=== PATIENT | female | born 1930 | race Caucasian/White ===

== ENCOUNTER 2016-08-19 12:03 | Emergency (ER) | payer OTHER, MEDICARE ==
[~2016-08-19] VITALS: Ht 175.3 cm; Wt 71.9 kg
[~2016-08-19 12:03] MED LIST: ACET-1256 PO; FERR325T74 PO; MULT-506 PO
[2016-08-19 12:09] VITALS: TEMP 36.8; Ht 175.3 cm; Wt 71.9 kg
[2016-08-19] MEDS ORDERED: SENN-61 PO (12:38)
[2016-08-19] MEDS ORDERED: SODIUM CHLORIDE 0.9% 500ML 500 ML IV STA (12:39)
[2016-08-19] MEDS ORDERED: VITA400C3 PO (12:41)
[2016-08-19 13:14] LABS: BASO % 0.3 %; BASO ABS # 0.02 K/uL (0-0.2); COMPLETE YES; EOS % 0.1 %; HEMATOCRIT 39.3 % (37-47); IG% 0.1 %; LYMPH % 13.8 %; LYMPH ABS # 0.94 K/uL (1.2-3.4); MEAN CELL VOLUME 86.9 fL (80-100); MEAN CORPUSCULAR HEMOGLOBIN 30.3 pg (25-34); MEAN CORPUSCULAR HGB CONC 34.9 g/dl (32-36); MONO % 5.9 %; NEUT % 79.8 %; PLATELET COUNT 216 K/uL (130-400); RED BLOOD COUNT 4.52 M/uL (4.2-5.4); WHITE BLOOD COUNT 6.83 K/uL (4.8-10.8)
[2016-08-19 13:30] LABS: ALT/SGPT 22 U/L (12-78); BLOOD UREA NITROGEN 9 mg/dl (7-18); BUN/CREATININE RATIO 14.7 (10-20); CALCIUM 9.5 mg/dl (8.5-10.1); CARBON DIOXIDE 27 mmol/L (21-32); CHLORIDE 98 mmol/L (98-107); CREATININE 0.62 mg/dl (0.60-1.20); GLUCOSE 109 mg/dl (70-99); MAGNESIUM 2.1 mg/dl (1.8-2.4); SODIUM 134 mmol/L (136-145)
[2016-08-19 13:38] LABS: MANUAL MICROSCOPIC REQUIRED? YES; URINE APPEARANCE SL CLOUDY (CLEAR); URINE BILIRUBIN NEG (NEG); URINE COLOR YELLOW; URINE NITRITE NEG (NEG); URINE PH 6.5 (4.5-7.5); URINE SPECIFIC GRAVITY <= 1.005 (1.000-1.030); UROBILINOGEN NEG (NEG)
[2016-08-19 13:44] LABS: REVIEW REQ? NO
[2016-08-19 13:46] LABS: ALB/GLOB RATIO 1.3 (0.9-2); ALKALINE PHOSPHATASE 56 U/L (45-117); AST/SGOT 17 U/L (15-37); THYROID STIMULATING HORMONE 0.954 uIu/ml (0.300-4.500)
[2016-08-19 14:19] LABS: URINE BACTERIA 4+ (NEG); URINE RBC 0-4 /hpf (0-4); URINE WBC >30 /hpf (0-5); ZZUR CULT IF INDIC CLEAN CATCH YES
[2016-08-19] MEDS ORDERED: CEFTRIAXONE SOD INJ 1 GM ADDVIAL IV STA (14:44)
[2016-08-19 15:03] VITALS: O2SAT 95
[2016-08-19] MEDS ORDERED: CEPH500C PO (15:03)
[2016-08-19 16:05] VITALS: BP 147/98; PULSE 76
--- NOTE | 2016-08-19 18:29 | EMERGENCY ROOM VISIT NOTE ---
History First contact with patient: 12:28 Chief Complaint: DIARRHEA Stated Complaint: DIARRHEA Nursing Triage Summary: pt reports having "incomplete stools" states I took senna about 1999 last night then drank several glasses of warm milk and then since waking his AM have had 5 loose stools , denie abdominal pain or NV History of Present Illness The patient is a 85 year old female who presents to the Emergency Room with complaints of 5 episodes of diarrhea this morning. The patient states that she has had some generalized weakness over the past few weeks. She felt like she was constipated last night and took senna around 8 PM. She went to bed, slept well, and woke up around 5 AM with her first bout of diarrhea. The patient does not have fever, chills, chest pain, shortness of breath, or abdominal pain. She states her urine has been concentrated, and she feels like she may be dehydrated. She has not been on antibiotics recently. No new medications. The patient lives at home with her . She rates her current discomfort a 0/10. The patient arrives via ambulance as she did not feel that she had enough strength to walk down the steps to get outside to her vehicle. Review of Systems More than 10 systems were reviewed and otherwise negative with the exception of history of present illness. Past Medical/Surgical History Medical Problems: (1) Benign hypertension (2) Carcinoma of colon (3) Chronic osteoarthritis (4) Colon cancer (5) Hyperlipidemia (6) lysis of adhesions (7) Partial colectomy Surgical Problems: (1) S/P hip replacement Family History Cancer Social History Smoking Status: Never Smoker Alcohol Use: none Drug Use: none Marital Status: Housing Status: lives with significant other Occupation Status: retired Current/Historical Medications Scheduled Cephalexin Monohydrate (Keflex), 500 MG PO TID Multivitamin (Multivitamin), 1 TAB PO DAILY Vitamin E (Vitamin E 400 Iu), 400 INTER.UNIT PO DAILY Scheduled PRN Acetaminophen (Tylenol), 500 TAB PO Q8 PRN for Pain or Fever Senna (Senokot), 2 TAB PO DAILY PRN for Constipation Allergies Coded Allergies: Sulfa Drugs (Verified Allergy, Mild, HIVES, 08/19/16) Aspirin (Verified Adverse Reaction, Mild, SICK TO STOMACH, 08/19/16) Physical Exam Vital Signs Date Time Temp Pulse Resp B/P Pulse Ox O2 Delivery O2 Flow Rate FiO2 08/19/16 16:05 76 147/98 08/19/16 15:03 66 18 170/77 95 08/19/16 13:17 61 18 163/75 93 Room Air 08/19/16 12:09 36.8 73 18 171/82 94 Room Air Physical Exam VITALS: Vitals are noted on the nurse's note and reviewed by myself. Vital signs stable. GENERAL: Well-developed, well-nourished, elderly white female who is resting comfortably in her ER bed. She is not toxic and is cooperative. HEAD: Normocephalic atraumatic. HEART: Regular rate and rhythm with 2/6 systolic murmur LUNGS: Clear to auscultation bilaterally without wheezes, rales or rhonchi. No retractions or accessory muscle use. ABDOMEN: Positive normal bowel sounds x 4. Soft, nontender, without masses or organomegaly. No guarding or rebound tenderness. MUSCULOSKELETAL: No muscle atrophy, erythema, or edema noted. Full range of motion without joint tenderness in all extremities. NEURO: Patient was alert and oriented to person place and time. CN II through XII grossly intact. Medical Decision & Procedures Laboratory Results 08/19/16 13:00 Red Blood Count 4.52, Mean Corpuscular Volume 86.9, Mean Corpuscular Hemoglobin 30.3, Mean Corpuscular Hemoglobin Concent 34.9, Mean Platelet Volume 10.0, Neutrophils (%) (Auto) 79.8, Lymphocytes (%) (Auto) 13.8, Monocytes (%) (Auto) 5.9, Eosinophils (%) (Auto) 0.1, Basophils (%) (Auto) 0.3, Neutrophils # (Auto) 5.45, Lymphocytes # (Auto) 0.94, Monocytes # (Auto) 0.40, Eosinophils # (Auto) 0.01, Basophils # (Auto) 0.02 08/19/16 13:00 Test 08/19/16 13:00 White Blood Count 6.83 K/uL (4.8-10.8) Red Blood Count 4.52 M/uL (4.2-5.4) Hemoglobin 13.7 g/dL (12.0-16.0) Hematocrit 39.3 % (37-47) Mean Corpuscular Volume 86.9 fL (80-100) Mean Corpuscular Hemoglobin 30.3 pg (25-34) Mean Corpuscular Hemoglobin Concent 34.9 g/dl (32-36) Platelet Count 216 K/uL (130-400) Mean Platelet Volume 10.0 fL (7.4-10.4) Neutrophils (%) (Auto) 79.8 % Lymphocytes (%) (Auto) 13.8 % Monocytes (%) (Auto) 5.9 % Eosinophils (%) (Auto) 0.1 % Basophils (%) (Auto) 0.3 % Neutrophils # (Auto) 5.45 K/uL (1.4-6.5) Lymphocytes # (Auto) 0.94 K/uL (1.2-3.4) Monocytes # (Auto) 0.40 K/uL (0.11-0.59) Eosinophils # (Auto) 0.01 K/uL (0-0.5) Basophils # (Auto) 0.02 K/uL (0-0.2) RDW Standard Deviation 43.7 fL (36.4-46.3) RDW Coefficient of Variation 13.7 % (11.5-14.5) Immature Granulocyte % (Auto) 0.1 % Immature Granulocyte # (Auto) 0.01 K/uL (0.00-0.02) Urine Color YELLOW Urine Appearance SL CLOUDY (CLEAR) Urine pH 6.5 (4.5-7.5) Urine Specific [place] <= 1.005 (1.000-1.030) Urine Protein NEG (NEG) Urine Glucose (UA) NEG (NEG) Urine Ketones TRACE (NEG) Urine Occult Blood TRACE (NEG) Urine Nitrite NEG (NEG) Urine Bilirubin NEG (NEG) Urine Urobilinogen NEG (NEG) Urine Leukocyte Esterase LARGE (NEG) Urine RBC 0-4 /hpf (0-4) Urine WBC >30 /hpf (0-5) Urine Epithelial Cells 5-10 /lpf (0-5) Urine Bacteria 4+ (NEG) Anion Gap 9.0 mmol/L (3-11) Est Creatinine Clear Calc Drug Dose 69.4 ml/min Estimated GFR () 95.3 Estimated GFR (Non- 82.2 BUN/Creatinine Ratio 14.7 (10-20) Calcium Level 9.5 mg/dl (8.5-10.1) Magnesium Level 2.1 mg/dl (1.8-2.4) Total Bilirubin 0.6 mg/dl (0.2-1) Aspartate Amino Transf (AST/SGOT) 17 U/L (15-37) Alanine Aminotransferase (ALT/SGPT) 22 U/L (12-78) Alkaline Phosphatase 56 U/L (45-117) Total Creatine Kinase 109 U/L (26-192) Creatine Kinase MB 3.3 ng/ml (0.5-3.6) Creatine Kinase MB Ratio 3.0 (0-3.0) Troponin I < 0.015 ng/ml (0-0.045) Total Protein 7.3 gm/dl (6.4-8.2) Albumin 4.1 gm/dl (3.4-5.0) Globulin 3.2 gm/dl (2.5-4.0) Albumin/Globulin Ratio 1.3 (0.9-2) Thyroid Stimulating Hormone (TSH) 0.954 uIu/ml (0.300-4.500) Medications Administered Medications (Trade) Dose Ordered Sig/Jennifer Route Start Time Stop Time Status Last Admin Dose Admin Sodium Chloride (Nss 500ml) 500 ml @ 500 mls/hr Q1H STAT IV 08/19/16 12:39 08/19/16 13:38 DC 08/19/16 12:39 500 MLS/HR Ceftriaxone Sodium (Rocephin Inj) 1 gm NOW STAT IV 08/19/16 14:44 08/19/16 14:45 DC 08/19/16 15:02 1 GM ECG Change: Normal sinus rhythm at 66 bpm with sinus arrhythmia Normal ECG When compared with ECG of 10-JUL-2015 08:33, Premature supraventricular complexes are no longer Present ED Course Physical exam and history were performed. Nursing notes and EMR were reviewed. Patient appears to have had multiple episodes of diarrhea after taking Senokot late last evening. She does not appear toxic on examination. She does describe some vague weakness over the past few weeks, and because of his IV access was established and labs were obtained. The patient was gently hydrated with normal saline. We attempted to collect a stool sample, but the patient was not able to provide one after several hours of emergency department care. The patient's blood work is as above and was reviewed. She does not have a significantly elevated white blood cell count, anemia, bandemia, or gross electrolyte imbalance. Her urine is highly suggestive of a UTI, and the patient was given 1 g IV Rocephin here as well as a prescription for Keflex for home use. Troponin 1 is negative. Her other labs are nondiagnostic. Overall the patient does appear stable for discharge home. Her diarrhea symptoms are almost assuredly from taking Senokot last evening. I discussed the case with my attending physician, Dr. Barrera, who also independently evaluated the patient. My concern is that the patient seems be having a slow and steady decline in her ability to perform her activities of daily living. She is generally healthy, and does continue to live at home independently with her . The patient has difficulty getting in and out of the house because the front entrance require her to ambulate up and down 12 stairs. In the warmer months the patient is able to exit out the back door of her home, which only requires her to go down a single stair. Her is able to pull the truck behind the house by driving through the grass, and she is essentially able to get directly into his vehicle. She is not able to do this in the winter with the snow. The patient may benefit from home health care, and possibly home physical therapy to help with some of her conditioning. She may also be a good candidate for office of aging support. The hope would be to have her remain as independent as possible, which again I feel is slowly becoming more challenging for her. I discussed this with the case management coordinator here in the ER, and we will try to get some of these services started from here. Please see the case management coordinator's note for specifics of their discussion.. The patient will need to follow with her PCP on Sunday or Sunday after the weekend, and we will help facilitate this as well. The patient was pleased with this plan and voiced understanding. She was invited back to the emergency department anytime with any new, worsening, or concerning symptoms. The chart was completed utilizing [employer] Speech Voice Recognition Software. Grammatical errors, random word insertions, pronoun errors, and incomplete sentences are an occasional consequence of this system due to software limitations, ambient noise, and hardware issues. Any formal questions or concerns about the content, text, or information contained within the body of this dictation should be directly addressed to the provider for clarification. . Medical Decision Differential diagnosis: Etiologies such as metabolic, infection, hypo/hyperglycemia, electrolyte abnormalities, cardiac sources, intracerebral event, toxicologic, neurologic, as well as others were entertained. Impression Primary Impression: Urinary tract infection Additional Impression: Diarrhea Departure Information Dispostion Home / Self-Care Condition GOOD Prescriptions Cephalexin Monohydrate (Keflex) 500 Mg Cap 500 MG PO TID for 7 Days, #21 CAP Prov: Srinivas Lantigua PA-C 08/19/16 Forms HOME CARE DOCUMENTATION FORM, IMPORTANT VISIT INFORMATION Patient Instructions My [facility] Additional Instructions You were seen and evaluated today on an emergency basis only. This is not a substitute for, or an effort to provide, complete comprehensive medical care. It is not possible to recognize and treat all injuries or illnesses in a single emergency department visit. For this reason it is recommended that you followup with your primary care physician this week for ongoing care and evaluation. Our skilled nursing case manager will try to help facilitate making this appointment for you. Cephalexin(Keflex) 500mg: Take one pill 3 times daily for 7 days for your urine infection. All antibiotics can cause diarrhea. If this occurs and you feel worse or it does not resolve in 1-2 days follow up with your doctor or return to the Emergency Department as this could be signs of serious underlying problems. Any medication can cause an allergic reaction, stop the pills immediately and return to the ER for rash, hives, breathing difficulties, or swelling. You are welcome to return to the emergency department anytime with new, worsening, or concerning symptoms. Problem Qualifiers
--- NOTE | 2016-08-21 11:51 | Pharmacy Progress Note ---
ED Pharmacist Culture FollowUp Date of Service: Aug 21, 2016. Patient was sent home with a prescription for Keflex 500mg PO TID x 7 days, which should cover the Klebsiella pneumoniae growing from the patient's urine culture.
[2016-11-29] MEDS ORDERED: SRQ25 PO (11:48)
[2016-11-29] MEDS ORDERED: LXP10 PO (11:48)
[2017-02-02] MEDS ORDERED: MGCUDL400 PO (10:49)
[2017-02-02] MEDS ORDERED: XNX25 PO (10:49)
[2017-02-02] MEDS ORDERED: EFFSR75 PO (10:49)
[2017-02-02] MEDS ORDERED: RMR15 PO (10:49)
[2017-02-02] MEDS ORDERED: CPR500 PO (10:49)
[2017-02-02] MEDS ORDERED: LSN25 PO (10:49)
[2017-02-02] MEDS ORDERED: Boost PO (10:49)
== END 2016-08-19 16:39 | disposition home or self-care (01) ==
LOC: EDBD 12:03 → C.EDC 12:04
DX: N39.0 Urinary tract infection, site not specified (principal); R19.7 Diarrhea, unspecified; I10 Essential (primary) hypertension; E78.5 Hyperlipidemia, unspecified; Z85.038 Personal history of other malignant neoplasm of large intestine

== ENCOUNTER 2016-10-21 09:09 | Emergency (ER) | payer OTHER, MEDICARE ==
[~2016-10-21 09:09] MED LIST changes: -FERR325T74 PO; +SENN-61 PO; +VITA400C3 PO
[2016-10-21 09:14] VITALS: TEMP 36.7; Ht 175.3 cm
[2016-10-21] MEDS ORDERED: MBC75 PO (09:39)
--- NOTE | 2016-10-21 09:43 | EMERGENCY ROOM VISIT NOTE ---
ED Visit Note First contact with patient: 09:19 Patient was seen by our PA/STAGE BUILDER. I was involved in the patient's care and did evaluate the patient myself. I was involved in the care throughout the ER stay. The patient has laryngitis. She has done well in the past on low dose steroids. She is not toxic or febrile. She is being discharged home.
[2016-10-21] MEDS ORDERED: PRED20TA2 PO (10:00)
[2016-10-21 10:21] VITALS: BP 172/99; PULSE 78; O2SAT 95
--- NOTE | 2016-11-02 09:26 | EMERGENCY ROOM VISIT NOTE ---
History First contact with patient: 09:19 Chief Complaint: THROAT PAIN/INJURY Stated Complaint: HEAD/THROAT COLD History of Present Illness The patient is a 85 year old white female who presents to the Emergency Room with complaints of throat discomfort since . She denies any fevers, chills, or sweats. She has been mildly dizzy. She feels somewhat congested. She notes clear rhinorrhea and some postnasal drip. She feels as though her voice is getting somewhat hoarse. She has had this in the past. Redness on his work well for her in the past. She has not contacted her PCP yet. She denies any nausea, vomiting, diarrhea, or abdominal pain. No cough. No shortness of breath. No other treatment. Review of Systems REVIEW OF SYSTEM: HEENT: No visual problems, hearing loss, or tinnitus. There is no difficulty swallowing and no oral lesions are present. PULMONARY: No cough, shortness of breath, sputum production or hemoptysis. CARDIOVASCULAR: No chest pain, palpitations, shortness of breath or peripheral edema. GASTROINTESTINAL: No diarrhea, constipation, nausea, vomiting, or abdominal pain. GENITOURINARY: No dysuria, frequency, urgency or nocturia. NEUROLOGIC: No weakness, muscle tenderness, epilepsy or history of neurological problems. MUSCULOSKELETAL: No history of joint tenderness/swelling. Positive history of arthritis and arthralgias. SKIN: No rashes or lesions. PSYCHIATRIC: No history of depression or mental illness. ENDOCRINE: No history of diabetes, thyroid disorders, or abnormal hair growth. Past Medical/Surgical History Medical Problems: (1) Benign hypertension (2) Carcinoma of colon (3) Chronic osteoarthritis (4) Colon cancer (5) Hyperlipidemia (6) lysis of adhesions (7) Partial colectomy Surgical Problems: (1) S/P hip replacement Family History Cancer Social History Smoking Status: Never Smoker Smokeless Tobacco Use: No Alcohol Use: none Drug Use: none Marital Status: Housing Status: lives with significant other Occupation Status: retired Current/Historical Medications Scheduled Azithromycin (Zithromax Z-Malcom), 1 PKT PO UD Meloxicam (Meloxicam), 1 TAB PO DAILY Prednisone (Prednisone Tab), 20 MG PO DAILY Allergies Coded Allergies: Sulfa Drugs (Verified Allergy, Mild, HIVES, 10/29/16) Aspirin (Verified Adverse Reaction, Mild, SICK TO STOMACH, 10/29/16) Physical Exam Vital Signs Date Time Temp Pulse Resp B/P (MAP) Pulse Ox O2 Delivery O2 Flow Rate FiO2 10/21/16 10:21 78 20 172/99 95 10/21/16 09:14 36.7 77 20 134/80 97 Room Air Pain Rating (0-10): 0 Physical Exam Gen.: Frail, elderly white female, in no acute distress. Sitting on a bed. Alert and oriented. Skin:Warm and dry with fair turgor. No rashes or lesions. No ecchymosis or erythema. The patient is not diaphoretic. No abrasions. HEENT: Normocephalic atraumatic. Eyes PERRLA, EOMI. No conjunctiva or scleral injection. Ears TMs intact bilaterally with good light reflexes. No erythema or bulging. No hemotympanum. Canals are patent. Nares patent bilaterally without turbinate enlargement. Clear nasal drainage. No epistaxis. Oropharynx without erythema or exudate. Uvula midline, oral mucosa moist. No lesions present. Postnasal drip is noted. Lymphatics are palpated without anterior or posterior chain enlargement or tenderness. Heart: Heart RRR. No MGR. Peripheral pulses are 2+. Lungs: Lungs are clear to auscultation. No crackles rhonchi or wheezing. Good air movement. The patient is able to take a deep breath. Musculoskeletal: Gross motor function of the upper and lower extremities is intact and unremarkable. Medical Decision & Procedures ED Course Patient and her were educated regarding today's findings. Conservative care measures were discussed. She is unable to take traditional mucolytic's due to hypertension. I will start her on some prednisone for the next few days. Maintain hydration. Tylenol every 6 hours as needed for discomfort. We will avoid Motrin due to her age. I do not think lab work is necessary at this point. Symptoms are mild. She has no respiratory symptoms and does not require imaging. If symptoms become worse, follow-up with the ED or follow up with her PCP, Dr. Rogers, this week. Patient was seen in conjunction with Dr. Atkinson, who also evaluated the patient and concurred with today's diagnosis and treatment plan. Medical Decision Possibility of viral upper respiratory infection, bacterial upper respiratory infection, strep throat, otitis media, bronchitis, pneumonia, and laryngitis were considered among others. Impression Primary Impression: Laryngitis Departure Information Dispostion Home / Self-Care Condition GOOD Forms WORK / SCHOOL INSTRUCTIONS, HOME CARE DOCUMENTATION FORM, TYLENOL USE, IMPORTANT VISIT INFORMATION Patient Instructions My Receptor Additional Instructions Tylenol every 6 hours as needed for discomfort Prednisone once daily for 5 days Follow-up with Dr. Rogers this week for reexamination Return to the ED for any other concerns Maintain hydration
[2016-11-29] MEDS ORDERED: LXP10 PO (11:48)
[2016-11-29] MEDS ORDERED: SRQ25 PO (11:48)
[2017-02-02] MEDS ORDERED: EFFSR75 PO (10:49)
[2017-02-02] MEDS ORDERED: MGCUDL400 PO (10:49)
[2017-02-02] MEDS ORDERED: Boost PO (10:49)
[2017-02-02] MEDS ORDERED: LSN25 PO (10:49)
[2017-02-02] MEDS ORDERED: XNX25 PO (10:49)
[2017-02-02] MEDS ORDERED: RMR15 PO (10:49)
[2017-02-02] MEDS ORDERED: CPR500 PO (10:49)
== END 2016-10-21 10:22 | disposition home or self-care (01) ==
LOC: C.EDB 09:10 → C.EDA 10:22
DX: J04.0 Acute laryngitis (principal); I10 Essential (primary) hypertension; Z85.038 Personal history of other malignant neoplasm of large intestine; M19.90 Unspecified osteoarthritis, unspecified site; E78.5 Hyperlipidemia, unspecified; Z90.49 Acquired absence of other specified parts of digestive tract; Z96.649 Presence of unspecified artificial hip joint; Z80.9 Family history of malignant neoplasm, unspecified; Z79.899 Other long term (current) drug therapy

== ENCOUNTER 2016-10-29 08:31 | Emergency (ER) | payer OTHER, MEDICARE ==
[~2016-10-29] VITALS: Ht 172.7 cm; Wt 73.6 kg
[~2016-10-29 08:31] MED LIST changes: -ACET-1256 PO; +MBC75 PO; -MULT-506 PO; -SENN-61 PO; -VITA400C3 PO
[2016-10-29 08:32] VITALS: TEMP 36.8; Ht 172.7 cm; Wt 73.6 kg
[2016-10-29] MEDS ORDERED: HYDROCODONE/HOMATROPINE SYRUP 5MG/1.5MG 5ML UDP PO STA (09:18)
[2016-10-29] MEDS ORDERED: ALBUT/IPRATROP 3MG/0.5MG NEB 3 ML VIAL INH STA (09:18)
--- NOTE | 2016-10-29 09:20 | EMERGENCY ROOM VISIT NOTE ---
History Report prepared by Torrie: Adonis Milton Under the Supervision of: Dr. Charli Smith M.D. First contact with patient: 09:13 Chief Complaint: COUGH Stated Complaint: CONSTANT COUGHING PROBLEM Nursing Triage Summary: pt reports cough 2 weeks tx here and given a steroid while here cont with cough states I couldnt sleep last night History of Present Illness The patient is an 85 year old female who presents to the Emergency Room with complaints of persistent coughing for the past two weeks. She was seen here last week and treated with steroids but not antibiotics. The patient's cough has persisted. She could not sleep last night secondary to cough. The patient denies fevers, syncope, leg pain or swelling. She notes that "she feels pressure on her insides" when she coughs, as she points to her chest and abdomen. She is feeling somewhat dizzy. The patient is not a smoker and there are no smokers in her household. Source of History: patient Onset: two weeks ago Position: other (respiratory) Quality: other (cough) Timing: other (persistent) Associated Symptoms: + abdominal pain (with cough), + chest pain (with cough ), No fevers Note: + Dizziness. Review of Systems See HPI for pertinent positives & negatives. A total of 10 systems reviewed and were otherwise negative. Past Medical & Surgical Medical Problems: (1) Benign hypertension (2) Carcinoma of colon (3) Chronic osteoarthritis (4) Colon cancer (5) Hyperlipidemia (6) lysis of adhesions (7) Partial colectomy Surgical Problems: (1) S/P hip replacement Family History Cancer Social History Smoking Status: Never Smoker Alcohol Use: none Drug Use: none Marital Status: Housing Status: lives with significant other Occupation Status: retired Current/Historical Medications Scheduled Azithromycin (Zithromax Z-Malcom), 1 PKT PO UD Meloxicam (Meloxicam), 1 TAB PO DAILY Prednisone (Prednisone Tab), 20 MG PO DAILY Allergies Coded Allergies: Sulfa Drugs (Verified Allergy, Mild, HIVES, 10/29/16) Aspirin (Verified Adverse Reaction, Mild, SICK TO STOMACH, 10/29/16) Physical Exam Vital Signs Date Time Temp Pulse Resp B/P Pulse Ox O2 Delivery O2 Flow Rate FiO2 10/29/16 11:43 88 20 162/86 95 10/29/16 10:33 63 20 143/88 99 10/29/16 08:54 61 16 147/75 98 Room Air 10/29/16 08:32 36.8 77 18 137/76 97 Room Air Physical Exam GENERAL: Patient is anxious appearing and in mild distress. HEENT: No acute trauma, normocephalic atraumatic, mucous membranes moist, no nasal congestion, no scleral icterus. NECK: No stridor, no adenopathy, no meningismus, trachea is midline. LUNGS: No dyspnea. Clear to auscultation and equal bilaterally. No wheeze, no rhonchi. HEART: Regular rate and rhythm. No murmurs, rubs, gallops appreciated. ABDOMEN: Soft, nontender, bowel sounds positive, no masses appreciated, no peritonitis. BACK: No midline tenderness, no CVA tenderness EXTREMITIES: Normal motion all extremities, no cyanosis, no edema. NEUROLOGIC: Alert and oriented, no acute motor or sensory deficits, no focal weakness, cranial nerves grossly intact. SKIN: No rash, no jaundice, no diaphoresis. Medical Decision & Procedures ER Provider Diagnostic Interpretation: X ray results are stated below per my interpretation and the radiologist's interpretation. CHEST ONE VIEW PORTABLE CLINICAL HISTORY: Chest pain. Cough. COMPARISON STUDY: Chest radiograph July 10, 2015. FINDINGS: Lung volumes are normal. There is no pneumothorax or pleural effusion. Cardiac size is normal. Mediastinal contours are normal. There is no evidence of pulmonary edema. IMPRESSION: No acute cardiopulmonary findings. Electronically signed by: Tomas Bond M.D. 10/29/2016 9:34 AM Dictated Date/Time: 10/29/2016 9:33 AM Laboratory Results 10/29/16 09:50 Red Blood Count 4.52, Mean Corpuscular Volume 87.4, Mean Corpuscular Hemoglobin 29.9, Mean Corpuscular Hemoglobin Concent 34.2, Mean Platelet Volume 9.4, Neutrophils (%) (Auto) 57.9, Lymphocytes (%) (Auto) 31.3, Monocytes (%) (Auto) 9.4, Eosinophils (%) (Auto) 0.7, Basophils (%) (Auto) 0.5, Neutrophils # (Auto) 2.54, Lymphocytes # (Auto) 1.37, Monocytes # (Auto) 0.41, Eosinophils # (Auto) 0.03, Basophils # (Auto) 0.02 10/29/16 09:50 Test 10/29/16 09:50 White Blood Count 4.38 K/uL (4.8-10.8) Red Blood Count 4.52 M/uL (4.2-5.4) Hemoglobin 13.5 g/dL (12.0-16.0) Hematocrit 39.5 % (37-47) Mean Corpuscular Volume 87.4 fL (80-100) Mean Corpuscular Hemoglobin 29.9 pg (25-34) Mean Corpuscular Hemoglobin Concent 34.2 g/dl (32-36) Platelet Count 250 K/uL (130-400) Mean Platelet Volume 9.4 fL (7.4-10.4) Neutrophils (%) (Auto) 57.9 % Lymphocytes (%) (Auto) 31.3 % Monocytes (%) (Auto) 9.4 % Eosinophils (%) (Auto) 0.7 % Basophils (%) (Auto) 0.5 % Neutrophils # (Auto) 2.54 K/uL (1.4-6.5) Lymphocytes # (Auto) 1.37 K/uL (1.2-3.4) Monocytes # (Auto) 0.41 K/uL (0.11-0.59) Eosinophils # (Auto) 0.03 K/uL (0-0.5) Basophils # (Auto) 0.02 K/uL (0-0.2) RDW Standard Deviation 45.1 fL (36.4-46.3) RDW Coefficient of Variation 14.1 % (11.5-14.5) Immature Granulocyte % (Auto) 0.2 % Immature Granulocyte # (Auto) 0.01 K/uL (0.00-0.02) Anion Gap 4.0 mmol/L (3-11) Est Creatinine Clear Calc Drug Dose 61.0 ml/min Estimated GFR () 92.4 Estimated GFR (Non- 79.8 BUN/Creatinine Ratio 11.1 (10-20) Calcium Level 8.9 mg/dl (8.5-10.1) Troponin I < 0.015 ng/ml (0-0.045) Laboratory results as reviewed by me. Medications Administered Medications (Trade) Dose Ordered Sig/Jennifer Route Start Time Stop Time Status Last Admin Dose Admin Hydrocodone Bit/ Homatropine Methylb (Hycodan Syrup) 5 ml NOW STAT PO 10/29/16 09:18 10/29/16 09:19 DC 10/29/16 09:37 5 ML Albuterol/ Ipratropium (Duoneb) 3 ml NOW STAT INH 10/29/16 09:18 10/29/16 09:19 DC 10/29/16 09:37 3 ML Hydrocodone Bit/ Homatropine Methylb (Hycodan Elix Homepack 5/1.5MG/ 5ML) 1 homepack UD STAT PO 10/29/16 11:10 10/29/16 11:11 DC 10/29/16 11:24 1 HOMEPACK Azithromycin (Zithromax Tab) 500 mg NOW STAT PO 10/29/16 11:10 10/29/16 11:11 DC 10/29/16 11:25 500 MG Prednisone (PredniSONE TAB) 40 mg NOW STAT PO 10/29/16 11:10 10/29/16 11:11 DC 10/29/16 11:24 40 MG ECG Indication: chest pain (with cough) Rate (beats per minute): 64 Rhythm: normal sinus Findings: no acute ischemic change, no ectopy ED Course 0915: The patient was evaluated in room C9. A complete history and physical exam was performed. 0918: DuoNeb 3 ml INH, Hycodan Syrup 5 ml PO. 1108: Reassessed the patient. Discussed the findings with her. She verbalized understanding. The patient is ready for discharge. 1110: Prednisone 40 mg PO, Zithromax 500 mg PO, Hycodan 5/1.5 mg PO homepack. Medical Decision Differential: Infectious, Reactive Airway Disease, Pneumonia, Pneumothorax, COPD , CHF, ACS, Pulmonary Embolism, MSK, GI, Dissection, amongst other etiologies entertained. Medication Reconciliation: I attest that I have personally reviewed the patient 's current medication list. 85 yr old female arrives with complaint of persistent cough worsening over last day to point where she can not sleep. Lungs clear but requesting neb treatment which seems reasonable to see if that helps with cough. Given Hycodan as well which helped significantly. Stable with normal imaging, normal labs. No evidence of ACS. Vitals normal. Discussed CT PE study though with no further symptoms and normal vitals family feels comfortable with avoiding imaging given risks, especially given with similar symptoms just last week. No PE risk factors either. Will treat with zpack and repeat steroids and home hycodan. Discussed risks of hycodan. Without wheezing I do not feel that neb or alb at home is required. Aware if worsening or other concerns, RTED for further evaluation. Have requested patient follow up with PCP later this week. Family comfortable with this. Impression Primary Impression: Bronchitis Additional Impression: Persistent cough Scribe Attestation The scribe's documentation has been prepared under my direction and personally reviewed by me in its entirety. I confirm that the note above accurately reflects all work, treatment, procedures, and medical decision making performed by me. Departure Information Dispostion Home / Self-Care Prescriptions Azithromycin (ZITHROMAX Z-MALCOM) 250 Mg Tab 1 PKT PO UD, #1 PKT Prov: Charli Smith M.D. 10/29/16 Prednisone (Prednisone Tab) 20 Mg Tab 20 MG PO DAILY for 5 Days, #5 TAB Prov: Charli Smith M.D. 10/29/16 Referrals No Doctor, Assigned (PCP) Forms HOME CARE DOCUMENTATION FORM, IMPORTANT VISIT INFORMATION Patient Instructions Bronchitis Acute, My [facility] Additional Instructions You have received a narcotic cough medication prescription. These medications may cause drowsiness and should not be used with other sedative medications. Do not drive, drink alcohol, perform dangerous activities, nor make important decisions after taking these medications. longterm use or inappropriate use may lead to addiction. Problem Qualifiers
--- NOTE | 2016-10-29 09:35 | DIAGNOSTIC IMAGING REPORT ---
CHEST ONE VIEW PORTABLE CLINICAL HISTORY: Chest pain. Cough. COMPARISON STUDY: Chest radiograph July 10, 2015. FINDINGS: Lung volumes are normal. There is no pneumothorax or pleural effusion. Cardiac size is normal. Mediastinal contours are normal. There is no evidence of pulmonary edema. IMPRESSION: No acute cardiopulmonary findings. Electronically signed by: Tomas Bond M.D. 10/29/2016 9:34 AM Dictated Date/Time: 10/29/2016 9:33 AM
[2016-10-29 10:12] LABS: BASO % 0.5 %; BASO ABS # 0.02 K/uL (0-0.2); COMPLETE YES; EOS % 0.7 %; HEMATOCRIT 39.5 % (37-47); IG% 0.2 %; LYMPH % 31.3 %; LYMPH ABS # 1.37 K/uL (1.2-3.4); MEAN CELL VOLUME 87.4 fL (80-100); MEAN CORPUSCULAR HEMOGLOBIN 29.9 pg (25-34); MEAN CORPUSCULAR HGB CONC 34.2 g/dl (32-36); MEAN PLATELET VOLUME 9.4 fL (7.4-10.4); MONO % 9.4 %; NEUT % 57.9 %; PLATELET COUNT 250 K/uL (130-400); RED BLOOD COUNT 4.52 M/uL (4.2-5.4); WHITE BLOOD COUNT 4.38 K/uL (4.8-10.8)
[2016-10-29 10:40] LABS: BLOOD UREA NITROGEN 8 mg/dl (7-18); BUN/CREATININE RATIO 11.1 (10-20); CALCIUM 8.9 mg/dl (8.5-10.1); CARBON DIOXIDE 30 mmol/L (21-32); CHLORIDE 99 mmol/L (98-107); CREATININE 0.68 mg/dl (0.60-1.20); GLUCOSE 92 mg/dl (70-99)
[2016-10-29 10:45] LABS: POTASSIUM 4.2 mmol/L (3.5-5.1); SODIUM 133 mmol/L (136-145)
[2016-10-29] MEDS ORDERED: AZITTAB PO (11:09)
[2016-10-29] MEDS ORDERED: PRED20TA2 PO (11:09)
[2016-10-29] MEDS ORDERED: HYCODAN 60ML BOTTLE HOMEPACK PO STA (11:10)
[2016-10-29] MEDS ORDERED: AZITHROMYCIN 250 MG TAB PO STA (11:10)
[2016-10-29 11:43] VITALS: BP 162/86; PULSE 88; O2SAT 95
[2016-11-29] MEDS ORDERED: SRQ25 PO (11:48)
[2016-11-29] MEDS ORDERED: LXP10 PO (11:48)
[2017-02-02] MEDS ORDERED: RMR15 PO (10:49)
[2017-02-02] MEDS ORDERED: MGCUDL400 PO (10:49)
[2017-02-02] MEDS ORDERED: EFFSR75 PO (10:49)
[2017-02-02] MEDS ORDERED: XNX25 PO (10:49)
[2017-02-02] MEDS ORDERED: LSN25 PO (10:49)
[2017-02-02] MEDS ORDERED: CPR500 PO (10:49)
[2017-02-02] MEDS ORDERED: Boost PO (10:49)
== END 2016-10-29 11:47 | disposition home or self-care (01) ==
LOC: C.EDB 08:32 → C.EDC 11:47
DX: J40 Bronchitis, not specified as acute or chronic (principal); I10 Essential (primary) hypertension; Z85.038 Personal history of other malignant neoplasm of large intestine; E78.5 Hyperlipidemia, unspecified; Z90.49 Acquired absence of other specified parts of digestive tract; Z96.649 Presence of unspecified artificial hip joint; M19.90 Unspecified osteoarthritis, unspecified site; Z80.9 Family history of malignant neoplasm, unspecified; Z79.899 Other long term (current) drug therapy

== ENCOUNTER → 2016-11-20 | Outpatient (CLI) | payer OTHER, MEDICARE ==
[~2016-11-20] MED LIST changes: +ACET-1256 PO; +Boost PO; +CPR500 PO; +EFFSR75 PO; +ESCI1TAB6 PO; +LSN25 PO; +LXP10 PO; +MELA1TAB5 PO; +MGCUDL400 PO; +MULT-845 PO; +PARO10TA PO; +PRED20TA2 PO; +RMR15 PO; +SRQ25 PO; +XNX25 PO
[2016-11-20 17:35] LABS: BASO % 0.5 %; BASO ABS # 0.02 K/uL (0-0.2); COMPLETE YES; EOS % 1.3 %; HEMATOCRIT 39.9 % (37-47); LYMPH ABS # 1.36 K/uL (1.2-3.4); MEAN CELL VOLUME 88.3 fL (80-100); MEAN CORPUSCULAR HEMOGLOBIN 29.4 pg (25-34); MEAN CORPUSCULAR HGB CONC 33.3 g/dl (32-36); MEAN PLATELET VOLUME 10.2 fL (7.4-10.4); NEUT % 54.2 %; PLATELET COUNT 244 K/uL (130-400); RED BLOOD COUNT 4.52 M/uL (4.2-5.4); WHITE BLOOD COUNT 3.89 K/uL (4.8-10.8)
[2016-11-20 17:44] LABS: ALT/SGPT 23 U/L (12-78); AST/SGOT 15 U/L (15-37); BLOOD UREA NITROGEN 8 mg/dl (7-18); BUN/CREATININE RATIO 13.8 (10-20); CALCIUM 8.6 mg/dl (8.5-10.1); CARBON DIOXIDE 26 mmol/L (21-32); CHLORIDE 97 mmol/L (98-107); GLUCOSE 103 mg/dl (70-99); POTASSIUM 3.8 mmol/L (3.5-5.1); SODIUM 130 mmol/L (136-145)
[2016-11-20 17:55] LABS: ALB/GLOB RATIO 1.2 (0.9-2); ALKALINE PHOSPHATASE 54 U/L (45-117); THYROID STIMULATING HORMONE 0.981 uIu/ml (0.300-4.500)
== END | disposition home or self-care (01) ==
LOC: C.LABBFT 13:59
PROVIDERS: ATTEND Internal Medicine
DX: E55.9 Vitamin D deficiency, unspecified (principal); C18.9 Malignant neoplasm of colon, unspecified; F41.9 Anxiety disorder, unspecified

== ENCOUNTER 2016-11-26 10:36 | Inpatient (IN) | payer OTHER, MEDICARE ==
[2016-11-26] VITALS (7 sets, daily range): BP systolic 139–173; BP diastolic 65–76; PULSE 56–65; TEMP 36.2–36.9; O2SAT 92–100; Ht 175.3 cm; Wt 61.7 kg
[~2016-11-26] VITALS: Ht 175.3 cm; Wt 61.7 kg
[~2016-11-26 10:36] MED LIST changes: -ACET-1256 PO; -Boost PO; -CPR500 PO; -EFFSR75 PO; -ESCI1TAB6 PO; -LSN25 PO; -LXP10 PO; -MELA1TAB5 PO; -MGCUDL400 PO; -MULT-845 PO; -PARO10TA PO; -RMR15 PO; -SRQ25 PO; -XNX25 PO
[2016-11-26] MEDS ORDERED: SODIUM CHLORIDE 0.9% 500ML 500 ML IV STA (10:58)
[2016-11-26 11:13] LABS: BASO % 0.2 %; BASO ABS # 0.01 K/uL (0-0.2); COMPLETE YES; EOS % 0.2 %; HEMATOCRIT 39.2 % (37-47); IG% 0.2 %; LYMPH % 11.9 %; LYMPH ABS # 0.72 K/uL (1.2-3.4); MEAN CELL VOLUME 87.3 fL (80-100); MEAN CORPUSCULAR HEMOGLOBIN 30.1 pg (25-34); MEAN CORPUSCULAR HGB CONC 34.4 g/dl (32-36); MEAN PLATELET VOLUME 9.9 fL (7.4-10.4); MONO % 6.1 %; NEUT % 81.4 %; PLATELET COUNT 219 K/uL (130-400); RED BLOOD COUNT 4.49 M/uL (4.2-5.4); WHITE BLOOD COUNT 6.07 K/uL (4.8-10.8)
--- NOTE | 2016-11-26 11:13 | DIAGNOSTIC IMAGING REPORT ---
CHEST ONE VIEW PORTABLE CLINICAL HISTORY: EVALUATE WEAKNESS mental status change COMPARISON STUDY: 10/29/2016 FINDINGS: The bones soft tissues and hemidiaphragms are normal. The cardiomediastinal silhouette is normal. The lungs are clear. The pulmonary vasculature is normal. IMPRESSION: Negative chest. Electronically signed by: Brenden Patel M.D. 11/26/2016 11:12 AM Dictated Date/Time: 11/26/2016 11:11 AM
[2016-11-26 11:26] LABS: PROTHROMBIN TIME (PATIENT) 11.2 SECONDS (9.0-12.0)
[2016-11-26 11:37] LABS: ALKALINE PHOSPHATASE 52 U/L (45-117); ALT/SGPT 25 U/L (12-78); AST/SGOT 19 U/L (15-37); BLOOD UREA NITROGEN 7 mg/dl (7-18); CALCIUM 9.2 mg/dl (8.5-10.1); CARBON DIOXIDE 25 mmol/L (21-32); CHLORIDE 92 mmol/L (98-107); CREATININE 0.83 mg/dl (0.60-1.20); GLUCOSE 141 mg/dl (70-99); MAGNESIUM 2.1 mg/dl (1.8-2.4); POTASSIUM 3.5 mmol/L (3.5-5.1); SODIUM 129 mmol/L (136-145)
--- NOTE | 2016-11-26 11:53 | DIAGNOSTIC IMAGING REPORT ---
HEAD CT NONCONTRAST CT DOSE: HISTORY: Mental status change EVALUATE WEAKNESS TECHNIQUE: Multiaxial CT images of the head were performed without the use of intravenous contrast. Comparison: None. Findings: The paranasal sinuses and mastoid air cells are clear. The calvarium and skull base are intact. The ventricles and sulci are within normal limits. There is no mass, hematoma, midline shift, or acute infarct. Chronic small vessel change. Impression: No acute intracranial abnormality. Chronic and age-related change. Electronically signed by: Brenden Patel M.D. 11/26/2016 11:52 AM Dictated Date/Time: 11/26/2016 11:51 AM
--- NOTE | 2016-11-26 11:55 | DIAGNOSTIC IMAGING REPORT ---
CERVICAL SPINE CT CT DOSE: 966.74 mGy.cm HISTORY: Trauma. Pain. fall neck pain TECHNIQUE: Multiaxial CT images of the cervical spine were performed and reformatted in the sagittal and coronal plane without the use of contrast. COMPARISON: None. FINDINGS: No fractures. No subluxation. Prevertebral soft tissues and the C1-C2 interval are intact. No pneumothorax. Moderate degenerative change. Straightening of normal cervical curvature. IMPRESSION: No fractures within the cervical spine. Moderate degenerative change. Muscle spasm. Electronically signed by: Brenden Patel M.D. 11/26/2016 11:54 AM Dictated Date/Time: 11/26/2016 11:52 AM
[2016-11-26] MEDS ORDERED: PARO10TA PO (12:04)
[2016-11-26] MEDS ORDERED: ACET-1256 PO (12:05)
[2016-11-26] MEDS ORDERED: MULT-845 PO (12:05)
[2016-11-26 12:21] LABS: URINE APPEARANCE CLEAR (CLEAR); URINE BILIRUBIN NEG (NEG); URINE COLOR YELLOW; URINE EPITHELIAL CELL AUTO >30 /lpf (0-5); URINE NITRITE NEG (NEG); URINE PH 7.5 (4.5-7.5); URINE SPECIFIC GRAVITY 1.012 (1.000-1.030); UROBILINOGEN NEG (NEG); ZZURINE CULT IF INDIC CATH NO
[2016-11-26 12:27] LABS: MANUAL MICROSCOPIC REQUIRED? NO; REVIEW REQ? YES
[2016-11-26 12:36] LABS: SULFASALICYLIC ACID NEG (NEG)
--- NOTE | 2016-11-26 12:41 | EMERGENCY ROOM VISIT NOTE ---
History Report prepared by Torrie: Pascale Aaron Under the Supervision of: Dr. Fermin Barrera D.O. First contact with patient: 10:41 Chief Complaint: WEAKNESS Stated Complaint: NAUSEA, SHAKES History of Present Illness The patient is a 85 year old female who presents to the Emergency Room with complaints of an episode of a fall beginning just [employer]. The patient states that she woke up this morning and did not eat breakfast. She reports that she got dressed and was standing in front of a chair when she felt weak and dizzy and loss consciousness. She notes that she fell to the floor onto her left side and hit her head. The patient complains of weakness, shakiness, head pain, neck pain , chest soreness that began after she fell, left hip pain, and congestion. She denies any shortness of breath, nausea, vomiting, cough, abdominal pain, urinary symptoms, and swelling in the legs. She states that she was on her floor for a few minutes and was able to pull herself up into the chair after she fell and her chest became sore as she pulled herself up. She notes that she knew where she was when she woke up and is not sure if she has ever fallen before. The patient's states that the patient has been weak lately and has not been eating regularly. Per review of her records, the patient was seen here in October for bronchitis. She notes that she is not on any blood thinners. Source of History: patient Onset: just [employer] Position: other (global) Quality: other (fall) Timing: other (episode) Associated Symptoms: + LOC, + headache, + neck pain, + chest pain, No cough , No SOB, No nausea, No vomiting, No abdominal pain, No urinary symptoms Note: The patient complains of dizziness, shakiness, left hip pain, and congestion. She denies any swelling in the legs. Review of Systems See HPI for pertinent positives & negatives. A total of 10 systems reviewed and were otherwise negative. Past Medical & Surgical Medical Problems: (1) Benign hypertension (2) Carcinoma of colon (3) Chronic osteoarthritis (4) Colon cancer (5) Hyperlipidemia (6) lysis of adhesions (7) Partial colectomy Surgical Problems: (1) S/P hip replacement Family History Cancer Social History Smoking Status: Never Smoker Alcohol Use: none Drug Use: none Marital Status: Housing Status: lives with significant other Occupation Status: retired Current/Historical Medications Scheduled Acetaminophen (Tylenol), 500 MG PO HS Multiple Vitamins W/ Minerals (Centrum Silver Adult 50+), 1 TAB PO DAILY Paroxetine Hcl (Paxil), 10 MG PO DAILY Allergies Coded Allergies: Sulfa Drugs (Verified Allergy, Mild, HIVES, 11/26/16) Aspirin (Verified Adverse Reaction, Mild, SICK TO STOMACH, 11/26/16) Physical Exam Vital Signs Date Time Temp Pulse Resp B/P (MAP) Pulse Ox O2 Delivery O2 Flow Rate FiO2 11/26/16 13:41 67 97 11/26/16 13:31 159/71 11/26/16 13:11 64 15 99 11/26/16 13:01 153/88 11/26/16 13:00 100 Room Air 11/26/16 12:41 61 17 100 11/26/16 12:31 169/96 11/26/16 12:11 57 100 11/26/16 12:06 56 22 100 11/26/16 12:02 160/100 11/26/16 11:31 146/81 11/26/16 11:28 145/75 11/26/16 11:26 144/73 11/26/16 11:25 56 20 144/73 100 Room Air 59 145/75 73 146/81 11/26/16 11:23 96 Room Air 11/26/16 11:06 55 16 100 11/26/16 11:01 158/75 11/26/16 10:50 85 Room Air 11/26/16 10:45 55 11/26/16 10:44 142/74 11/26/16 10:39 36.5 55 16 142/74 Physical Exam GENERAL: sitting up in bed, disheveled, anxious, alert, well appearing, well nourished, no distress, non-toxic HEAD: normal cephalic, atraumatic EYE EXAM: normal conjunctiva, PERRL and EOM's grossly intact OROPHARYNX: no exudate, no erythema, lips, buccal mucosa, and tongue normal and mucous membranes are moist. Small bruise on left lower lip EARS: TMs clear b/l NECK: supple, no nuchal rigidity, no adenopathy, non-tender CHEST: stable to compression anteriorly and posteriorly. Tenderness over left chest wall on palpation. LUNGS: clear to auscultation. Normal chest wall mechanics HEART: no murmurs, S1 normal and S2 normal ABDOMEN: abdomen soft, non-tender, normo-active bowel sounds, no masses, no rebound or guarding. PELVIS: stable to compression anteriorly and posteriorly BACK: Back is symmetrical on inspection and there is no deformity, no midline tenderness, no CVA tenderness. UPPER EXTREMITIES: full active and passive range of motion of all joints without tenderness to palpation LOWER EXTREMITIES: full active and passive range of motion of all joints without tenderness to palpation. Calves are equal bilaterally NEURO EXAM: Normal sensorium, cranial nerves II-XII intact, normal speech, no weakness of arms, no weakness of legs. GCS: 15. Finger to nose intact. Medical Decision & Procedures ER Provider Diagnostic Interpretation: Radiology results as stated below per my review and the radiologist's interpretation: HEAD CT NONCONTRAST Findings: The paranasal sinuses and mastoid air cells are clear. The calvarium and skull base are intact. The ventricles and sulci are within normal limits. There is no mass, hematoma, midline shift, or acute infarct. Chronic small vessel change. Impression: No acute intracranial abnormality. Chronic and age-related change. Electronically signed by: Brenden Patel M.D. 11/26/2016 11:52 AM Dictated Date/Time: 11/26/2016 11:51 AM CHEST ONE VIEW PORTABLE FINDINGS: The bones soft tissues and hemidiaphragms are normal. The cardiomediastinal silhouette is normal. The lungs are clear. The pulmonary vasculature is normal. IMPRESSION: Negative chest. Electronically signed by: Brenden Patel M.D. 11/26/2016 11:12 AM Dictated Date/Time: 11/26/2016 11:[address] FINDINGS: No fractures. No subluxation. Prevertebral soft tissues and the C1-C2 interval are intact. No pneumothorax. Moderate degenerative change. Straightening of normal cervical curvature. IMPRESSION: No fractures within the cervical spine. Moderate degenerative change. Muscle spasm. Electronically signed by: Brenden Patel M.D. 11/26/2016 11:54 AM Dictated Date/Time: 11/26/2016 11:52 AM Laboratory Results 11/26/16 10:53 Red Blood Count 4.49, Mean Corpuscular Volume 87.3, Mean Corpuscular Hemoglobin 30.1, Mean Corpuscular Hemoglobin Concent 34.4, Mean Platelet Volume 9.9, Neutrophils (%) (Auto) 81.4, Lymphocytes (%) (Auto) 11.9, Monocytes (%) (Auto) 6.1, Eosinophils (%) (Auto) 0.2, Basophils (%) (Auto) 0.2, Neutrophils # (Auto) 4.95, Lymphocytes # (Auto) 0.72, Monocytes # (Auto) 0.37, Eosinophils # (Auto) 0.01, Basophils # (Auto) 0.01 11/26/16 10:53 Test 11/26/16 10:49 11/26/16 10:53 11/26/16 12:02 Bedside Glucose 125 mg/dl (70-90) White Blood Count 6.07 K/uL (4.8-10.8) Red Blood Count 4.49 M/uL (4.2-5.4) Hemoglobin 13.5 g/dL (12.0-16.0) Hematocrit 39.2 % (37-47) Mean Corpuscular Volume 87.3 fL (80-100) Mean Corpuscular Hemoglobin 30.1 pg (25-34) Mean Corpuscular Hemoglobin Concent 34.4 g/dl (32-36) Platelet Count 219 K/uL (130-400) Mean Platelet Volume 9.9 fL (7.4-10.4) Neutrophils (%) (Auto) 81.4 % Lymphocytes (%) (Auto) 11.9 % Monocytes (%) (Auto) 6.1 % Eosinophils (%) (Auto) 0.2 % Basophils (%) (Auto) 0.2 % Neutrophils # (Auto) 4.95 K/uL (1.4-6.5) Lymphocytes # (Auto) 0.72 K/uL (1.2-3.4) Monocytes # (Auto) 0.37 K/uL (0.11-0.59) Eosinophils # (Auto) 0.01 K/uL (0-0.5) Basophils # (Auto) 0.01 K/uL (0-0.2) RDW Standard Deviation 45.2 fL (36.4-46.3) RDW Coefficient of Variation 14.1 % (11.5-14.5) Immature Granulocyte % (Auto) 0.2 % Immature Granulocyte # (Auto) 0.01 K/uL (0.00-0.02) Prothrombin Time 11.2 SECONDS (9.0-12.0) Prothromb Time International Ratio 1.0 (0.9-1.1) Activated Partial Thromboplast Time 25.8 SECONDS (21.0-31.0) Partial Thromboplastin Ratio 1.0 Anion Gap 12.0 mmol/L (3-11) Est Creatinine Clear Calc Drug Dose 51.8 ml/min Estimated GFR () 74.5 Estimated GFR (Non- 64.3 BUN/Creatinine Ratio 8.0 (10-20) Calcium Level 9.2 mg/dl (8.5-10.1) Magnesium Level 2.1 mg/dl (1.8-2.4) Total Bilirubin 0.8 mg/dl (0.2-1) Direct Bilirubin mg/dl (0-0.2) Aspartate Amino Transf (AST/SGOT) 19 U/L (15-37) Alanine Aminotransferase (ALT/SGPT) 25 U/L (12-78) Alkaline Phosphatase 52 U/L (45-117) Troponin I < 0.015 ng/ml (0-0.045) Total Protein 7.1 gm/dl (6.4-8.2) Albumin 3.9 gm/dl (3.4-5.0) Lipase 166 U/L (73-393) Thyroid Stimulating Hormone (TSH) 1.760 uIu/ml (0.300-4.500) Chemistry Specimen Hemolysis Urine Color YELLOW Urine Appearance CLEAR (CLEAR) Urine pH 7.5 (4.5-7.5) Urine Specific [place] 1.012 (1.000-1.030) Urine Protein NEG (NEG) Urine Glucose (UA) NEG (NEG) Urine Ketones TRACE (NEG) Urine Occult Blood NEG (NEG) Urine Nitrite NEG (NEG) Urine Bilirubin NEG (NEG) Urine Urobilinogen NEG (NEG) Urine Leukocyte Esterase NEG (NEG) Urine WBC (Auto) 1-5 /hpf (0-5) Urine RBC (Auto) 0-4 /hpf (0-4) Urine Hyaline Casts (Auto) 1-5 /lpf (0-5) Urine Epithelial Cells (Auto) >30 /lpf (0-5) Urine Bacteria (Auto) NEG (NEG) Urine Renal Epithelial Cells /lpf (0-5) Laboratory results per my review. Medications Administered Medications (Trade) Dose Ordered Sig/Jennifer Route Start Time Stop Time Status Last Admin Dose Admin Sodium Chloride 500 ml @ 999 mls/hr Q31M STAT IV 11/26/16 10:58 11/26/16 11:28 DC 11/26/16 12:05 999 MLS/HR ECG Indication: chest pain Rate (beats per minute): 55 Rhythm: sinus bradycardia Findings: other (normal axis, normal intervals) ED Course ED COURSE: Vital signs were reviewed and showed hypertension and bradycardia The patients medical record was reviewed The above diagnostic studies were performed and reviewed. ED treatments and interventions as stated above. 1041: The patient was evaluated in room B3. A complete history and physical examination was performed. 1058: Sodium Chloride 500 ml @ 999 mls/hr IV. 1228: I reviewed the patient's case with Dr. Medina of [facility]. She will evaluate the patient for further management. 1237: Upon reevaluation, the patient is doing well.I discussed my findings with the patient and she understands and agrees with the treatment plan. Based on the patients age, coexisting illnesses, exam and lab findings the decision to treat as an inpatient was made. The patient remained stable while under my care. The patient will be evaluated for further management. Medical Decision Differential diagnosis includes etiologies such as vasovagal event, infection, hypoglycemia, electrolyte abnormalities, cardiac sources, intracerebral event, toxicologic, neurologic, as well as others were entertained. Blood pressure screening: Patient was found to have an elevated blood pressure. Medication Reconciliation: I attest that I have personally reviewed the patient' s current medication list. Patient is an 85-year-old female who presents the ER for syncope along with diffuse weakness and she is not been eating and drinking. She does admit that she is fairly anxious about multiple things. CT head and cervical spine were negative. Chest x-ray was unremarkable. EKG was unremarkable. Troponin was negative. Labs show a mild hyponatremia at 129. Troponin was negative. UA was negative. EKG was nondiagnostic. Patient was given a bolus normal saline. With her weakness and syncope I discussed case with internal medicine for further workup as an inpatient. Consults Time Called: [id number] Consulting Physician: Dr. Medina - [facility] [place] Returned Call: [phone] I reviewed the patient's case with Dr. Medina of [facility] [place]. She will evaluate the patient for further management. Impression Primary Impression: Syncope Additional Impression: Hyponatremia Scribe Attestation The scribe's documentation has been prepared under my direction and personally reviewed by me in its entirety. I confirm that the note above accurately reflects all work, treatment, procedures, and medical decision making performed by me. Departure Information Dispostion Being Evaluated By Hospitalist Referrals Angelito Rogers M.D. (PCP) Patient Instructions My [facility] Problem Qualifiers Primary Impression: Syncope Syncope type: unspecified Qualified Codes: R55 - Syncope and collapse
[2016-11-26] MEDS ORDERED: OPTIRAY 320 IV PRN (13:45)
[2016-11-26] MEDS ORDERED: ACETAMINOPHEN 325 MG TAB PO PRN (13:45)
[2016-11-26] MEDS ORDERED: MAGNESIUM HYDROXIDE SUSP 30 ML UDC PO PRN (13:45)
[2016-11-26] MEDS ORDERED: ONDANSETRON INJ 2 MG/ML 2 ML VIAL IV PRN (13:45)
[2016-11-26] MEDS ORDERED: SODIUM CHLORIDE 0.9% 1000ML 1,000 ML IV SCH (13:45)
--- NOTE | 2016-11-26 14:01 | History and Physical ---
History & Physical Date & Time of Service: Nov 26, 2016 at 13:43 Chief Complaint: Nausea, Shakes Primary Care Physician: Angelito Rogers M.D. History of Present Illness Source: patient, family, spouse 85 y/o F who was brought to the ED s/p syncope with collapse earlier today. Pt has no prior hx of this. She fell onto her L side and hit her head while her was out of the home. She was able to pull herself up with great effort. Currently, she feels anxious and "like my head is all mixed up". Family states that pt has been having a lot of anxiety and shakiness over the last few months. She was seen by her PCP and started on paroxitine on 11/20, but states that it has not helped her yet. She does not feel worse on this, but thought that it would work right away. states that in the mornings , pt is "fussy and like she don't know what to do with herself". She has periods of confusion. She has stopped cooking because she is worried that "I can't do it right". She does not take a bath or shower now because she is afraid of falling and having another hip fracture. Her daughter has offered to come help her with this, but she declines. She states she is always nervous that she will spill something or do something wrong. is concerned for possible Alzheimer's as she is frequently forgetful. She has had gradually declining PO intake. She does take food but "not enough" . She states she feels hungry, but that she does not eat much due to "my bowels aren't right". She has not had a bowel movement since Sunday and she states that this happens frequently. She takes Metamucil daily. Pt has hx of colon ca about 4 years ago. She has not had any f/u c-scopes or other testing. She followed with Dr. Golden prior to his custodial. No tomer abd pain, but "it doesn't feel right". Pt notes she has had urinary incontinence recently. No dysuria or blood noted. Does urinate frequently. Pt has chest pain at present, but this was not present prior to her fall and was noted after she pulled herself off of the floor. No SOB, but states it has "felt tight" since she finished recent tx for bronchitis. She only had 5 days of prednisone and completed this around 11/06. Pt denies fever, n/v, LE pain or swelling. Past Medical/Surgical History OA Anxiety Colon ca Family History Family history was reviewed; no changes noted. Social History Smoking Status: Former Smoker Alcohol Use: none Drug Use: none Marital Status: Housing status: lives with family Occupational Status: retired Immunizations History of Influenza Vaccine: No Influenza Vaccine Date: Mar 04, 2011 History of Tetanus Vaccine?: UNK History of Pneumococcal: Yes Pneumococcal Date: Jul 29, 2011 History of Hepatitis B Vaccine: No Multi-Drug Resistant Organisms History of MDRO: No Allergies Coded Allergies: Sulfa Drugs (Verified Allergy, Mild, HIVES, 11/26/16) Aspirin (Verified Adverse Reaction, Mild, SICK TO STOMACH, 11/26/16) Home Medications Scheduled Acetaminophen (Tylenol), 500 MG PO HS Multiple Vitamins W/ Minerals (Centrum Silver Adult 50+), 1 TAB PO DAILY Paroxetine Hcl (Paxil), 10 MG PO DAILY Review of Systems Reviewed and negative Physical Exam Vital Signs Date Time Temp Pulse Resp B/P (MAP) Pulse Ox O2 Delivery O2 Flow Rate FiO2 11/26/16 13:00 100 Room Air 11/26/16 12:06 56 22 100 11/26/16 12:02 160/100 11/26/16 11:31 146/81 11/26/16 11:28 145/75 11/26/16 11:26 144/73 11/26/16 11:25 56 20 144/73 100 Room Air 59 145/75 73 146/81 11/26/16 11:23 96 Room Air 11/26/16 11:06 55 16 100 11/26/16 11:01 158/75 11/26/16 10:50 85 Room Air 11/26/16 10:45 55 11/26/16 10:44 142/74 11/26/16 10:39 36.5 55 16 142/74 General Appearance: + mild distress (nervious and shaking), + thin Head: normocephalic, atraumatic Eyes: normal inspection, sclerae normal Respiratory/Chest: normal breath sounds, no respiratory distress, + pertinent finding (chest pain reproducible with palpation) Cardiovascular: no edema, + bradycardia Abdomen/GI: soft, + tenderness (diffuse) Extremities/Musculoskelatal: no calf tenderness, no pedal edema Neurologic/Psych: alert, oriented x 3, + pertinent finding (very anxious, answers most questions but defers to family frequently, moving all extremities) Skin: normal color, warm/dry Diagnostics Laboratory Results Results Past 24 Hours Test 11/26/16 10:49 11/26/16 10:53 11/26/16 12:02 Range/Units Bedside Glucose 125 70-90 mg/dl White Blood Count 6.07 4.8-10.8 K/uL Red Blood Count 4.49 4.2-5.4 M/uL Hemoglobin 13.5 12.0-16.0 g/dL Hematocrit 39.2 37-47 % Mean Corpuscular Volume 87.3 80-100 fL Mean Corpuscular Hemoglobin 30.1 25-34 pg Mean Corpuscular Hemoglobin Concent 34.4 32-36 g/dl Platelet Count 219 130-400 K/uL Mean Platelet Volume 9.9 7.4-10.4 fL Neutrophils (%) (Auto) 81.4 % Lymphocytes (%) (Auto) 11.9 % Monocytes (%) (Auto) 6.1 % Eosinophils (%) (Auto) 0.2 % Basophils (%) (Auto) 0.2 % Neutrophils # (Auto) 4.95 1.4-6.5 K/uL Lymphocytes # (Auto) 0.72 1.2-3.4 K/uL Monocytes # (Auto) 0.37 0.11-0.59 K/uL Eosinophils # (Auto) 0.01 0-0.5 K/uL Basophils # (Auto) 0.01 0-0.2 K/uL RDW Standard Deviation 45.2 36.4-46.3 fL RDW Coefficient of Variation 14.1 11.5-14.5 % Immature Granulocyte % (Auto) 0.2 % Immature Granulocyte # (Auto) 0.01 0.00-0.02 K/uL Prothrombin Time 11.2 9.0-12.0 SECONDS Prothromb Time International Ratio 1.0 0.9-1.1 Activated Partial Thromboplast Time 25.8 21.0-31.0 SECONDS Partial Thromboplastin Ratio 1.0 Sodium Level 129 136-145 mmol/L Potassium Level 3.5 3.5-5.1 mmol/L Chloride Level 92 98-107 mmol/L Carbon Dioxide Level 25 21-32 mmol/L Anion Gap 12.0 3-11 mmol/L Blood Urea Nitrogen 7 7-18 mg/dl Creatinine 0.83 0.60-1.20 mg/dl Est Creatinine Clear Calc Drug Dose 51.8 ml/min Estimated GFR () 74.5 Estimated GFR (Non- 64.3 BUN/Creatinine Ratio 8.0 10-20 Random Glucose 141 70-99 mg/dl Calcium Level 9.2 8.5-10.1 mg/dl Magnesium Level 2.1 1.8-2.4 mg/dl Total Bilirubin 0.8 0.2-1 mg/dl Direct Bilirubin 0-0.2 mg/dl Aspartate Amino Transf (AST/SGOT) 19 15-37 U/L Alanine Aminotransferase (ALT/SGPT) 25 12-78 U/L Alkaline Phosphatase 52 45-117 U/L Troponin I < 0.015 0-0.045 ng/ml Total Protein 7.1 6.4-8.2 gm/dl Albumin 3.9 3.4-5.0 gm/dl Lipase 166 73-393 U/L Thyroid Stimulating Hormone (TSH) 1.760 0.300-4.500 uIu/ml Chemistry Specimen Hemolysis Urine Color YELLOW Urine Appearance CLEAR CLEAR Urine pH 7.5 4.5-7.5 Urine Specific [place] 1.012 1.000-1.030 Urine Protein NEG NEG Urine Glucose (UA) NEG NEG Urine Ketones TRACE NEG Urine Occult Blood NEG NEG Urine Nitrite NEG NEG Urine Bilirubin NEG NEG Urine Urobilinogen NEG NEG Urine Leukocyte Esterase NEG NEG Urine WBC (Auto) 1-5 0-5 /hpf Urine RBC (Auto) 0-4 0-4 /hpf Urine Hyaline Casts (Auto) 1-5 0-5 /lpf Urine Epithelial Cells (Auto) >30 0-5 /lpf Urine Bacteria (Auto) NEG NEG Urine Renal Epithelial Cells 0-5 /lpf Diagnostic Radiology CT head and c-spine neg for acute CXR normal Impression Assessment and Plan 85 y/o F who was admitted on 11/26 for syncope with collapse Syncope: Possibly related to bradycardia Monitor on tele ECHO, carotid US ECHO 2013 with EF 60-65% and no major structural issues Mild hypoNa TSH WNL Trop neg CT head neg UA neg EKG is sinus henrietta Trop neg x1 Orthostatic BP neg Constipation: concerning in the setting of prior colon ca CT AP pending If no bowel movement s/p contrast for CT, would give MOMlainey Anxiety/confusion: continue paroxitine, I did explain to pt and family that this medication takes 2-4 weeks to take effect Advised against ativan, xanax, etc given age May consider trial of seroquel in place of paroxitine B12, folate pending Possible Alzheimer's, will need to monitor for sundowning episodes May be related to constipation Chest pain: likely muscle strain related to extreme effort required to get up off of the floor Reproducible with palpation Monitor HypoNa: appears to have been borderline over the last year Monitor on very gentle IVF Colon ca: may need t/c c-scope if CT AP is neg given above issues Other: Full code Reg diet SCDs for DVT proph Level of Care Telemetry Advanced Directives Existing Living Will: Yes Existing Power of Chief Engineer'S Helper: Yes Resuscitation Status FULL RESUSCITATION VTE Prophylaxis VTE Risk Assessment Done? Y/N: Yes Risk Level: Low
--- NOTE | 2016-11-26 17:20 | DIAGNOSTIC IMAGING REPORT ---
BILATERAL CAROTID DOPPLER STUDY HISTORY: Mental status change syncope COMPARISON: None. TECHNIQUE: Real-time, grayscale, and color Doppler sonography of the carotid arteries was performed. Imaging reviewed in the transverse and longitudinal planes. All measurements were calculated based on NASCET criteria. FINDINGS: Antegrade flow is seen in the bilateral vertebral arteries. The brachial pressures are hemodynamically similar. Minimal plaque formation bilaterally The peak systolic velocity within the right ICA is 82. The right systolic ratio is 1.3. The peak systolic velocity within the left ICA is 62. The left systolic ratio is 0.6. IMPRESSION: No hemodynamically significant stenosis seen within the carotid arteries. Electronically signed by: Brenden Patel M.D. 11/26/2016 5:18 PM Dictated Date/Time: 11/26/2016 5:18 PM
--- NOTE | 2016-11-26 17:31 | DIAGNOSTIC IMAGING REPORT ---
ABDOMEN AND PELVIS CT WITH IV AND ORAL CONTRAST CT DOSE: 390.40 mGy.cm HISTORY: Pain abd pain, no bowel movement for several days, hx colon ca TECHNIQUE: Multiaxial CT images of the abdomen and pelvis were performed following the use of intravenous and oral contrast. COMPARISON STUDY: 01/13/2014 FINDINGS: Lung bases are clear. Liver enhances uniformly. Gallbladder is negative for distention right kidneys enhance uniformly as does the spleen. Nonobstructive bowel pattern. Unchanging postoperative changes consistent with a partial colectomy and partial small bowel resection procedure. Interval development of fecal impaction. Bladder is midline. Patient status post right hip nailing procedure. IMPRESSION: 1. Fecal impaction. 2. Stable postoperative changes consistent with a prior hemicolectomy and partial small bowel resection. 3. No additional acute abnormality of the abdomen or pelvis Electronically signed by: Brenden Patel M.D. 11/26/2016 5:29 PM Dictated Date/Time: 11/26/2016 5:27 PM
[2016-11-26] MEDS ORDERED: SOD PHOSPHATE/SOD BIPHOSPHATE ENEMA 132 ML BTL PR PRN (18:15)
[2016-11-26] MEDS ORDERED: SOD PHOSPHATE/SOD BIPHOSPHATE ENEMA 132 ML BTL ONE (18:20)
[2016-11-26] MEDS: ACETAMINOPHEN 500 MG TAB PO SCH (19:31)
[2016-11-26] MEDS ORDERED: QUETIAPINE FUMARATE 25 MG TAB PO ONE (20:15)
[2016-11-27 04:00] VITALS: O2SAT 100
[2016-11-27 04:33] VITALS: BP 149/77; PULSE 62; TEMP 36.8; O2SAT 98
[2016-11-27 06:42] LABS: BUN/CREATININE RATIO 12.5 (10-20); CALCIUM 8.6 mg/dl (8.5-10.1); CREATININE 0.51 mg/dl (0.60-1.20); POTASSIUM 3.5 mmol/L (3.5-5.1)
[2016-11-27 08:13] VITALS: BP 151/84; PULSE 65; TEMP 37; O2SAT 96
[2016-11-27] MEDS: CEROVITE ADV FORMULA TAB PO SCH (08:42)
[2016-11-27] MEDS: PAROXETINE 20 MG TAB PO SCH ×2 (08:42→12:57)
[2016-11-27 12:00] VITALS: BP 110/68; PULSE 56; TEMP 36.9; O2SAT 92
--- NOTE | 2016-11-27 13:51 | ECHOCARDIOGRAM REPORT ---
*NOTICE TO RECEIVING [employer]Y This information is strictly Confidential and protected under [place] law. [place] law prohibits you from making any further disclosure of this information unless further disclosure is expressly permitted by the written consent of the person to whom it pertains or is authorized by law. A general authorization for the release of medical or other information is not sufficient for this purpose. Hospital accepts no responsibility if the information is made available to any other person, INCLUDING THE PATIENT. Interpretation Summary * Name: LG PRESSLEY Study Date: 11/26/2016 02:39 PM BP: 153/69 mmHg * Patient Location: C.2T\S\S231\S\1 HR: 61 * : 1930 (M/d/yyyy) Gender: Female Height: 69 in * Age: 85 yrs Ethnicity: CA Weight: 147 lb * Ordering Physician: Fide Medina * Referring Physician: Self, Referred * Performed By: Parul Mock RCS * * Reason For Study: SYNCOPE * BSA: 1.8 m2 * -- Conclusions -- * Left ventricular systolic function is normal. * No regional wall motion abnormalities noted. * Ejection Fraction = 55-60%. * There is mild mitral regurgitation. Procedure Details * A complete two-dimensional transthoracic echocardiogram was performed (2D, M-mode, Doppler and color flow Doppler). Left Ventricle * The left ventricle is normal in size. * There is normal left ventricular wall thickness. * Ejection Fraction = 55-60%. * Left ventricular systolic function is normal. * No regional wall motion abnormalities noted. Right Ventricle * The right ventricle is normal size. * The right ventricular systolic function is normal as assessed by tricuspid annular plane systolic excursion (TAPSE) (normal >1.5 cm). Atria * The left atrial size is normal. * Right atrial size is normal. * No ASD detected; PFO is not assessed. Mitral Valve * The mitral valve is normal in structure and function. * There is no mitral valve stenosis. * There is mild mitral regurgitation. Tricuspid Valve * The tricuspid valve anatomy is normal. * There is no tricuspid stenosis. * Significant tricuspid regurgitation is absent. Aortic Valve * The aortic valve is tricuspid. The leaflet thickness if normal. There is no aortic stenosis, and no significant insufficiency. * The aortic valve opens well. * No hemodynamically significant valvular aortic stenosis. * There is no significant aortic regurgitation. Pulmonic Valve * The pulmonary valve is not well seen, but the Doppler examination is normal without significant regurgitation or stenosis. Great Vessels * The aortic root is normal size. * The pulmonary is not well visualized. Pericardium/Pleural * There is no pericardial effusion. Great Vessels * Dilated inferior vena cava with reduced collapsability with sniff indicates an elevated right atrial pressure of 15 mmHg Left Ventricular Diastolic Function * Grade I diastolic dysfunction, (abnormal relaxation pattern). MMode 2D Measurements and Calculations IVSd 1.1 cm IVSs 1.2 cm LVIDd 3.4 cm LVIDs 2.5 cm LVPWd 1.2 cm LVPWs 1.3 cm IVS/LVPW 0.95 FS 27.2 % EDV(Teich) 48.8 ml ESV(Teich) 22.4 ml EF(Teich) 54.1 % EDV(cubed) 40.7 ml ESV(cubed) 15.7 ml EF(cubed) 61.4 % % IVS thick 6.7 % % LVPW thick 14.0 % LV mass(C)d 122.6 grams LV mass(C)dI 67.7 grams/m\S\2 LV mass(C)s 93.0 grams LV mass(C)sI 51.3 grams/m\S\2 SV(Teich) 26.4 ml SI(Teich) 14.6 ml/m\S\2 SV(cubed) 25.0 ml SI(cubed) 13.8 ml/m\S\2 Ao root diam 2.1 cm Ao root area 3.6 cm\S\2 ACS 1.3 cm LA dimension 2.5 cm LA/Ao 1.1 LVOT diam 1.8 cm LVOT area 2.4 cm\S\2 LVAd ap4 22.4 cm\S\2 LVLd ap4 6.3 cm EDV(MOD-sp4) 65.1 ml EDV(sp4-el) 67.8 ml LVAs ap4 14.7 cm\S\2 LVLs ap4 5.7 cm ESV(MOD-sp4) 31.1 ml ESV(sp4-el) 32.5 ml EF(MOD-sp4) 52.2 % EF(sp4-el) 52.1 % LVAd ap2 29.1 cm\S\2 LVLd ap2 7.0 cm EDV(MOD-sp2) 98.9 ml EDV(sp2-el) 102.8 ml LVAs ap2 19.8 cm\S\2 LVLs ap2 6.4 cm ESV(MOD-sp2) 49.1 ml ESV(sp2-el) 52.0 ml EF(MOD-sp2) 50.3 % EF(sp2-el) 49.5 % LVLd %diff 10.1 % EDV(MOD-bp) 81.0 ml LVLs %diff 11.4 % ESV(MOD-bp) 40.6 ml EF(MOD-bp) 49.9 % SV(MOD-sp4) 34.0 ml SI(MOD-sp4) 18.7 ml/m\S\2 SV(MOD-sp2) 49.8 ml SI(MOD-sp2) 27.5 ml/m\S\2 SV(MOD-bp) 40.4 ml SI(MOD-bp) 22.3 ml/m\S\2 SV(sp4-el) 35.4 ml SI(sp4-el) 19.5 ml/m\S\2 SV(sp2-el) 50.8 ml SI(sp2-el) 28.1 ml/m\S\2 Doppler Measurements and Calculations MV E max avis 88.4 cm/sec MV A max avis 110.0 cm/sec MV E/A 0.80 MV P1/2t max avis 103.6 cm/sec MV P1/2t 80.9 msec MVA(P1/2t) 2.7 cm\S\2 MV dec slope 374.9 cm/sec\S\2 MV dec time 0.34 sec Ao V2 max 169.5 cm/sec Ao max PG 11.5 mmHg Ao max PG (full) 6.9 mmHg PATRICIA(V,A) 1.5 cm\S\2 PATRICIA(V,D) 1.5 cm\S\2 LV V1 max PG 4.6 mmHg LV V1 max 106.8 cm/sec MR max avis 559.8 cm/sec MR max PG 125.4 mmHg PA V2 max 121.2 cm/sec PA max PG 5.9 mmHg TR max avis 255.1 cm/sec
--- NOTE | 2016-11-27 15:09 | Progress Note ---
Subjective Date of Service: Nov 27, 2016. Subjective Pt evaluation today including: conversation w/ patient, conversation w/ family ( at the bedside), physical exam, lab review, review of studies, review of inpatient medication list Pain: denies pain PO Intake: poor appetite Voiding: incontinence patient without complaints today long discussion with her and her she is oriented x 3, knows current events, knows why she is here she admits to being anxious she admits to having some issues with memory such as cooking poor appetite no pain currently reviewed results of imaging as well as lab work, only abnormality was fecal impaction on CT scan and mild hyponatremia reviewed tele, no events normal echo results no clear cause of syncope Problem List Medical Problems: (1) Acute bronchitis Status: Acute (2) Hyponatremia Status: Acute (3) Laryngitis Status: Acute (4) Persistent cough Status: Acute (5) Syncope Status: Acute (6) Systolic congestive heart failure Status: Acute (7) Urinary tract infection Status: Acute Review of Systems Constitutional: + weakness, + fatigue Female : + incontinence Psychiatric: + anxiety All Other Systems: Reviewed and Negative Medications Current Inpatient Medications Medications (Trade) Dose Ordered Sig/Jennifer Route Start Time Stop Time Status Last Admin Dose Admin Acetaminophen (Tylenol Tab) 650 mg Q4H PRN PO 11/26/16 13:45 12/26/16 13:44 Magnesium Hydroxide (Milk Of Magnesia Susp) 30 ml Q12H PRN PO 11/26/16 13:45 12/26/16 13:44 Ondansetron HCl (Zofran Inj) 4 mg Q6H PRN IV 11/26/16 13:45 12/26/16 13:44 Sodium Chloride 1,000 ml @ 15 mls/hr Q24H IV 11/26/16 13:45 12/26/16 13:44 11/27/16 02:08 15 MLS/HR Acetaminophen (Tylenol Tab) 500 mg HS PO 11/26/16 21:00 12/26/16 20:59 11/26/16 19:31 500 MG Multivitamins/ Minerals (Multivitamin W/ Minerals Tab) 1 tab DAILY PO 11/27/16 09:00 12/27/16 08:59 11/27/16 08:42 1 TAB Paroxetine HCl (pAXil TAB) 10 mg DAILY PO 11/27/16 09:00 12/27/16 08:59 11/27/16 12:57 10 MG Ioversol (Optiray 320) 125 ml UD PRN IV 11/26/16 13:45 11/30/16 13:44 Sodium Biphosphate/ Sodium Phosphate (Fleet Enema) 132 ml DAILY PRN ME 11/26/16 18:15 12/26/16 18:14 Objective Vital Signs Date Time Temp Pulse Resp B/P (MAP) Pulse Ox O2 Delivery O2 Flow Rate FiO2 11/27/16 12:00 Room Air 11/27/16 12:00 36.9 56 18 110/68 (82) 92 Nasal Cannula 2.0 11/27/16 08:13 37.0 65 18 151/84 (106) 96 11/27/16 08:00 Room Air 11/27/16 04:33 36.8 62 18 149/77 (101) 98 Room Air 11/27/16 04:00 100 Room Air 11/26/16 23:59 100 Room Air 11/26/16 23:43 36.9 56 16 139/69 (92) 95 Room Air 11/26/16 20:00 100 Room Air 11/26/16 19:52 36.2 58 18 161/76 (104) 92 Room Air 11/26/16 15:33 36.6 61 20 152/69 (96) 97 Room Air 11/26/16 15:00 36.5 65 18 173/65 (101) 100 Room Air 11/26/16 15:00 100 Room Air 11/26/16 15:00 100 Room Air 11/26/16 15:00 36.5 65 18 173/65 (101) 100 Room Air Physical Exam General Appearance: WD/WN, no apparent distress Eyes: normal inspection, EOMI, sclerae normal ENT: normal ENT inspection, hearing grossly normal, pharynx normal Neck: supple, no adenopathy, no JVD, trachea midline Respiratory/Chest: chest non-tender, lungs clear, normal breath sounds, no respiratory distress, no accessory muscle use Cardiovascular: regular rate, rhythm, no edema, no gallop, no JVD, no murmur Abdomen: normal bowel sounds, non tender, soft, no organomegaly Extremities: normal range of motion, non-tender, normal inspection, no pedal edema, no calf tenderness Neurologic/Psychiatric: process project engineer II-XII nml as tested, alert, normal mood/affect, oriented x 3, + motor weakness (more pronounced weakness in legs, could not sit up or transfer independently, poor initial balance) Skin: normal color, warm/dry, no rash Laboratory Results Last 24 Hours Test 11/27/16 05:24 11/27/16 06:47 11/27/16 11:48 Sodium Level 132 mmol/L Potassium Level 3.5 mmol/L Chloride Level 96 mmol/L Carbon Dioxide Level 27 mmol/L Anion Gap 9.0 mmol/L Blood Urea Nitrogen 6 mg/dl Creatinine 0.51 mg/dl Est Creatinine Clear Calc Drug Dose 80.2 ml/min Estimated GFR () 101.6 Estimated GFR (Non- 87.7 BUN/Creatinine Ratio 12.5 Random Glucose 91 mg/dl Calcium Level 8.6 mg/dl Vitamin B12 Level 491 pg/mL Folate > 24.00 ng/mL Bedside Glucose 94 mg/dl 60 mg/dl Assessment and Plan 85 y/o F who was admitted on 11/26 for syncope with collapse. Occurred at home, unwitnessed. Initial work up without obvious cause. Syncope: unclear etiology bradycardic but no documented pauses or AV block echo - normal CT head negative, no signs of cardiac ischemia, no infection TSH normal keep on tele tonight PT/OT evaluations, likely transfer to medical tomorrow or consider discharge if it can be done safely Constipation: CT abdomen/pelvis with fecal retention large BM this AM, feels like she completely emptied her bowels should follow with GI if this continues to be a problem Anxiety/confusion: continue paroxitine, encouraged patient to continue this for a few weeks Advised against ativan, xanax, etc given age oriented x 3, knows why she is here, knows current events may be more anxiety with some mild memory issues consider psychiatry consult Chest pain: likely muscle strain related to extreme effort required to get up off of the floor Reproducible with palpation Monitor, no signs of cardiac ischemia HypoNa: appears to have been borderline over the last year likely due to poor solute intake Na 132 today Colon ca: should follow up with GI if constipation continues to be an issue Other: Full code Reg diet SCDs for DVT proph PT/OT ordered, likely too weak to return home based on initial assessments
[2016-11-27 16:00] VITALS: BP 150/66; PULSE 61; TEMP 36.7; O2SAT 96
[2016-11-27 19:16] VITALS: BP 145/78; PULSE 56; TEMP 36.8; O2SAT 96
[2016-11-27] MEDS: ACETAMINOPHEN 500 MG TAB PO SCH (21:03)
[2016-11-27] MEDS: QUETIAPINE FUMARATE 25 MG TAB PO SCH (21:04)
[2016-11-28] VITALS (11 sets, daily range): BP systolic 114–152; BP diastolic 63–76; PULSE 53–83; TEMP 36.3–36.6; O2SAT 94–99
[2016-11-28] MEDS: PAROXETINE 20 MG TAB PO SCH (07:25)
[2016-11-28] MEDS: CEROVITE ADV FORMULA TAB PO SCH (07:25)
--- NOTE | 2016-11-28 13:42 | Psychiatric Consultation ---
Consultation Date of Consultation Nov 28, 2016. Identifying Data Luz Vaca is a 85-year-old female who currently lives in [place] with her . She is admitted to the medical floor with a syncopal episode. We are consulted to evaluate anxiety. Information is gathered from the patient and the EHR, and considered to be reliable. Chief Complaint "I have a nervous condition.". History of Present Illness This is an 85-year-old woman who is in relatively good health, who presented to the emergency room after a syncopal episode and fall the day of admission. She has no history of this. She does admit that she has a long history of anxiety and admits that she had a "nervous breakdown" in 1956 after the of her son. She was in [facility] for several weeks and she believes that she may have seen a psychiatrist at some point as an outpatient but has no current services. She indicates that she fractured her hip 3 years ago, spent some time in [facility] and since then feels like she is more nervous than she ever guillaume. She experiences tremulousness of her hands and even her tongue and mouth as we speak. She is been having increasing worries at home that she' s not able to take care of herself or her . The notes indicate that she has stopped cooking he cut she's worried she can't do it right and in the 3 years since her fractured hip, is not bathing or showering due to fears that she will fall. She is washing herself at the sink. She admits that she is a chronically worried person, but denies any panic attacks. She does not see herself as depressed and describes her mood as "all right". Her sleep is disturbed but she relates this to needing to urinate as frequently as every 2 hours during the night. She is able to fall back to sleep. She indicates that she has a good appetite however does not always eat regularly or appropriately and says that she has been losing weight for the last 3 months. She denies having any suicidal thinking. Today she is fully oriented. Although sometimes slow to remember, she is accurate in all of her historical information. She indicates that her PCP, Dr. Rogers, recently started her on Paxil but does not believe that it is yet helped but has only been on it for several days. Past Psychiatric History Current OP Treatment: no current treatment Prior OP Treatment: psychiatrist (possibly saw a psychiatrist outpatient many years ago) Prior Psych Hospitalizations: none ([facility] and 1956) Access to a Gun: No Suicide Attempts: No Past Medical/Surgical History History of Concussion/Seizure: No (1) Hyponatremia (2) Carcinoma of colon Allergies Allergies: Coded Allergies: Sulfa Antibiotics (Verified Allergy, Intermediate, HIVES, 11/26/16) Aspirin (Verified Adverse Reaction, Mild, SICK TO STOMACH, 11/26/16) Home Medications Scheduled Acetaminophen (Tylenol), 500 MG PO HS Multiple Vitamins W/ Minerals (Centrum Silver Adult 50+), 1 TAB PO DAILY Paroxetine Hcl (Paxil), 10 MG PO DAILY Family History Cancer History of Suicide: No History of Substance Abuse: No Psychiatric History: No Alcohol Use Alcohol Use In Past 12 Months: No Smoking Use Smoking Status: Former Smoker Substance History None Personal History Education: started high school (dropped out after ninth grade) 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 Relationship History: (465 years to her ) Children: 2 daughters and 1 son Legal History: none Psychological Trauma History: Other (none) Review of Systems Constitutional: other (anxious) Eyes: denies: no symptoms, as stated in HPI, eye pain, tearing, itching, redness, discharge, double vision, visual changes, blurred vision, photophobia, other ENT: reports: other (tremors of her lips) Cardiovascular: reports: other (dizziness) Respiratory: denies: no symptoms reported, see HPI, cough, orthopnea, short of breath, stridor, wheezing, sputum production, cyanosis, ORTEGA, PND, other Gastrointestinal: constipation (with fecal impaction on CT) Genitourinary - Female: reports: other Musculoskeletal: joint swelling (hip) Integumentary: denies no symptoms reported, denies see HPI, denies change in color, denies change in hair/nails, denies dryness, denies lesions, denies lumps , denies rash, denies other Neurologic: denies: no symptoms, see HPI, headache, numbness, paresthesias, pre -existing deficit, seizure, tingling, tremors, general weakness, tics, focal weakness, vertigo, lethargy, memory loss, dizziness, other Endocrine: denies: no symptoms, as stated in HPI, cold intolerance, heat intolerance, hair changes, goiter, polydipsia, polyuria, skin changes, other Hematologic / Lymphatic: denies: no symptoms, as stated in HPI, abnormal clotting, adenopathy, anemia, easy bleeding, easy bruising, gums bleeding, petechiae, other Examination Physical Examination As per Dr. Cuevas Vital Signs Vital Signs Past 12 Hours Date Time Temp Pulse Resp B/P (MAP) Pulse Ox O2 Delivery O2 Flow Rate FiO2 11/28/16 12:17 36.6 72 18 122/76 (91) 97 Room Air 11/28/16 11:32 36.4 76 18 96 11/28/16 11:23 Room Air 11/28/16 08:00 Room Air 11/28/16 07:59 76 120/76 (91) 11/28/16 07:58 55 152/70 (97) 11/28/16 07:56 36.4 54 20 145/67 (93) 96 Room Air 11/28/16 04:00 Room Air 11/28/16 03:03 36.5 53 18 151/72 (98) 97 Room Air Laboratory Results 11/26/16 10:53 Red Blood Count 4.49, Mean Corpuscular Volume 87.3, Mean Corpuscular Hemoglobin 30.1, Mean Corpuscular Hemoglobin Concent 34.4, Mean Platelet Volume 9.9, Neutrophils (%) (Auto) 81.4, Lymphocytes (%) (Auto) 11.9, Monocytes (%) (Auto) 6.1, Eosinophils (%) (Auto) 0.2, Basophils (%) (Auto) 0.2, Neutrophils # (Auto) 4.95, Lymphocytes # (Auto) 0.72, Monocytes # (Auto) 0.37, Eosinophils # (Auto) 0.01, Basophils # (Auto) 0.01 11/27/16 05:24 Test 11/26/16 10:53 11/26/16 12:02 11/27/16 05:24 11/27/16 06:47 White Blood Count 6.07 K/uL (4.8-10.8) Red Blood Count 4.49 M/uL (4.2-5.4) Hemoglobin 13.5 g/dL (12.0-16.0) Hematocrit 39.2 % (37-47) Mean Corpuscular Volume 87.3 fL (80-100) Mean Corpuscular Hemoglobin 30.1 pg (25-34) Mean Corpuscular Hemoglobin Concent 34.4 g/dl (32-36) Platelet Count 219 K/uL (130-400) Mean Platelet Volume 9.9 fL (7.4-10.4) Neutrophils (%) (Auto) 81.4 % Lymphocytes (%) (Auto) 11.9 % Monocytes (%) (Auto) 6.1 % Eosinophils (%) (Auto) 0.2 % Basophils (%) (Auto) 0.2 % Neutrophils # (Auto) 4.95 K/uL (1.4-6.5) Lymphocytes # (Auto) 0.72 K/uL (1.2-3.4) Monocytes # (Auto) 0.37 K/uL (0.11-0.59) Eosinophils # (Auto) 0.01 K/uL (0-0.5) Basophils # (Auto) 0.01 K/uL (0-0.2) RDW Standard Deviation 45.2 fL (36.4-46.3) RDW Coefficient of Variation 14.1 % (11.5-14.5) Immature Granulocyte % (Auto) 0.2 % Immature Granulocyte # (Auto) 0.01 K/uL (0.00-0.02) Prothrombin Time 11.2 SECONDS (9.0-12.0) Prothromb Time International Ratio 1.0 (0.9-1.1) Activated Partial Thromboplast Time 25.8 SECONDS (21.0-31.0) Partial Thromboplastin Ratio 1.0 Magnesium Level 2.1 mg/dl (1.8-2.4) Total Bilirubin 0.8 mg/dl (0.2-1) Direct Bilirubin mg/dl (0-0.2) Aspartate Amino Transf (AST/SGOT) 19 U/L (15-37) Alanine Aminotransferase (ALT/SGPT) 25 U/L (12-78) Alkaline Phosphatase 52 U/L (45-117) Troponin I < 0.015 ng/ml (0-0.045) Total Protein 7.1 gm/dl (6.4-8.2) Albumin 3.9 gm/dl (3.4-5.0) Lipase 166 U/L (73-393) Thyroid Stimulating Hormone (TSH) 1.760 uIu/ml (0.300-4.500) Chemistry Specimen Hemolysis Urine Color YELLOW Urine Appearance CLEAR (CLEAR) Urine pH 7.5 (4.5-7.5) Urine Specific Polaris 1.012 (1.000-1.030) Urine Protein NEG (NEG) Urine Glucose (UA) NEG (NEG) Urine Ketones TRACE (NEG) Urine Occult Blood NEG (NEG) Urine Nitrite NEG (NEG) Urine Bilirubin NEG (NEG) Urine Urobilinogen NEG (NEG) Urine Leukocyte Esterase NEG (NEG) Urine WBC (Auto) 1-5 /hpf (0-5) Urine RBC (Auto) 0-4 /hpf (0-4) Urine Hyaline Casts (Auto) 1-5 /lpf (0-5) Urine Epithelial Cells (Auto) >30 /lpf (0-5) Urine Bacteria (Auto) NEG (NEG) Urine Renal Epithelial Cells /lpf (0-5) Anion Gap 9.0 mmol/L (3-11) Est Creatinine Clear Calc Drug Dose 80.2 ml/min Estimated GFR () 101.6 Estimated GFR (Non- 87.7 BUN/Creatinine Ratio 12.5 (10-20) Calcium Level 8.6 mg/dl (8.5-10.1) Vitamin B12 Level 491 pg/mL (211-911) Folate > 24.00 ng/mL (>5.38) Bedside Glucose 94 mg/dl (70-90) Mental Examination During interview pt is: alert and oriented, cooperative Appearance: appropriately groomed Eye contact is: poor Motor behavior is: tremor Speech: other (quiet but of normal rate) Affect: blunted, anxious Mood is: anxious Thought process: goal directed Thought content: reality based without delusions Suicidal thought are: denied Homicidal thoughts are: denied Hallucinations: denies auditory, denies visual Cognition: memory grossly intact, attention grossly intact, language grossly intact Intelligence estimated to be: average Insight: fair Judgement: fair Impression / Recommendations Impression 85-year-old woman admitted to the hospital with syncopal episode. We are consulted to evaluate anxiety. She readily admits that she is an anxious person having gotten worse 3 years ago after she fell. It is affecting her ability to care for herself as she now refuses to get into a bathtub or shower and is now questioning her own abilities at home to do simple things like cooking. Dr. Rogers rightfully started her on an SSRI, Paxil, although my personal experience is that there are more side effects to Paxil especially in the elderly and would suggest we switch this to Lexapro 5 mg daily. She was admitted with some mild hyponatremia and so this should be followed as an outpatient in view of the fact SSRIs can to hyponatremia. She said shows no overt cognitive impairment at this time and reports by in the are some confusion at home could have been affected by her sodium level and her anxiety. She should have some follow-up over time to evaluate her cognitive performance. Low dose Seroquel was added here in the hospital for sleep and I think this is a good choice in view of her chronic anxiety. Her EKG reveals sinus bradycardia with QTC within normal limits. The dosage of Seroquel were going to be used long-term or escalated, she should be re-consented to the risks of sudden when used in the elderly with possible underlying dementia. It seems clear that she could benefit from in-home services to assist with ADLs, cleaning and even to bathe or shower if she were accepting of this. She meets no criteria for inpatient mental health treatment. Although ideally I would like to have her see a geropsychiatry's, I suspect that she will be more comfortable returning to her PCP Dr. Rogers who can certainly titrate the dose of Lexapro as needed. Inventory Assets Strengths: Love of her family, has always cared for her own home Risk Factors Assessment : Yes /single/: No Higher / Fall in social status: No Access to guns: No Health problems: Yes Mental Health Diagnoses: Yes Previous attempt: No Family history of suicide: No Previous psychiatric stay: Yes Smoker: No Protective Factors Assessment : Yes Responsible for young children: No Employed: No Stable relationships: Yes Supportive family: Yes Recommendations (1) SANTHOSH (generalized anxiety disorder) 11/28 -DC Paxil in favor of Lexapro 5 mg daily -The patient will need to have her sodium followed serially as an outpatient in view of her hyponatremia on admission -In deference to her age, would avoid any deliria genic medicines such as opiates, benzodiazepines or and equal medications -Dr. Rogers can continue to titrate her Lexapro dosage -She meets no criteria for inpatient mental health treatment Has been reviewed with Dr. Naomi Fowler
--- NOTE | 2016-11-28 14:00 | Progress Note ---
Subjective Date of Service: Nov 28, 2016. Subjective Pt evaluation today including: conversation w/ patient, conversation w/ family (), physical exam, lab review, conversation w/ consultant dietitian, review of inpatient medication list Pain: no pain PO Intake: adequate Voiding: no voiding problems patient slept well last night with Seroquel still with weakness, poor balance discussed plan for rehab, agrees it would be good, patient resistant to the idea will transfer to medical d/w CM about referrals for rehab Problem List Medical Problems: (1) Acute bronchitis Status: Acute (2) Hyponatremia Status: Acute (3) Laryngitis Status: Acute (4) Persistent cough Status: Acute (5) Syncope Status: Acute (6) Systolic congestive heart failure Status: Acute (7) Urinary tract infection Status: Acute Review of Systems Constitutional: + weakness, + fatigue Psychiatric: + anxiety All Other Systems: Reviewed and Negative Medications Current Inpatient Medications Medications (Trade) Dose Ordered Sig/Jennifer Route Start Time Stop Time Status Last Admin Dose Admin Acetaminophen (Tylenol Tab) 650 mg Q4H PRN PO 11/26/16 13:45 12/26/16 13:44 Magnesium Hydroxide (Milk Of Magnesia Susp) 30 ml Q12H PRN PO 11/26/16 13:45 12/26/16 13:44 Ondansetron HCl (Zofran Inj) 4 mg Q6H PRN IV 11/26/16 13:45 12/26/16 13:44 Acetaminophen (Tylenol Tab) 500 mg HS PO 11/26/16 21:00 12/26/16 20:59 11/27/16 21:03 500 MG Multivitamins/ Minerals (Multivitamin W/ Minerals Tab) 1 tab DAILY PO 11/27/16 09:00 12/27/16 08:59 11/28/16 07:25 1 TAB Ioversol (Optiray 320) 125 ml UD PRN IV 11/26/16 13:45 11/30/16 13:44 Sodium Biphosphate/ Sodium Phosphate (Fleet Enema) 132 ml DAILY PRN NC 11/26/16 18:15 12/26/16 18:14 Quetiapine Fumarate (seroQUEL TAB) 12.5 mg HS PO 11/27/16 21:00 12/27/16 20:59 11/27/16 21:04 12.5 MG Escitalopram Oxalate (Lexapro Tab) 5 mg QAM PO 11/29/16 09:00 12/29/16 08:59 Objective Vital Signs Date Time Temp Pulse Resp B/P (MAP) Pulse Ox O2 Delivery O2 Flow Rate FiO2 11/28/16 12:17 36.6 72 18 122/76 (91) 97 Room Air 11/28/16 11:32 36.4 76 18 96 11/28/16 11:23 Room Air 11/28/16 08:00 Room Air 11/28/16 07:59 76 120/76 (91) 11/28/16 07:58 55 152/70 (97) 11/28/16 07:56 36.4 54 20 145/67 (93) 96 Room Air 11/28/16 04:00 Room Air 11/28/16 03:03 36.5 53 18 151/72 (98) 97 Room Air 11/28/16 00:30 Room Air 11/28/16 00:28 83 114/74 (87) 11/28/16 00:24 82 135/63 (87) 11/28/16 00:21 36.4 54 16 138/67 (90) 94 Room Air 11/27/16 20:00 Room Air 11/27/16 19:16 36.8 56 16 145/78 (100) 96 Room Air 11/27/16 16:00 36.7 61 20 150/66 (94) 96 Room Air 11/27/16 16:00 Room Air Physical Exam General Appearance: WD/WN, no apparent distress Neck: supple, no adenopathy, no JVD, trachea midline Respiratory/Chest: chest non-tender, lungs clear, normal breath sounds, no respiratory distress, no accessory muscle use Cardiovascular: regular rate, rhythm, no edema, no gallop, no JVD, no murmur Abdomen: normal bowel sounds, non tender, soft, no organomegaly Extremities: normal range of motion, non-tender, normal inspection, no pedal edema, no calf tenderness Neurologic/Psychiatric: 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 Occurred at home, unwitnessed. Initial work up without obvious cause. Syncope: unclear etiology bradycardic but no documented pauses or AV block echo - normal CT head negative, no signs of cardiac ischemia, no infection TSH normal transfer to medical today PT/OT evaluations, needs 24 hour care, family interested in rehab first Constipation: CT abdomen/pelvis with fecal retention large BM yesterday AM, feels like she completely emptied her bowels should follow with GI if this continues to be a problem Anxiety/confusion: appreciate psych consult, change Paxil to Lexapro 5mg daily can titrate Lexapro as outpatient Advised against ativan, xanax, etc given age oriented x 3, knows why she is here, knows current events may be more anxiety with some mild memory issues Chest pain: likely muscle strain related to extreme effort required to get up off of the floor Reproducible with palpation Monitor, no signs of cardiac ischemia HypoNa: appears to have been borderline over the last year likely due to poor solute intake Na 132 yesterday will monitor while on SSRI Colon ca: should follow up with GI if constipation continues to be an issue Other: Full code Reg diet SCDs for DVT proph PT/OT rehab once accepted
[2016-11-28] MEDS: QUETIAPINE FUMARATE 25 MG TAB PO SCH (21:04)
[2016-11-28] MEDS: ACETAMINOPHEN 500 MG TAB PO SCH (21:05)
[2016-11-29 05:12] VITALS: BP 168/83; PULSE 57; TEMP 36.4; O2SAT 97
[2016-11-29 05:14] VITALS: BP 154/78; PULSE 64; TEMP 36.4; O2SAT 97
[2016-11-29 05:17] VITALS: BP 133/77; PULSE 79; TEMP 36.5; O2SAT 93
[2016-11-29] MEDS: CEROVITE ADV FORMULA TAB PO SCH (08:13)
[2016-11-29] MEDS ORDERED: ESCITALOPRAM OXALATE 10 MG TAB PO SCH (09:00)
[2016-11-29] MEDS ORDERED: LXP10 PO (11:48)
[2016-11-29] MEDS ORDERED: SRQ25 PO (11:48)
--- NOTE | 2016-11-29 11:52 | Discharge Instructions ---
Discharge Instructions Date of Service Nov 29, 2016. Admission Reason for Admission: Syncope Discharge Discharge Diagnosis / Problem: Syncope, anxiety, mild cognitivie impairment Discharge Goals Goal(s): Improve function, Increase independence Activity Recommendations Activity Level: Assistance Required Therapies: Physical Therapy, Occupational Therapy Lifting Limitations: none Exercise/Sports Limitations: none Shower/Bathe: no limitations . Additional Information Patient informed of condition: Yes Advance Directives: Yes DNR: No Level of Care: Acute Rehab Communicable Disease: No Prognosis: Stable Oxygen at (LPM): none Banuelos Catheter: No Instructions / Follow-Up Instructions / Follow-Up Medications: - LEXAPRO: started at 5mg daily, can titrate upward as tolerated in the next 1- 2 weeks, defer to PCP, Paxil was stopped per psychiatry - SEROQUEL: worked well while inpatient for insomnia, can use as needed after discharge In summary, patient presented with unwitnessed fall at home, no injuries. Per patient she thinks she lost consciousness. Full work up including telemetry, CT head, carotid dopplers, echocardiogram and orthostatic monitoring failed to reveal a cause. Profound weakness with therapy, fall could have been mechanical in nature. Recommend rehab. Hyponatremia, mild, likely due to SSRI, monitor as outpatient FOLLOW UP - physician at [facility] this week - Dr. Rogers in one week after d/c from [facility] Current Hospital Diet Patient's current hospital diet: Regular Diet Discharge Diet Recommended Diet: Regular Diet Pending Studies Studies pending at discharge: no Physician Orders On Transfer POLST Discussion: Not Applicable Medical Emergencies . Who to Call and When: Medical Emergencies: If at any time you feel your situation is an emergency, please call 911 immediately. . Non-Emergent Contact Non-Emergency issues call your: Primary Care Provider Call Non-Emergent contact if: you have any medication questions . . "Provider Documentation" section prepared by Chong Cuevas. . Core Measure Problem Core Measures: None [place] Drug Monitoring Program Search Results: no issues identified
[2016-11-29 12:55] VITALS: BP 133/77; PULSE 79; TEMP 36.5; O2SAT 93
--- NOTE | 2016-11-29 14:53 | Discharge Summary ---
Discharge Summary Date of Service Nov 29, 2016. Discharge Summary Admission Date: Nov 26, 2016 at 13:42 Discharge Date: Nov 29, 2016 Discharge Disposition: Rehab Principal Diagnosis: Possible syncope, fall at home Problems/Secondary Diagnoses: Anxiety Mild hyponatremia, likely due to SSRI mild cognitive impairment Immunizations: Have You Had Influenza Vaccine: No Influenza Vaccine Date: Mar 04, 2011 History of Tetanus Vaccine?: UNK History of Pneumococcal: Yes Pneumococcal Date: Jul 29, 2011 History of Hepatitis B Vaccine: No Procedures: Echocardiogram - normal Consultations: Psychiatry Medication Reconciliation New Medications: Escitalopram Oxalate (Escitalopram Oxalate) 10 Mg Tab 5 MG PO QAM, #30 TAB 3 Refills Quetiapine Fumarate (Quetiapine Fumarate) 25 Mg Tab 12.5 MG PO HS PRN for Insomnia MDD 12.5, #30 TAB 2 Refills Continued Medications: Acetaminophen (Tylenol) 500 Mg Tab 500 MG PO HS, TAB Multiple Vitamins W/ Minerals (Centrum Silver Adult 50+) 1 Tab Tab 1 TAB PO DAILY Discontinued Medications: Paroxetine Hcl (Paxil) 10 Mg Tab 10 MG PO DAILY, TAB Discharge Exam Patient rested well last night, felt weak again when standing, discussed rehab and she is agreeable. Approved to go today. Review of Systems: Constitutional: + weakness, + fatigue, No fever, No chills, No sweats, No weight loss, No problem reported Eyes: No worsening of vision, No eye pain, No redness, No discharge, No diplopia, No problem reported ENT: No hearing loss, No unusual epistaxis, No nasal symptoms, No sore throat, No tinnitus, No dental problems, No trouble swallowing, No problem reported Respiratory: No cough, No sputum, No wheezing, No shortness of breath, No dyspnea on exertion, No dyspnea at rest, No hemoptysis, No problem reported Cardiovascular: No chest pain, No orthopnea, No PND, No edema, No claudication, No palpitations, No problem reported Abdomen: No pain, No nausea, No vomiting, No diarrhea, No constipation, No GI bleeding, No problem reported Musculoskeletal: No joint pain, No muscle pain, No swelling, No calf pain, No problem reported Genitourinary - Female: No dysuria, No urinary frequency, No urinary urgency , No urinary incontinence, No urinary retention, No hematuria Neurologic: + memory loss (mild), + weakness, + balance problems, No paralysis, No numbness/tingling, No vertigo Psychiatric: + anxiety, + insomnia, No depression symptoms, No anhedonism, No substance abuse Endocrine: No fatigue, No excessive thirst, No excessive urination, No problem reported Hematologic / Lymphatic: No abnormal bleeding/bruising, No clotting problems , No swollen lymph nodes, No night sweats, No problem reported Integumentary: No rash, No itch, No new/changing skin lesions, No color change, No bleeding, No problem reported Physical Exam: General Appearance: WD/WN, no apparent distress Eyes: normal inspection, EOMI, sclerae normal ENT: normal ENT inspection, hearing grossly normal, pharynx normal Neck: supple, no adenopathy, no JVD, trachea midline Respiratory/Chest: chest non-tender, lungs clear, normal breath sounds, no respiratory distress, no accessory muscle use Cardiovascular: regular rate, rhythm, no edema, no gallop, no JVD, no murmur , normal peripheral pulses Abdomen / GI: normal bowel sounds, non tender, soft, no organomegaly Extremities: normal inspection, no calf tenderness, normal capillary refill , no pedal edema, normal range of motion, pelvis stable Neurologic/Psychiatric: creative designer II-XII nml as tested, no motor/sensory deficits , alert, normal reflexes, oriented x 3, + pertinent finding (anxious) Skin: normal color, warm/dry, no rash Hospital Course 85 y/o F who was admitted on 11/26 for syncope with collapse. Occurred at home, unwitnessed. Initial work up without obvious cause. Syncope: unclear etiology bradycardic but no documented pauses or AV block echo - normal CT head negative, no signs of cardiac ischemia, no infection TSH normal PT/OT evaluations, needs 24 hour care, family interested in rehab first to go to [facility] today Constipation: CT abdomen/pelvis with fecal retention large BM 11/27 AM, feels like she completely emptied her bowels should follow with GI if this continues to be a problem Anxiety/confusion: appreciate psych consult, change Paxil to Lexapro 5mg daily can titrate Lexapro as outpatient Advised against ativan, xanax, etc given age oriented x 3, knows why she is here, knows current events may be more anxiety with some mild memory issues insomnia component, Seroquel 12.5mg HS has helped here in the hospital Chest pain: likely muscle strain related to extreme effort required to get up off of the floor Reproducible with palpation Monitor, no signs of cardiac ischemia HypoNa: appears to have been borderline over the last year likely due to poor solute intake Na 132 yesterday will monitor while on SSRI, check BMP in two weeks h/o Colon ca: should follow up with GI if constipation continues to be an issue Other: d/c to rehab today Total Time Spent: Greater than 30 minutes This includes examination of the patient, discharge planning, medication reconciliation, and communication with other providers. Discharge Instructions Please refer to the electronic Patient Visit Report (Discharge Instructions) for additional information. Follow-Up physician at [facility] Dr. Rogers in two weeks Additional Copies To [facility]; Angelito Rogers M.D.
[2017-02-02] MEDS ORDERED: CPR500 PO (10:49)
[2017-02-02] MEDS ORDERED: XNX25 PO (10:49)
[2017-02-02] MEDS ORDERED: LSN25 PO (10:49)
[2017-02-02] MEDS ORDERED: EFFSR75 PO (10:49)
[2017-02-02] MEDS ORDERED: Boost PO (10:49)
[2017-02-02] MEDS ORDERED: MGCUDL400 PO (10:49)
[2017-02-02] MEDS ORDERED: RMR15 PO (10:49)
== END 2016-11-29 16:10 | DRG 312 ==
LOC: EDBD 10:36 → C.EDB 10:37 → C.2T 13:42 → ENRESERV 14:00 → C.MS2W 11-28 12:32
PROVIDERS: ADMIT Family Medicine; ATTEND Internal Medicine
DX: R55 Syncope and collapse (principal); E87.1 Hypo-osmolality and hyponatremia; R00.1 Bradycardia, unspecified; I10 Essential (primary) hypertension; F41.1 Generalized anxiety disorder; Z85.038 Personal history of other malignant neoplasm of large intestine; E78.5 Hyperlipidemia, unspecified; Z96.649 Presence of unspecified artificial hip joint; Z88.2 Allergy status to sulfonamides; Z87.891 Personal history of nicotine dependence; K59.00 Constipation, unspecified; G31.84 Mild cognitive impairment of uncertain or unknown etiology; R07.89 Other chest pain

== ENCOUNTER → 2016-12-04 | Outpatient (CLI) | payer OTHER, MEDICARE ==
[~2016-12-04] MED LIST changes: +ACET-1256 PO; +Boost PO; +CPR500 PO; +EFFSR75 PO; +ESCI1TAB6 PO; +GADAVIST IV PRN; +LSN25 PO; +LXP10 PO; -MBC75 PO; +MELA1TAB5 PO; +MGCUDL400 PO; +MULT-845 PO; -PRED20TA2 PO; +RMR15 PO; +SRQ25 PO; +XNX25 PO
--- NOTE | 2016-12-04 11:02 | DIAGNOSTIC IMAGING REPORT ---
MRI OF THE BRAIN COMBO CLINICAL HISTORY: 85-year-old female with history of colorectal carcinoma status post right hemicolectomy, now with memory loss. COMPARISON STUDY: Correlation made to CT from 11/26/2016. TECHNIQUE: MRI of the brain was performed utilizing various T1 and T2-weighted sequences in the axial, sagittal, and coronal planes. Contrast-enhanced sequences were acquired following the administration of 6 cc of Gadavist. FINDINGS: Brain parenchyma: Age-related volume loss. Periventricular and subcortical white matter FLAIR hyperintensity, nonspecific but likely indicative of small vessel disease. No hemorrhage or mass effect. No restricted diffusion to suggest acute ischemia. No extra-axial fluid collection. No enhancing mass lesion. Ventricles, sulci, and cisterns: Normal in configuration. Pituitary and sella: Unremarkable. Intracranial vasculature: Normal flow voids are maintained at the skull base. Orbits: Normal. Sinuses and mastoids: Grossly clear. Calvarium: Unremarkable. Cervical cord: Partially visualized cervical spinal cord is normal in morphology and signal intensity. IMPRESSION: No acute intracranial pathology. No evidence of metastatic disease. Electronically signed by: Mann Cisneros 12/04/2016 8:36 AM Dictated Date/Time: 12/04/2016 8:09 AM
== END | disposition home or self-care (01) ==
LOC: C.MRI 06:48
PROVIDERS: ATTEND Physical Medicine & Rehabilitation
DX: R41.3 Other amnesia (principal); Z85.038 Personal history of other malignant neoplasm of large intestine

== ENCOUNTER → 2016-12-26 | Outpatient (CLI) | payer OTHER, MEDICARE ==
[~2016-12-26] MED LIST changes: -GADAVIST IV PRN
[2016-12-26 18:03] LABS: BLOOD UREA NITROGEN 10 mg/dl (7-18); BUN/CREATININE RATIO 17.4 (10-20); CARBON DIOXIDE 29 mmol/L (21-32); CHLORIDE 97 mmol/L (98-107); CREATININE 0.55 mg/dl (0.60-1.20); GLUCOSE 92 mg/dl (70-99); SODIUM 131 mmol/L (136-145)
[2016-12-27 08:20] LABS: ESTIMATED AVERAGE GLUCOSE 105 mg/dl; HA1C FLAG Normal (Normal)
--- NOTE | 2017-01-03 07:03 | CODING QUERY MEDICAL NECESSITY ---
SUPPORTING DIAGNOSIS NEEDED Dr. Rogers, A supporting diagnosis is required for the test/procedure performed on this patient in order for us to be reimbursed by the patient's insurance. Please provide a supporting diagnosis for the following test/procedure listed below next to the test name along with your signature. *If there is no additional diagnosis for this patient that would support the following test/procedure please document that below next to the test/procedure. Test(s)/Procedure(s) that require a supporting diagnosis: * [id number] GLYCATED HEMOGLOBIN DIAGNOSIS: DATE OF SERVICE: 12/26/16 Provider Signature: Date: Thank you Franki Weldon [facility] Information Management Once completed, please kindly fax back to [phone] For questions please call [phone]
== END ==
LOC: C.LABBFT 09:28
PROVIDERS: ATTEND Internal Medicine
DX: E87.1 Hypo-osmolality and hyponatremia (principal); R73.09 Other abnormal glucose

== ENCOUNTER 2017-01-26 13:14 | Inpatient (IN) | payer OTHER, MEDICARE ==
[~2017-01-26] VITALS: Ht 175.3 cm; Wt 61.7 kg
[~2017-01-26 13:14] MED LIST changes: -Boost PO; -CPR500 PO; -EFFSR75 PO; -ESCI1TAB6 PO; -LSN25 PO; -MELA1TAB5 PO; -MGCUDL400 PO; -RMR15 PO; -XNX25 PO
[2017-01-26 15:50] LABS: BASO % 0.5 %; BASO ABS # 0.02 K/uL (0-0.2); COMPLETE YES; EOS % 0.5 %; HEMATOCRIT 38.1 % (37-47); IG% 0.2 %; LYMPH % 27.9 %; MEAN CELL VOLUME 86.6 fL (80-100); MEAN CORPUSCULAR HEMOGLOBIN 30.9 pg (25-34); MEAN CORPUSCULAR HGB CONC 35.7 g/dl (32-36); MEAN PLATELET VOLUME 9.9 fL (7.4-10.4); MONO % 7.7 %; NEUT % 63.2 %; PLATELET COUNT 193 K/uL (130-400)
[2017-01-26 16:00] LABS: URINE APPEARANCE CLEAR (CLEAR); URINE BILIRUBIN NEG (NEG); URINE COLOR YELLOW; URINE NITRITE POS (NEG); URINE PH 5.5 (4.5-7.5); URINE SPECIFIC GRAVITY 1.019 (1.000-1.030); UROBILINOGEN NEG (NEG); ZZUR CULT IF INDIC CLEAN CATCH YES
[2017-01-26 16:03] LABS: MANUAL MICROSCOPIC REQUIRED? NO; REVIEW REQ? NO
[2017-01-26 16:07] LABS: ALT/SGPT 21 U/L (12-78); AST/SGOT 14 U/L (15-37); BLOOD UREA NITROGEN 10 mg/dl (7-18); BUN/CREATININE RATIO 22.7 (10-20); CALCIUM 8.7 mg/dl (8.5-10.1); CARBON DIOXIDE 24 mmol/L (21-32); CHLORIDE 100 mmol/L (98-107); CREATININE 0.46 mg/dl (0.60-1.20); GLUCOSE 91 mg/dl (70-99); SODIUM 132 mmol/L (136-145)
--- NOTE | 2017-01-26 16:07 | DIAGNOSTIC IMAGING REPORT ---
CT OF THE HEAD WITHOUT CONTRAST CLINICAL HISTORY: Difficulty walking. Decreased appetite. Tremors. COMPARISON STUDY: Head CT November 26, 2016 and MRI of the brain December 04, 2016. CT DOSE: 999.03 mGycm TECHNIQUE: Helical axial images of the head were obtained without IV contrast. Automated exposure control was utilized for the study. A dose lowering technique was utilized adhering to the principles of ALARA. FINDINGS: No acute intracranial hemorrhage, midline shift or mass effect is present. Ventricular system is normal. Basilar cisterns are patent. There are no extra-axial collections. White matter hypodensities are unchanged and suggest small vessel disease. There are no findings to suggest acute dural sinus thrombosis or acute territorial infarct. There are no significant calvarial abnormalities. Visualized portions of the sinuses and mastoid air cells are clear. IMPRESSION: No acute intracranial findings. Electronically signed by: Tomas Bond M.D. 01/26/2017 4:05 PM Dictated Date/Time: 01/26/2017 4:02 PM
[2017-01-26] MEDS ORDERED: SODIUM CHLORIDE 0.9% 1000ML 1,000 ML IV STA (16:12)
[2017-01-26] MEDS ORDERED: CEFTRIAXONE SOD INJ 1 GM ADDVIAL IV STA (16:12)
[2017-01-26 16:18] LABS: ALB/GLOB RATIO 1.1 (0.9-2); ALKALINE PHOSPHATASE 56 U/L (45-117)
[2017-01-26] MEDS ORDERED: ESCI1TAB6 PO (16:21)
[2017-01-26] MEDS ORDERED: MELA1TAB5 PO (16:27)
--- NOTE | 2017-01-26 16:46 | DIAGNOSTIC IMAGING REPORT ---
ABDOMEN 2VIEW W/PA CHEST RTN HISTORY: 86 years-old Female acute abdominal pain COMPARISON: Portable chest radiograph 11/26/2016 TECHNIQUE: AP view of the chest with left lateral decubitus and supine views of the abdomen FINDINGS: Cardiomediastinal and hilar silhouettes are within normal limits. There is atherosclerosis of the aorta. There is mild biapical pleural parenchymal scarring without pneumothorax, pleural effusion, focal airspace consolidation or overt pulmonary edema. The bones of the chest appear grossly intact. No pneumoperitoneum on the left decubitus film. The bowel gas pattern is nonobstructive. Vascular calcifications and surgical clips are seen within the left abdomen. No urolithiasis identified. There is convex right curvature of the spine. Severe degenerative changes are present on the right hip with partially imaged cannulated screws of the right femoral neck. Moderate degenerative changes involve the left hip. IMPRESSION: 1. Nonobstructive bowel gas pattern without pneumoperitoneum. 2. No acute cardiopulmonary process. The above report was generated using voice recognition software. It may contain grammatical, syntax or spelling errors. Electronically signed by: Niko Lynn M.D. 01/26/2017 4:44 PM Dictated Date/Time: 01/26/2017 4:41 PM
--- NOTE | 2017-01-26 18:33 | EMERGENCY ROOM VISIT NOTE ---
History Report prepared by Torrie: Erasto Barry Under the Supervision of: Dr. Radha Burrows D.O. First contact with patient: 14:47 Chief Complaint: OTHER COMPLAINT Stated Complaint: VERY BAD NERVES - MACKENZIE MOVEMENT History of Present Illness The patient is a 86 year old female who presents to the Emergency Room with complaints of intermittent generalized shaking beginning a week ago. She also complains of back pain, posterior headache and neck pain. She has a history of anxiety and has been on medication for about a month. The patient states that she only recently began feeling anxious and shaking. She has no family history of similar symptoms. Per family, the patient has not been eating much lately. He notes that the patient tends to have problems with hyponatremia. The patient states that she has been hydrating fine. She denies any fevers or chills. She states that her symptoms have been making it difficult to walk, and notes that she used a walker at home. denies any trauma. Only medication changes were made at the last hospitalization. He states she has been taking them as prescribed. Source of History: patient, family Onset: A week ago Position: other (generalized) Quality: other (shaking) Timing: intermittent Associated Symptoms: + headache (posterior), + neck pain, + back pain, No fevers, No chills Review of Systems See HPI for pertinent positives & negatives. A total of 10 systems reviewed and were otherwise negative. Past Medical & Surgical Medical Problems: (1) Benign hypertension (2) Carcinoma of colon (3) Chronic osteoarthritis (4) Colon cancer (5) SANTHOSH (generalized anxiety disorder) (6) Hyperlipidemia (7) lysis of adhesions (8) Partial colectomy Surgical Problems: (1) S/P hip replacement Family History Cancer Social History Smoking Status: Former Smoker Alcohol Use: none Drug Use: none Marital Status: Housing Status: lives with significant other Occupation Status: retired Current/Historical Medications Scheduled Acetaminophen (Tylenol), 500 MG PO HS Escitalopram Oxalate (Lexapro), 5 MG PO DAILY Melatonin ( Melatonin), Unknown Dose PO HS Multiple Vitamins W/ Minerals (Centrum Silver Adult 50+), 1 TAB PO DAILY Allergies Coded Allergies: Sulfa Antibiotics (Verified Allergy, Intermediate, HIVES, 01/26/17) Aspirin (Verified Adverse Reaction, Mild, SICK TO STOMACH, 11/26/16) Physical Exam Vital Signs Date Time Temp Pulse Resp B/P (MAP) Pulse Ox O2 Delivery O2 Flow Rate FiO2 01/26/17 18:11 66 22 146/88 95 Room Air 01/26/17 17:42 66 26 136/92 96 Room Air 63 151/65 87 146/88 01/26/17 16:41 66 18 154/78 96 Room Air 01/26/17 15:33 66 01/26/17 15:30 65 22 145/77 99 Room Air 01/26/17 13:28 36.5 59 20 152/76 97 Room Air Physical Exam GENERAL: alert, anxious appearing, well nourished, no distress, non-toxic EYE EXAM: normal conjunctiva, PERRL and EOM's grossly intact OROPHARYNX: no exudate, no erythema, lips, buccal mucosa, and tongue normal and mucous membranes are moist NECK: supple, no nuchal rigidity, no adenopathy, non-tender LUNGS: Clear to auscultation. Normal chest wall mechanics HEART: no murmurs, S1 normal and S2 normal ABDOMEN: abdomen soft, generalized discomfort to palpation, normo-active bowel sounds, no masses, no rebound or guarding. BACK: Back is symmetrical on inspection and there is no deformity, no midline tenderness, no CVA tenderness. SKIN: no rashes and no bruising UPPER EXTREMITIES: upper extremities are grossly normal. LOWER EXTREMITIES: No pitting edema. NEURO EXAM: Normal sensorium, cranial nerves II-XII grossly intact, normal speech, no gross weakness of arms, no gross weakness of legs. No clonus. Normal reflexes. Intermittent resting and intention tremors. Medical Decision & Procedures ER Provider Diagnostic Interpretation: Radiology results have been interpreted by the radiologist and reviewed by me. CT OF THE HEAD WITHOUT CONTRAST FINDINGS: No acute intracranial hemorrhage, midline shift or mass effect is present. Ventricular system is normal. Basilar cisterns are patent. There are no extra-axial collections. White matter hypodensities are unchanged and suggest small vessel disease. There are no findings to suggest acute dural sinus thrombosis or acute territorial infarct. There are no significant calvarial abnormalities. Visualized portions of the sinuses and mastoid air cells are clear. IMPRESSION: No acute intracranial findings. Electronically signed by: Tomas Bond M.D. 01/26/2017 4:05 PM ABDOMEN 2VIEW W/PA CHEST RTN FINDINGS: Cardiomediastinal and hilar silhouettes are within normal limits. There is atherosclerosis of the aorta. There is mild biapical pleural parenchymal scarring without pneumothorax, pleural effusion, focal airspace consolidation or overt pulmonary edema. The bones of the chest appear grossly intact. No pneumoperitoneum on the left decubitus film. The bowel gas pattern is nonobstructive. Vascular calcifications and surgical clips are seen within the left abdomen. No urolithiasis identified. There is convex right curvature of the spine. Severe degenerative changes are present on the right hip with partially imaged cannulated screws of the right femoral neck. Moderate degenerative changes involve the left hip. IMPRESSION: 1. Nonobstructive bowel gas pattern without pneumoperitoneum. 2. No acute cardiopulmonary process. The above report was generated using voice recognition software. It may contain grammatical, syntax or spelling errors. Electronically signed by: Niko Lynn M.D. Laboratory Results Test 01/26/17 15:25 01/26/17 15:40 Urine Color YELLOW Urine Appearance CLEAR (CLEAR) Urine pH 5.5 (4.5-7.5) Urine Specific [place] 1.019 (1.000-1.030) Urine Protein NEG (NEG) Urine Glucose (UA) NEG (NEG) Urine Ketones 2+ (NEG) Urine Occult Blood 1+ (NEG) Urine Nitrite POS (NEG) Urine Bilirubin NEG (NEG) Urine Urobilinogen NEG (NEG) Urine Leukocyte Esterase MODERATE (NEG) Urine WBC (Auto) >30 /hpf (0-5) Urine RBC (Auto) 0-4 /hpf (0-4) Urine Hyaline Casts (Auto) 5-10 /lpf (0-5) Urine Epithelial Cells (Auto) 10-20 /lpf (0-5) Urine Bacteria (Auto) 1+ (NEG) Immature Granulocyte % (Auto) 0.2 % White Blood Count 4.30 K/uL (4.8-10.8) Red Blood Count 4.40 M/uL (4.2-5.4) Hemoglobin 13.6 g/dL (12.0-16.0) Hematocrit 38.1 % (37-47) Mean Corpuscular Volume 86.6 fL (80-100) Mean Corpuscular Hemoglobin 30.9 pg (25-34) Mean Corpuscular Hemoglobin Concent 35.7 g/dl (32-36) Platelet Count 193 K/uL (130-400) Mean Platelet Volume 9.9 fL (7.4-10.4) Neutrophils (%) (Auto) 63.2 % Lymphocytes (%) (Auto) 27.9 % Monocytes (%) (Auto) 7.7 % Eosinophils (%) (Auto) 0.5 % Basophils (%) (Auto) 0.5 % Neutrophils # (Auto) 2.72 K/uL (1.4-6.5) Lymphocytes # (Auto) 1.20 K/uL (1.2-3.4) Monocytes # (Auto) 0.33 K/uL (0.11-0.59) Eosinophils # (Auto) 0.02 K/uL (0-0.5) Basophils # (Auto) 0.02 K/uL (0-0.2) Immature Granulocyte # (Auto) 0.01 K/uL (0.00-0.02) Magnesium Level 2.0 mg/dl (1.8-2.4) Total Bilirubin 0.7 mg/dl (0.2-1) Aspartate Amino Transf (AST/SGOT) 14 U/L (15-37) Alanine Aminotransferase (ALT/SGPT) 21 U/L (12-78) Alkaline Phosphatase 56 U/L (45-117) Troponin I < 0.015 ng/ml (0-0.045) Total Protein 6.8 gm/dl (6.4-8.2) Albumin 3.5 gm/dl (3.4-5.0) Globulin 3.3 gm/dl (2.5-4.0) Albumin/Globulin Ratio 1.1 (0.9-2) Thyroid Stimulating Hormone (TSH) 1.150 uIu/ml (0.300-4.500) Date/Time Source Procedure Growth Status 01/26/17 15:25 Urine , Clean Catch Urine Culture - Final Pseudomonas Aeruginosa Complete Laboratory results per my review. Medications Administered Medications (Trade) Dose Ordered Sig/Jennifer Route Start Time Stop Time Status Last Admin Dose Admin Ceftriaxone Sodium (Rocephin Inj) 1 gm NOW STAT IV 01/26/17 16:12 01/26/17 16:13 DC 01/26/17 17:32 1 GM Sodium Chloride 1,000 ml @ 999 mls/hr Q1H1M STAT IV 01/26/17 16:12 01/26/17 17:12 DC 01/26/17 17:32 999 MLS/HR ECG Indication: other (shakiness) Rate (beats per minute): 62 Rhythm: normal sinus Findings: PAC (frequent), no acute ischemic change, other (Normal axis. Normal intervals. Erratic baseline. ) ED Course 1449: The patient was evaluated in room C6. A complete history and physical exam was performed. 1611: Ordered Sodium Chloride 1000 ml @ 999 mls/hr IV, Rocephin Inj 1 gm IV. 161: I updated the patient on her test results. 1824: Upon reevaluation, the patient is resting comfortably. Her daughter has arrived. Pt was unable to stand at bedside steadily, couldn't ambulate which she typically does. I discussed the findings and the treatment plan with the patient and her daughter. They express agreement and understanding. I spoke with Dr. Roy of the [facility] Hospitalist Service. The patient will be evaluated for further management. Medical Decision Differential Diagnosis includes but is not limited to dehydration, stroke, anemia, hypoglycemia, hyponatremia, hypernatremia, urinary tract infection, pneumonia, bronchitis, sepsis, gastroenteritis, additional abdominal pathology, metabolic abnormalities and infections. Patient very anxious appearing here, labs otherwise reassuring found have urinary tract infection. Patient initially verbalized wanting to go home, patient unable to stand up bedside and unable to ambulate which is her typical baseline. Both and daughter agreeable with plan for admission for treatment of UTI continued monitoring, and reevaluation for possible placement to rehabilitation. No evidence of bacteremia/sepsis, no evidence of renal dysfunction, the symptoms to suggest concurrent obstructing stone. Culture pending and patient given one dose of Rocephin IV. Medication Reconcilliation Current Medication List: was personally reviewed by me Blood Pressure Screening Patient's blood pressure: Elevated blood pressure Blood pressure disposition: Elevated BP felt to be situational Consults Time Called: 1819 Consulting Physician: Dr. Roy -[facility] Returned Call: [phone] I reviewed the patient's case with Dr. Roy. [facility] will evaluate the patient for further management. Impression Primary Impression: Generalized weakness Additional Impressions: UTI (urinary tract infection) Ambulatory dysfunction Anxiety Scribe Attestation The scribe's documentation has been prepared under my direction and personally reviewed by me in its entirety. I confirm that the note above accurately reflects all work, treatment, procedures, and medical decision making performed by me. Departure Information Dispostion Being Evaluated By Hospitalist Referrals Angelito Rogers M.D. (PCP) Patient Instructions My [facility] Problem Qualifiers Additional Impressions: UTI (urinary tract infection) Urinary tract infection type: acute cystitis Hematuria presence: with hematuria Qualified Codes: N30.01 - Acute cystitis with hematuria
[2017-01-26] MEDS ORDERED: ONDANSETRON INJ 2 MG/ML 2 ML VIAL IV PRN (19:15)
[2017-01-26] MEDS ORDERED: POLYETHYLENE (MIRALAX) 17 GM PACK PO PRN (19:15)
[2017-01-26] MEDS ORDERED: MAGNESIUM HYDROXIDE SUSP 30 ML UDC PO PRN (19:15)
[2017-01-26] MEDS ORDERED: ALUMINUM/MAGNESIUM/SIMETH (MAALOX MAX) 30 ML UDC PO PRN (19:15)
[2017-01-26] MEDS ORDERED: QUETIAPINE FUMARATE 25 MG TAB PO PRN (19:30)
--- NOTE | 2017-01-26 19:31 | History and Physical ---
History & Physical Date & Time of Service: Jan 26, 2017 at 19:08 Chief Complaint: Very Bad Nerves - Cole Movement Primary Care Physician: Angelito Rogers M.D. History of Present Illness Source: patient, family (, daughter, son-in-law at bedside ), clinic records, hospital records Patient is a pleasant 86 y/o female, with PMHx of HTN, anxiety, mild cognitive impairment, and h/o colon ca, who presented to the ED because of generalized tremors and fatigue/weakness x1 week. Patient was most recently admitted to [facility] 11/26-11/29 due to a syncopal event. Workup was unremarkable: ECHO, head CT , TSH, b12/folate. She was seen by psychiatry and diagnosed with generalized anxiety disorder- Paxil switched to Lexapro and Seroquel 12.5 mg HS PRN sleep. She was discharged to [facility] x2 weeks. Per , she seems to get these tremors when she is under a lot of stress. Patient admits that she is overly worried about her health lately. Per daughter, she does not believe the source of her tremors is due to anxiety because she has never had a h/o anxiety until last admission (although on Paxil prior to admission); she believes there is something else going on. Since her last admission, she never fully recovered. She would clean the house and do dishes with no difficulty. Now, patient is weak and unable to do much. She also notes her mother has lost a lot of weight over the last 1-2 months. Per patient, she is not eating because she is afraid she will not make it to the restroom in time. Patient has a h/o of colon ca, but refuses follow-up colonoscopy because she does not want to go through the prep and not make it to the bathroom. Patient denies any fever, chills, sweats, lightheadedness, dizziness, vision changes, CP, palpitations, edema, SOB, wheezing, cough, abdominal pain, nausea, vomiting, diarrhea, urinary symptoms, melena, numbness/tingling, weakness, muscle/joint pain, anxiety/depression, active bleeding, or new skin discoloration/changes. Past Medical/Surgical History Medical Problems: Generalized anxiety HTN Mild cognitive impairment h/o colon ca Surgical Problems: s/p R hip replacement Family History Cancer Social History Smoking Status: Former Smoker Drug Use: none Marital Status: Housing status: lives with family Occupational Status: retired Immunizations History of Influenza Vaccine: No Influenza Vaccine Date: Mar 04, 2011 History of Tetanus Vaccine?: UNK History of Pneumococcal: Yes Pneumococcal Date: Jul 29, 2011 History of Hepatitis B Vaccine: No Multi-Drug Resistant Organisms History of MDRO: No Allergies Coded Allergies: Sulfa Antibiotics (Verified Allergy, Intermediate, HIVES, 01/26/17) Aspirin (Verified Adverse Reaction, Mild, SICK TO STOMACH, 11/26/16) Home Medications Scheduled Acetaminophen (Tylenol), 500 MG PO HS Escitalopram Oxalate (Lexapro), 5 MG PO DAILY Melatonin ( Melatonin), Unknown Dose PO HS Multiple Vitamins W/ Minerals (Centrum Silver Adult 50+), 1 TAB PO DAILY Physical Exam Vital Signs Date Time Temp Pulse Resp B/P (MAP) Pulse Ox O2 Delivery O2 Flow Rate FiO2 01/26/17 18:11 66 22 146/88 95 Room Air 01/26/17 17:42 66 26 136/92 96 Room Air 63 151/65 87 146/88 01/26/17 16:41 66 18 154/78 96 Room Air 01/26/17 15:33 66 01/26/17 15:30 65 22 145/77 99 Room Air 01/26/17 13:28 36.5 59 20 152/76 97 Room Air General Appearance: no apparent distress Head: normocephalic, atraumatic Eyes: normal inspection, PERRL ENT: hearing grossly normal Neck: supple Respiratory/Chest: lungs clear, no respiratory distress, no accessory muscle use Cardiovascular: regular rate, rhythm Abdomen/GI: normal bowel sounds, non tender, soft Back: normal inspection Extremities/Musculoskelatal: no calf tenderness, no pedal edema Neurologic/Psych: alert, oriented x 3, + pertinent finding (appears anxious; resting tremor ) Diagnostics Laboratory Results Results Past 24 Hours Test 01/26/17 15:25 01/26/17 15:40 Range/Units Urine Color YELLOW Urine Appearance CLEAR CLEAR Urine pH 5.5 4.5-7.5 Urine Specific [place] 1.019 1.000-1.030 Urine Protein NEG NEG Urine Glucose (UA) NEG NEG Urine Ketones 2+ NEG Urine Occult Blood 1+ NEG Urine Nitrite POS NEG Urine Bilirubin NEG NEG Urine Urobilinogen NEG NEG Urine Leukocyte Esterase MODERATE NEG Urine WBC (Auto) >30 0-5 /hpf Urine RBC (Auto) 0-4 0-4 /hpf Urine Hyaline Casts (Auto) 5-10 0-5 /lpf Urine Epithelial Cells (Auto) 10-20 0-5 /lpf Urine Bacteria (Auto) 1+ NEG White Blood Count 4.30 4.8-10.8 K/uL Red Blood Count 4.40 4.2-5.4 M/uL Hemoglobin 13.6 12.0-16.0 g/dL Hematocrit 38.1 37-47 % Mean Corpuscular Volume 86.6 80-100 fL Mean Corpuscular Hemoglobin 30.9 25-34 pg Mean Corpuscular Hemoglobin Concent 35.7 32-36 g/dl Platelet Count 193 130-400 K/uL Mean Platelet Volume 9.9 7.4-10.4 fL Neutrophils (%) (Auto) 63.2 % Lymphocytes (%) (Auto) 27.9 % Monocytes (%) (Auto) 7.7 % Eosinophils (%) (Auto) 0.5 % Basophils (%) (Auto) 0.5 % Neutrophils # (Auto) 2.72 1.4-6.5 K/uL Lymphocytes # (Auto) 1.20 1.2-3.4 K/uL Monocytes # (Auto) 0.33 0.11-0.59 K/uL Eosinophils # (Auto) 0.02 0-0.5 K/uL Basophils # (Auto) 0.02 0-0.2 K/uL RDW Standard Deviation 44.0 36.4-46.3 fL RDW Coefficient of Variation 13.9 11.5-14.5 % Immature Granulocyte % (Auto) 0.2 % Immature Granulocyte # (Auto) 0.01 0.00-0.02 K/uL Sodium Level 132 136-145 mmol/L Potassium Level 4.0 3.5-5.1 mmol/L Chloride Level 100 98-107 mmol/L Carbon Dioxide Level 24 21-32 mmol/L Anion Gap 8.0 3-11 mmol/L Blood Urea Nitrogen 10 7-18 mg/dl Creatinine 0.46 0.60-1.20 mg/dl Estimated GFR () 104.4 Estimated GFR (Non- 90.1 BUN/Creatinine Ratio 22.7 10-20 Random Glucose 91 70-99 mg/dl Calcium Level 8.7 8.5-10.1 mg/dl Magnesium Level 2.0 1.8-2.4 mg/dl Total Bilirubin 0.7 0.2-1 mg/dl Aspartate Amino Transf (AST/SGOT) 14 15-37 U/L Alanine Aminotransferase (ALT/SGPT) 21 12-78 U/L Alkaline Phosphatase 56 45-117 U/L Troponin I < 0.015 0-0.045 ng/ml Total Protein 6.8 6.4-8.2 gm/dl Albumin 3.5 3.4-5.0 gm/dl Globulin 3.3 2.5-4.0 gm/dl Albumin/Globulin Ratio 1.1 0.9-2 Thyroid Stimulating Hormone (TSH) 1.150 0.300-4.500 uIu/ml Microbiology Results 01/26/17 Urine Culture, Received Pending Diagnostic Radiology CT OF THE HEAD WITHOUT CONTRAST CLINICAL HISTORY: Difficulty walking. Decreased appetite. Tremors. COMPARISON STUDY: Head CT November 26, 2016 and MRI of the brain December 04, 2016. CT DOSE: 999.03 mGycm TECHNIQUE: Helical axial images of the head were obtained without IV contrast. Automated exposure control was utilized for the study. A dose lowering technique was utilized adhering to the principles of ALARA. FINDINGS: No acute intracranial hemorrhage, midline shift or mass effect is present. Ventricular system is normal. Basilar cisterns are patent. There are no extra-axial collections. White matter hypodensities are unchanged and suggest small vessel disease. There are no findings to suggest acute dural sinus thrombosis or acute territorial infarct. There are no significant calvarial abnormalities. Visualized portions of the sinuses and mastoid air cells are clear. IMPRESSION: No acute intracranial findings. Electronically signed by: Tomas Bond M.D. 01/26/2017 4:05 PM Dictated Date/Time: 01/26/2017 4:02 PM The status of this report is Signed. Draft = Not yet reviewed or approved by Radiologist. Signed = Reviewed and approved by Radiologist. ABDOMEN 2VIEW W/PA CHEST RTN HISTORY: 86 years-old Female acute abdominal pain COMPARISON: Portable chest radiograph 11/26/2016 TECHNIQUE: AP view of the chest with left lateral decubitus and supine views of the abdomen FINDINGS: Cardiomediastinal and hilar silhouettes are within normal limits. There is atherosclerosis of the aorta. There is mild biapical pleural parenchymal scarring without pneumothorax, pleural effusion, focal airspace consolidation or overt pulmonary edema. The bones of the chest appear grossly intact. No pneumoperitoneum on the left decubitus film. The bowel gas pattern is nonobstructive. Vascular calcifications and surgical clips are seen within the left abdomen. No urolithiasis identified. There is convex right curvature of the spine. Severe degenerative changes are present on the right hip with partially imaged cannulated screws of the right femoral neck. Moderate degenerative changes involve the left hip. IMPRESSION: 1. Nonobstructive bowel gas pattern without pneumoperitoneum. 2. No acute cardiopulmonary process. The above report was generated using voice recognition software. It may contain grammatical, syntax or spelling errors. Electronically signed by: Niko Lynn M.D. 01/26/2017 4:44 PM Dictated Date/Time: 01/26/2017 4:41 PM The status of this report is Signed. Draft = Not yet reviewed or approved by Radiologist. Signed = Reviewed and approved by Radiologist. EKG LG PRESSLEY ID:[id number] 26-JAN-2017 16:55:00 [facility] Sinus bradycardia with Premature atrial complexes Otherwise normal ECG When compared with ECG of 26-JAN-2017 15:17, No significant change was found Confirmed by TYLER VANCE ([id number]) on 01/26/2017 4:56:36 PM 25mm/s 10mm/mV 150Hz 8.0 SP2 12SL 241 SHILA: 10 Referred by: Referred Self Confirmed By: TYLER Brownlee. rate 58 BPM NH interval 160 ms QRS duration 88 ms QT/QTc 420/412 ms P-R-T axes 73 9 60 1930 (86 yr) Female 75in 152lb Room: Loc:15 Pbx Operator:BETSY Bruno ind: Impression Assessment and Plan Patient is a pleasant 86 y/o female, with PMHx of HTN, anxiety, mild cognitive impairment, and h/o colon ca, who presented to the ED because of generalized tremors and fatigue/weakness x1 week. UTI POA: - IV Rocephin pending UCx - IV NSS @ 100 ml/hr Worsening tremor x1 week, ?related to UTI vs anxiety vs other etiology: - Continue Lexapro 5 mg daily - Consider psychiatry consultation- family/patient decline at this time Weight loss, ?secondary to psychiatric issue vs underlying pathology, h/o colon ca: - Recommend continued outpatient f/u - Encourage good oral intake Chronic hyponatremia, thought to be secondary to SSRI: Follow PRP DVT prophylaxis: Heparin SQ BID Code Status: LEVEL I, FULL Dispo: From home, lives w/ - PT/OT and social sciences research scientist consulted i personally examined pt and verified all de la cruz points w T Deyanira PAC as above, weight loss, poor PO intake, "she just sits in her chair" notes a lot of worry a lot of anxiety, not eating as much because worried about how hard it is to have a BM, straining for BM hurts hip. easily overwhelmed. ros otherwise negative except for as above vitals noted, thin, tremor waxes and wanes mostly in hands R > L no masked face. does have quiet voice but very quick to respond. perseverates some on things that are making her anxious but with this she shows pretty good recent and remote recall. -UTI - seems to be minor part of the picture. abx, supportive care, follow up culture -constipation - likely relates to diet changes. tried to discuss how cutting back PO intake won't fix constipation, and in fact may make overall bowel situation worse --> miralax to affect bowel movements (17g tonight, then 34g scheduled tomorrow, then at least 17g scheduled thereafter daily w additional 17g (or more) prn to affect BMs. -hip pain - groin pain worse w palp and internal rotation - c/w joint pain. voltaren gel. emphasize getting more movement (PT/OT here, encouraged more activity at home), transition anxiety meds to meds that can have more pain modulating effect (see below). possibly ortho consult or outpatient eval to consider joint injection but would avoid invasive /painful treatments at this time since anxiety would likely worsen and that appears to be the biggest factor in her morbidity -weight loss - most likely due to poor PO intake driven by anxiety/ constipation. has refused/declined f/u for colon cancer for quite a while per dr rogers's notes. at this point seems most prudent to follow/encourage PO intake, then if/when she's willing, colon cancer f/u for completeness -anxiety/depression - appearing to be the central problem of her current status. SIGECAPS screen shows positives easily for sleep, interest, energy, concentration, appetite/eating. was on paxil --> hyponatremia. changed to lexapro - low dose but does not appear to be helping. rather than increasing dose, will transition to meds that may have overlap with her other cormorbidities --> remeron instead of seroquel HS due to possible appetite stimulant effect from remeron. venlafaxine ER instead of lexapro for hopeful pain modulating effect. will start venlafaxine @ 37.5mg, would titrate slowly due to age but still titrate to effect. discussed concerns on anxiety/ depression w her in that most of "good' management involves getting her involved /active again which are not things that a medical regimen can achieve without her working towards goals as well. daughter expressed sincere appreciation of this approach otherwise as above Level of Care Med/Surg Resuscitation Status FULL RESUSCITATION VTE Prophylaxis VTE Risk Assessment Done? Y/N: Yes Risk Level: Moderate Given or contraindicated: Unfractionated heparin SQ, T.E.D. Stockings, SCD's
--- NOTE | 2017-01-26 20:59 | DIAGNOSTIC IMAGING REPORT ---
RIGHT HIP UNILATERAL 2 VIEWS HISTORY: 86 years-old Female acute right hip pain with history of remote fall. COMPARISON: CT abdomen and pelvis 11/26/2016 TECHNIQUE: 2 views of the right hip FINDINGS: 3 cannulated screws are present within the right femoral neck. 2 of the more cephalad screws are in close proximity to the articular surface of the femoral head with adjacent subcortical cystic changes, unchanged findings from comparison CT. Subcortical cystic changes also seen within the right acetabulum with moderate to severe degenerative changes. Background osteopenia is noted. There is no acute fracture or dislocation identified. IMPRESSION: 1. No acute fracture or dislocation. 2. 3 cannulated screws are present within the right femoral neck with the 2 more cephalad screws in close proximity to the articular surface of the femoral head. Adjacent subcortical cystic changes are seen within this region, unchanged from comparison CT which may reflect underlying hardware migration. 3. Moderate to severe right hip degenerative changes. The above report was generated using voice recognition software. It may contain grammatical, syntax or spelling errors. Electronically signed by: Niko Lynn M.D. 01/26/2017 8:58 PM Dictated Date/Time: 01/26/2017 8:55 PM
[2017-01-26] MEDS ORDERED: POLYETHYLENE (MIRALAX) 17 GM PACK PO ONE (21:00)
[2017-01-26] MEDS: SODIUM CHLORIDE 0.9% 1000ML 1,000 ML IV SCH (21:19)
[2017-01-26] MEDS: MIRTAZAPINE TAB 15 MG TAB PO SCH (21:26)
[2017-01-26] MEDS: DICLOFENAC SOD 1% GEL 100 GM TUBE EXT SCH (21:26)
[2017-01-26] MEDS: HEPARIN SOD 5000 UNIT/0.5 ML CARP SQ SCH (21:27)
[2017-01-26] MEDS: ACETAMINOPHEN 325 MG TAB PO PRN (21:32)
[2017-01-26 21:52] VITALS: BP 151/83; PULSE 56; TEMP 36.4; O2SAT 97; Ht 175.3 cm; Wt 61.7 kg
[2017-01-27 00:05] VITALS: O2SAT 97
[2017-01-27 00:15] VITALS: BP_SYST 127; BP_SYST 146; BP_SYST 161; BP_DIAS 70; BP_DIAS 76; BP_DIAS 78; PULSE 88; TEMP 36.4; O2SAT 97
[2017-01-27 08:00] LABS: BUN/CREATININE RATIO 13.5 (10-20); CALCIUM 8.5 mg/dl (8.5-10.1); CREATININE 0.51 mg/dl (0.60-1.20); POTASSIUM 3.6 mmol/L (3.5-5.1)
[2017-01-27 08:15] VITALS: BP_SYST 150; BP_SYST 157; BP_DIAS 77; BP_DIAS 90; BP_DIAS 99; PULSE 58; TEMP 36.5; O2SAT 96
[2017-01-27 08:36] LABS: HEMATOCRIT 40.4 % (37-47); MEAN CORPUSCULAR HEMOGLOBIN 29.6 pg (25-34); PLATELET COUNT 174 K/uL (130-400); RED BLOOD COUNT 4.59 M/uL (4.2-5.4); WHITE BLOOD COUNT 3.35 K/uL (4.8-10.8)
[2017-01-27 08:38] LABS: MEAN CORPUSCULAR HGB CONC 33.7 g/dl (32-36)
[2017-01-27] MEDS: VENLAFAXINE HCL XR 37.5 MG CAPXR PO SCH (08:40)
[2017-01-27] MEDS: DICLOFENAC SOD 1% GEL 100 GM TUBE EXT SCH ×4 (08:40→21:03)
[2017-01-27] MEDS: CEROVITE ADV FORMULA TAB PO SCH (08:41)
[2017-01-27] MEDS: HEPARIN SOD 5000 UNIT/0.5 ML CARP SQ SCH ×2 (08:46→21:04)
[2017-01-27] MEDS: SODIUM CHLORIDE 0.9% 1000ML 1,000 ML IV SCH ×2 (08:48→21:12)
[2017-01-27] MEDS: BOOST VANILLA PO SCH ×6 (08:48→20:00)
[2017-01-27] MEDS ORDERED: ESCITALOPRAM OXALATE 10 MG TAB PO SCH (09:00)
[2017-01-27] MEDS ORDERED: POLYETHYLENE (MIRALAX) 17 GM PACK PO ONE (09:00)
--- NOTE | 2017-01-27 12:42 | Progress Note ---
Subjective Date of Service: Jan 27, 2017. Subjective Pt evaluation today including: conversation w/ patient, physical exam, chart review, lab review, review of studies, review of inpatient medication list Resting comfortably in bed No concerns or acute events overnight Problem List Medical Problems: (1) Acute bronchitis Status: Acute (2) Ambulatory dysfunction Status: Acute (3) Anxiety Status: Acute (4) Generalized weakness Status: Acute (5) Hyponatremia Status: Acute (6) Laryngitis Status: Acute (7) Persistent cough Status: Acute (8) Syncope Status: Acute (9) Systolic congestive heart failure Status: Acute (10) Urinary tract infection Status: Acute (11) UTI (urinary tract infection) Status: Acute Review of Systems Constitutional: No fever, No chills, No sweats, No weight loss Eyes: No worsening of vision, No eye pain, No redness, No discharge Respiratory: No cough, No sputum, No wheezing, No shortness of breath, No dyspnea on exertion Cardiac: No chest pain, No orthopnea, No PND, No edema Abdomen: No pain, No nausea, No vomiting, No diarrhea, No constipation Musculoskeletal: No joint pain, No muscle pain, No swelling, No calf pain Female : No dysuria, No urinary frequency, No hematuria, No incontinence Neurologic: No memory loss, No paralysis, No weakness, No numbness/tingling Psychiatric: No depression symptoms, No anhedonism, No anxiety, No insomnia Endo: No fatigue, No excessive thirst Skin: No rash, No itch Objective Vital Signs Date Time Temp Pulse Resp B/P (MAP) Pulse Ox O2 Delivery O2 Flow Rate FiO2 01/27/17 08:30 Room Air 01/27/17 08:15 36.5 58 16 157/77 (103) 96 Room Air 157/90 (112) 150/99 (116) 01/27/17 00:15 36.4 88 18 146/76 (99) 97 Room Air 161/70 (100) 127/78 (94) 01/27/17 00:05 97 Room Air 01/26/17 21:52 36.4 56 18 151/83 97 Room Air 01/26/17 20:04 60 22 164/85 98 Room Air 01/26/17 19:13 84 22 156/76 95 Room Air 01/26/17 18:11 66 22 146/88 95 Room Air 01/26/17 17:42 66 26 136/92 96 Room Air 63 151/65 87 146/88 01/26/17 16:41 66 18 154/78 96 Room Air 01/26/17 15:33 66 01/26/17 15:30 65 22 145/77 99 Room Air 01/26/17 13:28 36.5 59 20 152/76 97 Room Air Physical Exam General Appearance: WD/WN, no apparent distress Eyes: normal inspection, PERRL, EOMI, sclerae normal Neck: supple, no adenopathy, thyroid normal, no JVD, no carotid bruits Respiratory/Chest: chest non-tender, lungs clear, normal breath sounds, no respiratory distress Cardiovascular: regular rate, rhythm, no edema, no gallop, no JVD Abdomen: normal bowel sounds, non tender, soft, no organomegaly Extremities: normal range of motion, non-tender, normal inspection, no pedal edema Neurologic/Psychiatric: no motor/sensory deficits, alert, normal mood/affect Laboratory Results Last 24 Hours Test 01/26/17 15:25 01/26/17 15:40 01/27/17 06:45 01/27/17 08:19 Urine Color YELLOW Urine Appearance CLEAR Urine pH 5.5 Urine Specific [place] 1.019 Urine Protein NEG Urine Glucose (UA) NEG Urine Ketones 2+ Urine Occult Blood 1+ Urine Nitrite POS Urine Bilirubin NEG Urine Urobilinogen NEG Urine Leukocyte Esterase MODERATE Urine WBC (Auto) >30 /hpf Urine RBC (Auto) 0-4 /hpf Urine Hyaline Casts (Auto) 5-10 /lpf Urine Epithelial Cells (Auto) 10-20 /lpf Urine Bacteria (Auto) 1+ White Blood Count 4.30 K/uL 3.35 K/uL Red Blood Count 4.40 M/uL 4.59 M/uL Hemoglobin 13.6 g/dL 13.6 g/dL Hematocrit 38.1 % 40.4 % Mean Corpuscular Volume 86.6 fL 88.0 fL Mean Corpuscular Hemoglobin 30.9 pg 29.6 pg Mean Corpuscular Hemoglobin Concent 35.7 g/dl 33.7 g/dl Platelet Count 193 K/uL 174 K/uL Mean Platelet Volume 9.9 fL 10.0 fL Neutrophils (%) (Auto) 63.2 % Lymphocytes (%) (Auto) 27.9 % Monocytes (%) (Auto) 7.7 % Eosinophils (%) (Auto) 0.5 % Basophils (%) (Auto) 0.5 % Neutrophils # (Auto) 2.72 K/uL Lymphocytes # (Auto) 1.20 K/uL Monocytes # (Auto) 0.33 K/uL Eosinophils # (Auto) 0.02 K/uL Basophils # (Auto) 0.02 K/uL RDW Standard Deviation 44.0 fL 44.6 fL RDW Coefficient of Variation 13.9 % 13.8 % Immature Granulocyte % (Auto) 0.2 % Immature Granulocyte # (Auto) 0.01 K/uL Sodium Level 132 mmol/L 135 mmol/L Potassium Level 4.0 mmol/L 3.6 mmol/L Chloride Level 100 mmol/L 103 mmol/L Carbon Dioxide Level 24 mmol/L 27 mmol/L Anion Gap 8.0 mmol/L 5.0 mmol/L Blood Urea Nitrogen 10 mg/dl 7 mg/dl Creatinine 0.46 mg/dl 0.51 mg/dl Estimated GFR () 104.4 100.9 Estimated GFR (Non- 90.1 87.1 BUN/Creatinine Ratio 22.7 13.5 Random Glucose 91 mg/dl 69 mg/dl Calcium Level 8.7 mg/dl 8.5 mg/dl Magnesium Level 2.0 mg/dl Total Bilirubin 0.7 mg/dl Aspartate Amino Transf (AST/SGOT) 14 U/L Alanine Aminotransferase (ALT/SGPT) 21 U/L Alkaline Phosphatase 56 U/L Troponin I < 0.015 ng/ml Total Protein 6.8 gm/dl Albumin 3.5 gm/dl Globulin 3.3 gm/dl Albumin/Globulin Ratio 1.1 Thyroid Stimulating Hormone (TSH) 1.150 uIu/ml Est Creatinine Clear Calc Drug Dose 77.1 ml/min Assessment and Plan Patient is a pleasant 86 y/o female, with PMHx of HTN, anxiety, mild cognitive impairment, and h/o colon ca, who presented to the ED because of generalized tremors and fatigue/weakness x1 week. UTI POA: - IV Rocephin pending UCx - IV NSS @ 100 ml/hr Worsening tremor x1 week, ?related to UTI vs anxiety vs other etiology: - Continue Lexapro 5 mg daily - Consider psychiatry consultation- family/patient decline at this time Weight loss, ?secondary to psychiatric issue vs underlying pathology, h/o colon ca: - Recommend continued outpatient f/u - Encourage good oral intake Chronic hyponatremia, thought to be secondary to SSRI: Follow PRP DVT prophylaxis: Heparin SQ BID Code Status: LEVEL I, FULL
[2017-01-27 15:50] VITALS: BP 155/71; PULSE 52; TEMP 36.7; O2SAT 98
[2017-01-27] MEDS: CEFTRIAXONE SOD INJ 1 GM in DEXTROSE 5% ADD-VANTAGE 50ML 50 ML IV SCH (17:40)
[2017-01-27 20:05] VITALS: O2SAT 97
[2017-01-27] MEDS: MIRTAZAPINE TAB 15 MG TAB PO SCH (21:08)
[2017-01-27] MEDS: ACETAMINOPHEN 325 MG TAB PO PRN (21:12)
[2017-01-27 23:55] VITALS: BP_SYST 129; BP_SYST 147; BP_DIAS 69; BP_DIAS 80; BP_DIAS 84; PULSE 58; TEMP 36.3; O2SAT 100
[2017-01-28 06:18] LABS: MEAN CELL VOLUME 88.6 fL (80-100); MEAN CORPUSCULAR HEMOGLOBIN 29.6 pg (25-34); MEAN CORPUSCULAR HGB CONC 33.4 g/dl (32-36); PLATELET COUNT 175 K/uL (130-400); RED BLOOD COUNT 4.29 M/uL (4.2-5.4); WHITE BLOOD COUNT 2.86 K/uL (4.8-10.8)
[2017-01-28 06:48] LABS: BUN/CREATININE RATIO 16.4 (10-20); CALCIUM 8.5 mg/dl (8.5-10.1); CREATININE 0.44 mg/dl (0.60-1.20); POTASSIUM 3.6 mmol/L (3.5-5.1)
[2017-01-28 07:55] VITALS: BP 166/92; PULSE 81; TEMP 36.5; O2SAT 96
[2017-01-28] MEDS: POLYETHYLENE (MIRALAX) 17 GM PACK PO SCH (08:52)
[2017-01-28] MEDS: CEROVITE ADV FORMULA TAB PO SCH (08:57)
[2017-01-28] MEDS: VENLAFAXINE HCL XR 37.5 MG CAPXR PO SCH (08:57)
[2017-01-28] MEDS: DICLOFENAC SOD 1% GEL 100 GM TUBE EXT SCH ×4 (08:57→19:59)
[2017-01-28] MEDS: BOOST VANILLA PO SCH ×6 (09:02→20:03)
[2017-01-28] MEDS: SODIUM CHLORIDE 0.9% 1000ML 1,000 ML IV SCH ×2 (09:02→22:45)
[2017-01-28] MEDS: HEPARIN SOD 5000 UNIT/0.5 ML CARP SQ SCH ×2 (09:02→20:08)
--- NOTE | 2017-01-28 15:43 | Progress Note ---
Subjective Date of Service: Jan 28, 2017. Subjective Pt evaluation today including: conversation w/ patient, conversation w/ family , physical exam, chart review, lab review, review of studies, review of inpatient medication list Pt soft spoken Reports tremors in hands and feet, but has been going on for weeks No pain or distress noted Problem List Medical Problems: (1) Acute bronchitis Status: Acute (2) Ambulatory dysfunction Status: Acute (3) Anxiety Status: Acute (4) Generalized weakness Status: Acute (5) Hyponatremia Status: Acute (6) Laryngitis Status: Acute (7) Persistent cough Status: Acute (8) Syncope Status: Acute (9) Systolic congestive heart failure Status: Acute (10) Urinary tract infection Status: Acute (11) UTI (urinary tract infection) Status: Acute Review of Systems Constitutional: + weakness, No fever, No chills, No sweats Eyes: No worsening of vision, No eye pain, No redness, No discharge Respiratory: No cough, No sputum, No wheezing, No shortness of breath, No dyspnea on exertion Cardiac: No chest pain, No orthopnea, No PND, No edema Abdomen: No pain, No nausea, No vomiting, No diarrhea Musculoskeletal: No joint pain, No muscle pain, No swelling, No calf pain Female : No dysuria, No urinary frequency, No hematuria, No incontinence Neurologic: No memory loss, No paralysis, No weakness, No numbness/tingling Psychiatric: No depression symptoms, No anhedonism, No anxiety, No insomnia Endo: No fatigue, No excessive thirst Skin: No rash, No itch Objective Vital Signs Date Time Temp Pulse Resp B/P (MAP) Pulse Ox O2 Delivery O2 Flow Rate FiO2 01/28/17 08:30 Room Air 01/28/17 07:55 36.5 81 18 166/92 (116) 96 Room Air 01/28/17 00:05 Room Air 01/27/17 23:55 36.3 58 16 147/80 (102) 100 Room Air 147/69 (95) 129/84 (99) 01/27/17 20:05 97 Room Air 01/27/17 16:00 Room Air 01/27/17 15:50 36.7 52 18 155/71 (99) 98 Room Air Physical Exam General Appearance: WD/WN, no apparent distress Neck: supple, no adenopathy, thyroid normal Respiratory/Chest: chest non-tender, lungs clear, normal breath sounds, no respiratory distress Cardiovascular: no edema, no gallop, no JVD, no murmur Abdomen: normal bowel sounds, non tender, soft, no organomegaly Neurologic/Psychiatric: no motor/sensory deficits, alert, normal mood/affect, oriented x 3 Laboratory Results Last 24 Hours Test 01/28/17 05:56 White Blood Count 2.86 K/uL Red Blood Count 4.29 M/uL Hemoglobin 12.7 g/dL Hematocrit 38.0 % Mean Corpuscular Volume 88.6 fL Mean Corpuscular Hemoglobin 29.6 pg Mean Corpuscular Hemoglobin Concent 33.4 g/dl RDW Standard Deviation 44.8 fL RDW Coefficient of Variation 13.9 % Platelet Count 175 K/uL Mean Platelet Volume 10.0 fL Sodium Level 136 mmol/L Potassium Level 3.6 mmol/L Chloride Level 102 mmol/L Carbon Dioxide Level 26 mmol/L Anion Gap 8.0 mmol/L Blood Urea Nitrogen 7 mg/dl Creatinine 0.44 mg/dl Est Creatinine Clear Calc Drug Dose 89.4 ml/min Estimated GFR () 105.9 Estimated GFR (Non- 91.4 BUN/Creatinine Ratio 16.4 Random Glucose 80 mg/dl Calcium Level 8.5 mg/dl Assessment and Plan Patient is a pleasant 86 y/o female, with PMHx of HTN, anxiety, mild cognitive impairment, and h/o colon ca, who presented to the ED because of generalized tremors and fatigue/weakness x1 week. UTI POA: - IV Rocephin pending UCx currently growing out pseudomonas, no leukocytosis or fevers - IV NSS @ 100 ml/hr Worsening tremor x1 week, ?related to UTI, likely related to ?parkinsons - Continue Lexapro 5 mg daily - Consider psychiatry consultation- family/patient decline at this time - ?if tremors dont improve, may benefit from neurology consultation -PT/OT pending Weight loss, ?secondary to psychiatric issue vs underlying pathology, h/o colon ca: - Recommend continued outpatient f/u - Encourage good oral intake Chronic hyponatremia, thought to be secondary to SSRI: Follow PRP DVT prophylaxis: Heparin SQ BID Code Status: LEVEL I, FULL
[2017-01-28 16:15] VITALS: BP 152/74; PULSE 54; TEMP 36.2; O2SAT 98
[2017-01-28] MEDS: CEFTRIAXONE SOD INJ 1 GM in DEXTROSE 5% ADD-VANTAGE 50ML 50 ML IV SCH (17:14)
[2017-01-28] MEDS: MIRTAZAPINE TAB 15 MG TAB PO SCH (19:59)
[2017-01-28] MEDS: ACETAMINOPHEN 325 MG TAB PO PRN (20:04)
[2017-01-29 00:09] VITALS: BP 170/79; PULSE 54; TEMP 36.3; O2SAT 97
[2017-01-29 06:29] LABS: HEMATOCRIT 38.4 % (37-47); MEAN CELL VOLUME 86.7 fL (80-100); MEAN CORPUSCULAR HGB CONC 34.6 g/dl (32-36); MEAN PLATELET VOLUME 9.5 fL (7.4-10.4); PLATELET COUNT 164 K/uL (130-400); RED BLOOD COUNT 4.43 M/uL (4.2-5.4); WHITE BLOOD COUNT 2.89 K/uL (4.8-10.8)
[2017-01-29 07:04] LABS: CREATININE 0.41 mg/dl (0.60-1.20)
[2017-01-29 07:05] LABS: BUN/CREATININE RATIO 14.9 (10-20); CALCIUM 8.6 mg/dl (8.5-10.1); POTASSIUM 3.6 mmol/L (3.5-5.1)
[2017-01-29] MEDS: DICLOFENAC SOD 1% GEL 100 GM TUBE EXT SCH ×4 (07:56→19:32)
[2017-01-29] MEDS: HEPARIN SOD 5000 UNIT/0.5 ML CARP SQ SCH ×2 (07:59→19:39)
[2017-01-29 08:03] VITALS: BP 168/78; PULSE 57; TEMP 36.3; O2SAT 98
[2017-01-29] MEDS ORDERED: CIPROFLOXACIN 500 MG TAB PO STA (08:16)
[2017-01-29] MEDS ORDERED: LISINOPRIL 2.5 MG TAB PO ONE (08:30)
--- NOTE | 2017-01-29 09:25 | Progress Note ---
Subjective Date of Service: Jan 29, 2017. Subjective Pt evaluation today including: conversation w/ patient, physical exam, chart review, lab review, review of studies, conversation w/ coding consultant, review of inpatient medication list Patient seems generalized weak, conversational, but a weak voice, not eating drinking well, has been on IV fluid since admission, when palpation lower abdomen, possible has mild pain, no obvious tremor when showing evan hands Problem List Medical Problems: (1) Acute bronchitis Status: Acute (2) Ambulatory dysfunction Status: Acute (3) Anxiety Status: Acute (4) Generalized weakness Status: Acute (5) Hyponatremia Status: Acute (6) Laryngitis Status: Acute (7) Persistent cough Status: Acute (8) Syncope Status: Acute (9) Systolic congestive heart failure Status: Acute (10) Urinary tract infection Status: Acute (11) UTI (urinary tract infection) Status: Acute Review of Systems Constitutional: + weakness, + fatigue, No fever, No chills, No sweats, No weight loss, No problem reported Eyes: No worsening of vision, No eye pain, No redness, No discharge, No diplopia ENT: No hearing loss, No unusual epistaxis, No nasal symptoms, No sore throat, No tinnitus, No dental problems, No trouble swallowing Respiratory: No cough, No sputum, No wheezing, No shortness of breath, No dyspnea on exertion, No dyspnea at rest, No hemoptysis Cardiac: No chest pain, No orthopnea, No PND, No edema, No claudication, No palpitations Abdomen: + constipation, No pain, No nausea, No vomiting, No diarrhea Musculoskeletal: No joint pain, No muscle pain, No swelling, No calf pain Female : No dysuria, No urinary frequency, No hematuria, No incontinence, No abnormal vaginal bleeding, No vaginal discharge Neurologic: + problem reported (mild tremor), No memory loss, No paralysis, No weakness, No numbness/tingling, No vertigo, No balance problems Psychiatric: No depression symptoms, No anhedonism, No anxiety, No insomnia, No substance abuse Heme: No abnormal bleeding/bruising, No clotting problems, No swollen lymph nodes, No night sweats Endo: + fatigue, No excessive thirst, No excessive urination Skin: No rash, No itch, No new/changing skin lesions, No color change, No bleeding Objective Vital Signs Date Time Temp Pulse Resp B/P (MAP) Pulse Ox O2 Delivery O2 Flow Rate FiO2 01/29/17 08:03 36.3 57 18 168/78 (108) 98 Room Air 01/29/17 03:47 Room Air 01/29/17 00:09 36.3 54 18 170/79 (109) 97 Room Air 01/28/17 22:10 Room Air 01/28/17 16:15 36.2 54 16 152/74 (100) 98 Room Air 01/28/17 16:00 Room Air Physical Exam General Appearance: WD/WN, no apparent distress, + thin, + pertinent finding ( frail) Eyes: normal inspection, PERRL, EOMI, sclerae normal ENT: normal ENT inspection, hearing grossly normal, pharynx normal Neck: supple, no adenopathy, thyroid normal, no JVD, no carotid bruits, trachea midline Respiratory/Chest: chest non-tender, normal breath sounds, no respiratory distress, no accessory muscle use, + decreased breath sounds Cardiovascular: regular rate, rhythm, no edema, no gallop, no JVD, no murmur Abdomen: normal bowel sounds, non tender, soft, no organomegaly, no pulsatile mass Extremities: normal range of motion, non-tender, normal inspection, no pedal edema, no calf tenderness, normal capillary refill, pelvis stable 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, no motor/sensory deficits, alert, normal mood/affect, oriented x 3 Skin: normal color, warm/dry, no rash Lymphatic: no adenopathy Laboratory Results Last 24 Hours Test 01/29/17 06:21 White Blood Count 2.89 K/uL Red Blood Count 4.43 M/uL Hemoglobin 13.3 g/dL Hematocrit 38.4 % Mean Corpuscular Volume 86.7 fL Mean Corpuscular Hemoglobin 30.0 pg Mean Corpuscular Hemoglobin Concent 34.6 g/dl RDW Standard Deviation 44.2 fL RDW Coefficient of Variation 13.8 % Platelet Count 164 K/uL Mean Platelet Volume 9.5 fL Sodium Level 135 mmol/L Potassium Level 3.6 mmol/L Chloride Level 101 mmol/L Carbon Dioxide Level 27 mmol/L Anion Gap 7.0 mmol/L Blood Urea Nitrogen 6 mg/dl Creatinine 0.41 mg/dl Est Creatinine Clear Calc Drug Dose 95.9 ml/min Estimated GFR () 108.4 Estimated GFR (Non- 93.5 BUN/Creatinine Ratio 14.9 Random Glucose 88 mg/dl Calcium Level 8.6 mg/dl Assessment and Plan 86 y/o female, with PMHx of HTN, anxiety, mild cognitive impairment, and h/o colon ca admitted on 01/27/2017 because of generalized tremors and fatigue/ weakness x1 week. Pseudomonas UTI POA: Has been on Rocephin culture is sensitive, switched to oral Cipro today, will be totally 10 days, today is 3 out of 10 Has been on IV NSS @ 100 ml/hr , will discontinue Worsening tremor x1 week, ?related to UTI, likely related to ?parkinsons - Continue Lexapro 5 mg daily - Consider psychiatry consultation- family/patient decline at this time - Possible tremors dont improve, associated with possible swallowing dysfunction , which may be related to Parkinson disease, has requested brain FL was comparable and neurology consultation -PT/OT pending Weight loss, ?secondary to psychiatric issue vs underlying pathology, h/o colon ca: - Recommend continued outpatient f/u - Encourage good oral intake - Has requested dietitian consult, add Colace, and Megace Chronic hyponatremia, thought to be secondary to SSRI: Resolved Today's better DVT prophylaxis: Heparin SQ BID Code Status: LEVEL I, FULL PT OT, will talk to the family for the goal of care plan Continued [facility] stay due to: home environment unsafe for pt Discharge planning: uncertain
[2017-01-29] MEDS ORDERED: DOCUSATE SODIUM 100 MG CAP PO ONE (09:30)
--- NOTE | 2017-01-29 10:34 | DIAGNOSTIC IMAGING REPORT ---
(BARIUM SWALLOW) ESOPHAGUS CLINICAL HISTORY: 86 years-old Female presenting with globus sensation and weight loss; NPO after midnight. TECHNIQUE: A standard air contrast barium esophagram is performed. Multiple spot images of the esophagus are acquired both upright and prone. COMPARISON: None. FINDINGS: The patient was able to ingest barium and the barium pill without difficulty. However, deep penetration to the level of the vocal folds was observed intermittently towards the conclusion of the exam. Normal mucosal pattern. No evidence of intrinsic or extrinsic mass lesion. No aspiration observed. Tertiary contractions, evidence of dysmotility. The gastroesophageal junction distended normally. No gastroesophageal reflux could be elicited despite provocative maneuvers. Fluoroscopy dosage (mGy): Not available. Fluoroscopy time: 1.4 minutes. Number of fluoroscopic spot images: 23. IMPRESSION: Tertiary contractions, evidence of dysmotility. This likely indicates presbyesophagus. No reflux or hiatal hernia. Intermittent deep penetration. Further evaluation with dedicated barium swallow examination suggested. Electronically signed by: Mann Cisneros M.D. 01/29/2017 10:32 AM Dictated Date/Time: 01/29/2017 10:31 AM
[2017-01-29] MEDS: POLYETHYLENE (MIRALAX) 17 GM PACK PO SCH (11:41)
[2017-01-29] MEDS: BOOST VANILLA PO SCH ×6 (11:44→19:33)
[2017-01-29] MEDS: CEROVITE ADV FORMULA TAB PO SCH (11:45)
[2017-01-29] MEDS: VENLAFAXINE HCL XR 37.5 MG CAPXR PO SCH (11:45)
[2017-01-29] MEDS ORDERED: NURSING VERBAL MED ORDER ONE (11:45)
--- NOTE | 2017-01-29 11:48 | Neurology Consultation ---
Neurology Consultation Date of Consultation: Jan 29, 2017. Attending Physician: Charli Wilson MD, PhD Primary Care Physician: Angelito Rogers M.D. Reason for Consultation: Consultation for tremor and question about Parkinson's History of Present Illness Source: patient, hospital records This is 86-year-old female who presented due to generalized weakness and tremors for about 1 week. It did have a UTI and is on day 3 of antibiotics. Patient was recently hospitalized in November with a workup that included an echocardiogram CT of the head, TSH, B12 level. Of that time she was started on Paxil for diagnosis of generalized anxiety. Due to hypernatremia she was changed to Lexapro and then most recently changed to Effexor. Patient has also been having issues with generalized weight loss for the last 1-2 months. She has a significant history of colon cancer status post colectomy. She has not been getting follow-up and has refused a colonoscopy in the past. Physical therapy and occupational therapy is pending. Nursing reports that while she is slow to get up she seems to do fairly well. Patient notes tremors in the last week. She denies any additional nausea or stomach medication being used in addition to her prescription medications. She reports tremors tend to be worse when she sits up or stands up. Sometimes will have it in her head or chin/lip. Denies any significant tremors in her hands. Cannot really say whether the tremors are at rest or with action. Does complain of significant right hip pain that seems to be limiting her mobility. There is reports that she has been doing a lot of sitting and sedentary lifestyle lately that may contribute to generalized weakness. Patient does complain of trouble swallowing and feeling like things are getting stuck. She has a swallow evaluation pending. Also complains of difficult/ painful bowel movements. Reports that her right lower extremity intermittently gets numb depending on positions. She feels limited in her mobility due to her right hip pain. Recent labs include a TSH which was unremarkable, and sodium of 132-135 CT of the head is unremarkable Past Medical/Surgical History Medical Problems: (1) Acute bronchitis Status: Acute (2) Ambulatory dysfunction Status: Acute (3) Anxiety Status: Acute (4) Generalized weakness Status: Acute (5) Hyponatremia Status: Acute (6) Laryngitis Status: Acute (7) Persistent cough Status: Acute (8) Syncope Status: Acute (9) Systolic congestive heart failure Status: Acute (10) Urinary tract infection Status: Acute (11) UTI (urinary tract infection) Status: Acute Past medical history is negative for hypertension, anxiety, mild cognitive impairment, history of colon cancer status post partial colectomy. Family History Denies any family history of tremors Social History Normally independent in her activities of daily living Smoking Status: Never smoker Drug Use: none Marital Status: Housing Status: lives with significant other Occupation Status: retired Allergies Coded Allergies: Sulfa Antibiotics (Verified Allergy, Intermediate, HIVES, 01/26/17) Aspirin (Verified Adverse Reaction, Mild, SICK TO STOMACH, 11/26/16) Current Inpatient Medications Current Inpatient Medications Medications (Trade) Dose Ordered Sig/Jennifer Route Start Time Stop Time Status Last Admin Dose Admin Acetaminophen (Tylenol Tab) 650 mg Q4H PRN PO 01/26/17 19:15 02/25/17 19:14 01/28/17 20:04 650 MG Al Hydrox/Mg Hydrox/Simethicone (Maalox Max Susp) 15 ml Q4H PRN PO 01/26/17 19:15 02/25/17 19:14 Magnesium Hydroxide (Milk Of Magnesia Susp) 30 ml Q6H PRN PO 01/26/17 19:15 02/25/17 19:14 Polyethylene (Miralax Powder Packet) 17 gm DAILY PRN PO 01/26/17 19:15 02/25/17 19:14 Ondansetron HCl (Zofran Inj) 4 mg Q6H PRN IV 01/26/17 19:15 02/25/17 19:14 Heparin Sodium (Porcine) (Heparin Sq 5000 Unit/0.5ml) 5,000 unit Q12H SQ 01/26/17 20:00 02/25/17 19:59 01/29/17 07:59 5,000 UNIT Sodium Chloride 1,000 ml @ 80 mls/hr [id number] IV 01/26/17 20:45 02/25/17 20:44 01/28/17 22:45 80 MLS/HR Multivitamins/ Minerals (Multivitamin W/ Minerals Tab) 1 tab DAILY PO 01/27/17 08:00 02/26/17 08:59 01/28/17 08:57 1 TAB Mirtazapine (Remeron Tab) 15 mg HS PO 01/26/17 21:00 02/25/17 20:59 01/28/17 19:59 15 MG Venlafaxine HCl (effeXOR EXTENDED REL CAP) 37.5 mg QAM PO 01/27/17 08:00 02/26/17 08:59 01/28/17 08:57 37.5 MG Diclofenac Sodium (Voltaren 1% Top Gel) 1 appln QID EXT 01/26/17 20:35 02/25/17 20:59 01/29/17 07:56 1 APPLN Polyethylene (Miralax Powder Packet) 17 gm DAILY PO 01/28/17 08:00 02/27/17 08:59 01/28/17 08:52 17 GM Enteral Nutritional Formula (Boost) 1 can TID PO 01/27/17 08:00 02/26/17 07:59 01/28/17 20:03 1 CAN Ciprofloxacin (Cipro Tab) 500 mg DAILY PO 01/30/17 08:00 02/09/17 07:59 Lisinopril (Zestril Tab) 2.5 mg QAM PO 01/30/17 08:00 03/01/17 07:59 Docusate Sodium (coLACE CAP) 100 mg BID PO 01/29/17 20:00 02/28/17 19:59 Megestrol Acetate (Megace Susp) 400 mg BID PO 01/29/17 20:00 02/28/17 19:59 Review of Systems Complete review of systems otherwise unremarkable except for the above noted in history of present illness Physical Exam Vital Signs (Past 24 Hrs): Date Time Temp Pulse Resp B/P (MAP) Pulse Ox O2 Delivery O2 Flow Rate FiO2 01/29/17 08:03 36.3 57 18 168/78 (108) 98 Room Air 01/29/17 03:47 Room Air 01/29/17 00:09 36.3 54 18 170/79 (109) 97 Room Air 01/28/17 22:10 Room Air 01/28/17 16:15 36.2 54 16 152/74 (100) 98 Room Air 01/28/17 16:00 Room Air Gen.: Patient is alert and lying in bed, in no acute distress. HEENT: Normocephalic /atraumatic, no scleral icterus Heart: Regular rate and rhythm Extremities: No gross deformities or rashes noted Neurological examination: Mental status: Patient is alert and oriented x3. Attention and concentration normal for the situation. Good fund of knowledge. Able to give her own history. Speech is fluent without any dysarthria or aphasia noted. Noted hypophonia Cranial nerve: Funduscopic examination was limited but unremarkable. No papilledema. Pupils equally round and reactive to light. Extraocular muscles intact without nystagmus. No facial asymmetry noted. Facial sensation intact. Tongue is midline. Good palatal elevation. Good shoulder shrug bilaterally. Hearing grossly intact to voice. Strength: 4+/5 both proximal and distally in all extremities at times with give way weakness. There is no arm drift. Tone is normal. No rigidity Patient had physiological tremor of the head when she would try to lift it off the bed. Intermittent lower lip tremor noted. No significant resting tremors. No pill rolling tremors. Rarely would see a minimal action/physiological tremor in hands with movement. rapid hand movements. Sensation: Grossly intact to light touch in all extremities. Deep tendon reflexes: +1 in bilateral biceps, brachioradialis and patellar. Coordination: Patient had good finger to nose without dysmetria. Limited heel-to -mishra due to hip pain. Station within the bed was normal Laboratory Results Past 24 Hours: 01/29/17 06:21 01/29/17 06:21 Test 01/29/17 06:21 Red Blood Count 4.43 M/uL (4.2-5.4) Mean Corpuscular Volume 86.7 fL (80-100) Mean Corpuscular Hemoglobin 30.0 pg (25-34) Mean Corpuscular Hemoglobin Concent 34.6 g/dl (32-36) RDW Standard Deviation 44.2 fL (36.4-46.3) RDW Coefficient of Variation 13.8 % (11.5-14.5) Mean Platelet Volume 9.5 fL (7.4-10.4) Anion Gap 7.0 mmol/L (3-11) Est Creatinine Clear Calc Drug Dose 95.9 ml/min Estimated GFR () 108.4 Estimated GFR (Non- 93.5 BUN/Creatinine Ratio 14.9 (10-20) Calcium Level 8.6 mg/dl (8.5-10.1) Imaging As noted above in history of present illness Impression This is 86-year-old female with what seems like likely physiological tremors. Could be secondary to recent antidepressive medication changes. No signs or symptoms consistent with Parkinson's. Hypophonia is nonspecific. Patient's description of tremors getting worse when she is tries to sit or stand fanlike the could be consistent with either tremulous from weakness or possible orthostatic tremors. Patient denies any presyncopal symptoms. 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 Generalized weakness is likely due to deconditioning. Dysphasia symptoms are in the process of being evaluated (but also nonspecific). Plan Agree with PT/OT evaluation and treatment The patient reports that she doesn't want to get MRI of the brain. At this time , I do not feel strongly about getting MRI of the brain from a neurological standpoint. Encourage the patient to follow-up with GI regarding bowel symptoms and history of colon cancer. No additional neurological recommendations at this time. If there is any questions or concerns, feel free to call/page me.
[2017-01-29 15:42] VITALS: BP 155/82; PULSE 54; TEMP 36.5; O2SAT 99
[2017-01-29] MEDS: MIRTAZAPINE TAB 15 MG TAB PO SCH (19:33)
[2017-01-29] MEDS: DOCUSATE SODIUM 100 MG CAP PO SCH (19:33)
[2017-01-29] MEDS: MEGESTROL ACETATE 400 MG/10 ML UDP PO SCH (19:33)
[2017-01-29] MEDS: ACETAMINOPHEN 325 MG TAB PO PRN (19:40)
[2017-01-29 23:43] VITALS: BP 142/71; PULSE 63; TEMP 36.5; O2SAT 96
[2017-01-30 07:46] VITALS: BP 161/68; PULSE 63; TEMP 36.8; O2SAT 96
[2017-01-30] MEDS: VENLAFAXINE HCL XR 37.5 MG CAPXR PO SCH (08:35)
[2017-01-30] MEDS: DICLOFENAC SOD 1% GEL 100 GM TUBE EXT SCH ×4 (08:35→19:49)
[2017-01-30] MEDS: BOOST VANILLA PO SCH ×6 (08:35→19:50)
[2017-01-30] MEDS: CIPROFLOXACIN 500 MG TAB PO SCH (08:36)
[2017-01-30] MEDS: CEROVITE ADV FORMULA TAB PO SCH (08:36)
[2017-01-30] MEDS: DOCUSATE SODIUM 100 MG CAP PO SCH ×2 (08:36→19:50)
[2017-01-30] MEDS: MEGESTROL ACETATE 400 MG/10 ML UDP PO SCH ×2 (08:36→19:50)
[2017-01-30] MEDS: POLYETHYLENE (MIRALAX) 17 GM PACK PO SCH (08:37)
[2017-01-30] MEDS: LISINOPRIL 2.5 MG TAB PO SCH (08:37)
[2017-01-30] MEDS: HEPARIN SOD 5000 UNIT/0.5 ML CARP SQ SCH ×2 (08:44→19:53)
--- NOTE | 2017-01-30 10:12 | Gastrointestinal Consultation ---
Gastrointestinal Consultation Date of Consultation: Jan 30, 2017 Attending Physician: Dr. Wilson Consulting Physician: Dr. Sharma/LAURA Gross Reason for Consultation: Dysphagia and abnormal barium swallow History of Present Illness Patient is a 86 year old female with a history of colon cancer diagnosed in 2010 status post resection admitted to the hospital with fatigue and tremor beginning 1 week prior to arrival. She has been seen by neurology in this regard. GI has been consulted in regard to the patient's reports of dysphagia which from review of records has been chronic in nature. She did undergo an upper endoscopy in March of [address] Weinstein which demonstrated "anterior cervical spurs" without evidence of stricture, web, erosion or tumor. Dr. Weinstein had felt her symptoms at that time were most likely related to motility disorder. She did undergo a barium swallow study yesterday which demonstrated tertiary contractions, evidence of dysmotility and presbyesophagus with intermittent deep penetrations. There was no aspiration identified and mucosal pattern was normal. I did have difficulty obtaining a good history from the patient but she states she tolerated her breakfast this morning. Laboratory testing reviewed and she is not anemic. No reports of any gastrointestinal bleeding. Past Medical/Surgical History Medical Problems: (1) Acute bronchitis Status: Acute (2) Ambulatory dysfunction Status: Acute (3) Anxiety Status: Acute (4) Generalized weakness Status: Acute (5) Hyponatremia Status: Acute (6) Laryngitis Status: Acute (7) Persistent cough Status: Acute (8) Syncope Status: Acute (9) Systolic congestive heart failure Status: Acute (10) Urinary tract infection Status: Acute (11) UTI (urinary tract infection) Status: Acute Past Medical History: 1. Anxiety 2. Hypertension 3. Colon cancer 4. Mild cognitive impairment Past Surgical History: 1. Right hip repair 2. EGD 3. Complete colonoscopy 4. Right colon resection Family History Cancer Negative for GI malignancy and IBD Social History Smoking Status: Former Smoker Alcohol Use: none Drug Use: none Marital Status: Housing Status: lives with significant other Occupation Status: retired Allergies Coded Allergies: Sulfa Antibiotics (Verified Allergy, Intermediate, HIVES, 01/26/17) Aspirin (Verified Adverse Reaction, Mild, SICK TO STOMACH, 11/26/16) Current Medications Home Meds and Scripts Medications Dose Route/Sig Max Daily Dose Days Date Category Kp Melatonin (Melatonin) Unknown Strength Tab Unknown Dose PO HS 30 01/26/17 Reported Lexapro (Escitalopram Oxalate) 5 Mg Tab 5 Mg PO DAILY 01/26/17 Reported Centrum Silver Adult 50+ (Multiple Vitamins W/ Minerals) 1 Tab Tab 1 Tab PO DAILY 11/26/16 Reported Tylenol (Acetaminophen) 500 Mg Tab 500 Mg PO HS 11/26/16 Reported Review of Systems Constitutional: No fever, No chills Eyes: No problem reported ENT: + see HPI Respiratory: No problem reported Cardiac: No problem reported Abdomen: + see HPI Musculoskeletal: No problem reported Female : No problem reported Neuro: + see HPI Psych: No problem reported Physical Exam Date Time Temp Pulse Resp B/P (MAP) Pulse Ox O2 Delivery O2 Flow Rate FiO2 01/30/17 08:00 Room Air 01/30/17 07:46 36.8 63 16 161/68 (99) 96 Room Air 01/30/17 00:01 Room Air 01/29/17 23:43 36.5 63 18 142/71 (94) 96 Room Air 01/29/17 20:00 Room Air 01/29/17 16:00 Room Air 01/29/17 15:42 36.5 54 18 155/82 (106) 99 Room Air General Appearance: no apparent distress Eyes: EOMI ENT: hearing grossly normal Neck: supple Respiratory/Chest: lungs clear, normal breath sounds, no respiratory distress Cardiovascular: regular rate, rhythm, no gallop, no murmur Abdomen: normal bowel sounds, non tender, soft Extremities: no pedal edema Neurologic/Psych: alert, normal mood/affect, oriented x 3 Skin: warm/dry Impression Patient is a 86 year old female with a history of chronic dysphagia admitted with fatigue and tremor status post abnormal barium swallow study. Plan 1. Patient was not amenable to video swallow study with FINISH CLEANER evaluation stating "I already had one yesterday. That should be enough". 2. No findings on barium swallow study to warrant an urgent endoscopy as she is demonstrating evidence of oropharyngeal dysphagia with esophageal dysmotility. Further she refuses invasive GI work up. 3. Continue mechanical soft diet. 4. Safe swallow strategies including chin-tuck method for medications. 5. Supportive measure per primary team. Thank you for allowing us to participate in the care of this patient. If you have any questions or concerns, please do not hesitate to contact us. Agree with LAURA Gross as above Abd: Soft, NT, ND, +BS Nursing reports patient is doing well with PO intake No need for invasive testing Continue supportive care
--- NOTE | 2017-01-30 11:17 | Progress Note ---
Subjective Date of Service: Jan 30, 2017. Subjective Pt evaluation today including: conversation w/ patient, physical exam, chart review, lab review, review of studies, conversation w/ program consultant, review of inpatient medication list Report significant anxious and never has, and not sleep well last night She is sitting up in a chair, eating breakfast first, seems swallowing well, No other complaints Problem List Medical Problems: (1) Acute bronchitis Status: Acute (2) Ambulatory dysfunction Status: Acute (3) Anxiety Status: Acute (4) Generalized weakness Status: Acute (5) Hyponatremia Status: Acute (6) Laryngitis Status: Acute (7) Persistent cough Status: Acute (8) Syncope Status: Acute (9) Systolic congestive heart failure Status: Acute (10) Urinary tract infection Status: Acute (11) UTI (urinary tract infection) Status: Acute Review of Systems Constitutional: + fatigue, No fever, No chills, No sweats, No weight loss, No weakness, No problem reported Eyes: No worsening of vision, No eye pain, No redness, No discharge, No diplopia ENT: No hearing loss, No unusual epistaxis, No nasal symptoms, No sore throat, No tinnitus, No dental problems, No trouble swallowing Respiratory: No cough, No sputum, No wheezing, No shortness of breath, No dyspnea on exertion, No dyspnea at rest, No hemoptysis Cardiac: No chest pain, No orthopnea, No PND, No edema, No claudication, No palpitations Abdomen: No pain, No nausea, No vomiting, No diarrhea, No constipation Musculoskeletal: No joint pain, No muscle pain, No swelling, No calf pain Female : No dysuria, No urinary frequency, No hematuria, No incontinence, No abnormal vaginal bleeding, No vaginal discharge Neurologic: No memory loss, No paralysis, No weakness, No numbness/tingling, No vertigo, No balance problems Psychiatric: + anxiety, No depression symptoms, No anhedonism, No insomnia, No substance abuse Heme: No abnormal bleeding/bruising, No clotting problems, No swollen lymph nodes, No night sweats Endo: No fatigue, No excessive thirst, No excessive urination Skin: No rash, No itch, No new/changing skin lesions, No color change, No bleeding Objective Vital Signs Date Time Temp Pulse Resp B/P (MAP) Pulse Ox O2 Delivery O2 Flow Rate FiO2 01/30/17 08:00 Room Air 01/30/17 07:46 36.8 63 16 161/68 (99) 96 Room Air 01/30/17 00:01 Room Air 01/29/17 23:43 36.5 63 18 142/71 (94) 96 Room Air 01/29/17 20:00 Room Air 01/29/17 16:00 Room Air 01/29/17 15:42 36.5 54 18 155/82 (106) 99 Room Air Physical Exam General Appearance: WD/WN, no apparent distress, + thin, + pertinent finding ( frail) Eyes: normal inspection, PERRL, EOMI, sclerae normal ENT: normal ENT inspection, hearing grossly normal, pharynx normal Neck: supple, no adenopathy, thyroid normal, no JVD, no carotid bruits, trachea midline Respiratory/Chest: chest non-tender, normal breath sounds, no respiratory distress, no accessory muscle use, + decreased breath sounds Cardiovascular: regular rate, rhythm, no edema, no gallop, no JVD, no murmur Abdomen: normal bowel sounds, non tender, soft, no organomegaly, no pulsatile mass Extremities: normal range of motion, non-tender, normal inspection, no pedal edema, no calf tenderness, normal capillary refill, pelvis stable Neurologic/Psychiatric: cut plug packer II-XII nml as tested, no motor/sensory deficits, alert, normal mood/affect, oriented x 3, + pertinent finding (anxious, no obvious tremor) Skin: normal color, warm/dry, no rash Lymphatic: no adenopathy Assessment and Plan 86 y/o female, with PMHx of HTN, anxiety, mild cognitive impairment, and h/o colon ca admitted on 01/27/2017 because of generalized tremors and fatigue/ weakness x1 week. Pseudomonas UTI POA: Has been on Rocephin culture is sensitive, switched to oral Cipro yesterday, will be totally 10 days, today is 4 out of 10 Worsening tremor x1 week, ?related to UTI, likely related to ?parkinsons - Continue Lexapro 5 mg daily - Consider psychiatry consultation- family/patient decline at this time - Possible tremors dont improve, associated with possible swallowing dysfunction , which may be related to Parkinson disease, has requested brain NC but pt and fam declined, neuro saw pt, feel not likely PD -cont PT/OT Weight loss, ?secondary to psychiatric issue vs underlying pathology, h/o colon ca: - Recommend continued outpatient f/u - Encourage good oral intake - Has requested dietitian consult, add Colace, and Megace Chronic hyponatremia, thought to be secondary to SSRI: Resolved anxiety, , added Xanax, and continue Effexor daily DVT prophylaxis: Heparin SQ BID Code Status: LEVEL I, FULL OT feel okay to call home , PT report skilled PT , called to Wendy update her all conditions , and care plan , she wanted MRI done Continued [facility] stay due to: home environment unsafe for pt Discharge planning: uncertain
[2017-01-30] MEDS: ALPRAZOLAM 0.25 MG TAB PO PRN (11:26)
--- NOTE | 2017-01-30 13:13 | Clinical Documentation Query ---
CLINICAL DOCUMENTATION QUERY Dr. WAHL, In your clinical opinion is this patient being managed for: (x ) Severe protein-calorie malnutrition ( ) Not Agree ( ) Other explanation of clinical findings (Please Explain) ( ) Unable to determine (Please Define) ( ) Need to Discuss The medical record reflects the following clinical findings, treatment, and risk factors. Clinical Indicators: 86 yo female presenting with UTI, weakness. Per dietary consult, pt has 10.2 kg (14%) wt loss over the past 5 months. Pt is described as thin/frail. Family reported pt has lost "a lot of weight" over the past 1-2 months. Treatment: dietary consult, boost tid, add megace Risk Factors:hx colon cancer, anxiety, self limited oral intake due to concerns re: elimination urgency Chronic Severe Malnutrition Criteria: (2 criteria needed) Energy intake: <75% of estimated energy requirement for > 1 month Wt loss: >5% in 1 month, > 7.5% in 3 months, >10% in 6 months, >20% in 1 year Body fat: severe loss of SQ fat from the orbits, triceps or fat overlying the ribs Muscle mass: severe muscle wasting at the temples, clavicles, shoulders, interosseous spaces, scapula, thigh, calf Fluid accumulation: severe localized or generalized edema of the extremities, vulva, scrotum-wt loss may be masked by edema Please clarify and document your clinical opinion in the progress notes and discharge summary. Terms such as "probable", "suspected", "likely", "questionable", "possible", or "still to be ruled out" are acceptable. IF IN AGREEMENT, YOU MUST DOCUMENT ABOVE DIAGNOSTIC STATEMENT IN DAILY PROGRESS NOTES AND DISCHARGE SUMMARY. This document is not part of the patient's record. Thank You, Germaine Renner, RN [phone]
--- NOTE | 2017-01-30 14:27 | DIAGNOSTIC IMAGING REPORT ---
BRAIN COMBO CLINICAL HISTORY: 86 years-old Female presenting with anxiety, confusion, tremor . TECHNIQUE: Multisequence, multiplanar MR imaging of the brain was performed before and after the administration of intravenous contrast. IV contrast: 6 mL of Gadavist. COMPARISON: 12/04/2016. FINDINGS: Proportional ventricular and sulcal prominence, likely age-related volume loss. Periventricular and subcortical white matter T2/FLAIR hyperintensity, nonspecific but likely chronic small vessel ischemic change. No mass effect or midline shift. No hemorrhage or acute territorial infarct. No extra-axial fluid collection. T2 skull base flow voids preserved. No abnormal parenchymal enhancement. Bone marrow signal intensity within the calvarium within normal limits. 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 IMPRESSION: No acute intracranial abnormality. No abnormal enhancement. Electronically signed by: Mann Cisneros M.D. 01/30/2017 2:26 PM Dictated Date/Time: 01/30/2017 2:21 PM
[2017-01-30 15:16] VITALS: BP 97/58; PULSE 65; TEMP 36.6; O2SAT 97
[2017-01-30] MEDS: MIRTAZAPINE TAB 15 MG TAB PO SCH (19:49)
[2017-01-30] MEDS: ACETAMINOPHEN 325 MG TAB PO PRN (19:54)
[2017-01-31 00:27] VITALS: BP 132/80; PULSE 62; TEMP 36.3; O2SAT 98
[2017-01-31] MEDS: DOCUSATE SODIUM 100 MG CAP PO SCH ×2 (07:52→20:00)
[2017-01-31] MEDS: LISINOPRIL 2.5 MG TAB PO SCH (07:52)
[2017-01-31] MEDS: CEROVITE ADV FORMULA TAB PO SCH (07:52)
[2017-01-31] MEDS: CIPROFLOXACIN 500 MG TAB PO SCH (07:54)
[2017-01-31] MEDS: VENLAFAXINE HCL XR 37.5 MG CAPXR PO SCH (07:54)
[2017-01-31] MEDS: MEGESTROL ACETATE 400 MG/10 ML UDP PO SCH ×2 (07:55→20:00)
[2017-01-31] MEDS: POLYETHYLENE (MIRALAX) 17 GM PACK PO SCH (07:55)
[2017-01-31] MEDS: BOOST VANILLA PO SCH ×4 (07:55→20:00)
[2017-01-31] MEDS: DICLOFENAC SOD 1% GEL 100 GM TUBE EXT SCH ×4 (07:55→20:02)
[2017-01-31] MEDS: ALPRAZOLAM 0.25 MG TAB PO PRN ×2 (07:59→15:38)
[2017-01-31] MEDS: HEPARIN SOD 5000 UNIT/0.5 ML CARP SQ SCH ×2 (07:59→20:05)
[2017-01-31 08:23] VITALS: BP 159/79; PULSE 68; TEMP 36.7; O2SAT 97
--- NOTE | 2017-01-31 09:50 | Gastroenterology Progress Note ---
Progress Note Date of Service: Jan 31, 2017 Subjective Pt evaluation today including: conversation w/ patient, physical exam, chart review Patient and nursing staff report no swallowing issues at this time. Patient denies any odynophagia, abdominal pain or other GI complaints. Review of Systems Constitutional: + fatigue Abdomen: + see HPI Neuro: + problem reported (tremor) Medications Current Inpatient Medications Medications (Trade) Dose Ordered Sig/Jennifer Route Start Time Stop Time Status Last Admin Dose Admin Acetaminophen (Tylenol Tab) 650 mg Q4H PRN PO 01/26/17 19:15 02/25/17 19:14 01/30/17 19:54 650 MG Al Hydrox/Mg Hydrox/Simethicone (Maalox Max Susp) 15 ml Q4H PRN PO 01/26/17 19:15 02/25/17 19:14 Magnesium Hydroxide (Milk Of Magnesia Susp) 30 ml Q6H PRN PO 01/26/17 19:15 02/25/17 19:14 Polyethylene (Miralax Powder Packet) 17 gm DAILY PRN PO 01/26/17 19:15 02/25/17 19:14 Ondansetron HCl (Zofran Inj) 4 mg Q6H PRN IV 01/26/17 19:15 02/25/17 19:14 Heparin Sodium (Porcine) (Heparin Sq 5000 Unit/0.5ml) 5,000 unit Q12H SQ 01/26/17 20:00 02/25/17 19:59 01/31/17 07:59 5,000 UNIT Multivitamins/ Minerals (Multivitamin W/ Minerals Tab) 1 tab DAILY PO 01/27/17 08:00 02/26/17 08:59 01/31/17 07:52 1 TAB Mirtazapine (Remeron Tab) 15 mg HS PO 01/26/17 21:00 02/25/17 20:59 01/30/17 19:49 15 MG Venlafaxine HCl (effeXOR EXTENDED REL CAP) 37.5 mg QAM PO 01/27/17 08:00 02/26/17 08:59 01/31/17 07:54 37.5 MG Diclofenac Sodium (Voltaren 1% Top Gel) 1 appln QID EXT 01/26/17 20:35 02/25/17 20:59 01/31/17 07:55 1 APPLN Polyethylene (Miralax Powder Packet) 17 gm DAILY PO 01/28/17 08:00 02/27/17 08:59 01/31/17 07:55 17 GM Enteral Nutritional Formula (Boost) 1 can TID PO 01/27/17 08:00 02/26/17 07:59 01/29/17 11:44 1 CAN Ciprofloxacin (Cipro Tab) 500 mg DAILY PO 01/30/17 08:00 02/09/17 07:59 01/31/17 07:54 500 MG Lisinopril (Zestril Tab) 2.5 mg QAM PO 01/30/17 08:00 03/01/17 07:59 01/31/17 07:52 2.5 MG Docusate Sodium (coLACE CAP) 100 mg BID PO 01/29/17 20:00 02/28/17 19:59 01/31/17 07:52 100 MG Megestrol Acetate (Megace Susp) 400 mg BID PO 01/29/17 20:00 02/28/17 19:59 Alprazolam (Xanax Tab) 0.25 mg Q8H PRN PO 01/30/17 11:15 03/01/17 11:14 01/31/17 07:59 0.25 MG Objective Vital Signs Date Time Temp Pulse Resp B/P (MAP) Pulse Ox O2 Delivery O2 Flow Rate FiO2 01/31/17 08:23 36.7 68 17 159/79 (105) 97 Room Air 01/31/17 00:27 36.3 62 18 132/80 (97) 98 Room Air 01/31/17 00:12 Room Air 01/30/17 16:00 Room Air 01/30/17 15:16 36.6 65 18 97/58 (71) 97 Room Air Physical Exam General Appearance: no apparent distress Respiratory/Chest: lungs clear, normal breath sounds, no respiratory distress Cardiovascular: regular rate, rhythm Abdomen: normal bowel sounds, non tender, soft Neurologic/Psych: alert, normal mood/affect, oriented x 3 Assessment and Plan Patient is a 86 year old female with a history of chronic dysphagia admitted with fatigue and tremor status post abnormal barium swallow study. 1. Swallowing ability has improved. 2. Continue care per primary team. 3. Will sign off at this time. Agree with LAURA Gross as above Abd: Soft, NT, ND, +BS Continue supportive care
[2017-01-31 15:00] VITALS: BP 121/74; PULSE 62; TEMP 36.6; O2SAT 97
--- NOTE | 2017-01-31 18:08 | Palliative Care Consultation ---
Consultation Date of Consultation: Jan 31, 2017. Requesting Physician: Dr. Wilson Attending Physician: Dr. Wilson Reason for Consultation: Goals of care, code status History of Present Illness This 86 year old female patient presented to the hospital four days ago with c/ o worsening tremors, fatigue, and weakness. History obtained from record and from daughter, Wendy, as patient would not speak to me. Wendy states that patient has been acting differently lately- seems very overwhelmed, is not doing her normal household activities like cleaning/doing dishes, and now has these worsening tremors. Patient's apparently has been having a difficult time dealing with patient's behaviors and was concerned, so he brought her to hospital. In the past, patient was on Lexapro and Seroquel but daughter states it didn't seem to help. She does have pseudomonas UTI- on abx. MRI brain negative for CVA or anything acute. Patient would not speak to me, ROS and physical exam not completed. Past Medical/Surgical History Medical History: Generalized anxiety HTN Mild cognitive impairment Colon ca Surgical Problems: S/p R hip replacement Social History Smoking Status: Former Smoker History of Alcohol Use: No Drug Use: none Marital Status: Housing Status: lives with family Occupation Status: retired Allergies Coded Allergies: Sulfa Antibiotics (Verified Allergy, Intermediate, HIVES, 01/26/17) Aspirin (Verified Adverse Reaction, Mild, SICK TO STOMACH, 11/26/16) Medications Current Inpatient Medications Medications (Trade) Dose Ordered Sig/Jennifer Route Start Time Stop Time Status Last Admin Dose Admin Acetaminophen (Tylenol Tab) 650 mg Q4H PRN PO 01/26/17 19:15 02/25/17 19:14 01/30/17 19:54 650 MG Al Hydrox/Mg Hydrox/Simethicone (Maalox Max Susp) 15 ml Q4H PRN PO 01/26/17 19:15 02/25/17 19:14 Magnesium Hydroxide (Milk Of Magnesia Susp) 30 ml Q6H PRN PO 01/26/17 19:15 02/25/17 19:14 Polyethylene (Miralax Powder Packet) 17 gm DAILY PRN PO 01/26/17 19:15 02/25/17 19:14 Ondansetron HCl (Zofran Inj) 4 mg Q6H PRN IV 01/26/17 19:15 02/25/17 19:14 Heparin Sodium (Porcine) (Heparin Sq 5000 Unit/0.5ml) 5,000 unit Q12H SQ 01/26/17 20:00 02/25/17 19:59 01/31/17 07:59 5,000 UNIT Multivitamins/ Minerals (Multivitamin W/ Minerals Tab) 1 tab DAILY PO 01/27/17 08:00 02/26/17 08:59 01/31/17 07:52 1 TAB Mirtazapine (Remeron Tab) 15 mg HS PO 01/26/17 21:00 02/25/17 20:59 01/30/17 19:49 15 MG Venlafaxine HCl (effeXOR EXTENDED REL CAP) 37.5 mg QAM PO 01/27/17 08:00 02/26/17 08:59 01/31/17 07:54 37.5 MG Diclofenac Sodium (Voltaren 1% Top Gel) 1 appln QID EXT 01/26/17 20:35 02/25/17 20:59 01/31/17 17:46 1 APPLN Polyethylene (Miralax Powder Packet) 17 gm DAILY PO 01/28/17 08:00 02/27/17 08:59 01/31/17 07:55 17 GM Ciprofloxacin (Cipro Tab) 500 mg DAILY PO 01/30/17 08:00 02/09/17 07:59 01/31/17 07:54 500 MG Lisinopril (Zestril Tab) 2.5 mg QAM PO 01/30/17 08:00 03/01/17 07:59 01/31/17 07:52 2.5 MG Docusate Sodium (coLACE CAP) 100 mg BID PO 01/29/17 20:00 02/28/17 19:59 01/31/17 07:52 100 MG Megestrol Acetate (Megace Susp) 400 mg BID PO 01/29/17 20:00 02/28/17 19:59 Alprazolam (Xanax Tab) 0.25 mg Q8H PRN PO 01/30/17 11:15 03/01/17 11:14 01/31/17 15:38 0.25 MG Enteral Nutritional Formula (Boost) 1 can BID PO 01/31/17 20:00 03/02/17 19:59 Physical Exam Date Time Temp Pulse Resp B/P (MAP) Pulse Ox O2 Delivery O2 Flow Rate FiO2 01/31/17 16:00 Room Air 01/31/17 15:00 36.6 62 20 121/74 (90) 97 Room Air 01/31/17 08:23 36.7 68 17 159/79 (105) 97 Room Air 01/31/17 08:00 Room Air 01/31/17 00:27 36.3 62 18 132/80 (97) 98 Room Air 01/31/17 00:12 Room Air Assessment & Plan Problem list: Tremors UTI Weight loss Depression/anxiety Goals of care (Z51.5) Palliative care plan: I attempted to meet with patient but she closed her eyes and shook head "no." She did not speak to me or answer questions. Daughter, Wendy, asked if we could step out of room to talk. Wendy is concerned about her mother's behaviors lately - not wanting to do anything around the home, worsening tremors, seeming very overwhelmed all the time. Patient has never been diagnosed with dementia, but daughter wonders if she has it. Luz has no major medical problems at this time. Apparently does have some occasional back/hip pain but she would not speak to me so I don't know if she's currently having pain. Wendy is not comfortable making any decisions as far as code status, and really didn't understand why a POLST form needs to be done. She deferred any and all decision making to her father/patient's Mann, who Wendy says will not be coming in the rest of the day. As of now, the plan is to get the patient home, although there are some concerns of whether or not the can "handle her." This patient needs psychiatric evaluation, but has refused. I really have nothing to add from a palliative care standpoint. If there are true safety concerns in the home and the is uncomfortable with taking her home, perhaps the office of aging should be involved. I cannot make any assumptions on whether or not patient can make decisions as I was not able to assess her.
--- NOTE | 2017-01-31 18:16 | Progress Note ---
Subjective Date of Service: Jan 31, 2017. Subjective Pt evaluation today including: conversation w/ patient, conversation w/ family , physical exam, chart review, lab review, review of studies, review of inpatient medication list Doing much better in anxiety, which is help from XAnax Eating 100% plaque first and 50% lung, Mild tremor when anxious Generalized weakness, no other complaint Problem List Medical Problems: (1) Acute bronchitis Status: Acute (2) Ambulatory dysfunction Status: Acute (3) Anxiety Status: Acute (4) Generalized weakness Status: Acute (5) Hyponatremia Status: Acute (6) Laryngitis Status: Acute (7) Persistent cough Status: Acute (8) Syncope Status: Acute (9) Systolic congestive heart failure Status: Acute (10) Urinary tract infection Status: Acute (11) UTI (urinary tract infection) Status: Acute Review of Systems Constitutional: + weakness, + fatigue, No fever, No chills, No sweats, No weight loss, No problem reported Eyes: No worsening of vision, No eye pain, No redness, No discharge, No diplopia ENT: No hearing loss, No unusual epistaxis, No nasal symptoms, No sore throat, No tinnitus, No dental problems, No trouble swallowing Respiratory: No cough, No sputum, No wheezing, No shortness of breath, No dyspnea on exertion, No dyspnea at rest, No hemoptysis Cardiac: No chest pain, No orthopnea, No PND, No edema, No claudication, No palpitations Abdomen: No pain, No nausea, No vomiting, No diarrhea, No constipation Musculoskeletal: No joint pain, No muscle pain, No swelling, No calf pain Female : No dysuria, No urinary frequency, No hematuria, No incontinence, No abnormal vaginal bleeding, No vaginal discharge Neurologic: + problem reported (anxiety is better), No memory loss, No paralysis, No weakness, No numbness/tingling, No vertigo, No balance problems Psychiatric: No depression symptoms, No anhedonism, No anxiety, No insomnia, No substance abuse Heme: No abnormal bleeding/bruising, No clotting problems, No swollen lymph nodes, No night sweats Endo: No fatigue, No excessive thirst, No excessive urination Skin: No rash, No itch, No new/changing skin lesions, No color change, No bleeding Objective Vital Signs Date Time Temp Pulse Resp B/P (MAP) Pulse Ox O2 Delivery O2 Flow Rate FiO2 8/30/17 16:00 Room Air 01/31/17 15:00 36.6 62 20 121/74 (90) 97 Room Air 01/31/17 08:23 36.7 68 17 159/79 (105) 97 Room Air 01/31/17 08:00 Room Air 01/31/17 00:27 36.3 62 18 132/80 (97) 98 Room Air 01/31/17 00:12 Room Air Physical Exam General Appearance: WD/WN, no apparent distress, + thin, + pertinent finding ( frail) Eyes: normal inspection, PERRL, EOMI, sclerae normal ENT: normal ENT inspection, hearing grossly normal, pharynx normal Neck: supple, no adenopathy, thyroid normal, no JVD, no carotid bruits, trachea midline Respiratory/Chest: chest non-tender, lungs clear, normal breath sounds, no respiratory distress, no accessory muscle use Cardiovascular: regular rate, rhythm, no edema, no gallop, no JVD, no murmur Abdomen: normal bowel sounds, non tender, soft, no organomegaly, no pulsatile mass Extremities: normal range of motion, non-tender, normal inspection, no pedal edema, no calf tenderness, normal capillary refill, pelvis stable Neurologic/Psychiatric: director learning services II-XII nml as tested, no motor/sensory deficits, alert, normal mood/affect, oriented x 3, + pertinent finding (no obvious tremor) Skin: normal color, warm/dry, no rash Lymphatic: no adenopathy Assessment and Plan 86 y/o female, with PMHx of HTN, anxiety, mild cognitive impairment, and h/o colon ca admitted on 01/27/2017 because of generalized tremors and fatigue/ weakness x1 week. Pseudomonas UTI POA: Stable Has been on Rocephin culture is sensitive, switched to oral Cipro yesterday, will be totally 10 days, today is 5 out of 10 Continue Worsening tremor x1 week, likely from anxiety - Continue Lexapro 5 mg daily - brain [place] was done was not remarkable, neuro saw pt, feel not likely PD Weight loss, ?secondary to psychiatric issue vs underlying pathology, h/o colon ca: - Recommend continued outpatient f/u - Encourage good oral intake - Has requested dietitian consult, add Colace, and Megace, however patient refused Megace - Today eating fair Chronic hyponatremia, thought to be secondary to SSRI: Resolved anxiety, , added Xanax, and continue Effexor daily , hopefully infection will be functional so DVT prophylaxis: Heparin SQ BID Code Status: LEVEL I, FULL OT feel okay to call home , initially PT report skilled PT , , PT OT reevaluated clear patient to go home Talked to daughter Wendy, updated her patient's conditions, and care plan, discuss about CODE STATUS, Wendy agreed to have palliative care to talk about CODE STATUS, goal of care, POL Wendy Preferred me to talk to patient's about the conditions and discharge plan, we'll do that tomorrow in bedside Continued [facility] stay due to: home environment unsafe for pt Discharge planning: home
[2017-01-31] MEDS: ACETAMINOPHEN 325 MG TAB PO PRN (20:04)
[2017-01-31] MEDS: MIRTAZAPINE TAB 15 MG TAB PO SCH (20:06)
[2017-02-01] MEDS: ALPRAZOLAM 0.25 MG TAB PO PRN ×2 (07:55→16:41)
[2017-02-01] MEDS: LISINOPRIL 2.5 MG TAB PO SCH (07:56)
[2017-02-01] MEDS: CEROVITE ADV FORMULA TAB PO SCH (07:56)
[2017-02-01] MEDS: DOCUSATE SODIUM 100 MG CAP PO SCH ×2 (07:56→20:00)
[2017-02-01] MEDS: POLYETHYLENE (MIRALAX) 17 GM PACK PO SCH (07:57)
[2017-02-01] MEDS: VENLAFAXINE HCL XR 37.5 MG CAPXR PO SCH (07:57)
[2017-02-01] MEDS: CIPROFLOXACIN 500 MG TAB PO SCH (07:57)
[2017-02-01] MEDS: BOOST VANILLA PO SCH ×4 (07:58→20:00)
[2017-02-01] MEDS: DICLOFENAC SOD 1% GEL 100 GM TUBE EXT SCH ×4 (07:58→20:41)
[2017-02-01] MEDS: MEGESTROL ACETATE 400 MG/10 ML UDP PO SCH ×2 (07:58→20:00)
[2017-02-01] MEDS: HEPARIN SOD 5000 UNIT/0.5 ML CARP SQ SCH ×2 (08:00→20:43)
[2017-02-01 08:06] VITALS: BP 150/75; PULSE 74; TEMP 36.7; O2SAT 98
[2017-02-01] MEDS ORDERED: VENLAFAXINE HCL XR 37.5 MG CAPXR PO STA (11:23)
--- NOTE | 2017-02-01 11:26 | Progress Note ---
Subjective Date of Service: Feb 01, 2017. Subjective Pt evaluation today including: conversation w/ patient, physical exam, chart review, lab review, review of studies, conversation w/ device sales consultant, review of inpatient medication list feeling generalized week, not eating well, reported anxious Problem List Medical Problems: (1) Acute bronchitis Status: Acute (2) Ambulatory dysfunction Status: Acute (3) Anxiety Status: Acute (4) Generalized weakness Status: Acute (5) Hyponatremia Status: Acute (6) Laryngitis Status: Acute (7) Persistent cough Status: Acute (8) Syncope Status: Acute (9) Systolic congestive heart failure Status: Acute (10) Urinary tract infection Status: Acute (11) UTI (urinary tract infection) Status: Acute Review of Systems Constitutional: + weakness, + fatigue, No fever, No chills, No sweats, No weight loss, No problem reported Eyes: No worsening of vision, No eye pain, No redness, No discharge, No diplopia ENT: No hearing loss, No unusual epistaxis, No nasal symptoms, No sore throat, No tinnitus, No dental problems, No trouble swallowing Respiratory: No cough, No sputum, No wheezing, No shortness of breath, No dyspnea on exertion, No dyspnea at rest, No hemoptysis Cardiac: No chest pain, No orthopnea, No PND, No edema, No claudication, No palpitations Abdomen: + diarrhea (not today, was have 1-2 times yesterday), No pain, No nausea, No vomiting, No constipation Musculoskeletal: No joint pain, No muscle pain, No swelling, No calf pain Female : No dysuria, No urinary frequency, No hematuria, No incontinence, No abnormal vaginal bleeding, No vaginal discharge Neurologic: No memory loss, No paralysis, No weakness, No numbness/tingling, No vertigo, No balance problems Psychiatric: No depression symptoms, No anhedonism, No anxiety, No insomnia, No substance abuse Heme: No abnormal bleeding/bruising, No clotting problems, No swollen lymph nodes, No night sweats Endo: No fatigue, No excessive thirst, No excessive urination Skin: No rash, No itch, No new/changing skin lesions, No color change, No bleeding Objective Vital Signs Date Time Temp Pulse Resp B/P (MAP) Pulse Ox O2 Delivery O2 Flow Rate FiO2 02/01/17 08:06 36.7 74 16 150/75 (100) 98 Room Air 8/31/17 00:00 Room Air 01/31/17 16:00 Room Air 01/31/17 15:00 36.6 62 20 121/74 (90) 97 Room Air Physical Exam General Appearance: WD/WN, no apparent distress, + cachetic, + thin, + pertinent finding (frail) Eyes: normal inspection, PERRL, EOMI, sclerae normal ENT: normal ENT inspection, hearing grossly normal, pharynx normal Neck: supple, no adenopathy, thyroid normal, no JVD, no carotid bruits, trachea midline Respiratory/Chest: chest non-tender, normal breath sounds, no respiratory distress, no accessory muscle use, + decreased breath sounds Cardiovascular: regular rate, rhythm, no edema, no gallop, no JVD, no murmur Abdomen: normal bowel sounds, non tender, soft, no organomegaly, no pulsatile mass Extremities: normal range of motion, non-tender, normal inspection, no pedal edema, no calf tenderness, pelvis stable Neurologic/Psychiatric: night coordinator II-XII nml as tested, no motor/sensory deficits, alert, normal mood/affect, oriented x 3 Skin: normal color, warm/dry, no rash Lymphatic: no adenopathy Laboratory Results Last 24 Hours Test 02/01/17 10:47 Assessment and Plan 86 y/o female, with PMHx of HTN, anxiety, mild cognitive impairment, and h/o colon ca admitted on 01/27/2017 because of generalized tremors and fatigue/ weakness x1 week. generalized weakness, poor oral intake, multipel c/o, possible deconditioning, Pseudomonas UTI POA: Stable Has been on Rocephin culture is sensitive, switched to oral Cipro yesterday, will be totally 10 days, today is 6 out of 10 Continue tremor x1 week prior to admission, likely from anxiety, comes and goes - on [id number], started when was admitted for 6 days, will increase to 75 mg po - use Xanax as needed - brain MS was done was not remarkable, neuro saw pt, feel not likely PD Weight loss, ?secondary to psychiatric issue vs underlying pathology, h/o colon ca: - Recommend continued outpatient f/u - Encourage good oral intake - Has requested dietitian consult, add Colace, and Megace, however patient refused Megace - Today eating fair Chronic hyponatremia, thought to be secondary to SSRI: Resolved anxiety, , added Xanax, and continue Effexor daily , hopefully infection will be functional so DVT prophylaxis: Heparin SQ BID Code Status: LEVEL I, FULL OT feel okay to call home , initially PT report skilled PT , PT OT reevaluated clear patient to go home Talked to daughter Wendy, updated her patient's conditions, and care plan, discuss about CODE STATUS, On 01/31/2017 I talked to daughter , Wendy agreed to have palliative care to talk about CODE STATUS, goal of care, POL Wendy Preferred me to talk to patient's about the conditions and discharge plan, talked to the patient's Mann with present of RN, Mann reported to me patient has been feeling generalized weakness, not eating well, anxiety, has been 1-2 months, Mann feel has difficult to handle and taking care of her at home, discussed with patient's living will and CODE STATUS with patient first, she is oaax3, mild anxious, when asked about code status, she feel don't know what to say, but clearly woudl like to have her to make decision for her. Discussed with Mann, with present of nurse , Mann requested " do not resuscitation do not intubation", and keep her no pain and comfortable, Mann is happy to talk to palliative care service. research and evaluation manager continue for the care plan Continued [facility] stay due to: home environment unsafe for pt Discharge planning: home
[2017-02-01 11:43] LABS: BASO % 0.7 %; BASO ABS # 0.02 K/uL (0-0.2); COMPLETE YES; HEMATOCRIT 42.4 % (37-47); IG% 0.3 %; LYMPH % 41.2 %; LYMPH ABS # 1.26 K/uL (1.2-3.4); MEAN CELL VOLUME 89.1 fL (80-100); MEAN CORPUSCULAR HEMOGLOBIN 30.3 pg (25-34); MEAN PLATELET VOLUME 9.8 fL (7.4-10.4); MONO % 9.8 %; PLATELET COUNT 184 K/uL (130-400); RED BLOOD COUNT 4.76 M/uL (4.2-5.4); WHITE BLOOD COUNT 3.06 K/uL (4.8-10.8)
[2017-02-01 14:27] VITALS: BP 127/74; PULSE 54; TEMP 36.7; O2SAT 96
[2017-02-01] MEDS: MIRTAZAPINE TAB 15 MG TAB PO SCH (20:45)
[2017-02-01] MEDS: ACETAMINOPHEN 325 MG TAB PO PRN (20:48)
[2017-02-01 23:21] VITALS: BP 113/67; PULSE 60; TEMP 36.9; O2SAT 95
[2017-02-02 07:09] LABS: HEMATOCRIT 39.6 % (37-47); MEAN CELL VOLUME 88.2 fL (80-100); MEAN CORPUSCULAR HEMOGLOBIN 29.6 pg (25-34); MEAN CORPUSCULAR HGB CONC 33.6 g/dl (32-36); PLATELET COUNT 176 K/uL (130-400); RED BLOOD COUNT 4.49 M/uL (4.2-5.4)
[2017-02-02 07:23] LABS: BUN/CREATININE RATIO 22.4 (10-20); CALCIUM 8.9 mg/dl (8.5-10.1); CREATININE 0.45 mg/dl (0.60-1.20); POTASSIUM 4.1 mmol/L (3.5-5.1)
[2017-02-02 07:25] VITALS: BP 158/77; PULSE 76; TEMP 36.5; O2SAT 96
[2017-02-02] MEDS: BOOST VANILLA PO SCH ×2 (07:38)
[2017-02-02] MEDS: MEGESTROL ACETATE 400 MG/10 ML UDP PO SCH (07:38)
[2017-02-02] MEDS: CIPROFLOXACIN 500 MG TAB PO SCH (07:41)
[2017-02-02] MEDS: ALPRAZOLAM 0.25 MG TAB PO PRN (07:42)
[2017-02-02] MEDS: LISINOPRIL 2.5 MG TAB PO SCH (07:42)
[2017-02-02] MEDS: DICLOFENAC SOD 1% GEL 100 GM TUBE EXT SCH ×2 (07:47→12:00)
[2017-02-02] MEDS: POLYETHYLENE (MIRALAX) 17 GM PACK PO SCH (07:47)
[2017-02-02] MEDS: DOCUSATE SODIUM 100 MG CAP PO SCH (07:47)
[2017-02-02] MEDS: CEROVITE ADV FORMULA TAB PO SCH (07:47)
[2017-02-02] MEDS: HEPARIN SOD 5000 UNIT/0.5 ML CARP SQ SCH (07:49)
[2017-02-02] MEDS ORDERED: VENLAFAXINE HCL XR 75 MG CAPXR PO SCH (08:00)
[2017-02-02 08:28] LABS: ACANTHOCYTES 1+; BASO ABS # 0.08 K/uL (0-0.2); BASOPHIL % 2.6 %; COMPLETE YES; EOSINOPHIL % 1.8 %; LARGE GRANULAR LYMPH ABSOLUTE 1.08 K/uL; LYMPH ABS # 0.42 K/uL (1.2-3.4); NEUTROPHILS % 37.7 %
[2017-02-02] MEDS ORDERED: Boost PO (10:49)
[2017-02-02] MEDS ORDERED: MGCUDL400 PO (10:49)
[2017-02-02] MEDS ORDERED: EFFSR75 PO (10:49)
[2017-02-02] MEDS ORDERED: LSN25 PO (10:49)
[2017-02-02] MEDS ORDERED: RMR15 PO (10:49)
[2017-02-02] MEDS ORDERED: CPR500 PO (10:49)
[2017-02-02] MEDS ORDERED: XNX25 PO (10:49)
--- NOTE | 2017-02-02 10:55 | Discharge Instructions ---
Discharge Instructions Date of Service Feb 02, 2017. Admission Reason for Admission: Generalized Weakness, Uti Discharge Discharge Diagnosis / Problem: Pseudomonas UTI POA: Discharge Goals Goal(s): Decrease discomfort, Improve function, Increase independence, Improve disease control, Improve nutritional status, Learn about illness, Diagnostic testing, Therapeutic intervention, Prevent Disease Progression, Specific goals Activity Recommendations Activity Level: OOB In Chair (as tolerated) Therapies: Physical Therapy, Occupational Therapy . Additional Information Patient informed of condition: Yes Advance Directives: Yes DNR: Yes Level of Care: Skilled Communicable Disease: No Prognosis: Deteriorating (possible ) Instructions / Follow-Up Instructions / Follow-Up you have Pseudomonas UTI continue Cipro, will be totally 10 days, today is 7 out of 10 Continue you have tremor, recommend psychiatry evaluation in 1-2 weeks - Encourage good oral intake - need to catch chance to discuss and sign POLST form - you need to follow up with your primary care physician in 1 week, - take medication as instructed, never overdose or any misuse, or take with alcohol, because misuse of medicine may cause organ damage or , call your primary care physician if have questions of medicaitons. - call your primary care physician OR go to local emergency room if has any fever/chill, chest pain, shortness of breathing, nausea/vomiting/abdominal pain , facial droop/slurry speech/local weakness, or if has any questions. - fall precaution - diet as instructed - you should understand that it is important to follow up the above instruction , and "not following the above instruction" may cause delayed or missed care of your medical conditions which may cause permanent organ damage and even . Current Hospital Diet Patient's current hospital diet: Regular Diet Discharge Diet Recommended Diet: Regular Diet Procedures Procedures Performed: no Pending Studies Studies pending at discharge: no Physician Orders On Transfer POLST Discussion: without POLST completion Laboratory Results Hemoglobin A1c Test 12/26/16 15:27 Range/Units Estimated Average Glucose 105 mg/dl Hemoglobin A1c 5.3 4.5-5.6 % Medical Emergencies . Who to Call and When: Medical Emergencies: If at any time you feel your situation is an emergency, please call 911 immediately. . Non-Emergent Contact Non-Emergency issues call your: Primary Care Provider . . "Provider Documentation" section prepared by Charli Wilson. . Core Measure Problem Core Measures: None
--- NOTE | 2017-02-02 11:02 | Discharge Summary ---
Discharge Summary Date of Service Feb 02, 2017. Discharge Summary Admission Date: Jan 26, 2017 at 19:08 Discharge Date: Feb 02, 2017 Principal Diagnosis: Pseudomonas UTI Problems/Secondary Diagnoses: Possible deconditioning, anxiety Immunizations: Have You Had Influenza Vaccine: No Influenza Vaccine Date: Mar 04, 2011 History of Tetanus Vaccine?: UNK History of Pneumococcal: Yes Pneumococcal Date: Jul 29, 2011 History of Hepatitis B Vaccine: No Procedures: No Consultations: Neurologist Medication Reconciliation New Medications: Alprazolam (Alprazolam) 0.25 Mg Tab 0.25 MG PO Q8H PRN for anxiety for 3 Days, #9 TAB Ciprofloxacin (Ciprofloxacin HCl) 500 Mg Tab 500 MG PO DAILY for 3 Days, TAB Lisinopril (Lisinopril) 2.5 Mg Tab 2.5 MG PO QAM for 30 Days, TAB Megestrol Acetate (Megestrol Acetate) 400 Mg/10 Ml Susp 400 MG PO BID for 30 Days Mirtazapine (Mirtazapine) 15 Mg Tab 15 MG PO HS for 15 Days, TAB Venlafaxine Hcl (Effexor Extended Rel) 75 Mg Capcr 75 MG PO QAM for 15 Days [Boost] () 1 CAN LIQD 1 CAN PO BID for 30 Days Continued Medications: Acetaminophen (Tylenol) 500 Mg Tab 500 MG PO HS, TAB Melatonin (Kp Melatonin) Unknown Strength Tab Unknown Dose PO HS for 30 Days, #30 TAB Multiple Vitamins W/ Minerals (Centrum Silver Adult 50+) 1 Tab Tab 1 TAB PO DAILY Discontinued Medications: Escitalopram Oxalate (Lexapro) 5 Mg Tab 5 MG PO DAILY, TAB Discharge Exam Doing okay, report is anxious, has bowel movement yesterday, no bowel movement today, had some breakfast this morning, no other complaint Review of Systems: Constitutional: + weakness, + fatigue, No fever, No chills, No sweats, No weight loss, No problem reported Eyes: No worsening of vision, No eye pain, No redness, No discharge, No diplopia, No problem reported ENT: No hearing loss, No unusual epistaxis, No nasal symptoms, No sore throat, No tinnitus, No dental problems, No trouble swallowing, No problem reported Respiratory: No cough, No sputum, No wheezing, No shortness of breath, No dyspnea on exertion, No dyspnea at rest, No hemoptysis, No problem reported Abdomen: No pain, No nausea, No vomiting, No diarrhea, No constipation, No GI bleeding, No problem reported Genitourinary - Female: No dysuria, No urinary frequency, No urinary urgency , No urinary incontinence, No urinary retention, No hematuria, No dysmenorrhea, No menorrhagia, No metrorrhagia, No rash, No vaginal bleeding, No vaginal discharge, No vaginal itching, No vulvodynia, No , No problem reported Neurologic: No memory loss, No paralysis, No weakness, No numbness/tingling , No vertigo, No balance problems, No problem reported Psychiatric: + anxiety, No depression symptoms, No anhedonism, No insomnia, No substance abuse, No problem reported Endocrine: + fatigue, No excessive thirst, No excessive urination, No problem reported Hematologic / Lymphatic: No abnormal bleeding/bruising, No clotting problems , No swollen lymph nodes, No night sweats, No problem reported Integumentary: No rash, No itch, No new/changing skin lesions, No color change, No bleeding, No problem reported Physical Exam: General Appearance: WD/WN, + thin, + pertinent finding (frail) Eyes: normal inspection, PERRL ENT: normal ENT inspection, hearing grossly normal, TMs normal Neck: supple, no adenopathy Respiratory/Chest: chest non-tender, + decreased breath sounds Cardiovascular: regular rate, rhythm, no edema, no gallop, no JVD, no murmur , normal peripheral pulses Abdomen / GI: normal bowel sounds, non tender, soft, no organomegaly, no pulsatile mass Extremities: normal inspection, no calf tenderness, normal capillary refill , no pedal edema, normal range of motion Neurologic/Psychiatric: manager r d II-XII nml as tested, no motor/sensory deficits , alert, normal mood/affect, normal reflexes Skin: normal color, warm/dry Hospital Course 86 y/o female, with PMHx of HTN, anxiety, mild cognitive impairment, and h/o colon ca admitted on 01/27/2017 because of generalized tremors and fatigue/ weakness x1 week. generalized weakness, poor oral intake, multipel c/o, possible deconditioning, Pseudomonas UTI POA: Stable Has been on Rocephin culture is sensitive, switched to oral Cipro yesterday, will be totally 10 days, today is 7 out of 10 Continue tremor x1 week prior to admission, likely from anxiety, comes and goes , for more than 1-2 months per - on [id number], started when was admitted for 6 days, was increase to 75 mg po on 02/01/2017 - use Xanax as needed, we'll continue - brain DE was done was not remarkable, neuro saw pt, feel not likely PD Weight loss, ?secondary to psychiatric issue vs underlying pathology, h/o colon ca: - Recommend continued outpatient f/u - Encourage good oral intake - Has requested dietitian consult, add Colace, and Megace, sometimes patient refused Megace - Has been eating fair Chronic hyponatremia, thought to be secondary to SSRI: Resolved DVT prophylaxis: Heparin SQ BID Code Status: LEVEL I, FULL OT feel okay to call home , initially PT report skilled PT , however patient is obvious possible deconditioning Talked to daughter Wendy, updated her patient's conditions, and care plan, discuss about CODE STATUS, On 01/31/2017 I talked to daughter , Wendy agreed to have palliative care to talk about CODE STATUS, goal of care, POLST Wendy Preferred me to talk to patient's about the conditions and discharge plan, On 02/01/2017 i talked to the patient's Mann with present of RN, Mann reported to me patient has been feeling generalized weakness, not eating well, anxiety, has been 1-2 months, Mann feel has difficult to handle and taking care of her at home, discussed with patient's living will and CODE STATUS with patient first, she is oaax3, mild anxious, when asked about code status, she feel don't know what to say, but clearly would like to have her to make decision for her. Discussed with Mann, with present of nurse , Mann requested " do not resuscitation do not intubation", and keep her no pain and comfortable, Mann is happy to talk to palliative care service. This can continue discussion in correction, POLST need to be discussed and signed district loss prevention manager continue for the care plan Instructions / Follow-Up you have Pseudomonas UTI continue Cipro, will be totally 10 days, today is 7 out of 10 Continue you have tremor, recommend psychiatry evaluation in 1-2 weeks - Encourage good oral intake - need to catch chance to discuss and sign POLST form - you need to follow up with your primary care physician in 1 week, - take medication as instructed, never overdose or any misuse, or take with alcohol, because misuse of medicine may cause organ damage or , call your primary care physician if have questions of medicaitons. - call your primary care physician OR go to local emergency room if has any fever/chill, chest pain, shortness of breathing, nausea/vomiting/abdominal pain , facial droop/slurry speech/local weakness, or if has any questions. - fall precaution - diet as instructed - you should understand that it is important to follow up the above instruction , and "not following the above instruction" may cause delayed or missed care of your medical conditions which may cause permanent organ damage and even . Total Time Spent: Greater than 30 minutes This includes examination of the patient, discharge planning, medication reconciliation, and communication with other providers. Discharge Instructions Please refer to the electronic Patient Visit Report (Discharge Instructions) for additional information. Additional Copies To Angelito Rogers M.D.
[2017-02-02 12:44] VITALS: BP 158/77; PULSE 76; TEMP 36.5; O2SAT 96
== END 2017-02-02 15:00 | DRG 689 ==
LOC: C.EDB 13:15 → C.4E 19:08 → ENRESERV 19:19
PROVIDERS: ADMIT Family Medicine; ATTEND Hospitalist
DX: N39.0 Urinary tract infection, site not specified (principal); E43 Unspecified severe protein-calorie malnutrition; E87.1 Hypo-osmolality and hyponatremia; F41.1 Generalized anxiety disorder; I10 Essential (primary) hypertension; E78.5 Hyperlipidemia, unspecified; R25.1 Tremor, unspecified; K59.00 Constipation, unspecified; F32.9 Major depressive disorder, single episode, unspecified; B96.5 Pseudomonas (aeruginosa) (mallei) (pseudomallei) as the cause of diseases classified elsewhere; R13.12 Dysphagia, oropharyngeal phase; K22.4 Dyskinesia of esophagus; Z68.20 Body mass index [BMI] 20.0-20.9, adult; Z51.5 Encounter for palliative care; Z79.899 Other long term (current) drug therapy; Z87.891 Personal history of nicotine dependence; Z85.038 Personal history of other malignant neoplasm of large intestine

== ENCOUNTER 2017-06-23 10:05 | Emergency (ER) | payer OTHER, MEDICARE ==
[~2017-06-23] VITALS: Ht 175.3 cm; Wt 62.5 kg
[~2017-06-23 10:05] MED LIST changes: +Boost PO; +CPR500 PO; +EFFSR75 PO; +LSN25 PO; -LXP10 PO; +MELA1TAB5 PO; +MGCUDL400 PO; +RMR15 PO; -SRQ25 PO; +XNX25 PO
[2017-06-23 10:14] VITALS: TEMP 36.8; Ht 175.3 cm; Wt 62.5 kg
[2017-06-23] MEDS ORDERED: SOAP SUDS ENEMA PR STA (10:15)
--- NOTE | 2017-06-23 10:21 | EMERGENCY ROOM VISIT NOTE ---
History Report prepared by Torrie: Neftali Strickland Under the Supervision of: Dr. Charli Smith M.D. First contact with patient: 10:07 Chief Complaint: CONSTIPATION Stated Complaint: ABDOMINAL PAIN History of Present Illness The patient is a 86 year old female who presents to the Emergency Room with complaints of abdominal pain that started 3 days ago. She states she has been constipated and unable to have a bowel movement. She denies any falls, fevers, vomiting, chest pain, SOB, dysuria, and diarrhea. Per her , her dietary intake has been limited. The patient denies recent travel and tobacco use. She has a surgical history significant for hip surgery. No medications taken for constipation other than her daily Senna S. Source of History: patient, spouse/significant other Onset: 3 days ago Position: abdomen Timing: constant Associated Symptoms: + abdominal pain, No fevers, No chest pain, No SOB, No vomiting, No diarrhea, No urinary symptoms Note: Pt denies falls. Review of Systems See HPI for pertinent positives & negatives. A total of 10 systems reviewed and were otherwise negative. Past Medical & Surgical Medical Problems: (1) Benign hypertension (2) Carcinoma of colon (3) Chronic osteoarthritis (4) Colon cancer (5) SANTHOSH (generalized anxiety disorder) (6) Hyperlipidemia (7) lysis of adhesions (8) Partial colectomy Surgical Problems: (1) S/P hip replacement Family History Cancer Social History Smoking Status: Former Smoker Alcohol Use: none Drug Use: none Marital Status: Housing Status: lives with significant other Occupation Status: retired Current/Historical Medications Scheduled Acetaminophen (Tylenol), 500 MG PO HS Alprazolam (Alprazolam), 0.25 MG PO DIRECTED Cholecalciferol (Vitamin D3), 2,000 INTER.UNIT PO DAILY Escitalopram (Lexapro), 5 MG PO DAILY Ferrous Gluconate (Ferrous Gluconate), 324 MG PO DAILY Lisinopril (Zestril), 10 MG PO DAILY Megestrol Acetate (Megestrol Acetate), 10 ML PO BID Melatonin (Kp Melatonin), 3 MG PO HS Mirtazapine (Mirtazapine), 15 MG PO HS Multiple Vitamin (Multivitamin), 1 TAB PO DAILY Quetiapine Fumarate (Seroquel), 12.5 MG PO HS Sennosides-Docusate Sodium (Senna S), 1 TAB PO DAILY Venlafaxine Hcl (Venlafaxine Extended Rel), 75 MG PO DAILY Scheduled PRN Acetaminophen (Tylenol), 650 MG PO Q6H PRN for Pain Allergies Coded Allergies: Sulfa Antibiotics (Verified Allergy, Intermediate, HIVES, 01/26/17) Aspirin (Verified Adverse Reaction, Mild, SICK TO STOMACH, 11/26/16) Physical Exam Vital Signs Date Time Temp Pulse Resp B/P (MAP) Pulse Ox O2 Delivery O2 Flow Rate FiO2 06/23/17 14:54 59 18 158/94 97 06/23/17 13:17 64 18 139/73 95 06/23/17 11:33 73 18 139/75 98 Room Air 06/23/17 10:31 78 18 141/65 97 Room Air 06/23/17 10:14 36.8 77 18 159/67 97 Room Air 06/23/17 10:13 78 Physical Exam GENERAL: Patient is mildly anxious appearing and in minimal distress. HEENT: No acute trauma, normocephalic atraumatic, mucous membranes moist, no nasal congestion, no scleral icterus. NECK: No stridor, no adenopathy, no meningismus, trachea is midline. LUNGS: No dyspnea. Clear to auscultation and equal bilaterally. No wheeze, no rhonchi. HEART: Regular rate and rhythm. No murmurs, rubs, gallops appreciated. ABDOMEN: Soft, nontender, bowel sounds positive, no masses appreciated, no peritonitis. RECTAL: very large firm stool ball within rectal vault, brown, no blood. BACK: No midline tenderness, no CVA tenderness EXTREMITIES: Normal motion all extremities, no cyanosis, no edema. NEUROLOGIC: Alert and oriented, no acute motor or sensory deficits, no focal weakness, cranial nerves grossly intact. SKIN: No rash, no jaundice, no diaphoresis. Medical Decision & Procedures ER Provider Diagnostic Interpretation: Radiology results and stated below per my review and radiologist interpretation: KUB CLINICAL HISTORY: Constipation. FINDINGS: An AP supine abdominal radiograph is compared to study dated 01/26/2017 and correlated with abdominal CT dated 11/26/2016. There is a nonobstructed abdominal bowel gas pattern. Mild colonic fecal retention is observed. Hyperdense foci in the pelvis likely represent retained enteric contrast within colonic diverticula. No evidence of intraperitoneal free air is seen on this supine examination. Atherosclerotic calcification is noted in the splenic artery. There is no radiographic evidence of nephrolithiasis. The skeletal structures are osteopenic. Chronic posttraumatic deformity and postoperative change is seen in the right femur. 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 Advanced lumbosacral spondylosis is observed. IMPRESSION: Nonobstructed abdominal bowel gas pattern. There is mild colonic fecal retention. Electronically signed by: Sai Nieto M.D. 06/23/2017 11:17 AM Dictated Date/Time: 06/23/2017 11:15 AM Laboratory Results Test 06/23/17 10:25 Urine Color DK YELLOW Urine Appearance CLEAR (CLEAR) Urine pH 6.5 (4.5-7.5) Urine Specific [place] 1.014 (1.000-1.030) Urine Protein TRACE (NEG) Urine Glucose (UA) NEG (NEG) Urine Ketones 1+ (NEG) Urine Occult Blood NEG (NEG) Urine Nitrite NEG (NEG) Urine Bilirubin NEG (NEG) Urine Urobilinogen NEG (NEG) Urine Leukocyte Esterase NEG (NEG) Urine WBC (Auto) 1-5 /hpf (0-5) Urine RBC (Auto) 0-4 /hpf (0-4) Urine Hyaline Casts (Auto) >30 /lpf (0-5) Urine Epithelial Cells (Auto) >30 /lpf (0-5) Urine Bacteria (Auto) NEG (NEG) Urine Renal Epithelial Cells 5-10 /lpf (0-5) Laboratory results as reviewed by me. Medications Administered Medications (Trade) Dose Ordered Sig/Jennifer Route Start Time Stop Time Status Last Admin Dose Admin Miscellaneous (Soap Suds Enema) 1 ea NOW STAT TN 06/23/17 10:15 06/23/17 10:17 DC 06/23/17 10:15 1 EA Lactulose (Chronulac Syrup) 30 gm NOW STAT PO 06/23/17 11:21 06/23/17 11:22 DC 06/23/17 11:31 30 GM ED Course 1000: The patient was evaluated in room B2. A complete history and physical exam was performed. 1046: I disimpacted the patient again. Multiple grapefruit sized firm stool balls were removed in pieces until patient was able to push soft stool out without a problem. She denies abdominal pain. 1127: I checked on the patient and they feel much better to go home. 1140: Reevaluated the patient. Discussed results and discharge instructions: She verbalized understanding and agreement. The patient is ready for discharge. Medical Decision Differential: Functional, Impaction, Obstruction, Volvulus, Ischemic Bowel, Infectious, Neurologic, Metabolic, amongst other pathologies entertained. 86 yr old female arrives for constipation and inability to move bowels last few days. Massive amount of stool within rectal fault which was manually disimpacted by me and patient feeling much improved. KUB reveals some stool throughout colon thus given Lactulose to further clean out as well as will increase home senna s to BID for now. UA clear She has no other acute complaints but notes chronic leg pain, anxiety, and shakiness. notes all of these are chronic. She has soft abdomen and was in department for several hours post discharge awaiting ride home without issue. Medication Reconcilliation Current Medication List: was personally reviewed by me Blood Pressure Screening Patient's blood pressure: Elevated blood pressure Blood pressure disposition: Elevated BP felt to be situational Impression Primary Impression: Constipation Scribe Attestation The scribe's documentation has been prepared under my direction and personally reviewed by me in its entirety. I confirm that the note above accurately reflects all work, treatment, procedures, and medical decision making performed by me. Departure Information Dispostion Home / Self-Care Referrals Angelito Rogers M.D. (PCP) Patient Instructions ED Constipation, My [facility] Additional Instructions Increase your Senna S twice daily. Return if severe abdominal pain, vomiting, fevers or other concerns. Keep well hydrated. Follow up with your primary provider in 2 days for recheck.
[2017-06-23] MEDS ORDERED: MULTTAB58 PO (11:07)
[2017-06-23] MEDS ORDERED: SENN-91 PO (11:07)
[2017-06-23] MEDS ORDERED: XNX25 PO (11:07)
[2017-06-23] MEDS ORDERED: ACET-1311 PO (11:07)
[2017-06-23] MEDS ORDERED: CHOL2000 PO (11:07)
[2017-06-23] MEDS ORDERED: VENL75CA73 PO (11:07)
[2017-06-23] MEDS ORDERED: MELA1TAB5 PO (11:07)
[2017-06-23] MEDS ORDERED: QUET1TAB30 PO (11:07)
[2017-06-23] MEDS ORDERED: RMR15 PO (11:07)
[2017-06-23] MEDS ORDERED: LISI-461 PO (11:07)
[2017-06-23] MEDS ORDERED: ESCI10TA17 PO (11:07)
[2017-06-23] MEDS ORDERED: MGCL40 PO (11:07)
[2017-06-23] MEDS ORDERED: FERR325T18 PO (11:07)
--- NOTE | 2017-06-23 11:18 | DIAGNOSTIC IMAGING REPORT ---
KUB CLINICAL HISTORY: Constipation. FINDINGS: An AP supine abdominal radiograph is compared to study dated 01/26/2017 and correlated with abdominal CT dated 11/26/2016. There is a nonobstructed abdominal bowel gas pattern. Mild colonic fecal retention is observed. Hyperdense foci in the pelvis likely represent retained enteric contrast within colonic diverticula. No evidence of intraperitoneal free air is seen on this supine examination. Atherosclerotic calcification is noted in the splenic artery. There is no radiographic evidence of nephrolithiasis. The skeletal structures are osteopenic. Chronic posttraumatic deformity and postoperative change is seen in the right femur. 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 Advanced lumbosacral spondylosis is observed. IMPRESSION: Nonobstructed abdominal bowel gas pattern. There is mild colonic fecal retention. Electronically signed by: Sai Nieto M.D. 06/23/2017 11:17 AM Dictated Date/Time: 06/23/2017 11:15 AM
[2017-06-23] MEDS ORDERED: LACTULOSE SYRUP 20 GM/30 ML UDC PO STA (11:21)
[2017-06-23 14:54] VITALS: BP 158/94; PULSE 59; O2SAT 97
== END 2017-06-23 14:55 | disposition home or self-care (01) ==
LOC: EDBD 10:05 → C.EDB 10:07
DX: K59.00 Constipation, unspecified (principal); I10 Essential (primary) hypertension; M19.90 Unspecified osteoarthritis, unspecified site; F41.1 Generalized anxiety disorder; E78.5 Hyperlipidemia, unspecified; Z85.038 Personal history of other malignant neoplasm of large intestine; Z87.891 Personal history of nicotine dependence; Z80.9 Family history of malignant neoplasm, unspecified

== ENCOUNTER 2017-07-09 10:53 | Emergency (ER) | payer OTHER, MEDICARE ==
[~2017-07-09] VITALS: Ht 172.7 cm; Wt 62.0 kg
[~2017-07-09 10:53] MED LIST changes: +ACET-1311 PO; -Boost PO; +CHOL2000 PO; -CPR500 PO; -EFFSR75 PO; +ESCI10TA17 PO; +FERR325T18 PO; +LISI-461 PO; -LSN25 PO; +MGCL40 PO; -MGCUDL400 PO; -MULT-845 PO; +MULTTAB58 PO; +QUET1TAB30 PO; +SENN-91 PO; +VENL75CA73 PO
[2017-07-09 11:03] VITALS: TEMP 36.4; Ht 172.7 cm; Wt 62.0 kg
[2017-07-09] MEDS ORDERED: LISI-729 PO (12:28)
--- NOTE | 2017-07-09 13:11 | DIAGNOSTIC IMAGING REPORT ---
KUB CLINICAL HISTORY: 86 years-old Female presenting with abd pain/constipation. TECHNIQUE: Single supine view of the abdomen was obtained. COMPARISON: 06/23/[address] from 11/26/2016. FINDINGS: Mild gaseous distention of small and large bowel. Anastomotic suture lines noted in the left mid abdomen as well as the right lower quadrant. Mild stool burden in the sigmoid colon and rectum. Hyperdense material also projects over the superior pelvis. No evidence of bowel obstruction. Limited evaluation of the renal shadows for calculi given the presence of extensive bowel gas. Dextroscoliotic curvature of the lumbar spine with extensive multilevel degenerative changes. Osteopenia suspected. 3 lag screw fixation through the right femoral neck with posttraumatic deformity of the right femoral neck. Lung bases clear. IMPRESSION: 1. No evidence of bowel obstruction. Mild stool burden in the sigmoid colon and rectum. Postsurgical changes of the bowel. Electronically signed by: Mann Cisneros M.D. 07/09/2017 1:10 PM Dictated Date/Time: 07/09/2017 1:08 PM
--- NOTE | 2017-07-09 13:19 | EMERGENCY ROOM VISIT NOTE ---
History Report prepared by Torrie: Brendon Jeter Under the Supervision of: Dr. Erin Metcalf D.O. First contact with patient: 11:59 Chief Complaint: CONSTIPATION Stated Complaint: CONSTIPATION Nursing Triage Summary: Pt states that she hasn't had a BM since last Sunday (07/02). Pt also having right hip pain. Denies any recent injury/fall. Pt has history of left hip surgery. History of Present Illness The patient is an 86 year old female who presents to the Emergency Room with complaints of constipation that began last week. The patient's last bowel movement was July 02 and has been unable to move them since. She has been feeling generally weak recently and notes that she has not been eating and drinking normally. She is having some generalized abdominal discomfort but denies any other abnormal symptom. She also describes feeling anxious. Source of History: patient Onset: 1 week ago Position: other (GI) Symptom Intensity: moderate Quality: other (Constipation) Timing: constant Associated Symptoms: + abdominal pain (generalized discomfort), + weakness Note: She denies any other abnormal symptom. Review of Systems See HPI for pertinent positives & negatives. A total of 10 systems reviewed and were otherwise negative. Past Medical & Surgical Medical Problems: (1) Benign hypertension (2) Carcinoma of colon (3) Chronic osteoarthritis (4) Colon cancer (5) SANTHOSH (generalized anxiety disorder) (6) Hyperlipidemia (7) lysis of adhesions (8) Partial colectomy Surgical Problems: (1) S/P hip replacement Family History Cancer Social History Smoking Status: Never Smoker Alcohol Use: none Drug Use: none Marital Status: Housing Status: lives with significant other Occupation Status: retired Current/Historical Medications Scheduled Acetaminophen (Tylenol), 500 MG PO HS Alprazolam (Alprazolam), 0.25 MG PO DIRECTED Cholecalciferol (Vitamin D3), 2,000 INTER.UNIT PO DAILY Escitalopram (Lexapro), 5 MG PO DAILY Ferrous Gluconate (Ferrous Gluconate), 324 MG PO DAILY Lisinopril (Zestril), 5 MG PO DAILY Melatonin (Kp Melatonin), 3 MG PO HS Mirtazapine (Mirtazapine), 15 MG PO HS Multiple Vitamin (Multivitamin), 1 TAB PO DAILY Quetiapine Fumarate (Seroquel), 12.5 MG PO HS Sennosides-Docusate Sodium (Senna S), 1 TAB PO DAILY Venlafaxine Hcl (Venlafaxine Extended Rel), 75 MG PO DAILY Scheduled PRN Acetaminophen (Tylenol), 650 MG PO Q6H PRN for Pain Allergies Coded Allergies: Sulfa Antibiotics (Verified Allergy, Intermediate, HIVES, 07/09/17) Aspirin (Verified Adverse Reaction, Mild, SICK TO STOMACH, 07/09/17) Physical Exam Vital Signs Date Time Temp Pulse Resp B/P (MAP) Pulse Ox O2 Delivery O2 Flow Rate FiO2 07/09/17 19:11 70 16 155/76 97 Room Air 07/09/17 18:37 63 18 188/86 95 Room Air 07/09/17 17:14 65 18 174/73 97 Room Air 07/09/17 15:08 56 18 157/73 96 Room Air 07/09/17 14:12 66 16 129/71 100 Room Air 07/09/17 14:07 59 07/09/17 13:56 62 16 182/87 94 Room Air 07/09/17 13:03 63 18 93 Room Air 07/09/17 11:05 68 07/09/17 11:03 36.4 70 18 157/78 97 Room Air Physical Exam HEENT: Head - normocephalic and atraumatic Pupils are equal, round, and reactive to light. Extraocular eye muscles are intact, and sclera are anicteric. Nose - moist nasal mucosa without discharge. Mouth - moist buccal mucosa. Oropharynx is nonerythematous and there is no tonsillar exudate or edema noted. Neck: Supple; no JVD, nuchal rigidity, cervical lymphadenopathy. Heart: Regular rate and rhythm. There is a normal S1 and S2 with no murmurs, clicks, or gallops appreciated. Lungs: Clear to auscultation bilaterally with no wheezes, rales, or rhonchi. Abdomen: Soft, completely nontender, slightly distended, with good bowel sounds. There are no palpable pulsatile masses or hepatosplenomegaly. There is no guarding, rigidity, or rebound noted. Extremities: No evidence of cyanosis, clubbing, or edema. There are easily palpable peripheral pulses. Skin: warm and dry with poor turgor and no rashes. Medical Decision & Procedures ER Provider Diagnostic Interpretation: Radiology results as stated below per my review and the radiologist's interpretation: KUB CLINICAL HISTORY: 86 years-old Female presenting with abd pain/constipation. TECHNIQUE: Single supine view of the abdomen was obtained. COMPARISON: 06/23/[address] from 11/26/2016. FINDINGS: Mild gaseous distention of small and large bowel. Anastomotic suture lines noted in the left mid abdomen as well as the right lower quadrant. Mild stool burden in the sigmoid colon and rectum. Hyperdense material also projects over the superior pelvis. No evidence of bowel obstruction. Limited evaluation of the renal shadows for calculi given the presence of extensive bowel gas. Dextroscoliotic curvature of the lumbar spine with extensive multilevel degenerative changes. Osteopenia suspected. 3 lag screw fixation through the right femoral neck with posttraumatic deformity of the right femoral neck. Lung bases clear. IMPRESSION: 1. No evidence of bowel obstruction. Mild stool burden in the sigmoid colon and rectum. Postsurgical changes of the bowel. Electronically signed by: Mann Cisneros M.D. 07/09/2017 1:10 PM Dictated Date/Time: 07/09/2017 1:08 PM Laboratory Results 07/09/17 14:16 Red Blood Count 4.48, Mean Corpuscular Volume 88.4, Mean Corpuscular Hemoglobin 30.6, Mean Corpuscular Hemoglobin Concent 34.6, Mean Platelet Volume 9.9, Neutrophils (%) (Auto) 72.2, Lymphocytes (%) (Auto) 20.7, Monocytes (%) (Auto) 6.0, Eosinophils (%) (Auto) 0.7, Basophils (%) (Auto) 0.3, Neutrophils # (Auto) 5.07, Lymphocytes # (Auto) 1.45, Monocytes # (Auto) 0.42, Eosinophils # (Auto) 0.05, Basophils # (Auto) 0.02 07/09/17 14:16 Test 07/09/17 11:46 07/09/17 14:16 Urine Color YELLOW Urine Appearance CLEAR (CLEAR) Urine pH 6.0 (4.5-7.5) Urine Specific [place] 1.012 (1.000-1.030) Urine Protein NEG (NEG) Urine Glucose (UA) NEG (NEG) Urine Ketones NEG (NEG) Urine Occult Blood NEG (NEG) Urine Nitrite NEG (NEG) Urine Bilirubin NEG (NEG) Urine Urobilinogen NEG (NEG) Urine Leukocyte Esterase NEG (NEG) White Blood Count 7.02 K/uL (4.8-10.8) Red Blood Count 4.48 M/uL (4.2-5.4) Hemoglobin 13.7 g/dL (12.0-16.0) Hematocrit 39.6 % (37-47) Mean Corpuscular Volume 88.4 fL (80-100) Mean Corpuscular Hemoglobin 30.6 pg (25-34) Mean Corpuscular Hemoglobin Concent 34.6 g/dl (32-36) Platelet Count 196 K/uL (130-400) Mean Platelet Volume 9.9 fL (7.4-10.4) Neutrophils (%) (Auto) 72.2 % Lymphocytes (%) (Auto) 20.7 % Monocytes (%) (Auto) 6.0 % Eosinophils (%) (Auto) 0.7 % Basophils (%) (Auto) 0.3 % Neutrophils # (Auto) 5.07 K/uL (1.4-6.5) Lymphocytes # (Auto) 1.45 K/uL (1.2-3.4) Monocytes # (Auto) 0.42 K/uL (0.11-0.59) Eosinophils # (Auto) 0.05 K/uL (0-0.5) Basophils # (Auto) 0.02 K/uL (0-0.2) RDW Standard Deviation 46.0 fL (36.4-46.3) RDW Coefficient of Variation 14.1 % (11.5-14.5) Immature Granulocyte % (Auto) 0.1 % Immature Granulocyte # (Auto) 0.01 K/uL (0.00-0.02) Anion Gap 6.0 mmol/L (3-11) Est Creatinine Clear Calc Drug Dose 70.6 ml/min Estimated GFR () 97.9 Estimated GFR (Non- 84.4 BUN/Creatinine Ratio 17.9 (10-20) Calcium Level 9.1 mg/dl (8.5-10.1) Total Bilirubin 0.9 mg/dl (0.2-1) Aspartate Amino Transf (AST/SGOT) 15 U/L (15-37) Alanine Aminotransferase (ALT/SGPT) 24 U/L (12-78) Alkaline Phosphatase 49 U/L (45-117) Total Protein 7.3 gm/dl (6.4-8.2) Albumin 3.6 gm/dl (3.4-5.0) Globulin 3.7 gm/dl (2.5-4.0) Albumin/Globulin Ratio 1.0 (0.9-2) Laboratory results per my review. Medications Administered Medications (Trade) Dose Ordered Sig/Jennifer Route Start Time Stop Time Status Last Admin Dose Admin Alprazolam (Xanax Tab) 0.25 mg NOW STAT PO 07/09/17 18:51 07/09/17 18:53 DC 07/09/17 19:10 0.25 MG Procedure Soapsuds enema ECG Indication: abdominal pain Rate (beats per minute): 58 Rhythm: sinus bradycardia Findings: PAC, no acute ischemic change ED Course 1159: Past medical records reviewed. The patient was evaluated in room C12. A complete history and physical exam was performed. The patient had a twelve- lead EKG as described above. Patient's ECG interpreted by me. She had an IV lock initiated and labs were drawn as above. She went for an obstruction series which showed moderate stool within the sigmoid colon and rectum. 1600: The patient received a soap suds enema at this time. 1630: The patient was able to have a bowel movement and is feeling better. 1700: Upon reevaluation, the patient is resting. I discussed findings and results with her. She verbalized agreement of the treatment plan. She was discharged home. 1715: The gearcase assembler spoke with the patient's daughter at this time. She informed her that she helps them, the patient and her , both at home and manages their medications. 1830: The patient described feeling more anxious. She typically takes Xanax at home. I did prescribe her some Xanax here to help with her anxiety while she awaits for transportation home. Medical Decision The patient is an 86 year old female who presents to the ED with constipation. Differential diagnosis includes constipation, hyponatremia, dehydration, hypoglycemia, kidney failure, and bowel obstruction. Laboratory Results: No leukocytosis, stable H&H, sodium 133, chloride 97, normal renal function, glucose 87, normal LFTs, urinalysis negative Medication Reconcilliation Current Medication List: was personally reviewed by me Blood Pressure Screening Patient's blood pressure: Elevated blood pressure Blood pressure disposition: Elevated BP felt to be situational Impression Primary Impression: Constipation Additional Impression: SANTHOSH (generalized anxiety disorder) Scribe Attestation The scribe's documentation has been prepared under my direction and personally reviewed by me in its entirety. I confirm that the note above accurately reflects all work, treatment, procedures, and medical decision making performed by me. Departure Information Dispostion Home / Self-Care Referrals Angelito Rogers M.D. (PCP) Forms HOME CARE DOCUMENTATION FORM, IMPORTANT VISIT INFORMATION Patient Instructions Constipation, My [facility] Additional Instructions Take plenty of clear liquids Avoid dairy and cheese over next 3-5 days. Use prune juice Take meds as directed. Follow up with PCP if constipation contiues Problem Qualifiers Primary Impression: Constipation Constipation type: unspecified constipation type Qualified Codes: K59.00 - Constipation, unspecified
[2017-07-09 15:05] LABS: BASO % 0.3 %; BASO ABS # 0.02 K/uL (0-0.2); EOS % 0.7 %; EOS ABS # 0.05 K/uL (0-0.5); HEMATOCRIT 39.6 % (37-47); HEMOGLOBIN 13.7 g/dL (12.0-16.0); IG# 0.01 K/uL (0.00-0.02); LYMPH % 20.7 %; LYMPH ABS # 1.45 K/uL (1.2-3.4); MEAN CELL VOLUME 88.4 fL (80-100); MEAN CORPUSCULAR HEMOGLOBIN 30.6 pg (25-34); MEAN CORPUSCULAR HGB CONC 34.6 g/dl (32-36); MEAN PLATELET VOLUME 9.9 fL (7.4-10.4); MONO ABS # 0.42 K/uL (0.11-0.59); NEUT % 72.2 %; NEUT ABS # 5.07 K/uL (1.4-6.5); PLATELET COUNT 196 K/uL (130-400); RED CELL DISTRIBUTION WIDTH CV 14.1 % (11.5-14.5); WHITE BLOOD COUNT 7.02 K/uL (4.8-10.8)
[2017-07-09 15:25] LABS: ALBUMIN 3.6 gm/dl (3.4-5.0); CALCIUM 9.1 mg/dl (8.5-10.1); CREATININE 0.56 mg/dl (0.60-1.20); POTASSIUM 3.9 mmol/L (3.5-5.1)
[2017-07-09 15:27] LABS: TOTAL PROTEIN 7.3 gm/dl (6.4-8.2)
[2017-07-09] MEDS ORDERED: ALPRAZOLAM 0.25 MG TAB PO STA (18:51)
[2017-07-09 20:11] VITALS: BP 148/93; PULSE 71; O2SAT 97
== END 2017-07-09 20:12 | disposition home or self-care (01) ==
LOC: EDBD 10:53 → C.EDC 10:54
DX: K59.00 Constipation, unspecified (principal); F41.1 Generalized anxiety disorder; I10 Essential (primary) hypertension; Z85.038 Personal history of other malignant neoplasm of large intestine; Z90.49 Acquired absence of other specified parts of digestive tract; Z96.649 Presence of unspecified artificial hip joint; Z79.899 Other long term (current) drug therapy

== ENCOUNTER 2017-07-25 10:00 | Emergency (ER) | payer OTHER, MEDICARE ==
[~2017-07-25] VITALS: Ht 175.3 cm; Wt 57.2 kg
[~2017-07-25 10:00] MED LIST changes: -LISI-461 PO; +LISI-729 PO; -MGCL40 PO
[2017-07-25 10:23] VITALS: Ht 175.3 cm; Wt 57.2 kg
[2017-07-25] MEDS ORDERED: SODIUM CHLORIDE 0.9% 1000ML 1,000 ML IV STA (11:02)
[2017-07-25] MEDS ORDERED: OPTIRAY 320 IV PRN (11:15)
--- NOTE | 2017-07-25 11:18 | DIAGNOSTIC IMAGING REPORT ---
CHEST ONE VIEW PORTABLE CLINICAL HISTORY: Weakness COMPARISON STUDY: A 2517 FINDINGS: The cardiac and mediastinal contours are normal. There is no evidence of focal pulmonary consolidation. There is no evidence of failure. No pleural effusions are visualized.[ IMPRESSION: No active disease in the chest. Electronically signed by: Ok Ballard M.D. 07/25/2017 11:16 AM Dictated Date/Time: 07/25/2017 11:16 AM
[2017-07-25] MEDS ORDERED: MGCL40 PO (11:20)
[2017-07-25] MEDS ORDERED: LISI-461 PO (11:20)
[2017-07-25 11:33] VITALS: O2SAT 100
[2017-07-25 11:45] LABS: BASO % 0.4 %; BASO ABS # 0.02 K/uL (0-0.2); EOS % 0.6 %; EOS ABS # 0.03 K/uL (0-0.5); HEMOGLOBIN 13.1 g/dL (12.0-16.0); LYMPH % 21.1 %; LYMPH ABS # 0.98 K/uL (1.2-3.4); MEAN CORPUSCULAR HGB CONC 34.5 g/dl (32-36); MEAN PLATELET VOLUME 9.7 fL (7.4-10.4); MONO ABS # 0.28 K/uL (0.11-0.59); NEUT % 71.9 %; NEUT ABS # 3.33 K/uL (1.4-6.5); PLATELET COUNT 219 K/uL (130-400); RED CELL DISTRIBUTION WIDTH CV 14.5 % (11.5-14.5); RED CELL DISTRIBUTION WIDTH SD 45.8 fL (36.4-46.3); WHITE BLOOD COUNT 4.64 K/uL (4.8-10.8)
[2017-07-25 12:07] LABS: ALBUMIN 3.6 gm/dl (3.4-5.0); ALT/SGPT 21 U/L (12-78); AST/SGOT 16 U/L (15-37); BLOOD UREA NITROGEN 12 mg/dl (7-18); CALCIUM 9.1 mg/dl (8.5-10.1); CARBON DIOXIDE 25 mmol/L (21-32); CREATININE 0.55 mg/dl (0.60-1.20); GLUCOSE 88 mg/dl (70-99); LIPASE 138 U/L (73-393); POTASSIUM 4.1 mmol/L (3.5-5.1); SODIUM 131 mmol/L (136-145)
[2017-07-25 12:18] LABS: ALKALINE PHOSPHATASE 49 U/L (45-117)
--- NOTE | 2017-07-25 13:51 | DIAGNOSTIC IMAGING REPORT ---
CT OF THE ABDOMEN AND PELVIS WITH CONTRAST CLINICAL HISTORY: Abdominal pain. COMPARISON STUDY: CT of the abdomen and pelvis November 26, 2016 and KUB July 09, 2017. TECHNIQUE: Following IV administration of 92 mL of [id number], axial images of the abdomen and pelvis were obtained from the lung bases to the proximal femurs. Images were reviewed in the axial, sagittal, and coronal planes. IV contrast was administered without complication. A dose lowering technique was utilized adhering to the principles of ALARA. CT DOSE: 263.28 mGy.cm FINDINGS: A few nodules within the lower lungs are unchanged since chest CT of December 21, 2010. These are benign given stability. Evaluation of the abdomen and pelvis is suboptimal given a paucity of fat. There is no significant biliary ductal dilatation. Numerous subcentimeter renal lesions are too small to characterize but likely reflect cysts. There is no hydronephrosis. There is no pancreatic or biliary ductal dilatation. There is no evidence for a bowel obstruction. A right lower quadrant bowel anastomosis is noted. There is a large amount stool within the rectum. Note is made of extensive sigmoid diverticulosis without evidence for acute diverticulitis. There is no free fluid. There is no abscess. There is no lymphadenopathy. The stomach, small bowel and large bowel are mildly fluid-filled. There is no bowel wall thickening. No suspicious osseous lesions are present. 3 cannulated screws within the proximal right femur noted. There is severe osteoarthritis of the right hip. There is marked joint space narrowing with osteophytosis. There is subchondral collapse. IMPRESSION: 1. Large amount of stool within the rectum. No bowel obstruction. 2. Mildly fluid-filled stomach, small and large bowel which may reflect gastroenteritis. No bowel wall thickening. 3. Colonic diverticulosis without evidence for acute diverticulitis. 4. 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 Electronically signed by: Tomas Bond M.D. 07/25/2017 1:49 PM Dictated Date/Time: 07/25/2017 1:38 PM
[2017-07-25] MEDS ORDERED: SOD PHOSPHATE/SOD BIPHOSPHATE ENEMA 132 ML BTL PR STA (13:57)
[2017-07-25 16:06] VITALS: BP 132/62; PULSE 60; TEMP 36.5; O2SAT 100
--- NOTE | 2017-07-25 16:43 | EMERGENCY ROOM VISIT NOTE ---
History Report prepared by Torrie: Brendon Jeter Under the Supervision of: Dr. Fermin Barrera D.O. First contact with patient: 10:52 Chief Complaint: WEAKNESS Stated Complaint: WEAKNESS Nursing Triage Summary: pt arrived als from home with family, reported by family pt cindy had a bm in over one and half weeks and they are reporting her as weak. pt reports right hip pain and states she cindy had a bm in over a week. pt states she uses a walker to walk with as a normal History of Present Illness The patient is a 86 year old female who presents to the Emergency Room with complaints of constipation that began a week and a half ago. She has a past medical history of colon cancer and a complete hysterectomy. She still has her gallbladder and an appendix. Over this time, the patient has been unable to have a bowel movement. She states that this has happened to her three separate times in the recent past. She has been eating very small amounts over this time because her bowels are not moving. However, she feels as if she has to go. She takes Dulcolax and Metamucil intermittently, but does not take anything daily. Pt denies headache, change in vision, fevers, chest pain, shortness of breath, nausea, vomiting, diarrhea, pain with urination, and melena. The patient's family state that she has been saying she is weak recently. Source of History: patient, family Onset: 1.5 weeks ago Position: other () Symptom Intensity: moderate Quality: other (Constipation) Timing: constant Associated Symptoms: + weakness, No fevers, No headache, No chest pain, No SOB, No nausea, No vomiting, No melena, No diarrhea, No urinary symptoms Review of Systems See HPI for pertinent positives & negatives. A total of 10 systems reviewed and were otherwise negative. Past Medical & Surgical Medical Problems: (1) Benign hypertension (2) Carcinoma of colon (3) Chronic osteoarthritis (4) Colon cancer (5) SANTHOSH (generalized anxiety disorder) (6) Hyperlipidemia (7) lysis of adhesions (8) Partial colectomy Surgical Problems: (1) S/P hip replacement Family History Cancer Social History Smoking Status: Never Smoker Alcohol Use: none Drug Use: none Marital Status: Housing Status: lives with significant other Occupation Status: retired Current/Historical Medications Scheduled Acetaminophen (Tylenol), 500 MG PO HS Alprazolam (Alprazolam), 0.25 MG PO DIRECTED Cholecalciferol (Vitamin D3), 2,000 INTER.UNIT PO DAILY Escitalopram (Lexapro), 5 MG PO DAILY Ferrous Gluconate (Ferrous Gluconate), 324 MG PO DAILY Lisinopril (Zestril), 10 MG PO DAILY Megestrol Acetate (Megestrol Acetate), 10 ML PO BID Melatonin (Kp Melatonin), 3 MG PO HS Mirtazapine (Mirtazapine), 15 MG PO HS Multiple Vitamin (Multivitamin), 1 TAB PO DAILY Quetiapine Fumarate (Seroquel), 12.5 MG PO HS Sennosides-Docusate Sodium (Senna S), 1 TAB PO DAILY Venlafaxine Hcl (Venlafaxine Extended Rel), 75 MG PO DAILY Scheduled PRN Acetaminophen (Tylenol), 650 MG PO Q6H PRN for Pain Allergies Coded Allergies: Sulfa Antibiotics (Verified Allergy, Intermediate, HIVES, 07/25/17) Aspirin (Verified Adverse Reaction, Mild, SICK TO STOMACH, 07/25/17) Physical Exam Vital Signs Date Time Temp Pulse Resp B/P (MAP) Pulse Ox O2 Delivery O2 Flow Rate FiO2 07/25/17 16:06 36.5 60 17 132/62 100 07/25/17 13:06 56 17 07/25/17 13:01 139/65 07/25/17 12:36 58 15 07/25/17 12:31 132/65 07/25/17 12:30 58 15 07/25/17 12:01 123/68 07/25/17 12:00 61 12 134/75 07/25/17 11:33 100 Room Air 07/25/17 11:30 76 11 07/25/17 11:00 62 14 100 07/25/17 10:30 64 18 100 07/25/17 10:23 36.5 65 20 125/70 100 Room Air 07/25/17 10:11 125/71 Physical Exam GENERAL: Sitting up in bed, alert, well appearing, malnourished, no distress, non-toxic EYE EXAM: normal conjunctiva. PERRL and EOM's intact. OROPHARYNX: no exudate, no erythema, lips, buccal mucosa, and tongue normal and mucous membranes are moist NECK: supple, no nuchal rigidity, no adenopathy, non-tender LUNGS: Clear to auscultation. Normal chest wall mechanics HEART: no murmurs, S1 normal and S2 normal ABDOMEN: abdomen soft, non-tender, normo-active bowel sounds, no masses, no rebound or guarding. BACK: Back is symmetrical on inspection and there is no deformity, no midline tenderness, no CVA tenderness. SKIN: no rashes and no bruising UPPER EXTREMITIES: upper extremities are grossly normal. LOWER EXTREMITIES: No pitting edema. NEURO EXAM: Normal sensorium, cranial nerves II-XII grossly intact, normal speech, no gross weakness of arms, no gross weakness of legs. Medical Decision & Procedures ER Provider Diagnostic Interpretation: Radiology results as stated below per my review and the radiologist's interpretation: CHEST ONE VIEW PORTABLE CLINICAL HISTORY: Weakness COMPARISON STUDY: A 2517 FINDINGS: The cardiac and mediastinal contours are normal. There is no evidence of focal pulmonary consolidation. There is no evidence of failure. No pleural effusions are visualized.[ IMPRESSION: No active disease in the chest. Electronically signed by: Ok Ballard M.D. 07/25/2017 11:16 AM Dictated Date/Time: 07/25/2017 11:[address] OF THE ABDOMEN AND PELVIS WITH CONTRAST CLINICAL HISTORY: Abdominal pain. COMPARISON STUDY: CT of the abdomen and pelvis November 26, 2016 and KUB July 09, 2017. TECHNIQUE: Following IV administration of 92 mL of [id number], axial images of the abdomen and pelvis were obtained from the lung bases to the proximal femurs. Images were reviewed in the axial, sagittal, and coronal planes. IV contrast was administered without complication. A dose lowering technique was utilized adhering to the principles of ALARA. CT DOSE: 263.28 mGy.cm FINDINGS: A few nodules within the lower lungs are unchanged since chest CT of December 21, 2010. These are benign given stability. Evaluation of the abdomen and pelvis is suboptimal given a paucity of fat. There is no significant biliary ductal dilatation. Numerous subcentimeter renal lesions are too small to characterize but likely reflect cysts. There is no hydronephrosis. There is no pancreatic or biliary ductal dilatation. There is no evidence for a bowel obstruction. A right lower quadrant bowel anastomosis is noted. There is a large amount stool within the rectum. Note is made of extensive sigmoid diverticulosis without evidence for acute diverticulitis. There is no free fluid. There is no abscess. There is no lymphadenopathy. The stomach, small bowel and large bowel are mildly fluid-filled. There is no bowel wall thickening. No suspicious osseous lesions are present. 3 cannulated screws within the proximal right femur noted. There is severe osteoarthritis of the right hip. There is marked joint space narrowing with osteophytosis. There is subchondral collapse. IMPRESSION: 1. Large amount of stool within the rectum. No bowel obstruction. 2. Mildly fluid-filled stomach, small and large bowel which may reflect gastroenteritis. No bowel wall thickening. 3. Colonic diverticulosis without evidence for acute diverticulitis. 4. 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 Electronically signed by: Tomas Bond M.D. 07/25/2017 1:49 PM Dictated Date/Time: 07/25/2017 1:38 PM Laboratory Results 07/25/17 11:25 Red Blood Count 4.37, Mean Corpuscular Volume 87.0, Mean Corpuscular Hemoglobin 30.0, Mean Corpuscular Hemoglobin Concent 34.5, Mean Platelet Volume 9.7, Neutrophils (%) (Auto) 71.9, Lymphocytes (%) (Auto) 21.1, Monocytes (%) (Auto) 6.0, Eosinophils (%) (Auto) 0.6, Basophils (%) (Auto) 0.4, Neutrophils # (Auto) 3.33, Lymphocytes # (Auto) 0.98, Monocytes # (Auto) 0.28, Eosinophils # (Auto) 0.03, Basophils # (Auto) 0.02 07/25/17 11:25 Test 07/25/17 10:51 07/25/17 11:25 Urine Color YELLOW Urine Appearance CLEAR (CLEAR) Urine pH 6.5 (4.5-7.5) Urine Specific [place] 1.007 (1.000-1.030) Urine Protein NEG (NEG) Urine Glucose (UA) NEG (NEG) Urine Ketones 1+ (NEG) Urine Occult Blood TRACE (NEG) Urine Nitrite NEG (NEG) Urine Bilirubin NEG (NEG) Urine Urobilinogen NEG (NEG) Urine Leukocyte Esterase TRACE (NEG) Urine WBC (Auto) 1-5 /hpf (0-5) Urine RBC (Auto) 0-4 /hpf (0-4) Urine Hyaline Casts (Auto) 1-5 /lpf (0-5) Urine Epithelial Cells (Auto) 20-30 /lpf (0-5) Urine Bacteria (Auto) NEG (NEG) White Blood Count 4.64 K/uL (4.8-10.8) Red Blood Count 4.37 M/uL (4.2-5.4) Hemoglobin 13.1 g/dL (12.0-16.0) Hematocrit 38.0 % (37-47) Mean Corpuscular Volume 87.0 fL (80-100) Mean Corpuscular Hemoglobin 30.0 pg (25-34) Mean Corpuscular Hemoglobin Concent 34.5 g/dl (32-36) Platelet Count 219 K/uL (130-400) Mean Platelet Volume 9.7 fL (7.4-10.4) Neutrophils (%) (Auto) 71.9 % Lymphocytes (%) (Auto) 21.1 % Monocytes (%) (Auto) 6.0 % Eosinophils (%) (Auto) 0.6 % Basophils (%) (Auto) 0.4 % Neutrophils # (Auto) 3.33 K/uL (1.4-6.5) Lymphocytes # (Auto) 0.98 K/uL (1.2-3.4) Monocytes # (Auto) 0.28 K/uL (0.11-0.59) Eosinophils # (Auto) 0.03 K/uL (0-0.5) Basophils # (Auto) 0.02 K/uL (0-0.2) RDW Standard Deviation 45.8 fL (36.4-46.3) RDW Coefficient of Variation 14.5 % (11.5-14.5) Immature Granulocyte % (Auto) 0.0 % Immature Granulocyte # (Auto) 0.00 K/uL (0.00-0.02) Prothrombin Time 10.9 SECONDS (9.0-12.0) Prothromb Time International Ratio 1.0 (0.9-1.1) Activated Partial Thromboplast Time 26.0 SECONDS (21.0-31.0) Partial Thromboplastin Ratio 1.0 Anion Gap 8.0 mmol/L (3-11) Est Creatinine Clear Calc Drug Dose 66.3 ml/min Estimated GFR () 98.4 Estimated GFR (Non- 84.9 BUN/Creatinine Ratio 20.8 (10-20) Calcium Level 9.1 mg/dl (8.5-10.1) Total Bilirubin 0.9 mg/dl (0.2-1) Direct Bilirubin 0.2 mg/dl (0-0.2) Aspartate Amino Transf (AST/SGOT) 16 U/L (15-37) Alanine Aminotransferase (ALT/SGPT) 21 U/L (12-78) Alkaline Phosphatase 49 U/L (45-117) Troponin I < 0.015 ng/ml (0-0.045) Total Protein 7.0 gm/dl (6.4-8.2) Albumin 3.6 gm/dl (3.4-5.0) Lipase 138 U/L (73-393) Thyroid Stimulating Hormone (TSH) 1.050 uIu/ml (0.300-4.500) Laboratory results per my review. Medications Administered Medications (Trade) Dose Ordered Sig/Jennifer Route Start Time Stop Time Status Last Admin Dose Admin Sodium Chloride 1,000 ml @ 999 mls/hr Q1H1M STAT IV 07/25/17 11:02 07/25/17 12:02 DC 07/25/17 12:00 999 MLS/HR Sodium Biphosphate/ Sodium Phosphate (Fleet Enema) 132 ml NOW STAT IN 07/25/17 13:57 07/25/17 13:58 DC 07/25/17 13:57 132 ML ECG Per My Interpretation Indication: weakness Rate (beats per minute): 61 Rhythm: sinus rhythm Findings: other (No PVC, normal axis) ED Course ED COURSE: Vital signs were reviewed and showed normal vitals The patients medical record was reviewed The above diagnostic studies were performed and reviewed. ED treatments and interventions as stated above. 1052: The patient was evaluated in room A11. A complete history and physical examination was performed. 1102: Ordered Sodium Chloride 1000 ml @ 999 mls/hr IV 1357: Ordered Fleet Enema 132 IN 1420: I updated the patient at this time. She is feeling okay. 1525: Upon reevaluation, the patient is resting.I discussed my findings with the patient and she understands and agrees with the treatment plan. Based on the patients age, coexisting illnesses, exam and lab findings the decision to treat as an outpatient was made. The patient remained stable while under my care. The patient appeared well at the time of discharge. Medical Decision Differential diagnoses includes but is not limited to gastritis, peptic ulcer disease, GERD, gallbladder disease, pancreatitis, small bowel obstruction, acute coronary syndrome, pericarditis, ischemic bowel, irritable bowel disease, irritable bowel syndrome, appendicitis, diverticulitis, malignancy, hernia, urinary tract infection, torsion, perforation, trauma, infectious. Patient is an 86-year-old female brought in by family as she has not had a bowel movement in the past 7-10 days. She has also not been eating because she has abdominal pain following this. She has had trouble with constipation. He also notes she has been very weak. She has no other complaints. Exam is completely benign. CT of her abdomen shows severe constipation. She was given an enema and had a large bowel movement. She was very anxious following this. Recommended a MiraLAX prep at home. CBC along with BMP, LFTs, bilirubin, troponin and TSH were normal. UA without infection. INR was normal. Chest x- ray was unremarkable. Patient was updated at bedside. She was discharged to follow-up with PCP as an outpatient. Discussed with Pt concerning signs and symptoms to watch out for. Pt was instructed to follow up with their PCP and discussed with the patient their option to return to the ED at anytime for persistent or worsening symptoms. The appropriate anticipatory guidance and out- patient management, including indications for return to the emergency department , were explained at length to the patient and understood. Medication Reconcilliation Current Medication List: was personally reviewed by me Blood Pressure Screening Patient's blood pressure: Normal blood pressure Blood pressure disposition: Did not require urgent referral Impression Primary Impression: Constipation Additional Impression: Abdominal pain Scribe Attestation The scribe's documentation has been prepared under my direction and personally reviewed by me in its entirety. I confirm that the note above accurately reflects all work, treatment, procedures, and medical decision making performed by me. Departure Information Dispostion Home / Self-Care Referrals Angelito Rogers M.D. (PCP) Forms HOME CARE DOCUMENTATION FORM, IMPORTANT VISIT INFORMATION Patient Instructions ED Constipation, My [facility] Additional Instructions Please follow up with your primary care doctor with in the next 24 hours. Any worsening of your symptoms, please return to the ED immediately. This includes any fevers greater than 100.4, worsening pain, chest pain, shortness breath, persistent nausea, vomiting, unable to eat or drink, or any other concerning signs or symptoms from your standpoint. For general constipation: Please take Senokot 10 mg daily Please also take Colace 100 mg twice a day If you do not have a bowel movement within 3 days: Please add 2-3 cap of miralax to your regimen For tonight when you are extremely constipated: Please mix a small bottle of MiraLAX which is 250 g with 64 ounces of Gatorade. Drink 8 ounces until you have a bowel movement. If you do not have a bowel movement you can repeat this regimen. Problem Qualifiers Primary Impression: Constipation Constipation type: unspecified constipation type Qualified Codes: K59.00 - Constipation, unspecified Additional Impression: Abdominal pain Abdominal location: unspecified location Qualified Codes: R10.9 - Unspecified abdominal pain
== END 2017-07-25 16:07 | disposition home or self-care (01) ==
LOC: EDBD 10:00 → C.EDA 10:03
DX: K59.00 Constipation, unspecified (principal); R10.9 Unspecified abdominal pain; R53.1 Weakness; I10 Essential (primary) hypertension; M19.90 Unspecified osteoarthritis, unspecified site; F41.1 Generalized anxiety disorder; E78.5 Hyperlipidemia, unspecified; Z85.038 Personal history of other malignant neoplasm of large intestine; Z90.710 Acquired absence of both cervix and uterus; Z90.49 Acquired absence of other specified parts of digestive tract; Z96.649 Presence of unspecified artificial hip joint; Z88.2 Allergy status to sulfonamides; Z88.6 Allergy status to analgesic agent

== ENCOUNTER 2017-07-31 05:18 | Inpatient (IN) | payer OTHER, MEDICARE ==
[2017-07-30 23:59] VITALS: O2SAT 98
[~2017-07-31] VITALS: Ht 175.3 cm; Wt 58.4 kg
[2017-07-31] VITALS (9 sets, daily range): BP systolic 126–171; BP diastolic 68–92; PULSE 66–74; TEMP 36.4–38.7; O2SAT 98–100; BMI 20.2
[~2017-07-31 05:18] MED LIST changes: +LISI-461 PO; -LISI-729 PO; +MGCL40 PO
[2017-07-31] MEDS ORDERED: SODIUM CHLORIDE 0.9% 1000ML 1,000 ML IV SCH ×2 (05:26→09:00)
--- NOTE | 2017-07-31 05:42 | EMERGENCY ROOM VISIT NOTE ---
History Report prepared by Torrie: Stephon Chen Under the Supervision of: Dr. Erin Metcalf D.O. First contact with patient: 05:24 Chief Complaint: STROKE SYMPTOMS Stated Complaint: FALL/NEURO SYMPTOMS History of Present Illness The patient is an 86 year old female who presents to the Emergency Room with complaints of constant altered mental status starting at an unknown time this morning after a fall. Per the EMS, the patient was found with her head and shoulders on the ground and the rest of her body still in her bed. Additionally the patient vomited a black substance. Per the EMS, the patient's pupils are normal, and she has been difficult to get a response, and she is not following commands. The patient's blood pressure has been 190s/120s on the way into the ED. History is limited secondary to altered mental status. Source of History: EMS History Limited By: AMS Onset: unknown time this morning Position: other (global) Quality: other (stroke symptoms after a fall) Timing: constant Associated Symptoms: + vomiting Review of Systems HPI is limited secondary to altered mental status Past Medical & Surgical Medical Problems: (1) Benign hypertension (2) Carcinoma of colon (3) Chronic osteoarthritis (4) Colon cancer (5) SANTHOSH (generalized anxiety disorder) (6) Hyperlipidemia (7) Hyponatremia (8) lysis of adhesions (9) Partial colectomy (10) Unresponsiveness Surgical Problems: (1) S/P hip replacement Family History Cancer Social History Smoking Status: Never Smoker Alcohol Use: none Drug Use: none Marital Status: Housing Status: lives with significant other Occupation Status: retired Current/Historical Medications Scheduled Acetaminophen (Tylenol), 500 MG PO HS Alprazolam (Alprazolam), 0.25 MG PO DIRECTED Lisinopril (Zestril), 2.5 MG PO DAILY Melatonin (Kp Melatonin), 3 MG PO HS Mirtazapine (Mirtazapine), 15 MG PO HS Multiple Vitamin (Multivitamin), 1 TAB PO DAILY Sennosides-Docusate Sodium (Senna S), 1 TAB PO DAILY Venlafaxine Hcl (Venlafaxine Extended Rel), 75 MG PO DAILY Scheduled PRN Acetaminophen (Tylenol), 650 MG PO Q6H PRN for Pain Allergies Coded Allergies: Sulfa Antibiotics (Verified Allergy, Intermediate, HIVES, 07/31/17) Aspirin (Verified Adverse Reaction, Mild, SICK TO STOMACH, 07/31/17) Physical Exam Vital Signs Date Time Temp Pulse Resp B/P (MAP) Pulse Ox O2 Delivery O2 Flow Rate FiO2 07/31/17 06:30 63 19 166/87 100 07/31/17 06:20 70 20 154/71 100 Room Air 07/31/17 06:09 100 Room Air 07/31/17 06:00 67 19 150/69 97 Room Air 07/31/17 05:26 86 07/31/17 05:18 36.1 72 16 187/65 100 Room Air 07/30/17 23:59 98 Room Air Physical Exam General: Black vomitus about her face. Unresponsive. HEENT: Head - normocephalic. Abrasions and contusion to the right side of her face. Pupils are equal, round, and reactive to light. Extraocular eye muscles are intact and sclera are anicteric. Ears - bilaterally patent canals with noninjected tympanic membranes and no evidence of hemotympanum. Nose - moist nasal mucosa without discharge. Mouth - moist buccal mucosa. Oropharynx is nonerythematous and there is no tonsillar exudate or edema noted. Neck: Supple; no JVD, nuchal rigidity, cervical lymphadenopathy. Heart: Regular rate and rhythm. There is a normal S1 and S2 with no murmurs, clicks, or gallops appreciated. Lungs: Clear to auscultation bilaterally with no wheezes, rales, or rhonchi. Abdomen: Soft, completely nontender, nondistended, with good bowel sounds. There are no palpable pulsatile masses or hepatosplenomegaly. There is no guarding, rigidity, or rebound noted. Extremities: No evidence of cyanosis, clubbing, or edema. There are easily palpable peripheral pulses. Neuro: The patient was semi-responsive, will not follow commands, left arm is flaccid, and the right arm is spastic. Appears to be moving both lower extremities. GCS 7 Medical Decision & Procedures ER Provider Diagnostic Interpretation: Radiology results as stated below per my review and the radiologist's interpretation: CT HEAD: Comparison: MRI braine 01/30/17, CT head 01/26/17. No ICH, mass effect, or edema. Involutional and chronic small vessel ischemic changes. There is swelling of the right parieto-occipital scalp. No skull fracture. Mucosal thickening in the frontal sinus and ethmoid air cells. Mastoid air cells are clear. CT C SPINE: Comparison CT cervical spine 11/26/16. Straightening of the cervical spine. Multilevel degenerative changes. No evidence of acute fracture or subluxation. Radiologist: Gali Patricio MD Laboratory Results 07/31/17 05:25 Red Blood Count 4.43, Mean Corpuscular Volume 81.5, Mean Corpuscular Hemoglobin 30.0, Mean Corpuscular Hemoglobin Concent 36.8, Mean Platelet Volume 10.0, Neutrophils (%) (Auto) 93.0, Lymphocytes (%) (Auto) 2.8, Monocytes (%) (Auto) 3.9, Eosinophils (%) (Auto) 0.0, Basophils (%) (Auto) 0.0, Neutrophils # (Auto) 10.67, Lymphocytes # (Auto) 0.32, Monocytes # (Auto) 0.45, Eosinophils # (Auto) 0.00, Basophils # (Auto) 0.00 Test 07/31/17 05:25 07/31/17 05:59 07/31/17 06:05 White Blood Count 11.48 K/uL (4.8-10.8) Red Blood Count 4.43 M/uL (4.2-5.4) Hemoglobin 13.3 g/dL (12.0-16.0) Hematocrit 36.1 % (37-47) Mean Corpuscular Volume 81.5 fL (80-100) Mean Corpuscular Hemoglobin 30.0 pg (25-34) Mean Corpuscular Hemoglobin Concent 36.8 g/dl (32-36) Platelet Count 264 K/uL (130-400) Mean Platelet Volume 10.0 fL (7.4-10.4) Neutrophils (%) (Auto) 93.0 % Lymphocytes (%) (Auto) 2.8 % Monocytes (%) (Auto) 3.9 % Eosinophils (%) (Auto) 0.0 % Basophils (%) (Auto) 0.0 % Neutrophils # (Auto) 10.67 K/uL (1.4-6.5) Lymphocytes # (Auto) 0.32 K/uL (1.2-3.4) Monocytes # (Auto) 0.45 K/uL (0.11-0.59) Eosinophils # (Auto) 0.00 K/uL (0-0.5) Basophils # (Auto) 0.00 K/uL (0-0.2) RDW Standard Deviation 40.8 fL (36.4-46.3) RDW Coefficient of Variation 13.6 % (11.5-14.5) Immature Granulocyte % (Auto) 0.3 % Immature Granulocyte # (Auto) 0.04 K/uL (0.00-0.02) Prothrombin Time 11.4 SECONDS (9.0-12.0) Prothromb Time International Ratio 1.1 (0.9-1.1) Activated Partial Thromboplast Time 28.2 SECONDS (21.0-31.0) Partial Thromboplastin Ratio 1.1 Total Creatine Kinase 915 U/L (26-192) Creatine Kinase MB 7.2 ng/ml (0.5-3.6) Creatine Kinase MB Ratio (0-3.0) Troponin I < 0.015 ng/ml (0-0.045) Bedside Prothrombin Time INR 1.0 (0.9-1.1) Urine Color DK YELLOW Urine Appearance TURBID (CLEAR) Urine pH 5.5 (4.5-7.5) Urine Specific [place] 1.020 (1.000-1.030) Urine Protein 2+ (NEG) Urine Glucose (UA) 2+ (NEG) Urine Ketones 2+ (NEG) Urine Occult Blood 3+ (NEG) Urine Nitrite POS (NEG) Urine Bilirubin NEG (NEG) Urine Urobilinogen NEG (NEG) Urine Leukocyte Esterase LARGE (NEG) Urine WBC (Auto) >30 /hpf (0-5) Urine RBC (Auto) 10-30 /hpf (0-4) Urine Hyaline Casts (Auto) 5-10 /lpf (0-5) Urine Epithelial Cells (Auto) 20-30 /lpf (0-5) Urine Bacteria (Auto) 4+ (NEG) Urine Pathogenic Casts /lpf (0) Urine Yeast (Auto) (NONE PRSENT) Laboratory results per my review. Medications Administered Medications (Trade) Dose Ordered Sig/Jennifer Route Start Time Stop Time Status Last Admin Dose Admin Sodium Chloride 1,000 ml @ 100 mls/hr Q10H IV 07/31/17 05:26 07/31/17 08:58 DC 07/31/17 06:22 50 MLS/HR Imipenem/ Cilastatin Sodium 500 mg/Dextrose 110 ml @ 100 mls/hr NOW STAT IV 07/31/17 06:28 07/31/17 07:33 DC 07/31/17 06:45 100 MLS/HR Procedure Ordered Sodium Chloride and Imipenem/ Cilastatin Sodium 500mg/ Dextrose IV Ordered 3% hypertonic saline ECG Per My Interpretation Indication: other (stroke symptoms) Rate (beats per minute): 77 Rhythm: atrial fibrillation Findings: no acute ischemic change, no ectopy, other (Poor baseline) ED Course 0524: Past medical records reviewed. The patient was evaluated in room B1. A complete history and physical exam was performed. A 12-lead EKG was obtained. A stroke protocol was performed. The patient went for CT scan of the brain as described above. 0526: Sodium Chloride 1000 ml @ 50 mls/hr IV. 0532: I talked with the patient's daughter on the phone, and she does not know the patient's wishes. The patient's will be coming to the emergency department shortly. 0607: I had a long conversation with the patients . He states that he heard her fussing around in her room, and he went in and found her with her head and neck on the ground with the rest of her body in the bed, and she was incoherent at that time. At that time, he called EMS. 0622: Discussed the patient's case with Dr. Hoffmann - [facility] [place] Hospitalist. The patient will be evaluated for further management. A Banuelos catheter was placed and thick urine/pus came from the catheter. 0628: Imipenem/ Cilastatin Sodium 500mg/ Dextrose 110ml @ 100mls/hr IV. The patient has an extremely low sodium. 0635: The denies that she was drinking excessive water. He states that she barely drinks and water actually. 0645: I order 3% hypertonic saline for the patient. I discussed the case with Rachel Santos at the bedside as well as Dr. Love. Medical Decision The patient is a 86 year old female who presents to the ED with stroke symptoms after a fall. Differential diagnosis includes intracranial hemorrhage, closed head injury, cervical spine trauma, seizure, hypoglycemia, and GI bleed. Lab results: White count 11.4, stable H&H, glucose 154, normal troponin, BUN 12 , creatinine 0.7, normal coags, sodium 117, chloride 79, potassium 3.7, normal renal function. Repeat sodium was 118 This is an 86-year-old female patient who was found on the ground beside her bed with some trauma to the right side of her face. The states that the patient's mental status was normal before bed. She had been complaining of some weakness over the past couple of days. There is no evidence of intracranial hemorrhage or skull fracture on CT scan. The patient was stuporous at times and would not follow commands. However, she was moving all 4 extremities. The patient was noted to have severe hyponatremia. She was started on hypertonic saline. I am unsure as to the precipitous drop in her sodium. The patient had laboratory studies done 5 days ago. At that time, the patient's sodium was 131. It seems that the patient does have a urinary tract infection. She was started on antibiotics for this. She was hemodynamically stable but remains with a significantly altered mental status. Head Trauma GCS Score: 7 Medication Reconcilliation Current Medication List: was personally reviewed by me Blood Pressure Screening Patient's blood pressure: Elevated blood pressure Monitored by the hospitalist Consults Time Called: 06 Consulting Physician: Dr. Shun CHANG Hospitalist Returned Call: 06 Discussed the patient's case with Dr. Shun CHANG Hospitalist. The patient will be evaluated for further management. Impression Primary Impression: Hyponatremia Additional Impression: Altered mental status Critical Care I have personally spent greater than 60 minutes of critical care time in the direct management of this patient. This includes bedside care, interpretation of diagnostic studies, and testing, discussion with consultants, patient, and family members, and other required patient management activities. This 60 minutes is in excess of all separately billable procedures. Scribe Attestation The scribe's documentation has been prepared under my direction and personally reviewed by me in its entirety. I confirm that the note above accurately reflects all work, treatment, procedures, and medical decision making performed by me. Departure Information Dispostion Being Evaluated By Hospitalist Angelito Fall M.D. (PCP) Patient Instructions My [facility] Problem Qualifiers Additional Impression: Altered mental status Altered mental status type: coma Coma depth: [place] coma 3-8 Coma timing: in the field (EMT or ambulance) Qualified Codes: R40.2431 - [place] coma scale score 3-8, in the field [emt or ambulance]
[2017-07-31 05:54] LABS: HEMATOCRIT 36.1 % (37-47); HEMOGLOBIN 13.3 g/dL (12.0-16.0); IG# 0.04 K/uL (0.00-0.02); LYMPH % 2.8 %; LYMPH ABS # 0.32 K/uL (1.2-3.4); MEAN CELL VOLUME 81.5 fL (80-100); MEAN CORPUSCULAR HGB CONC 36.8 g/dl (32-36); MONO % 3.9 %; MONO ABS # 0.45 K/uL (0.11-0.59); NEUT ABS # 10.67 K/uL (1.4-6.5); PLATELET COUNT 264 K/uL (130-400); RED CELL DISTRIBUTION WIDTH CV 13.6 % (11.5-14.5); RED CELL DISTRIBUTION WIDTH SD 40.8 fL (36.4-46.3); WHITE BLOOD COUNT 11.48 K/uL (4.8-10.8)
[2017-07-31 06:06] LABS: INR 1.1 (0.9-1.1); PTT PATIENT 28.2 SECONDS (21.0-31.0)
[2017-07-31 06:21] LABS: BLOOD UREA NITROGEN 12 mg/dl (7-18); CALCIUM 8.9 mg/dl (8.5-10.1); CARBON DIOXIDE 28 mmol/L (21-32); CKMB 7.2 ng/ml (0.5-3.6); CREATININE 0.75 mg/dl (0.60-1.20); GLUCOSE 153 mg/dl (70-99); SODIUM 117 mmol/L (136-145)
[2017-07-31] MEDS ORDERED: IMIPENEM/CILASTATIN IV 500 MG in DEXTROSE 5% 100ML 100 ML IV STA (06:28)
--- NOTE | 2017-07-31 06:28 | DIAGNOSTIC IMAGING REPORT ---
CT HEAD WITHOUT CONTRAST (CT) CLINICAL HISTORY: Stroke TRAUMA COMPARISON STUDY: 01/26/2017 TECHNIQUE: Axial CT of the brain is performed from the vertex to the skull base. IV contrast was not administered for this examination. A dose lowering technique was utilized adhering to the principles of ALARA. CT DOSE: FINDINGS: No intra or extra-axial mass lesions are visualized. There is no CT evidence of acute cortical infarction. There is no evidence of midline shift. There is no acute hemorrhage. No calvarial fractures are visualized. There are patchy white matter hypodensities likely on a small vessel basis. There is no evidence of pathologic ventricular dilatation. There is no evidence of acute sinusitis. There is right occipital scalp edema. IMPRESSION: No acute intracranial findings Electronically signed by: Ok Ballard M.D. 07/31/2017 6:27 AM Dictated Date/Time: 07/31/2017 6:26 AM
[2017-07-31 06:33] LABS: POTASSIUM 3.3 mmol/L (3.5-5.1)
[2017-07-31] MEDS ORDERED: ICU PROTOCOL FOR HYPERGLYCEMIA PRN (06:45)
[2017-07-31] MEDS ORDERED: LORAZEPAM 2 MG/ML 1 ML VIAL IV PRN (06:45)
[2017-07-31] MEDS ORDERED: MoRPHine SULFATE 4 MG/ML 1 ML CARP\\VIAL IV PRN (06:45)
[2017-07-31] MEDS ORDERED: SODIUM CHLORIDE 3% 500 ML BAG IV SCH ×2 (06:45→07:45)
--- NOTE | 2017-07-31 06:56 | DIAGNOSTIC IMAGING REPORT ---
CT OF THE CERVICAL SPINE CLINICAL HISTORY: fall from bed NECK PAIN STATUS POST TRAUMA COMPARISON STUDY: November 26, 2016 CT DOSE: 928.04 mGy.cm TECHNIQUE: CT scan of the cervical spine was performed from the skull base to the thoracic inlet. Images are reviewed in the axial, sagittal, and coronal planes. IV contrast was not administered for this examination. A dose lowering technique was utilized adhering to the principles of ALARA. FINDINGS: The visualized portions of the lung apices reveal no evidence of pneumothorax. There is a multinodular thyroid gland. The largest nodule measures 16 mm. The prevertebral soft tissues are normal. No fractures or subluxations are visualized. There are multilevel degenerative changes IMPRESSION: 1. No acute fractures or traumatic subluxations 2. Multinodular thyroid gland Electronically signed by: Ok Ballard M.D. 07/31/2017 6:55 AM Dictated Date/Time: 07/31/2017 6:53 AM
[2017-07-31 06:58] LABS: ISTAT CREATININE 0.5 mg/dl (0.6-1.3); ISTAT IONIZED CALCIUM 1.04 mmol/l (1.12-1.32); ISTAT POTASSIUM 3.7 mEq/L (3.3-5.0)
[2017-07-31] MEDS ORDERED: SODIUM CHLORIDE 3% INJ 500 ML IV SCH ×2 (07:00→15:15)
--- NOTE | 2017-07-31 07:04 | History and Physical ---
History & Physical Date & Time of Service: Jul 31, 2017 at 06:43 Chief Complaint: Fall/Neuro Symptoms Primary Care Physician: Angelito Rogers M.D. History of Present Illness Source: patient 86 y/o F Hx HTN, anxiety disorder. Pt was found hanging out of her bed with her face on the ground, covered in black-colored vomit by her . She was additionally incontinent of stool and urine. She was moving all extremities but unresponsive when EMS arrived at her home. She had apparently been to the ER 5 days earlier c/o constipation and was DCd with instructions to take Miralax. Initial labs are notable for a sodium of 117. Her Sodium 5 days prior was 133. She cannot respond to any questioning. Her is present at bedside to provide the preceding information. Past Medical/Surgical History 1) Generalized anxiety 2) HTN 3) Mild cognitive impairment 4) Colon ca Surgical Problems: 1) R hip replacement 2) Partial colectomy Family History Cancer Social History Smoking Status: Never Smoker Drug Use: none Marital Status: Housing status: lives with family Occupational Status: retired Immunizations History of Influenza Vaccine: No Influenza Vaccine Date: Mar 04, 2011 History of Tetanus Vaccine?: UNK History of Pneumococcal: Yes Pneumococcal Date: Jul 29, 2011 History of Hepatitis B Vaccine: No Multi-Drug Resistant Organisms History of MDRO: No Allergies Coded Allergies: Sulfa Antibiotics (Verified Allergy, Intermediate, HIVES, 07/31/17) Aspirin (Verified Adverse Reaction, Mild, SICK TO STOMACH, 07/31/17) Home Medications Scheduled Acetaminophen (Tylenol), 500 MG PO HS Alprazolam (Alprazolam), 0.25 MG PO DIRECTED Lisinopril (Zestril), 2.5 MG PO DAILY Melatonin (Kp Melatonin), 3 MG PO HS Mirtazapine (Mirtazapine), 15 MG PO HS Multiple Vitamin (Multivitamin), 1 TAB PO DAILY Sennosides-Docusate Sodium (Senna S), 1 TAB PO DAILY Venlafaxine Hcl (Venlafaxine Extended Rel), 75 MG PO DAILY Scheduled PRN Acetaminophen (Tylenol), 650 MG PO Q6H PRN for Pain Review of Systems CAnnot obtain from pt - found as above unresponsive to questioning Physical Exam Vital Signs Date Time Temp Pulse Resp B/P (MAP) Pulse Ox O2 Delivery O2 Flow Rate FiO2 07/31/17 06:20 70 20 154/71 100 Room Air 07/31/17 06:09 100 Room Air 07/31/17 06:00 67 19 150/69 97 Room Air 07/31/17 05:26 86 07/31/17 05:18 36.1 72 16 187/65 100 Room Air General Appearance: + pertinent finding (Thin, elderly female - tremors present BL - moves all extremities - resists opening eyes for pupil exam) Head: + pertinent finding (Soft tissue trama to R forehead - black vomitus in hair) Neck: + pertinent finding (Generally stiff - resisting movement ) Respiratory/Chest: + pertinent finding (Lung likely clear - effort is poor and exam is limited by large air noises and moaning) Cardiovascular: regular rate, rhythm, no gallop, no JVD, no murmur Abdomen/GI: normal bowel sounds, non tender, soft Genitourinary - Female: + pertinent finding (Thick, cloudy urine in serrano bag) Back: no CVA tenderness, no muscle spasm Extremities/Musculoskelatal: normal inspection, no calf tenderness, + pedal edema Neurologic/Psych: + pertinent finding (Exam is limited - moves all extremities ) Skin: normal color, warm/dry Diagnostics Laboratory Results Results Past 24 Hours Test 07/31/17 05:25 07/31/17 05:57 07/31/17 05:59 07/31/17 06:05 Range/Units White Blood Count 11.48 4.8-10.8 K/uL Red Blood Count 4.43 4.2-5.4 M/uL Hemoglobin 13.3 12.0-16.0 g/dL Hematocrit 36.1 37-47 % Mean Corpuscular Volume 81.5 80-100 fL Mean Corpuscular Hemoglobin 30.0 25-34 pg Mean Corpuscular Hemoglobin Concent 36.8 32-36 g/dl Platelet Count 264 130-400 K/uL Mean Platelet Volume 10.0 7.4-10.4 fL Neutrophils (%) (Auto) 93.0 % Lymphocytes (%) (Auto) 2.8 % Monocytes (%) (Auto) 3.9 % Eosinophils (%) (Auto) 0.0 % Basophils (%) (Auto) 0.0 % Neutrophils # (Auto) 10.67 1.4-6.5 K/uL Lymphocytes # (Auto) 0.32 1.2-3.4 K/uL Monocytes # (Auto) 0.45 0.11-0.59 K/uL Eosinophils # (Auto) 0.00 0-0.5 K/uL Basophils # (Auto) 0.00 0-0.2 K/uL RDW Standard Deviation 40.8 36.4-46.3 fL RDW Coefficient of Variation 13.6 11.5-14.5 % Immature Granulocyte % (Auto) 0.3 % Immature Granulocyte # (Auto) 0.04 0.00-0.02 K/uL Prothrombin Time 11.4 9.0-12.0 SECONDS Prothromb Time International Ratio 1.1 0.9-1.1 Activated Partial Thromboplast Time 28.2 21.0-31.0 SECONDS Partial Thromboplastin Ratio 1.1 Sodium Level 117 136-145 mmol/L Potassium Level 3.3 3.5-5.1 mmol/L Chloride Level 79 98-107 mmol/L Carbon Dioxide Level 28 21-32 mmol/L Anion Gap 10.0 3-11 mmol/L Blood Urea Nitrogen 12 7-18 mg/dl Creatinine 0.75 0.60-1.20 mg/dl Estimated GFR () 83.7 Estimated GFR (Non- 72.2 BUN/Creatinine Ratio 16.1 10-20 Random Glucose 153 70-99 mg/dl Calcium Level 8.9 8.5-10.1 mg/dl Magnesium Level 1.8-2.4 mg/dl Total Creatine Kinase 915 26-192 U/L Creatine Kinase MB 7.2 0.5-3.6 ng/ml Creatine Kinase MB Ratio 0-3.0 Troponin I < 0.015 0-0.045 ng/ml Bedside Glucose 154 70-90 mg/dl Bedside Prothrombin Time INR 1.0 0.9-1.1 Urine Color DK YELLOW Urine Appearance TURBID CLEAR Urine pH 5.5 4.5-7.5 Urine Specific [place] 1.020 1.000-1.030 Urine Protein 2+ NEG Urine Glucose (UA) 2+ NEG Urine Ketones 2+ NEG Urine Occult Blood 3+ NEG Urine Nitrite POS NEG Urine Bilirubin NEG NEG Urine Urobilinogen NEG NEG Urine Leukocyte Esterase LARGE NEG Test 07/31/17 06:33 Range/Units Microbiology Results 07/31/17 Urine Culture, Kerry Batch Pending Diagnostic Radiology CT head: Soft tissue swelling frontally - no acute findings otherwise EKG Sinus tach - PACs - no evidence of acute ischemia Impression Assessment and Plan 86 y/o F Hx HTN, anxiety disorder. Pt was found hanging out of her bed with her face on the ground, covered in black-colored vomit by her . She was additionally incontinent of stool and urine. She was moving all extremities but unresponsive when EMS arrived at her home. She had apparently been to the ER 5 days earlier c/o constipation and was DCd with instructions to take Miralax. Initial labs are notable for a sodium of 117. Her Sodium 5 days prior was 133. She cannot respond to any questioning. Her is present at bedside to provide the preceding information. 1) Poorly responsive - hyponatremia - possibly post-ictal due to hyponatremia- related seizure. Pt will be transferred to the ICU - we will treat with hypertonic saline pending confirmation of her Na. This may have been the result of diarrhea owing to Miralax use and possibly excessive free water intake as clinically, she does not appear severely dehydrated. 2) Black-colored emesis - NGT will be inserted for lavage/diagnosis. She is started on IV protonix - Hb will be trended. She does not have significant anemia or an elevated BUN presently to support an active bleed. 3) HTN - she was hypertensive with an SBP of 200 on arrival - approximately 160 at time of admission. Would not treat further at present. 4) UTI - placed on Ceftriaxone pending culture results Full code - SCDs Total time for this admit including review of labs, meds, imaging, records, EKG - discussion with ER attending, pt's family - inc critical care time 48 min Family aware of pt's critical condition Level of Care Critical Care Resuscitation Status FULL RESUSCITATION VTE Prophylaxis VTE Risk Assessment Done? Y/N: Yes Risk Level: Moderate Given or contraindicated: SCD's, Contraindicated
--- NOTE | 2017-07-31 08:07 | Critical Care Consultation ---
Critical Care Consultation Date of Consultation: Jul 31, 2017. Attending Physician: Denzel Hoffmann M.D. Reason for Consultation: Hyponatremia with question of seizures History of Present Illness Detention Sergeant: Dr. Plunkett This is an 86-year-old female that was found unresponsive by her earlier this morning. He reports that she has had several episodes of dizziness and lightheadedness over the last several weeks. The daughter presents in ICU room 104 and confirms that as of Sunday the patient was lucid and appeared to be alert and oriented 3. The patient recently was in the emergency department for similar symptoms of dizziness and lightheadedness and ruled out for stroke. It was reported that the patient did have some vomiting that appeared to be with coffee grounds. The patient has no history of GI bleed and no prior evidence of peptic ulcer disease. The patient is completely unresponsive at the time of our examination in the emergency room. On arrival to the intensive care unit in room 104 exam revealed that patient was unable to respond but did reach down to pull her gown down when doing the physical examination. This appeared to be intentional. Patient did respond by saying hi at one time when I addressed her by name. The patient has no history of seizures and no prior history of unresponsiveness. The daughter does indicate that over the last several months the patient has had some indication of questionable dementia and was actually started on dementia medication when discharged from [facility]. Patient was at [facility] for a short period of time for rehabilitation after her previous admission. The patient uses a walker at home but the family reports that that is for weakness not in balance. The patient has no history of falls. The patient's daughter does a cleaning at the home and the family uses Meals on Wheels for most of their nourishment. The patient's still drives and does her shopping. The patient has never driven. Past Medical/Surgical History Medical Problems: (1) Benign hypertension (2) Carcinoma of colon (3) Chronic osteoarthritis (4) Colon cancer (5) SANTHOSH (generalized anxiety disorder) (6) Hyperlipidemia (7) Hyponatremia (8) lysis of adhesions (9) Partial colectomy (10) Unresponsiveness Surgical Problems: (1) S/P hip replacement Family History Cancer Social History Smoking Status: Never Smoker Smokeless Tobacco Use: No Alcohol Use: none Drug Use: none Marital Status: Housing Status: lives with significant other Occupation Status: retired Allergies Coded Allergies: Sulfa Antibiotics (Verified Allergy, Intermediate, HIVES, 07/31/17) Aspirin (Verified Adverse Reaction, Mild, SICK TO STOMACH, 07/31/17) Home Medications Scheduled Acetaminophen (Tylenol), 500 MG PO HS Alprazolam (Alprazolam), 0.25 MG PO DIRECTED Lisinopril (Zestril), 2.5 MG PO DAILY Melatonin (Kp Melatonin), 3 MG PO HS Mirtazapine (Mirtazapine), 15 MG PO HS Multiple Vitamin (Multivitamin), 1 TAB PO DAILY Sennosides-Docusate Sodium (Senna S), 1 TAB PO DAILY Venlafaxine Hcl (Venlafaxine Extended Rel), 75 MG PO DAILY Scheduled PRN Acetaminophen (Tylenol), 650 MG PO Q6H PRN for Pain Current Inpatient Medications Current Inpatient Medications Medications (Trade) Dose Ordered Sig/Jennifer Route Start Time Stop Time Status Last Admin Dose Admin Sodium Chloride 1,000 ml @ 100 mls/hr Q10H IV 07/31/17 05:26 08/30/17 05:25 07/31/17 06:22 50 MLS/HR Acetaminophen (Tylenol Tab) 650 mg Q4H PRN PO 07/31/17 06:45 08/30/17 06:44 Lorazepam (Ativan Inj) 0.5 mg Q4H PRN IV 07/31/17 06:45 08/30/17 06:44 Pantoprazole Sodium 40 mg/ Syringe 10 ml @ 5 mls/min DAILY IV 07/31/17 09:00 08/30/17 08:59 UNV Morphine Sulfate (MoRPHine SULFATE INJ) 4 mg Q2H PRN IV 07/31/17 06:45 08/14/17 06:44 Miscellaneous Information (Icu Protocol For Hyperglycemia) 1 ea PRN PRN N/A 07/31/17 06:45 08/02/17 06:44 UNV Ceftriaxone Sodium 1 gm/ Dextrose 50 ml @ 100 mls/hr Q24H IV 07/31/17 06:45 08/10/17 06:44 UNV Sodium Chloride (Hypertonic Saline 3% Inj) 100 ml ONE IV 07/31/17 07:45 08/30/17 07:44 UNV Review of Systems A total of 12 systems was reviewed and is negative other than as listed above in the HPI Physical Exam Date Time Temp Pulse Resp B/P (MAP) Pulse Ox O2 Delivery O2 Flow Rate FiO2 07/31/17 07:00 71 19 172/78 100 07/31/17 06:30 63 19 166/87 100 07/31/17 06:20 70 20 154/71 100 Room Air 07/31/17 06:09 100 Room Air 07/31/17 06:00 67 19 150/69 97 Room Air 07/31/17 05:26 86 07/31/17 05:18 36.1 72 16 187/65 100 Room Air GENERAL : Patient unresponsive. Does not appear to be in any acute distress or pain. EYES: No icterus, gaze conjugate. Patient's are equal and reactive but sluggish NOSE: No evidence of epistaxis. MOUTH: No lesions or candidiasis. There is evidence of dried blood in the posterior oropharynx as well as a soft palate. There is an area on the left lower lip that appears to be bitten. There is no evidence of active bleeding in the mouth or gums. Patient has no teeth. Tongue is midline.. No JVD NECK: Supple LUNGS:. Diminished breath sounds at the bases. No rales or rhonchi appreciated. No bronchospasm. HEART: Regular, rate controlled. No appreciative ectopy. Normal sinus rhythm on telemetry. ABDOMEN: Soft, NT, ND, BS Present. No rebound tenderness or guarding. EXTREMITIES: No LE edema, pedal pulses intact NEURO: Generally unresponsive. Retract to painful stimuli of upper extremities. Positive for some cogwheeling in the bilateral upper extremities. Toes are downgoing bilaterally. Pupils are equal and sluggish. Gaze is conjugate. Deep tendon reflexes are 2 out of 4 to the brachioradialis, bicep, patellar tendons. Unable to assess for strength of extremities. Patient not following any commands. Laboratory Results Last 24 Hours Test 07/31/17 05:25 07/31/17 05:57 07/31/17 05:59 07/31/17 06:05 White Blood Count 11.48 K/uL Red Blood Count 4.43 M/uL Hemoglobin 13.3 g/dL Hematocrit 36.1 % Mean Corpuscular Volume 81.5 fL Mean Corpuscular Hemoglobin 30.0 pg Mean Corpuscular Hemoglobin Concent 36.8 g/dl Platelet Count 264 K/uL Mean Platelet Volume 10.0 fL Neutrophils (%) (Auto) 93.0 % Lymphocytes (%) (Auto) 2.8 % Monocytes (%) (Auto) 3.9 % Eosinophils (%) (Auto) 0.0 % Basophils (%) (Auto) 0.0 % Neutrophils # (Auto) 10.67 K/uL Lymphocytes # (Auto) 0.32 K/uL Monocytes # (Auto) 0.45 K/uL Eosinophils # (Auto) 0.00 K/uL Basophils # (Auto) 0.00 K/uL RDW Standard Deviation 40.8 fL RDW Coefficient of Variation 13.6 % Immature Granulocyte % (Auto) 0.3 % Immature Granulocyte # (Auto) 0.04 K/uL Prothrombin Time 11.4 SECONDS Prothromb Time International Ratio 1.1 Activated Partial Thromboplast Time 28.2 SECONDS Partial Thromboplastin Ratio 1.1 Sodium Level 117 mmol/L Potassium Level 3.3 mmol/L Chloride Level 79 mmol/L Carbon Dioxide Level 28 mmol/L Anion Gap 10.0 mmol/L Blood Urea Nitrogen 12 mg/dl Creatinine 0.75 mg/dl Estimated GFR () 83.7 Estimated GFR (Non- 72.2 BUN/Creatinine Ratio 16.1 Random Glucose 153 mg/dl Calcium Level 8.9 mg/dl Magnesium Level 1.5 mg/dl Total Creatine Kinase 915 U/L Creatine Kinase MB 7.2 ng/ml Creatine Kinase MB Ratio Troponin I < 0.015 ng/ml Bedside Glucose 154 mg/dl Bedside Prothrombin Time INR 1.0 Urine Color DK YELLOW Urine Appearance TURBID Urine pH 5.5 Urine Specific [place] 1.020 Urine Protein 2+ Urine Glucose (UA) 2+ Urine Ketones 2+ Urine Occult Blood 3+ Urine Nitrite POS Urine Bilirubin NEG Urine Urobilinogen NEG Urine Leukocyte Esterase LARGE Urine WBC (Auto) >30 /hpf Urine RBC (Auto) 10-30 /hpf Urine Hyaline Casts (Auto) 5-10 /lpf Urine Epithelial Cells (Auto) 20-30 /lpf Urine Bacteria (Auto) 4+ Urine Pathogenic Casts /lpf Urine Yeast (Auto) Test 07/31/17 06:33 07/31/17 06:45 07/31/17 06:49 Bedside Hemoglobin 13.6 g/dl Bedside Hematocrit 40 % Bedside Sodium 118 mEq/L Bedside Potassium 3.7 mEq/L Bedside Chloride 80 mEq/L Bedside Total CO2 25 mEq/l Anion Gap 17.0 mmol/L Bedside Blood Urea Nitrogen 13 mg/dl Bedside Creatinine 0.5 mg/dl Bedside Glucose (other) 156 mg/dl Bedside Ionized Calcium (Kaye) 1.04 mmol/l Diagnostic Results CT HEAD WITHOUT CONTRAST (CT) CLINICAL HISTORY: Stroke TRAUMA COMPARISON STUDY: 01/26/2017 TECHNIQUE: Axial CT of the brain is performed from the vertex to the skull base. IV contrast was not administered for this examination. A dose lowering technique was utilized adhering to the principles of ALARA. CT DOSE: FINDINGS: No intra or extra-axial mass lesions are visualized. There is no CT evidence of acute cortical infarction. There is no evidence of midline shift. There is no acute hemorrhage. No calvarial fractures are visualized. There are patchy white matter hypodensities likely on a small vessel basis. There is no evidence of pathologic ventricular dilatation. There is no evidence of acute sinusitis. There is right occipital scalp edema. IMPRESSION: No acute intracranial findings Electronically signed by: Ok Ballard M.D. 07/31/2017 6:27 AM Assessment & Plan (1) Altered mental status (2) Hyponatremia (3) Colon cancer (4) Benign hypertension (5) Aortic valve stenosis Neuro * Etiology most likely to be hyponatremia * Sodium on admission 118 -treat underlying hyponatremia * Check labs every 4 hours * CT head with no acute changes * No falls or previous history of head injury, dementia, delirium * Otherwise neuro exam is unremarkable Cardiovascular * History of benign hypertension * Normal sinus rhythm on telemetry * No chest pain prior to admission * Patient's does report a history of dizziness and lightheadedness over the last month Pulmonary * No history of tobacco abuse or pulmonary disease * Oxygenating well on room air Renal * BUN 10, creatinine 0.37 * Follow serial labs Endocrine * No history of diabetes mellitus Heme * Hemoglobin 13.3 * Patient does have reported recent history of hematemesis * Will start PPI and follow empirically with serial labs Electrolytes * Hyponatremia as listed above * 3% hypertonic saline solution 100 mL 1 * Follow serial labs every 4 hours * Continue with normal saline solution pending repeat labs * Potassium 3.1 * Replace potassium riders * Check repeat labs * Magnesium 1.6 * Replete with 2 g of magnesium sulfate * Follow serial labs ID * Urine culture is pending * MRSA screening is positive * Initiate isolation precautions * Check blood cultures 2 * Check pro calcitonin * Nasal swab to rule out influenza Nutrition * N.p.o. due to altered mental status * Continue with fluid hydration * No tube feeds or other nutrition pending correction of labs GI * Start PPI for reported history of hematemesis * Hemoglobin 13.3 * Follow clinically IV access * Left-sided PICC line placed this morning DVT prophylaxis * No chemical prophylaxis pending repeat labs * TEDs/SCDs CCT: 65 minutes independent of any procedures Thank you for including us in the care of this patient. Please refer to Dr. Plunkett's addendum for further recommendations. I have personally evaluated and examined this patient. I agree with assessment and plan of Derick Patterson PA-C. Patient was started on hypertonic saline, has had minimal movement of sodium at this time, I have re-bolused 100 mL's of sodium and increased the infusion to 70 mL's of 3% per hour still continuing to check every 6 hours sodiums goal sodium in the first 24 hours will be to raise her to 130 mEq I have personally spent 35 minutes of critical care time in the direct management of this patient. This is a life/limb threatening event. This includes time spent evaluating patient, direct bedside care, chart review, placing orders, interpretation of diagnostic studies, discussion with consultants, patient, and/or family members regarding treatment decisions, as well as other required patient management activities. This time is exclusive of all separately billable procedures, and teaching time and separate from and in addition to any other critical care service time.
[2017-07-31] MEDS ORDERED: PANTOprazole INJ 40 MG in SYRINGE 0 ML IV SCH (09:00)
[2017-07-31 09:01] LABS: POTASSIUM RANDOM URINE 39.9 mEq/L
[2017-07-31 09:20] LABS: BLOOD UREA NITROGEN 10 mg/dl (7-18); CALCIUM 8.2 mg/dl (8.5-10.1); CARBON DIOXIDE 25 mmol/L (21-32); CREATININE 0.37 mg/dl (0.60-1.20); GLUCOSE 127 mg/dl (70-99); POTASSIUM 3.1 mmol/L (3.5-5.1); SODIUM 118 mmol/L (136-145)
[2017-07-31 09:29] LABS: URIC ACID 1.2 mg/dl (2.6-7.2)
[2017-07-31] MEDS: CEFTRIAXONE SOD INJ 1 GM in DEXTROSE 5% ADD-VANTAGE 50ML 50 ML IV SCH (09:53)
[2017-07-31] MEDS: POTASSIUM CHLR 20 MEQ / WTR 20 MEQ in PREMIXED WATER 100 ML IV SCH ×2 (11:37→13:59)
[2017-07-31] MEDS: MAGNESIUM SULFATE 1GM / D5W 1 GM in PREMIXED IN D5W 100 ML IV SCH ×2 (11:39→12:57)
[2017-07-31] MEDS ORDERED: POTASSIUM CHLR 20 MEQ / WTR 20 MEQ in PREMIXED WATER 100 ML IV SCH (12:00)
[2017-07-31 13:46] LABS: INFLUENZA A PCR Neg for Influ A (NEG); INFLUENZA B PCR Neg for Influ B (NEG)
[2017-07-31 17:01] LABS: CALCIUM 7.8 mg/dl (8.5-10.1); CREATININE 0.38 mg/dl (0.60-1.20)
[2017-07-31] MEDS: SODIUM CHLORIDE 3% INJ 500 ML IV SCH ×2 (17:45→23:24)
[2017-07-31] MEDS ORDERED: SODIUM CHLORIDE 3% 500 ML BAG IV ONE (17:45)
[2017-07-31] MEDS ORDERED: ACETAMINOPHEN IV 650 MG in EMPTY BAG 0 ML IV PRN (20:00)
[2017-07-31] MEDS: PANTOprazole INJ 40 MG in SYRINGE 0 ML IV SCH (20:35)
[2017-07-31] MEDS ORDERED: NURSING VERBAL MED ORDER ONE (22:45)
[2017-08-01] VITALS (15 sets, daily range): BP systolic 113–158; BP diastolic 54–94; PULSE 58–76; TEMP 37–38.2; O2SAT 92–99
[2017-08-01 04:54] LABS: CALCIUM 7.8 mg/dl (8.5-10.1); CREATININE 0.42 mg/dl (0.60-1.20); PHOSPHORUS 1.8 mg/dl (2.5-4.9); POTASSIUM 3.6 mmol/L (3.5-5.1)
[2017-08-01 05:13] LABS: HEMATOCRIT 30.2 % (37-47); HEMOGLOBIN 11.2 g/dL (12.0-16.0); IG# 0.01 K/uL (0.00-0.02); LYMPH % 17.4 %; LYMPH ABS # 1.04 K/uL (1.2-3.4); MEAN CELL VOLUME 81.8 fL (80-100); MEAN CORPUSCULAR HEMOGLOBIN 30.4 pg (25-34); MEAN CORPUSCULAR HGB CONC 37.1 g/dl (32-36); MEAN PLATELET VOLUME 10.2 fL (7.4-10.4); MONO % 8.1 %; MONO ABS # 0.48 K/uL (0.11-0.59); NEUT % 74.3 %; NEUT ABS # 4.43 K/uL (1.4-6.5); PLATELET COUNT 191 K/uL (130-400); RED CELL DISTRIBUTION WIDTH CV 13.9 % (11.5-14.5); RED CELL DISTRIBUTION WIDTH SD 41.8 fL (36.4-46.3); WHITE BLOOD COUNT 5.96 K/uL (4.8-10.8)
--- NOTE | 2017-08-01 07:59 | Medical Student: [facility] ---
Med Student History & Physical Date & Time of Service: Jul 31, 2017 at 12:05 Chief Complaint: Hyponatremia, Unresponsiveness Primary Care Physician: Angelito Rogers M.D. History of Present Illness Source: patient, clinic records, hospital records Pt is a 86 year old female with a PMHx of HTN, anxiety disorder and colon cancer s/p right hemicolectomy in 2010. According to records, pt was found by her covered in black vomit and hanging out of her bed with her face on the ground. He noted she was incontinent of stool and urine. Last ED visit was on 07/25 for weakness and constipation. At that time her Na was 131. On admission to ED her Na was 117. Past Medical/Surgical History Medical Problems: (1) Acute bronchitis Status: Acute (2) Altered mental status Status: Acute (3) Ambulatory dysfunction Status: Acute (4) Anxiety Status: Acute (5) Generalized weakness Status: Acute (6) Hyponatremia Status: Acute (7) Laryngitis Status: Acute (8) Persistent cough Status: Acute (9) Syncope Status: Acute (10) Systolic congestive heart failure Status: Acute (11) Urinary tract infection Status: Acute (12) UTI (urinary tract infection) Status: Acute (13) Weakness Status: Acute Family History Per outpatient chart, family history of breast cancer Social History Smoking Status: Former Smoker Smokeless Tobacco Use: No Alcohol Use: none Drug Use: none Marital Status: Housing status: lives with family Occupational Status: retired Immunizations History of Influenza Vaccine: No Influenza Vaccine Date: Mar 04, 2011 History of Tetanus Vaccine?: UNK History of Pneumococcal: Yes Pneumococcal Date: Jul 29, 2011 History of Hepatitis B Vaccine: No Allergies Coded Allergies: Sulfa Antibiotics (Verified Allergy, Intermediate, HIVES, 07/31/17) Aspirin (Verified Adverse Reaction, Mild, SICK TO STOMACH, 07/31/17) Medications Acetaminophen (Tylenol), 500 MG PO HS Acetaminophen (Tylenol), 650 MG PO Q6H PRN for Pain Alprazolam (Alprazolam), 0.25 MG PO DIRECTED Lisinopril (Zestril), 2.5 MG PO DAILY Melatonin (Kp Melatonin), 3 MG PO HS Mirtazapine (Mirtazapine), 15 MG PO HS Multiple Vitamin (Multivitamin), 1 TAB PO DAILY Sennosides-Docusate Sodium (Senna S), 1 TAB PO DAILY Venlafaxine Hcl (Venlafaxine Extended Rel), 75 MG PO DAILY Review of Systems Unable to obtain due to patient mental status. Physical Exam Vital Signs (24 Hours) Date Time Temp Pulse Resp B/P (MAP) Pulse Ox O2 Delivery O2 Flow Rate FiO2 07/31/17 08:33 36.8 73 21 169/81 100 Room Air 07/31/17 07:00 71 19 172/78 100 07/31/17 06:30 63 19 166/87 100 07/31/17 06:20 70 20 154/71 100 Room Air 07/31/17 06:09 100 Room Air 07/31/17 06:00 67 19 150/69 97 Room Air 07/31/17 05:26 86 07/31/17 05:18 36.1 72 16 187/65 100 Room Air General Appearance: WD/WN, no apparent distress, + thin Head: + evidence of trama (bruise on forehead) Eyes: + pertinent finding (pt would close eyes with attempt to assess PERRL) Neck: supple, no adenopathy Respiratory/Chest: chest non-tender, no respiratory distress, + decreased breath sounds Cardiovascular: no edema, no murmur, normal peripheral pulses, + irregularly irregular Extremities/Musculoskelatal: no pedal edema Skin: normal color, warm/dry, no rash Diagnostics Laboratory Results Results Past 24 Hours Test 07/31/17 05:25 07/31/17 05:57 07/31/17 05:59 07/31/17 06:05 Range/Units White Blood Count 11.48 4.8-10.8 K/uL Red Blood Count 4.43 4.2-5.4 M/uL Hemoglobin 13.3 12.0-16.0 g/dL Hematocrit 36.1 37-47 % Mean Corpuscular Volume 81.5 80-100 fL Mean Corpuscular Hemoglobin 30.0 25-34 pg Mean Corpuscular Hemoglobin Concent 36.8 32-36 g/dl Platelet Count 264 130-400 K/uL Mean Platelet Volume 10.0 7.4-10.4 fL Neutrophils (%) (Auto) 93.0 % Lymphocytes (%) (Auto) 2.8 % Monocytes (%) (Auto) 3.9 % Eosinophils (%) (Auto) 0.0 % Basophils (%) (Auto) 0.0 % Neutrophils # (Auto) 10.67 1.4-6.5 K/uL Lymphocytes # (Auto) 0.32 1.2-3.4 K/uL Monocytes # (Auto) 0.45 0.11-0.59 K/uL Eosinophils # (Auto) 0.00 0-0.5 K/uL Basophils # (Auto) 0.00 0-0.2 K/uL RDW Standard Deviation 40.8 36.4-46.3 fL RDW Coefficient of Variation 13.6 11.5-14.5 % Immature Granulocyte % (Auto) 0.3 % Immature Granulocyte # (Auto) 0.04 0.00-0.02 K/uL Prothrombin Time 11.4 9.0-12.0 SECONDS Prothromb Time International Ratio 1.1 0.9-1.1 Activated Partial Thromboplast Time 28.2 21.0-31.0 SECONDS Partial Thromboplastin Ratio 1.1 Sodium Level 117 136-145 mmol/L Potassium Level 3.3 3.5-5.1 mmol/L Chloride Level 79 98-107 mmol/L Carbon Dioxide Level 28 21-32 mmol/L Anion Gap 10.0 3-11 mmol/L Blood Urea Nitrogen 12 7-18 mg/dl Creatinine 0.75 0.60-1.20 mg/dl Estimated GFR () 83.7 Estimated GFR (Non- 72.2 BUN/Creatinine Ratio 16.1 10-20 Random Glucose 153 70-99 mg/dl Calcium Level 8.9 8.5-10.1 mg/dl Magnesium Level 1.5 1.8-2.4 mg/dl Total Creatine Kinase 915 26-192 U/L Creatine Kinase MB 7.2 0.5-3.6 ng/ml Creatine Kinase MB Ratio 0-3.0 Troponin I < 0.015 0-0.045 ng/ml Bedside Glucose 154 70-90 mg/dl Bedside Prothrombin Time INR 1.0 0.9-1.1 Urine Color DK YELLOW Urine Appearance TURBID CLEAR Urine pH 5.5 4.5-7.5 Urine Specific [place] 1.020 1.000-1.030 Urine Protein 2+ NEG Urine Glucose (UA) 2+ NEG Urine Ketones 2+ NEG Urine Occult Blood 3+ NEG Urine Nitrite POS NEG Urine Bilirubin NEG NEG Urine Urobilinogen NEG NEG Urine Leukocyte Esterase LARGE NEG Urine WBC (Auto) >30 0-5 /hpf Urine RBC (Auto) 10-30 0-4 /hpf Urine Hyaline Casts (Auto) 5-10 0-5 /lpf Urine Epithelial Cells (Auto) 20-30 0-5 /lpf Urine Bacteria (Auto) 4+ NEG Urine Pathogenic Casts 0 /lpf Urine Yeast (Auto) NONE PRSENT Test 07/31/17 06:45 07/31/17 07:50 07/31/17 08:43 07/31/17 09:33 Range/Units Bedside Hemoglobin 13.6 12.0-16.0 g/dl Bedside Hematocrit 40 37-47 % Bedside Sodium 118 135-144 mEq/L Bedside Potassium 3.7 3.3-5.0 mEq/L Bedside Chloride 80 101-112 mEq/L Bedside Total CO2 25 24-31 mEq/l Anion Gap 17.0 10.0 3-11 mmol/L Bedside Blood Urea Nitrogen 13 7-18 mg/dl Bedside Creatinine 0.5 0.6-1.3 mg/dl Bedside Glucose (other) 156 70-99 mg/dl Bedside Ionized Calcium (Kaye) 1.04 1.12-1.32 mmol/l Urine Osmolality 517 500-800 mOms/kg Urine Random Sodium 113 mEq/L Urine Random Potassium 39.9 mEq/L Urine Random Chloride 113 mEq/L Urine Random Urea Nitrogen 376 mg/dl Sodium Level 118 136-145 mmol/L Potassium Level 3.1 3.5-5.1 mmol/L Chloride Level 84 98-107 mmol/L Carbon Dioxide Level 25 21-32 mmol/L Blood Urea Nitrogen 10 7-18 mg/dl Creatinine 0.37 0.60-1.20 mg/dl Estimated GFR () 112.2 Estimated GFR (Non- 96.8 BUN/Creatinine Ratio 27.1 10-20 Random Glucose 127 70-99 mg/dl Osmolality 245 280-300 mOsm/kg Uric Acid 1.2 2.6-7.2 mg/dl Calcium Level 8.2 8.5-10.1 mg/dl Magnesium Level 1.6 1.8-2.4 mg/dl Thyroid Stimulating Hormone (TSH) 1.400 0.300-4.500 uIu/ml Random Cortisol 50.75 mcg/dl Bedside Glucose 113 70-90 mg/dl Test 07/31/17 11:45 07/31/17 12:00 Range/Units Microbiology Results 07/31/17 Blood Culture, Ordered Pending 07/31/17 Blood Culture, Ordered Pending 07/31/17 MRSA DNA Surveillance Screen - Final, Complete Specimen Positive for MRSA by DNA Probe 07/31/17 Urine Culture, Received Pending Diagnostic Radiology CT OF THE CERVICAL SPINE CLINICAL HISTORY: fall from bed NECK PAIN STATUS POST TRAUMA COMPARISON STUDY: November 26, 2016 CT DOSE: 928.04 mGy.cm TECHNIQUE: CT scan of the cervical spine was performed from the skull base to the thoracic inlet. Images are reviewed in the axial, sagittal, and coronal planes. IV contrast was not administered for this examination. A dose lowering technique was utilized adhering to the principles of ALARA. FINDINGS: The visualized portions of the lung apices reveal no evidence of pneumothorax. There is a multinodular thyroid gland. The largest nodule measures 16 mm. The prevertebral soft tissues are normal. No fractures or subluxations are visualized. There are multilevel degenerative changes IMPRESSION: 1. No acute fractures or traumatic subluxations CT HEAD WITHOUT CONTRAST (CT) CLINICAL HISTORY: Stroke TRAUMA COMPARISON STUDY: 01/26/2017 TECHNIQUE: Axial CT of the brain is performed from the vertex to the skull base. IV contrast was not administered for this examination. A dose lowering technique was utilized adhering to the principles of ALARA. CT DOSE: FINDINGS: No intra or extra-axial mass lesions are visualized. There is no CT evidence of acute cortical infarction. There is no evidence of midline shift. There is no acute hemorrhage. No calvarial fractures are visualized. There are patchy white matter hypodensities likely on a small vessel basis. There is no evidence of pathologic ventricular dilatation. There is no evidence of acute sinusitis. There is right occipital scalp edema. IMPRESSION: No acute intracranial findings EKG Atrial fibrillation ST & T wave abnormality, consider inferior ischemia Impression Assessment and Plan A: Pt is a 86 year old female with PMHx of HTN, anxiety, colon cancer s/p right hemicolectomy in 2010. She comes in due to She is currently not responding to commands but does spontaneously move her arms and legs. 07/31 - urine culture pending 1. Hypotnonic Hyponatremia: normal cortisol and TSH a. Serum Osm 247, urine Osm 517 b. Pt was not improving on NS IVF - switch to 3% NaCl solution while monitoring Na 2. UTI a. Ceftriaxone IV, awaiting culture results 3. Instance of black emesis a. Consider EGD when patient is stable b. Continue monitoring Hgb/Hct to look for active bleeding, last at 13.6/40. 4. HTN a. Pt's last SBP 150-180's, continue monitoring for now Advanced Directives Existing Living Will: Yes Existing Power of [place]: Yes
--- NOTE | 2017-08-01 08:33 | Clinical Documentation Query ---
CLINICAL DOCUMENTATION QUERY 86 year old female who presents to the Emergency Room with complaints of constant altered mental status and possible seizure In your clinical opinion is this patient being managed for: ( X ) Metabolic encephalopathy in setting of hyponatremia, +- UTI. ( ) Not Agree ( ) Other explanation of clinical findings (Please Explain) ( ) Unable to determine (Please Define) ( ) Need to Discuss The medical record reflects the following clinical findings, treatment, and risk factors. Clinical Indicators: Incontinent of stool and urine. She was moving all extremities but unresponsive when EMS arrived at her home. She cannot respond to any questioning. GCS 8. Na 117, Potassium 3.3, UA+bacteria and leukocyte esterase, febrile 38.2 Treatment: ICU hemodynamic monitoring, serial labs, Head CT, IV 3% NSS, Risk Factors: Age, UTI, Please clarify and document your clinical opinion in the progress notes and discharge summary. Terms such as "probable", "suspected", "likely", "questionable", "possible", or "still to be ruled out" are acceptable. IF IN AGREEMENT, YOU MUST DOCUMENT ABOVE DIAGNOSTIC STATEMENT IN DAILY PROGRESS NOTES AND DISCHARGE SUMMARY. This document is not part of the patient's record. Thank You, Navin Seo, NARCISA [phone]
[2017-08-01] MEDS: PANTOprazole INJ 40 MG in SYRINGE 0 ML IV SCH ×2 (08:39→20:52)
[2017-08-01] MEDS: CEFTRIAXONE SOD INJ 1 GM in DEXTROSE 5% ADD-VANTAGE 50ML 50 ML IV SCH (08:39)
[2017-08-01] MEDS ORDERED: METOPROLOL TARTRATE 1 MG/ML VIAL IV PRN (08:45)
[2017-08-01] MEDS ORDERED: POTASSIUM PHOSPHATE INJ 24 MMOL in SODIUM CHLORIDE 0.9% 500ML 500 ML IV ONE (09:00)
[2017-08-01] MEDS ORDERED: PEPTAMEN INTENSE VHP 1000ML BAG NG SCH (12:30)
--- NOTE | 2017-08-01 13:38 | DIAGNOSTIC IMAGING REPORT ---
[facility] CLINICAL HISTORY: CORE SAFE PLACEMENT tube position COMPARISON STUDY: 07/09/2017 FINDINGS: Feeding tube placed in the gastric fundus. Bowel pattern is nonobstructive. IMPRESSION: Feeding tube placed in the gastric fundus. The above report was generated using voice recognition software. It may contain grammatical, syntax or spelling errors. Electronically signed by: Brenden Patel M.D. 08/01/2017 1:37 PM Dictated Date/Time: 08/01/2017 1:37 PM
[2017-08-01] MEDS: ENOXAPARIN 30 MG/0.3 ML SYR SQ SCH (15:00)
[2017-08-01] MEDS ORDERED: NURSING VERBAL MED ORDER ONE (16:00)
--- NOTE | 2017-08-01 16:07 | Critical Care Progress Note ---
Critical Care Progress Note Date of Service Aug 01, 2017. ICU Day ICU Day Number: [address] Plunkett Subjective Patient doing better today. Able to give full name and date of . When asked how she is feeling, she states that she was tired and did not sleep well last night. No appreciation of seizure activity per patient or nursing staff. Patient denies chest pain or tightness. No back pain. No abdominal pain. No fever or chills. Just with malaise. Objective GENERAL : No acute distress EYES: No icterus, gaze conjugate. Pupils equal round and reactive to light NOSE: No evidence of epistaxis MOUTH: No lesions or candidiasis. Tongue midline NECK: Supple. No stridor LUNGS: CTA B/L, no wheezes, rales or rhonchi. Decreased breath sounds. No hypoxia HEART: Regular, rate controlled. No ectopy ABDOMEN: Soft, NT, ND, BS Present. No rebound tenderness or guarding EXTREMITIES: No LE edema, pedal pulses intact. Strength equal and appropriate bilaterally. No appreciation of tremor NEURO: Awake and alert. Able to give full name and date of and location. Pupils equal round and reactive to light. Toes downgoing bilaterally. Strength equal and appropriate upper extremities. Assessment & Plan (1) Altered mental status (2) Hyponatremia (3) Colon cancer (4) Benign hypertension (5) Aortic valve stenosis Neuro * Metabolic encephalopathy secondary to hyponatremia * Na improved to 126. Continue with hypertonic saline at 50 ml/hr - Na+ goal today is 132 * Encephalopathy improved * CT head with no acute changes * No falls or previous history of head injury, dementia, delirium * Otherwise neuro exam is unremarkable Cardiovascular * History of benign hypertension -SBP in the 140s-160s (Lisinopril 2.5 mg PO Daily) * Metoprolol 5mg IV q6h prn * Has remained n.p.o. secondary to encephalopathy * Normal sinus rhythm on telemetry * No chest pain prior to admission Pulmonary * No history of tobacco abuse or pulmonary disease * Oxygenating well on room air Renal * BUN 7, creatinine 0.42 * Follow serial labs Endocrine * No history of diabetes mellitus Heme * Hemoglobin 13.3 on admission -now 11.2 most likely hemo-delusional. No evidence of active bleeding. Check fecal occult blood if bowel movement * Patient does have reported recent history of hematemesis * Continue PPI * Follow empirically with serial labs Electrolytes * Hyponatremia as listed above * 3% hypertonic saline solution at 50 mL/h * Follow serial labs every 4 hours * Continue with normal saline solution pending repeat labs * Potassium 3.6 * Magnesium 1.9 * Follow serial labs ID * Urine culture with gram-negative bacilli -continue ceftriaxone pending ID and sensitivities * MRSA screening is positive * Initiate isolation precautions * Blood cultures 2 * Nasal swab negative for influenza Nutrition * N.p.o. due to altered mental status * Continue with fluid hydration * Abdomen VHP via core safe with goal of 45 mL/h started 08/01 GI * Start PPI for reported history of hematemesis * Hemoglobin 11.1 * Follow clinically IV access * Left-sided PICC line placed 07/31 DVT prophylaxis * No chemical prophylaxis pending repeat labs * TEDs/SCDs CCT: 30 minutes independent of any procedures Thank you for including us in the care of this patient. Please refer to Dr. Plunkett's addendum for further recommendations. I have personally evaluated and examined this patient. I agree with assessment and plan of Derick Patterson PA-C. During my evaluation the patient was exhibiting improved mental status. Patient was also discussed on multidisciplinary rounds. By the end of the day she had reached her goal sodium level, hypertonic saline was stopped. The patient has a core safe placed and is started on tube feed. Consults & Procedures Consultants: Sleeve [employer] Feller - Dr. Plunkett Procedures: PICC Line 07/31/17 Data Medications: Current Inpatient Medications Medications (Trade) Dose Ordered Sig/Jennifer Route Start Time Stop Time Status Last Admin Dose Admin Acetaminophen (Tylenol Tab) 650 mg Q4H PRN PO 07/31/17 06:45 08/30/17 06:44 Lorazepam (Ativan Inj) 0.5 mg Q4H PRN IV 07/31/17 06:45 08/30/17 06:44 Morphine Sulfate (MoRPHine SULFATE INJ) 4 mg Q2H PRN IV 07/31/17 06:45 08/14/17 06:44 Miscellaneous Information (Icu Protocol For Hyperglycemia) 1 ea PRN PRN N/A 07/31/17 06:45 08/02/17 06:44 Heparin Sodium (Porcine) (Heparin 10 Unit/ ml 5 ml Flush) 5 ml PRN PRN FLUSH 07/31/17 09:15 08/30/17 09:14 07/31/17 12:22 5 ML Pantoprazole Sodium 40 mg/ Syringe 10 ml @ 5 mls/min BID IV 07/31/17 21:00 08/03/17 21:01 08/01/17 08:39 5 MLS/MIN Sodium Chloride 500 ml @ 50 mls/hr Q10H IV 07/31/17 17:45 08/30/17 15:14 07/31/17 23:24 50 MLS/HR Acetaminophen 650 mg/Empty Bag 65 ml @ 260 mls/hr Q6H PRN IV 07/31/17 20:00 08/30/17 19:59 07/31/17 20:40 260 MLS/HR Metoprolol Tartrate (Lopressor Iv) 5 mg Q6H PRN IV 08/01/17 08:45 08/31/17 08:44 Enteral Nutritional Formula (Peptamen Intense VHP) START AT 15 ML/HR TITRATE... UD NG 08/01/17 12:30 08/31/17 12:29 08/01/17 14:12 15 ML Ceftriaxone Sodium 1 gm/ Sodium Chloride 50 ml @ 100 mls/hr DAILY@0900 IV 08/02/17 09:00 08/10/17 08:59 Enoxaparin Sodium (Lovenox Inj) 30 mg DAILY@1400 SQ 08/01/17 15:00 08/31/17 14:59 I & O: 24-Hour Column 08/02/17 08:00 Intake Total 831 ml Output Total 250 ml Balance 581 ml Vital Signs: Date Time Temp Pulse Resp B/P (MAP) Pulse Ox O2 Delivery O2 Flow Rate FiO2 08/01/17 14:00 76 19 143/94 (110) 97 Room Air 08/01/17 12:00 37.4 67 15 135/71 (92) 97 Room Air 08/01/17 12:00 Room Air 08/01/17 10:00 68 13 152/73 (99) 98 Room Air 08/01/17 08:00 37.6 60 18 157/71 (99) 99 Room Air 08/01/17 08:00 99 Room Air 08/01/17 06:00 63 18 146/82 (103) 98 Room Air 08/01/17 04:00 98 Room Air 08/01/17 04:00 37.9 69 12 154/70 (98) 98 Room Air 08/01/17 02:00 64 16 133/67 (89) 98 Room Air 08/01/17 00:01 38.2 65 12 158/93 (114) 98 Room Air 07/31/17 23:59 98 Room Air 07/31/17 22:00 66 12 171/84 (113) 99 Room Air 07/31/17 20:00 38.7 69 18 156/89 (111) 99 Room Air 07/31/17 20:00 99 Room Air 07/31/17 18:00 72 18 126/68 (87) 98 Room Air Laboratory Results: Last 24 Hours Test 07/31/17 16:24 07/31/17 20:01 07/31/17 20:46 08/01/17 00:01 Sodium Level 117 mmol/L 122 mmol/L 126 mmol/L Potassium Level 4.0 mmol/L Chloride Level 86 mmol/L Carbon Dioxide Level 23 mmol/L Anion Gap 8.0 mmol/L Blood Urea Nitrogen 8 mg/dl Creatinine 0.38 mg/dl Est Creatinine Clear Calc Drug Dose 92.3 ml/min Estimated GFR () 111.2 Estimated GFR (Non- 95.9 BUN/Creatinine Ratio 20.1 Random Glucose 112 mg/dl Calcium Level 7.8 mg/dl Bedside Glucose 71 mg/dl Test 08/01/17 03:54 08/01/17 03:55 08/01/17 08:07 08/01/17 08:35 Sodium Level 125 mmol/L 126 mmol/L Potassium Level 3.6 mmol/L Chloride Level 94 mmol/L Carbon Dioxide Level 23 mmol/L Anion Gap 8.0 mmol/L Blood Urea Nitrogen 7 mg/dl Creatinine 0.42 mg/dl Est Creatinine Clear Calc Drug Dose 83.5 ml/min Estimated GFR () 107.6 Estimated GFR (Non- 92.8 BUN/Creatinine Ratio 16.7 Random Glucose 107 mg/dl Calcium Level 7.8 mg/dl Phosphorus Level 1.8 mg/dl Magnesium Level 1.9 mg/dl White Blood Count 5.96 K/uL Red Blood Count 3.69 M/uL Hemoglobin 11.2 g/dL Hematocrit 30.2 % Mean Corpuscular Volume 81.8 fL Mean Corpuscular Hemoglobin 30.4 pg Mean Corpuscular Hemoglobin Concent 37.1 g/dl Platelet Count 191 K/uL Mean Platelet Volume 10.2 fL Neutrophils (%) (Auto) 74.3 % Lymphocytes (%) (Auto) 17.4 % Monocytes (%) (Auto) 8.1 % Eosinophils (%) (Auto) 0.0 % Basophils (%) (Auto) 0.0 % Neutrophils # (Auto) 4.43 K/uL Lymphocytes # (Auto) 1.04 K/uL Monocytes # (Auto) 0.48 K/uL Eosinophils # (Auto) 0.00 K/uL Basophils # (Auto) 0.00 K/uL RDW Standard Deviation 41.8 fL RDW Coefficient of Variation 13.9 % Immature Granulocyte % (Auto) 0.2 % Immature Granulocyte # (Auto) 0.01 K/uL Urine Osmolality 677 mOms/kg Urine Random Sodium 124 mEq/L Test 08/01/17 11:50 08/01/17 12:17 08/01/17 15:48 Bedside Glucose 101 mg/dl Sodium Level 127 mmol/L Problem Qualifiers (1) Altered mental status: Altered mental status type: coma Coma depth: [place] coma 3-8 Coma timing: in the field (EMT or ambulance) Qualified Codes: R40.2431 - [place] coma scale score 3-8, in the field [emt or ambulance]
--- NOTE | 2017-08-01 22:27 | Progress Note ---
Subjective Date of Service: Aug 01, 2017. Subjective Pt evaluation today including: conversation w/ patient Pt is a 86 year old female with a PMHx of HTN, anxiety disorder and colon cancer s/p right hemicolectomy in 2010. According to records, pt was found by her covered in black vomit and hanging out of her bed with her face on the ground. He noted she was incontinent of stool and urine. Last ED visit was on 07/25 for weakness and constipation. At that time her Na was 131. On admission to ED her Na was 117. Patient appears to be improving. She is more verbal today and knows her name. She complains of generalized malaise, but denies any specific symptoms. Problem List Medical Problems: (1) Acute bronchitis Status: Acute (2) Altered mental status Status: Acute (3) Ambulatory dysfunction Status: Acute (4) Anxiety Status: Acute (5) Generalized weakness Status: Acute (6) Hyponatremia Status: Acute (7) Laryngitis Status: Acute (8) Persistent cough Status: Acute (9) Syncope Status: Acute (10) Systolic congestive heart failure Status: Acute (11) Urinary tract infection Status: Acute (12) UTI (urinary tract infection) Status: Acute (13) Weakness Status: Acute Objective Vital Signs Date Time Temp Pulse Resp B/P (MAP) Pulse Ox O2 Delivery O2 Flow Rate FiO2 08/01/17 21:01 65 16 124/66 (85) 99 Room Air 08/01/17 20:01 37.0 58 19 113/57 (75) 96 Room Air 08/01/17 20:00 Room Air 08/01/17 19:01 65 20 121/56 (77) 98 Room Air 08/01/17 18:00 63 24 136/62 (86) 95 Room Air 08/01/17 16:00 37.2 68 13 114/54 (74) 94 Room Air 08/01/17 16:00 Room Air 08/01/17 14:00 76 19 143/94 (110) 97 Room Air 08/01/17 12:00 37.4 67 15 135/71 (92) 97 Room Air 08/01/17 12:00 Room Air 08/01/17 10:00 68 13 152/73 (99) 98 Room Air 08/01/17 08:00 37.6 60 18 157/71 (99) 99 Room Air 08/01/17 08:00 99 Room Air 08/01/17 06:00 63 18 146/82 (103) 98 Room Air 08/01/17 04:00 98 Room Air 08/01/17 04:00 37.9 69 12 154/70 (98) 98 Room Air 08/01/17 02:00 64 16 133/67 (89) 98 Room Air 08/01/17 00:01 38.2 65 12 158/93 (114) 98 Room Air 07/31/17 23:59 98 Room Air Physical Exam Comments: General Appearance: Thin, elderly female, more awake today Head: NC/AT Neck: supple, no adenopathy Respiratory/Chest: lungs are clear Cardiovascular: regular rate, rhythm, no gallop, no JVD, no murmur Abdomen/GI: normal bowel sounds, non tender, soft Genitourinary - Female: +cloudy urine in s[place] Back: no CVA tenderness, no muscle spasm Extremities/Musculoskelatal: normal inspection, no calf tenderness, + pedal edema Neurologic/Psych: + pertinent finding (Exam is limited - moves all extremities ) Skin: normal color, warm/dry Laboratory Results Last 24 Hours Test 08/01/17 00:01 08/01/17 03:54 08/01/17 03:55 08/01/17 08:07 Sodium Level 126 mmol/L 125 mmol/L 126 mmol/L Potassium Level 3.6 mmol/L Chloride Level 94 mmol/L Carbon Dioxide Level 23 mmol/L Anion Gap 8.0 mmol/L Blood Urea Nitrogen 7 mg/dl Creatinine 0.42 mg/dl Est Creatinine Clear Calc Drug Dose 83.5 ml/min Estimated GFR () 107.6 Estimated GFR (Non- 92.8 BUN/Creatinine Ratio 16.7 Random Glucose 107 mg/dl Calcium Level 7.8 mg/dl Phosphorus Level 1.8 mg/dl Magnesium Level 1.9 mg/dl White Blood Count 5.96 K/uL Red Blood Count 3.69 M/uL Hemoglobin 11.2 g/dL Hematocrit 30.2 % Mean Corpuscular Volume 81.8 fL Mean Corpuscular Hemoglobin 30.4 pg Mean Corpuscular Hemoglobin Concent 37.1 g/dl Platelet Count 191 K/uL Mean Platelet Volume 10.2 fL Neutrophils (%) (Auto) 74.3 % Lymphocytes (%) (Auto) 17.4 % Monocytes (%) (Auto) 8.1 % Eosinophils (%) (Auto) 0.0 % Basophils (%) (Auto) 0.0 % Neutrophils # (Auto) 4.43 K/uL Lymphocytes # (Auto) 1.04 K/uL Monocytes # (Auto) 0.48 K/uL Eosinophils # (Auto) 0.00 K/uL Basophils # (Auto) 0.00 K/uL RDW Standard Deviation 41.8 fL RDW Coefficient of Variation 13.9 % Immature Granulocyte % (Auto) 0.2 % Immature Granulocyte # (Auto) 0.01 K/uL Test 08/01/17 08:35 08/01/17 11:50 08/01/17 12:17 08/01/17 15:48 Urine Osmolality 677 mOms/kg Urine Random Sodium 124 mEq/L Bedside Glucose 101 mg/dl Sodium Level 127 mmol/L 132 mmol/L Test 08/01/17 17:54 08/01/17 19:47 Bedside Glucose 104 mg/dl Sodium Level 132 mmol/L Assessment and Plan 86 y/o F Hx HTN, anxiety disorder. Pt was found hanging out of her bed with her face on the ground, covered in black-colored vomit by her . She was additionally incontinent of stool and urine. She was moving all extremities but unresponsive when EMS arrived at her home. She had apparently been to the ER 5 days earlier c/o constipation and was DCd with instructions to take Miralax. Initial labs are notable for a sodium of 117. Her Sodium 5 days prior was 133. She cannot respond to any questioning. Her is present at bedside to provide the preceding information. 1) Metabolic Encephalopathy in apatient with hyponatremia. Patient may have had a hyponatremic related seizure. Patient was admitted to the ICU. Patient has been responding to IVF. Na improved to 126. Will continue hypertonic sodium for now. Mental status has also been improving. 2) Black-colored emesis - Hemoglobin has been gradually declining but it is likely related to her hydration. 3) HTN - On metoprolol IV PRN Has not required a dose. . 4) UTI - placed on Ceftriaxone pending culture results. Full code - SCDs Total time for this encounter including review of labs, meds, imaging, records, EKG - 45 minutes Will keep patient in ICU today Continued [facility] stay due to: multiple IV medications needed Discharge planning: uncertain
[2017-08-02] VITALS (11 sets, daily range): BP systolic 109–162; BP diastolic 53–96; PULSE 51–64; TEMP 36.5–36.7; O2SAT 93–100; Ht 175.3 cm; Wt 58.4 kg
[2017-08-02 05:35] LABS: BASO % 0.4 %; BASO ABS # 0.02 K/uL (0-0.2); EOS % 0.7 %; EOS ABS # 0.03 K/uL (0-0.5); HEMATOCRIT 30.3 % (37-47); HEMOGLOBIN 10.8 g/dL (12.0-16.0); IG# 0.01 K/uL (0.00-0.02); LYMPH % 19.6 %; LYMPH ABS # 0.88 K/uL (1.2-3.4); MEAN CELL VOLUME 83.7 fL (80-100); MEAN CORPUSCULAR HEMOGLOBIN 29.8 pg (25-34); MEAN CORPUSCULAR HGB CONC 35.6 g/dl (32-36); MEAN PLATELET VOLUME 9.8 fL (7.4-10.4); MONO % 12.3 %; MONO ABS # 0.55 K/uL (0.11-0.59); NEUT % 66.8 %; NEUT ABS # 2.99 K/uL (1.4-6.5); PLATELET COUNT 182 K/uL (130-400); RED CELL DISTRIBUTION WIDTH CV 14.4 % (11.5-14.5); WHITE BLOOD COUNT 4.48 K/uL (4.8-10.8)
[2017-08-02 06:06] LABS: CALCIUM 8.1 mg/dl (8.5-10.1); CREATININE 0.33 mg/dl (0.60-1.20); PHOSPHORUS 2.1 mg/dl (2.5-4.9); POTASSIUM 3.2 mmol/L (3.5-5.1)
[2017-08-02] MEDS ORDERED: SODIUM CHLORIDE 1 GM TAB PO ONE (08:00)
[2017-08-02] MEDS: AD VAN IV SCH (08:51)
[2017-08-02] MEDS: CEFTRIAXONE SOD IV SCH (08:51)
[2017-08-02] MEDS: SODIUM CHLOR 0.9% IV SCH (08:51)
[2017-08-02] MEDS: PANTOprazole INJ 40 MG in SYRINGE 0 ML IV SCH ×2 (08:52→20:46)
[2017-08-02] MEDS: POT PHOSPHATE MONOBASIC W/ SOD TAB PO SCH ×3 (09:19→16:50)
[2017-08-02] MEDS: POTASSIUM CHLORIDE 20 MEQ/15 ML UDC PO SCH ×3 (09:19→16:51)
[2017-08-02] MEDS ORDERED: PEPTAMEN INTENSE VHP 1000ML BAG NG PRN (09:45)
[2017-08-02] MEDS: ENOXAPARIN 30 MG/0.3 ML SYR SQ SCH (12:29)
[2017-08-02] MEDS ORDERED: NURSING VERBAL MED ORDER ONE (14:30)
[2017-08-02] MEDS ORDERED: ALPRAZOLAM 0.25 MG TAB PO ONE (17:01)
--- NOTE | 2017-08-02 19:28 | Critical Care Progress Note ---
Critical Care Progress Note Date of Service Aug 02, 2017. Attending Dr. Plunkett Subjective Improved mental status, no chest pain or shortness of breath Objective GENERAL : No acute distress EYES: No icterus, gaze conjugate. Pupils equal round and reactive to light NOSE: No evidence of epistaxis LUNGS: No respiratory distress HEART: Normal peripheral perfusion ABDOMEN: Soft, no distention EXTREMITIES: No rash no edema NEURO: Awake and alert. Assessment & Plan Neuro * Metabolic encephalopathy secondary to hyponatremia * Sodium remains at 132 * Encephalopathy improved * CT head with no acute changes * No falls or previous history of head injury, dementia, delirium Cardiovascular * History of benign hypertension -SBP in the 140s-160s (Lisinopril 2.5 mg PO Daily) * Normal sinus rhythm on telemetry Pulmonary * No history of tobacco abuse or pulmonary disease * Oxygenating well on room air Renal euvolemia Endocrine * No history of diabetes mellitus Heme * Patient does have reported recent history of hematemesis * Continue PPI * Follow empirically with serial labs Electrolytes * Hyponatremia as listed above * 3% hypertonic saline discontinued yesterday and sodium has remained stable * Given 1 g sodium load today ID * Urine culture with gram-negative bacilli -continue ceftriaxone pending ID and sensitivities * E. coli UTI, susceptible to Rocephin, resistant to fluoroquinolones Nutrition * Passed bedside swallow, should undergo formal speech evaluation GI * Start PPI for reported history of hematemesis IV access * Left-sided PICC line placed 07/31 DVT prophylaxis * On Lovenox 30 mg subcu daily Patient has improved and is stable for downgrade to medical surgical floor. I discussed the case with the hospitalist Consults & Procedures Consultants: [employer]ist - Dr. Plunkett Procedures: PICC Line 07/31/17 Data Medications: Current Inpatient Medications Medications (Trade) Dose Ordered Sig/Jennifer Route Start Time Stop Time Status Last Admin Dose Admin Acetaminophen (Tylenol Tab) 650 mg Q4H PRN PO 07/31/17 06:45 08/30/17 06:44 Lorazepam (Ativan Inj) 0.5 mg Q4H PRN IV 07/31/17 06:45 08/30/17 06:44 Morphine Sulfate (MoRPHine SULFATE INJ) 4 mg Q2H PRN IV 07/31/17 06:45 08/14/17 06:44 Heparin Sodium (Porcine) (Heparin 10 Unit/ ml 5 ml Flush) 5 ml PRN PRN FLUSH 07/31/17 09:15 08/30/17 09:14 07/31/17 12:22 5 ML Pantoprazole Sodium 40 mg/ Syringe 10 ml @ 5 mls/min BID IV 07/31/17 21:00 08/03/17 21:01 08/02/17 08:52 5 MLS/MIN Acetaminophen 650 mg/Empty Bag 65 ml @ 260 mls/hr Q6H PRN IV 07/31/17 20:00 08/30/17 19:59 07/31/17 20:40 260 MLS/HR Metoprolol Tartrate (Lopressor Iv) 5 mg Q6H PRN IV 08/01/17 08:45 08/31/17 08:44 Ceftriaxone Sodium 1 gm/ Sodium Chloride 50 ml @ 100 mls/hr DAILY@0900 IV 08/02/17 09:00 08/10/17 08:59 08/02/17 08:51 100 MLS/HR Enoxaparin Sodium (Lovenox Inj) 30 mg DAILY@1400 SQ 08/01/17 15:00 08/31/17 14:59 08/02/17 12:29 30 MG Alprazolam (Xanax Tab) 0.25 mg BID PRN PO 08/03/17 05:00 09/02/17 04:59 I & O: 24-Hour Column 08/03/17 08:00 Intake Total 406 ml Output Total 1900 ml Balance -1494 ml Vital Signs: Date Time Temp Pulse Resp B/P (MAP) Pulse Ox O2 Delivery O2 Flow Rate FiO2 08/02/17 15:35 100 Room Air 08/02/17 14:47 36.5 55 18 139/67 (91) 100 Room Air 08/02/17 09:38 36.7 56 18 162/73 (102) 95 Room Air 08/02/17 08:00 Room Air 08/02/17 07:49 36.5 54 20 156/70 (98) 98 Room Air 08/02/17 06:01 60 18 136/76 (96) 98 Room Air 08/02/17 05:01 63 19 135/63 (87) 100 Room Air 08/02/17 04:01 36.6 64 21 138/96 (110) 95 Room Air 08/02/17 04:00 Room Air 08/02/17 03:02 53 17 137/81 (99) 98 Room Air 08/02/17 02:02 51 16 109/53 (71) 98 Room Air 08/02/17 01:01 54 18 113/71 (85) 96 Room Air 08/02/17 00:01 36.7 59 19 137/57 (83) 93 Room Air 08/01/17 23:59 Room Air 08/01/17 23:01 71 20 127/63 (84) 95 Room Air 08/01/17 22:01 64 18 128/59 (82) 92 Room Air 08/01/17 21:01 65 16 124/66 (85) 99 Room Air 08/01/17 20:01 37.0 58 19 113/57 (75) 96 Room Air 08/01/17 20:00 Room Air Laboratory Results: Last 24 Hours Test 08/01/17 19:47 08/02/17 00:02 08/02/17 00:06 08/02/17 05:01 Sodium Level 132 mmol/L 132 mmol/L 132 mmol/L Bedside Glucose 107 mg/dl White Blood Count 4.48 K/uL Red Blood Count 3.62 M/uL Hemoglobin 10.8 g/dL Hematocrit 30.3 % Mean Corpuscular Volume 83.7 fL Mean Corpuscular Hemoglobin 29.8 pg Mean Corpuscular Hemoglobin Concent 35.6 g/dl Platelet Count 182 K/uL Mean Platelet Volume 9.8 fL Neutrophils (%) (Auto) 66.8 % Lymphocytes (%) (Auto) 19.6 % Monocytes (%) (Auto) 12.3 % Eosinophils (%) (Auto) 0.7 % Basophils (%) (Auto) 0.4 % Neutrophils # (Auto) 2.99 K/uL Lymphocytes # (Auto) 0.88 K/uL Monocytes # (Auto) 0.55 K/uL Eosinophils # (Auto) 0.03 K/uL Basophils # (Auto) 0.02 K/uL RDW Standard Deviation 44.0 fL RDW Coefficient of Variation 14.4 % Immature Granulocyte % (Auto) 0.2 % Immature Granulocyte # (Auto) 0.01 K/uL Potassium Level 3.2 mmol/L Chloride Level 101 mmol/L Carbon Dioxide Level 24 mmol/L Anion Gap 7.0 mmol/L Blood Urea Nitrogen 16 mg/dl Creatinine 0.33 mg/dl Est Creatinine Clear Calc Drug Dose 109.7 ml/min Estimated GFR () 116.5 Estimated GFR (Non- 100.5 BUN/Creatinine Ratio 47.2 Random Glucose 106 mg/dl Calcium Level 8.1 mg/dl Phosphorus Level 2.1 mg/dl Magnesium Level 2.0 mg/dl Test 08/02/17 05:05 08/02/17 16:48 Bedside Glucose 117 mg/dl 108 mg/dl
[2017-08-02] MEDS ORDERED: ALPRAZOLAM 0.25 MG TAB ONE (20:43)
[2017-08-02] MEDS: ACETAMINOPHEN 325 MG TAB PO PRN (20:46)
--- NOTE | 2017-08-02 23:41 | Progress Note ---
Subjective Date of Service: Aug 02, 2017. Subjective Pt evaluation today including: conversation w/ patient, conversation w/ family , physical exam Patient again is more wake. Patient knows her name and that she is in the hospital. Her was in the room and I updated him on her treatment. Patient denies any pain, SOB, nausea, vomiting, dizziness. Problem List Medical Problems: (1) Acute bronchitis Status: Acute (2) Altered mental status Status: Acute (3) Ambulatory dysfunction Status: Acute (4) Anxiety Status: Acute (5) Generalized weakness Status: Acute (6) Hyponatremia Status: Acute (7) Laryngitis Status: Acute (8) Persistent cough Status: Acute (9) Syncope Status: Acute (10) Systolic congestive heart failure Status: Acute (11) Urinary tract infection Status: Acute (12) UTI (urinary tract infection) Status: Acute (13) Weakness Status: Acute Review of Systems Constitutional: No fever Eyes: No eye pain Cardiac: No chest pain Abdomen: No pain Musculoskeletal: No joint pain Female : No dysuria Neurologic: No paralysis Psychiatric: No depression symptoms Heme: No abnormal bleeding/bruising Skin: No rash All Other Systems: Reviewed and Negative Medications Current Inpatient Medications Medications (Trade) Dose Ordered Sig/Jennifer Route Start Time Stop Time Status Last Admin Dose Admin Acetaminophen (Tylenol Tab) 650 mg Q4H PRN PO 07/31/17 06:45 08/30/17 06:44 08/02/17 20:46 650 MG Lorazepam (Ativan Inj) 0.5 mg Q4H PRN IV 07/31/17 06:45 08/30/17 06:44 Morphine Sulfate (MoRPHine SULFATE INJ) 4 mg Q2H PRN IV 07/31/17 06:45 08/14/17 06:44 Heparin Sodium (Porcine) (Heparin 10 Unit/ ml 5 ml Flush) 5 ml PRN PRN FLUSH 07/31/17 09:15 08/30/17 09:14 08/03/17 05:43 10 ML Pantoprazole Sodium 40 mg/ Syringe 10 ml @ 5 mls/min BID IV 07/31/17 21:00 08/03/17 21:01 08/03/17 08:33 5 MLS/MIN Acetaminophen 650 mg/Empty Bag 65 ml @ 260 mls/hr Q6H PRN IV 07/31/17 20:00 08/30/17 19:59 2/27/18 20:40 260 MLS/HR Metoprolol Tartrate (Lopressor Iv) 5 mg Q6H PRN IV 08/01/17 08:45 08/31/17 08:44 Ceftriaxone Sodium 1 gm/ Sodium Chloride 50 ml @ 100 mls/hr DAILY@0900 IV 08/02/17 09:00 08/10/17 08:59 08/03/17 08:32 100 MLS/HR Enoxaparin Sodium (Lovenox Inj) 30 mg DAILY@1400 SQ 08/01/17 15:00 08/31/17 14:59 08/02/17 12:29 30 MG Alprazolam (Xanax Tab) 0.25 mg BID PRN PO 08/03/17 05:00 09/02/17 04:59 Objective Vital Signs Date Time Temp Pulse Resp B/P (MAP) Pulse Ox O2 Delivery O2 Flow Rate FiO2 08/02/17 15:35 100 Room Air 08/02/17 14:47 36.5 55 18 139/67 (91) 100 Room Air 08/02/17 09:38 36.7 56 18 162/73 (102) 95 Room Air 08/02/17 08:00 Room Air 08/02/17 07:49 36.5 54 20 156/70 (98) 98 Room Air 08/02/17 06:01 60 18 136/76 (96) 98 Room Air 08/02/17 05:01 63 19 135/63 (87) 100 Room Air 08/02/17 04:01 36.6 64 21 138/96 (110) 95 Room Air 08/02/17 04:00 Room Air 08/02/17 03:02 53 17 137/81 (99) 98 Room Air 08/02/17 02:02 51 16 109/53 (71) 98 Room Air 08/02/17 01:01 54 18 113/71 (85) 96 Room Air 08/02/17 00:01 36.7 59 19 137/57 (83) 93 Room Air 08/01/17 23:59 Room Air Physical Exam Comments: General Appearance: Thin, elderly female, more awake today Head: NC/AT Neck: supple, no adenopathy Respiratory/Chest: lungs are clear Cardiovascular: regular rate, rhythm, no gallop, no JVD, no murmur Abdomen/GI: normal bowel sounds, non tender, soft Genitourinary - Female: +cloudy urine in serrano Back: no CVA tenderness, no muscle spasm Extremities/Musculoskelatal: normal inspection, no calf tenderness, + pedal edema Neurologic/Psych: + pertinent finding (Exam is limited - moves all extremities ) Skin: normal color, warm/dry Laboratory Results Last 24 Hours Test 08/02/17 00:02 08/02/17 00:06 08/02/17 05:01 08/02/17 05:05 Sodium Level 132 mmol/L 132 mmol/L Bedside Glucose 107 mg/dl 117 mg/dl White Blood Count 4.48 K/uL Red Blood Count 3.62 M/uL Hemoglobin 10.8 g/dL Hematocrit 30.3 % Mean Corpuscular Volume 83.7 fL Mean Corpuscular Hemoglobin 29.8 pg Mean Corpuscular Hemoglobin Concent 35.6 g/dl Platelet Count 182 K/uL Mean Platelet Volume 9.8 fL Neutrophils (%) (Auto) 66.8 % Lymphocytes (%) (Auto) 19.6 % Monocytes (%) (Auto) 12.3 % Eosinophils (%) (Auto) 0.7 % Basophils (%) (Auto) 0.4 % Neutrophils # (Auto) 2.99 K/uL Lymphocytes # (Auto) 0.88 K/uL Monocytes # (Auto) 0.55 K/uL Eosinophils # (Auto) 0.03 K/uL Basophils # (Auto) 0.02 K/uL RDW Standard Deviation 44.0 fL RDW Coefficient of Variation 14.4 % Immature Granulocyte % (Auto) 0.2 % Immature Granulocyte # (Auto) 0.01 K/uL Potassium Level 3.2 mmol/L Chloride Level 101 mmol/L Carbon Dioxide Level 24 mmol/L Anion Gap 7.0 mmol/L Blood Urea Nitrogen 16 mg/dl Creatinine 0.33 mg/dl Est Creatinine Clear Calc Drug Dose 109.7 ml/min Estimated GFR () 116.5 Estimated GFR (Non- 100.5 BUN/Creatinine Ratio 47.2 Random Glucose 106 mg/dl Calcium Level 8.1 mg/dl Phosphorus Level 2.1 mg/dl Magnesium Level 2.0 mg/dl Test 08/02/17 16:48 08/02/17 20:29 Bedside Glucose 108 mg/dl 127 mg/dl Assessment and Plan 86 y/o F Hx HTN, anxiety disorder. Pt was found hanging out of her bed with her face on the ground, covered in black-colored vomit by her . She was additionally incontinent of stool and urine. She was moving all extremities but unresponsive when EMS arrived at her home. She had apparently been to the ER 5 days earlier c/o constipation and was DCd with instructions to take Miralax. Initial labs are notable for a sodium of 117. Her Sodium 5 days prior was 133. She cannot respond to any questioning. Her is present at bedside to provide the preceding information. 1) Metabolic Encephalopathy in apatient with hyponatremia. Patient may have had a hyponatremic related seizure. Patient has been downgraded from the unit Patient has been responding to IVF. Na improved to 132 IVF has been stopped Mental status has also been improving. Has also been tolerating diet. will stop NG tube feeding 2) Black-colored emesis - Hemoglobin has been gradually declining but it is likely related to her hydration. No significant drop from yesterday 3) HTN - On metoprolol IV PRN Has not required a dose. . 4) UTI - will continue ceftriaxone. cultures showed e. coli. awaiting sensitivities Full code - SCDs Continued [facility] stay due to: multiple IV medications needed Discharge planning: uncertain
[2017-08-03 00:50] VITALS: BP 131/76; PULSE 66; TEMP 36.6; O2SAT 96
[2017-08-03 06:15] LABS: BASO % 0.2 %; BASO ABS # 0.01 K/uL (0-0.2); EOS % 2.6 %; EOS ABS # 0.11 K/uL (0-0.5); HEMATOCRIT 32.9 % (37-47); HEMOGLOBIN 11.3 g/dL (12.0-16.0); LYMPH % 33.2 %; LYMPH ABS # 1.41 K/uL (1.2-3.4); MEAN CORPUSCULAR HEMOGLOBIN 29.2 pg (25-34); MEAN CORPUSCULAR HGB CONC 34.3 g/dl (32-36); MEAN PLATELET VOLUME 9.9 fL (7.4-10.4); MONO % 9.4 %; NEUT % 54.6 %; NEUT ABS # 2.32 K/uL (1.4-6.5); PLATELET COUNT 211 K/uL (130-400); RED CELL DISTRIBUTION WIDTH CV 14.6 % (11.5-14.5); RED CELL DISTRIBUTION WIDTH SD 45.3 fL (36.4-46.3); WHITE BLOOD COUNT 4.25 K/uL (4.8-10.8)
[2017-08-03 06:46] LABS: CALCIUM 8.1 mg/dl (8.5-10.1); CREATININE 0.31 mg/dl (0.60-1.20); PHOSPHORUS 2.7 mg/dl (2.5-4.9); POTASSIUM 3.9 mmol/L (3.5-5.1)
[2017-08-03 08:00] VITALS: BP 143/71; PULSE 65; TEMP 36.8; O2SAT 97
[2017-08-03] MEDS: CEFTRIAXONE SOD IV SCH (08:32)
[2017-08-03] MEDS: SODIUM CHLOR 0.9% IV SCH (08:32)
[2017-08-03] MEDS: AD VAN IV SCH (08:32)
[2017-08-03] MEDS: PANTOprazole INJ 40 MG in SYRINGE 0 ML IV SCH ×2 (08:33→19:53)
[2017-08-03] MEDS: ACETAMINOPHEN 325 MG TAB PO PRN (14:49)
[2017-08-03 15:16] VITALS: BP 131/72; PULSE 64; TEMP 36.6; O2SAT 97
[2017-08-03] MEDS: ENOXAPARIN 30 MG/0.3 ML SYR SQ SCH (16:13)
[2017-08-03] MEDS: CEPHALEXIN MONOHYDRATE 500 MG CAP PO SCH (19:53)
[2017-08-03] MEDS: ALPRAZOLAM 0.25 MG TAB PO PRN (19:55)
[2017-08-04] VITALS: O2SAT 97
[2017-08-04 00:10] VITALS: BP 119/63; PULSE 73; TEMP 36.7; O2SAT 95
[2017-08-04 05:59] LABS: BASO % 0.5 %; BASO ABS # 0.02 K/uL (0-0.2); EOS % 5.4 %; HEMATOCRIT 34.6 % (37-47); HEMOGLOBIN 11.8 g/dL (12.0-16.0); LYMPH % 34.8 %; LYMPH ABS # 1.28 K/uL (1.2-3.4); MEAN CELL VOLUME 85.9 fL (80-100); MEAN CORPUSCULAR HEMOGLOBIN 29.3 pg (25-34); MEAN CORPUSCULAR HGB CONC 34.1 g/dl (32-36); MEAN PLATELET VOLUME 9.5 fL (7.4-10.4); MONO % 12.8 %; MONO ABS # 0.47 K/uL (0.11-0.59); NEUT % 46.5 %; NEUT ABS # 1.71 K/uL (1.4-6.5); PLATELET COUNT 219 K/uL (130-400); RED CELL DISTRIBUTION WIDTH CV 14.6 % (11.5-14.5); RED CELL DISTRIBUTION WIDTH SD 45.7 fL (36.4-46.3); WHITE BLOOD COUNT 3.68 K/uL (4.8-10.8)
[2017-08-04] MEDS: ALPRAZOLAM 0.25 MG TAB PO PRN ×2 (06:19→20:00)
[2017-08-04 06:39] LABS: CALCIUM 8.2 mg/dl (8.5-10.1); CREATININE 0.38 mg/dl (0.60-1.20); POTASSIUM 3.7 mmol/L (3.5-5.1)
[2017-08-04 06:41] LABS: PHOSPHORUS 3.3 mg/dl (2.5-4.9)
[2017-08-04 08:08] VITALS: BP 146/74; PULSE 74; TEMP 36.3; O2SAT 97
[2017-08-04] MEDS: CEPHALEXIN MONOHYDRATE 500 MG CAP PO SCH ×2 (08:57→20:00)
--- NOTE | 2017-08-04 09:07 | Progress Note ---
Subjective Date of Service: Aug 03, 2017. Subjective Pt evaluation today including: conversation w/ patient Patient seen on August 03 at 16:00 Patient is anxious and has dementia. She is a poor historian. She is asking about her xanax today. She participates in conversation however and is awake. is at bedside and is updated. Problem List Medical Problems: (1) Acute bronchitis Status: Acute (2) Altered mental status Status: Acute (3) Ambulatory dysfunction Status: Acute (4) Anxiety Status: Acute (5) Generalized weakness Status: Acute (6) Hyponatremia Status: Acute (7) Laryngitis Status: Acute (8) Persistent cough Status: Acute (9) Syncope Status: Acute (10) Systolic congestive heart failure Status: Acute (11) Urinary tract infection Status: Acute (12) UTI (urinary tract infection) Status: Acute (13) Weakness Status: Acute Review of Systems All Other Systems: Reviewed and Negative Objective Vital Signs Date Time Temp Pulse Resp B/P (MAP) Pulse Ox O2 Delivery O2 Flow Rate FiO2 08/03/17 15:27 Room Air 08/03/17 15:16 36.6 64 18 131/72 (91) 97 08/03/17 09:30 Room Air Physical Exam Comments: General Appearance: Thin, elderly female, more awake today Head: NC/AT Neck: supple, no adenopathy Respiratory/Chest: lungs are clear Cardiovascular: regular rate, rhythm, no gallop, no JVD, no murmur Abdomen/GI: normal bowel sounds, non tender, soft Genitourinary - Female: +cloudy urine in serrano Back: no CVA tenderness, no muscle spasm Extremities/Musculoskelatal: normal inspection, no calf tenderness, + pedal edema Neurologic/Psych: + pertinent finding (Exam is limited - moves all extremities ) Skin: normal color, warm/dry Laboratory Results Last 24 Hours Test 08/03/17 11:51 08/04/17 05:14 Bedside Glucose 101 mg/dl White Blood Count 3.68 K/uL Red Blood Count 4.03 M/uL Hemoglobin 11.8 g/dL Hematocrit 34.6 % Mean Corpuscular Volume 85.9 fL Mean Corpuscular Hemoglobin 29.3 pg Mean Corpuscular Hemoglobin Concent 34.1 g/dl Platelet Count 219 K/uL Mean Platelet Volume 9.5 fL Neutrophils (%) (Auto) 46.5 % Lymphocytes (%) (Auto) 34.8 % Monocytes (%) (Auto) 12.8 % Eosinophils (%) (Auto) 5.4 % Basophils (%) (Auto) 0.5 % Neutrophils # (Auto) 1.71 K/uL Lymphocytes # (Auto) 1.28 K/uL Monocytes # (Auto) 0.47 K/uL Eosinophils # (Auto) 0.20 K/uL Basophils # (Auto) 0.02 K/uL RDW Standard Deviation 45.7 fL RDW Coefficient of Variation 14.6 % Immature Granulocyte % (Auto) 0.0 % Immature Granulocyte # (Auto) 0.00 K/uL Sodium Level 131 mmol/L Potassium Level 3.7 mmol/L Chloride Level 96 mmol/L Carbon Dioxide Level 27 mmol/L Anion Gap 8.0 mmol/L Blood Urea Nitrogen 9 mg/dl Creatinine 0.38 mg/dl Est Creatinine Clear Calc Drug Dose 95.3 ml/min Estimated GFR () 111.2 Estimated GFR (Non- 95.9 BUN/Creatinine Ratio 22.5 Random Glucose 97 mg/dl Calcium Level 8.2 mg/dl Phosphorus Level 3.3 mg/dl Magnesium Level 1.9 mg/dl Assessment and Plan 86 y/o F Hx HTN, anxiety disorder. Pt was found hanging out of her bed with her face on the ground, covered in black-colored vomit by her . She was additionally incontinent of stool and urine. She was moving all extremities but unresponsive when EMS arrived at her home. She had apparently been to the ER 5 days earlier c/o constipation and was DCd with instructions to take Miralax. Initial labs are notable for a sodium of 117. Her Sodium 5 days prior was 133. She cannot respond to any questioning. Her is present at bedside to provide the preceding information. 1) Metabolic Encephalopathy in apatient with hyponatremia. Patient may have had a hyponatremic related seizure. Patient has been downgraded from the unit Patient appears to be at baseline. IVF has been stopped Mental status has also been improving. Has also been tolerating diet. Stopped NG tube feeding 2) Black-colored emesis - Hemoglobin has been gradually declining but it is likely related to her hydration. No significant drop from yesterday 3) HTN - On metoprolol IV PRN Has not required a dose. . 4) UTI - will continue ceftriaxone. cultures showed e. coli. awaiting sensitivities Full code - SCDs Awaiting PT eval Continued [facility] stay due to: home environment unsafe for pt Discharge planning: uncertain
[2017-08-04] MEDS: ENOXAPARIN 30 MG/0.3 ML SYR SQ SCH (13:55)
[2017-08-04 15:11] VITALS: BP 152/66; PULSE 67; TEMP 36.3; O2SAT 98
[2017-08-04 16:00] VITALS: O2SAT 98
[2017-08-04] MEDS ORDERED: NURSING VERBAL MED ORDER ONE (19:45)
[2017-08-04] MEDS ORDERED: LACTULOSE SYRUP 10 GM/15 ML BTL 473 ML PO PRN (19:45)
[2017-08-04] MEDS: ACETAMINOPHEN 325 MG TAB PO PRN (20:00)
[2017-08-05 00:01] VITALS: BP 149/70; PULSE 73; TEMP 36.6; O2SAT 95
[2017-08-05] MEDS: ALPRAZOLAM 0.25 MG TAB PO PRN ×2 (03:30→08:44)
[2017-08-05 06:55] LABS: BASO % 0.6 %; BASO ABS # 0.02 K/uL (0-0.2); EOS % 7.2 %; EOS ABS # 0.26 K/uL (0-0.5); HEMATOCRIT 33.5 % (37-47); HEMOGLOBIN 11.8 g/dL (12.0-16.0); IG# 0.01 K/uL (0.00-0.02); LYMPH % 37.6 %; LYMPH ABS # 1.36 K/uL (1.2-3.4); MEAN CELL VOLUME 85.9 fL (80-100); MEAN CORPUSCULAR HEMOGLOBIN 30.3 pg (25-34); MEAN CORPUSCULAR HGB CONC 35.2 g/dl (32-36); MEAN PLATELET VOLUME 9.2 fL (7.4-10.4); MONO % 12.2 %; MONO ABS # 0.44 K/uL (0.11-0.59); NEUT % 42.1 %; NEUT ABS # 1.53 K/uL (1.4-6.5); PLATELET COUNT 227 K/uL (130-400); RED CELL DISTRIBUTION WIDTH CV 14.8 % (11.5-14.5); RED CELL DISTRIBUTION WIDTH SD 45.6 fL (36.4-46.3); WHITE BLOOD COUNT 3.62 K/uL (4.8-10.8)
[2017-08-05 07:06] LABS: CALCIUM 8.3 mg/dl (8.5-10.1); CREATININE 0.34 mg/dl (0.60-1.20); PHOSPHORUS 3.3 mg/dl (2.5-4.9); POTASSIUM 3.6 mmol/L (3.5-5.1)
[2017-08-05 07:47] VITALS: BP 137/75; PULSE 74; TEMP 36.7; O2SAT 96
[2017-08-05 08:01] VITALS: O2SAT 98
--- NOTE | 2017-08-05 08:29 | Progress Note ---
Subjective Date of Service: Aug 04, 2017. Subjective Pt evaluation today including: conversation w/ patient Patient is more awake today. As per nursing, she is able to eat her meals She seems preoccupied with her xanax however. was questioned as to why she is hyponatremic initially. I explained that it has resolved and likely from UTI and poor oral intake. Problem List Medical Problems: (1) Acute bronchitis Status: Acute (2) Altered mental status Status: Acute (3) Ambulatory dysfunction Status: Acute (4) Anxiety Status: Acute (5) Generalized weakness Status: Acute (6) Hyponatremia Status: Acute (7) Laryngitis Status: Acute (8) Persistent cough Status: Acute (9) Syncope Status: Acute (10) Systolic congestive heart failure Status: Acute (11) Urinary tract infection Status: Acute (12) UTI (urinary tract infection) Status: Acute (13) Weakness Status: Acute Review of Systems All Other Systems: Reviewed and Negative Objective Vital Signs Date Time Temp Pulse Resp B/P (MAP) Pulse Ox O2 Delivery O2 Flow Rate FiO2 08/05/17 07:47 36.7 74 20 137/75 (95) 96 Room Air 08/05/17 00:50 Room Air 08/05/17 00:01 36.6 73 20 149/70 (96) 95 Room Air 08/04/17 16:00 98 Room Air 08/04/17 15:11 36.3 67 20 152/66 (94) 98 Room Air 08/04/17 08:40 Room Air Physical Exam Comments: General Appearance: Thin, elderly female, more awake today Head: NC/AT Neck: supple, no adenopathy Respiratory/Chest: lungs are clear Cardiovascular: regular rate, rhythm, no gallop, no JVD, no murmur Abdomen/GI: normal bowel sounds, non tender, soft Genitourinary - Female: +cloudy urine in serrano Back: no CVA tenderness, no muscle spasm Extremities/Musculoskelatal: normal inspection, no calf tenderness, + pedal edema Neurologic/Psych: Awake, follows commands Skin: normal color, warm/dry Laboratory Results Last 24 Hours Test 08/05/17 05:39 White Blood Count 3.62 K/uL Red Blood Count 3.90 M/uL Hemoglobin 11.8 g/dL Hematocrit 33.5 % Mean Corpuscular Volume 85.9 fL Mean Corpuscular Hemoglobin 30.3 pg Mean Corpuscular Hemoglobin Concent 35.2 g/dl Platelet Count 227 K/uL Mean Platelet Volume 9.2 fL Neutrophils (%) (Auto) 42.1 % Lymphocytes (%) (Auto) 37.6 % Monocytes (%) (Auto) 12.2 % Eosinophils (%) (Auto) 7.2 % Basophils (%) (Auto) 0.6 % Neutrophils # (Auto) 1.53 K/uL Lymphocytes # (Auto) 1.36 K/uL Monocytes # (Auto) 0.44 K/uL Eosinophils # (Auto) 0.26 K/uL Basophils # (Auto) 0.02 K/uL RDW Standard Deviation 45.6 fL RDW Coefficient of Variation 14.8 % Immature Granulocyte % (Auto) 0.3 % Immature Granulocyte # (Auto) 0.01 K/uL Sodium Level 134 mmol/L Potassium Level 3.6 mmol/L Chloride Level 98 mmol/L Carbon Dioxide Level 28 mmol/L Anion Gap 8.0 mmol/L Blood Urea Nitrogen 8 mg/dl Creatinine 0.34 mg/dl Est Creatinine Clear Calc Drug Dose 109.5 ml/min Estimated GFR () 115.3 Estimated GFR (Non- 99.5 BUN/Creatinine Ratio 22.4 Random Glucose 93 mg/dl Calcium Level 8.3 mg/dl Phosphorus Level 3.3 mg/dl Magnesium Level 2.0 mg/dl Assessment and Plan 86 y/o F Hx HTN, anxiety disorder. Pt was found hanging out of her bed with her face on the ground, covered in black-colored vomit by her . She was additionally incontinent of stool and urine. She was moving all extremities but unresponsive when EMS arrived at her home. She had apparently been to the ER 5 days earlier c/o constipation and was DCd with instructions to take Miralax. Initial labs are notable for a sodium of 117. Her Sodium 5 days prior was 133. She cannot respond to any questioning. Her is present at bedside to provide the preceding information. 1) Metabolic Encephalopathy in apatient with hyponatremia. Patient may have had a hyponatremic related seizure. Patient has been downgraded from the unit Patient appears to be at baseline. IVF has been stopped Sodium improved Mental status has also been improving. Has also been tolerating diet. Stopped NG tube feeding 2 days ago. 2) Black-colored emesis - Hemoglobin has been gradually declining but it is likely related to her hydration. No significant drop from yesterday 3) HTN - On metoprolol IV PRN Has not required a dose. . 4) UTI - On ceftraixone initially. Switched to cephalexin yesterday. 5)Insomina and anxiety Appears she is on xanax .25 mg PO BID at home. will cont. xanax here. Full code - SCDs Requires Rehab. Awaiting approval and placement. Continued [facility] stay due to: multiple IV medications needed Discharge planning: uncertain
[2017-08-05] MEDS: CEPHALEXIN MONOHYDRATE 500 MG CAP PO SCH ×2 (08:39→20:15)
[2017-08-05] MEDS: ENOXAPARIN 30 MG/0.3 ML SYR SQ SCH (13:18)
[2017-08-05] MEDS ORDERED: NURSING VERBAL MED ORDER ONE (15:00)
[2017-08-05 15:29] VITALS: BP 126/73; PULSE 68; TEMP 36.4; O2SAT 99
[2017-08-05 15:30] VITALS: O2SAT 99
[2017-08-05] MEDS: ACETAMINOPHEN 325 MG TAB PO PRN (20:13)
[2017-08-05] MEDS: ALPRAZOLAM 0.25 MG TAB PO SCH (20:14)
[2017-08-05] MEDS: DOCUSATE SODIUM 100 MG CAP PO SCH (20:16)
--- NOTE | 2017-08-05 23:48 | Progress Note ---
Subjective Date of Service: Aug 05, 2017. Subjective Pt evaluation today including: conversation w/ patient Patient is a poor historian. No significant change from day prior. Problem List Medical Problems: (1) Acute bronchitis Status: Acute (2) Altered mental status Status: Acute (3) Ambulatory dysfunction Status: Acute (4) Anxiety Status: Acute (5) Generalized weakness Status: Acute (6) Hyponatremia Status: Acute (7) Laryngitis Status: Acute (8) Persistent cough Status: Acute (9) Syncope Status: Acute (10) Systolic congestive heart failure Status: Acute (11) Urinary tract infection Status: Acute (12) UTI (urinary tract infection) Status: Acute (13) Weakness Status: Acute Review of Systems All Other Systems: Reviewed and Negative Medications Current Inpatient Medications Medications (Trade) Dose Ordered Sig/Jennifer Route Start Time Stop Time Status Last Admin Dose Admin Acetaminophen (Tylenol Tab) 650 mg Q4H PRN PO 07/31/17 06:45 08/30/17 06:44 08/05/17 20:13 650 MG Lorazepam (Ativan Inj) 0.5 mg Q4H PRN IV 07/31/17 06:45 08/30/17 06:44 Morphine Sulfate (MoRPHine SULFATE INJ) 4 mg Q2H PRN IV 07/31/17 06:45 08/14/17 06:44 Heparin Sodium (Porcine) (Heparin 10 Unit/ ml 5 ml Flush) 5 ml PRN PRN FLUSH 07/31/17 09:15 08/30/17 09:14 08/04/17 05:15 5 ML Acetaminophen 650 mg/Empty Bag 65 ml @ 260 mls/hr Q6H PRN IV 07/31/17 20:00 08/30/17 19:59 07/31/17 20:40 260 MLS/HR Metoprolol Tartrate (Lopressor Iv) 5 mg Q6H PRN IV 08/01/17 08:45 08/31/17 08:44 Enoxaparin Sodium (Lovenox Inj) 30 mg DAILY@1400 SQ 08/01/17 15:00 08/31/17 14:59 08/05/17 13:18 30 MG Cephalexin Monohydrate (Keflex Cap) 500 mg BID PO 08/03/17 20:00 08/13/17 19:59 08/05/17 20:15 500 MG Lactulose (Chronulac Syrup) 10 gm Q12H PRN PO 08/04/17 19:45 09/03/17 19:44 Alprazolam (Xanax Tab) 0.25 mg BID PO 08/05/17 20:00 09/04/17 19:59 08/06/17 06:17 0.25 MG Docusate Sodium (coLACE CAP) 100 mg BID PO 08/05/17 20:00 09/04/17 19:59 08/05/17 20:16 100 MG Objective Vital Signs Date Time Temp Pulse Resp B/P (MAP) Pulse Ox O2 Delivery O2 Flow Rate FiO2 08/05/17 15:30 99 Room Air 08/05/17 15:29 36.4 68 20 126/73 (90) 99 08/05/17 08:01 98 Room Air 08/05/17 07:47 36.7 74 20 137/75 (95) 96 Room Air 08/05/17 00:50 Room Air 08/05/17 00:01 36.6 73 20 149/70 (96) 95 Room Air Physical Exam Comments: General Appearance: Thin, elderly female, awake Head: NC/AT Neck: supple, no adenopathy Respiratory/Chest: lungs are clear Cardiovascular: regular rate, rhythm, no gallop, no JVD, no murmur Abdomen/GI: normal bowel sounds, non tender, soft Genitourinary - Female: less cloudy urine in serrano Back: no CVA tenderness, no muscle spasm Extremities/Musculoskelatal: normal inspection, no calf tenderness, + pedal edema Neurologic/Psych: + pertinent finding (Exam is limited - moves all extremities ) Skin: normal color, warm/dry Laboratory Results Last 24 Hours Test 08/05/17 05:39 White Blood Count 3.62 K/uL Red Blood Count 3.90 M/uL Hemoglobin 11.8 g/dL Hematocrit 33.5 % Mean Corpuscular Volume 85.9 fL Mean Corpuscular Hemoglobin 30.3 pg Mean Corpuscular Hemoglobin Concent 35.2 g/dl Platelet Count 227 K/uL Mean Platelet Volume 9.2 fL Neutrophils (%) (Auto) 42.1 % Lymphocytes (%) (Auto) 37.6 % Monocytes (%) (Auto) 12.2 % Eosinophils (%) (Auto) 7.2 % Basophils (%) (Auto) 0.6 % Neutrophils # (Auto) 1.53 K/uL Lymphocytes # (Auto) 1.36 K/uL Monocytes # (Auto) 0.44 K/uL Eosinophils # (Auto) 0.26 K/uL Basophils # (Auto) 0.02 K/uL RDW Standard Deviation 45.6 fL RDW Coefficient of Variation 14.8 % Immature Granulocyte % (Auto) 0.3 % Immature Granulocyte # (Auto) 0.01 K/uL Sodium Level 134 mmol/L Potassium Level 3.6 mmol/L Chloride Level 98 mmol/L Carbon Dioxide Level 28 mmol/L Anion Gap 8.0 mmol/L Blood Urea Nitrogen 8 mg/dl Creatinine 0.34 mg/dl Est Creatinine Clear Calc Drug Dose 109.5 ml/min Estimated GFR () 115.3 Estimated GFR (Non- 99.5 BUN/Creatinine Ratio 22.4 Random Glucose 93 mg/dl Calcium Level 8.3 mg/dl Phosphorus Level 3.3 mg/dl Magnesium Level 2.0 mg/dl Assessment and Plan 86 y/o F Hx HTN, anxiety disorder. Pt was found hanging out of her bed with her face on the ground, covered in black-colored vomit by her . She was additionally incontinent of stool and urine. She was moving all extremities but unresponsive when EMS arrived at her home. She had apparently been to the ER 5 days earlier c/o constipation and was DCd with instructions to take Miralax. Initial labs are notable for a sodium of 117. Her Sodium 5 days prior was 133. She cannot respond to any questioning. Her is present at bedside to provide the preceding information. 1) Metabolic Encephalopathy in apatient with hyponatremia. Patient may have had a hyponatremic related seizure. Patient has been downgraded from the unit Patient appears to be at baseline. IVF has been stopped Sodium improved Mental status has also been improving. Has also been tolerating diet. Stopped NG tube feeding 2 days ago. 2) Black-colored emesis - Hemoglobin has been gradually declining but it is likely related to her hydration. No significant drop from yesterday 3) HTN - On metoprolol IV PRN Has not required a dose. . 4) UTI - On ceftriaxone initially. Switched to cephalexin on /2 5)Insomina and anxiety Appears she is on xanax .25 mg PO BID at home. will cont. xanaxand place on same dose. Full code - SCDs Requires Rehab. Awaiting approval and placement. Continued [facility] stay due to: home environment unsafe for pt Discharge planning: uncertain
[2017-08-06] VITALS (8 sets, daily range): BP systolic 123–137; BP diastolic 67–78; PULSE 72–97; TEMP 36.4–36.8; O2SAT 96–99
[2017-08-06] MEDS: ALPRAZOLAM 0.25 MG TAB PO SCH (06:17)
[2017-08-06] MEDS: DOCUSATE SODIUM 100 MG CAP PO SCH ×2 (07:39→19:54)
[2017-08-06] MEDS: CEPHALEXIN MONOHYDRATE 500 MG CAP PO SCH ×2 (07:39→19:54)
--- NOTE | 2017-08-06 09:44 | Progress Note ---
Subjective Date of Service: Aug 06, 2017. Subjective Pt evaluation today including: conversation w/ patient, conversation w/ family Pt states she has felt "dopey" since taking a medication this AM. She is not sure what the medication was, but it was around 6am. states pt is still a bit confused, but nothing like [employer]. He feels she is moving back towards her baseline. Pt states she ate well today. Pt denies fever, SOB, chest pain, abd pain, n/v/c/d, LE pain or swelling. Problem List Medical Problems: (1) Acute bronchitis Status: Acute (2) Altered mental status Status: Acute (3) Ambulatory dysfunction Status: Acute (4) Anxiety Status: Acute (5) Generalized weakness Status: Acute (6) Hyponatremia Status: Acute (7) Laryngitis Status: Acute (8) Persistent cough Status: Acute (9) Syncope Status: Acute (10) Systolic congestive heart failure Status: Acute (11) Urinary tract infection Status: Acute (12) UTI (urinary tract infection) Status: Acute (13) Weakness Status: Acute Review of Systems All Other Systems: Reviewed and Negative Objective Vital Signs Date Time Temp Pulse Resp B/P (MAP) Pulse Ox O2 Delivery O2 Flow Rate FiO2 08/06/17 07:59 36.7 77 16 137/67 (90) 97 Room Air 08/06/17 00:41 36.8 97 18 123/73 (90) 97 Room Air 08/06/17 00:00 99 Room Air 08/05/17 15:30 99 Room Air 08/05/17 15:29 36.4 68 20 126/73 (90) 99 Physical Exam General Appearance: no apparent distress, + thin Eyes: normal inspection, sclerae normal Respiratory/Chest: normal breath sounds, no respiratory distress Cardiovascular: regular rate, rhythm, no edema Abdomen: non tender, soft Extremities: non-tender, no pedal edema Neurologic/Psychiatric: alert, oriented x 3 Skin: normal color, warm/dry Assessment and Plan 86 y/o F Hx HTN, anxiety disorder. Pt was found hanging out of her bed with her face on the ground, covered in black-colored vomit by her . She was additionally incontinent of stool and urine. She was moving all extremities but unresponsive when EMS arrived at her home. She had apparently been to the ER 5 days earlier c/o constipation and was DCd with instructions to take Miralax. Initial labs are notable for a sodium of 117. Her Sodium 5 days prior was 133. She could respond to any questioning at that time. Her was present on admission to provide the preceding information. Metabolic Encephalopathy: likely related to hyponatremia with possible involvement from UTI Patient may have had a hyponatremic related seizure. Patient appears to be close to baseline per IVF has been stopped Sodium improved Mental status has also been improving. Has also been tolerating diet. Stopped NG tube feeding Flu swab neg Black-colored emesis - Hemoglobin has been gradually declining but it is likely related to her hydration. No significant drop HTN - On metoprolol IV PRN Has not required a dose. . UTI - On ceftriaxone initially. Switched to cephalexin on 08/03 Noted for R to cipro, levaquin, and gentamicin Blood cx neg Insomina and anxiety pt has been feeling "dopey" since receiving xanax Listed as PRN prior Will change from WADE to PRN and monitor Full code - SCDs Requires Rehab. Awaiting approval and placement. 's preference is [facility] due to proximity to home and familiarity with the facility Continued [facility] stay due to: home environment unsafe for pt Discharge planning: uncertain
[2017-08-06] MEDS: ACETAMINOPHEN 325 MG TAB PO PRN ×2 (10:13→19:55)
[2017-08-06] MEDS: ENOXAPARIN 30 MG/0.3 ML SYR SQ SCH (13:53)
[2017-08-06] MEDS ORDERED: ALPRAZOLAM 0.25 MG TAB PO PRN (20:00)
[2017-08-07] MEDS ORDERED: LORAZEPAM INJ 0.5 MG in SYRINGE 0.75 ML IV PRN (01:00)
[2017-08-07 07:41] VITALS: BP 127/71; PULSE 78; TEMP 36.7; O2SAT 96
[2017-08-07] MEDS: DOCUSATE SODIUM 100 MG CAP PO SCH (08:20)
[2017-08-07] MEDS: CEPHALEXIN MONOHYDRATE 500 MG CAP PO SCH (08:20)
[2017-08-07 09:43] LABS: HEMATOCRIT 39.1 % (37-47); HEMOGLOBIN 13.1 g/dL (12.0-16.0); MEAN CELL VOLUME 88.3 fL (80-100); MEAN CORPUSCULAR HEMOGLOBIN 29.6 pg (25-34); MEAN CORPUSCULAR HGB CONC 33.5 g/dl (32-36); MEAN PLATELET VOLUME 8.9 fL (7.4-10.4); PLATELET COUNT 233 K/uL (130-400); RED CELL DISTRIBUTION WIDTH CV 14.8 % (11.5-14.5); RED CELL DISTRIBUTION WIDTH SD 47.9 fL (36.4-46.3); WHITE BLOOD COUNT 7.83 K/uL (4.8-10.8)
[2017-08-07 10:06] LABS: CALCIUM 8.4 mg/dl (8.5-10.1); CREATININE 0.53 mg/dl (0.60-1.20); POTASSIUM 3.8 mmol/L (3.5-5.1)
[2017-08-07 15:06] VITALS: BP 127/71; PULSE 78; TEMP 36.7; O2SAT 96
[2017-08-07 15:10] VITALS: BP 111/73; PULSE 71; TEMP 36.8; O2SAT 98
[2017-08-07] MEDS ORDERED: CLC100 PO (15:58)
[2017-08-07] MEDS ORDERED: KFL500 PO (15:58)
--- NOTE | 2017-08-07 16:00 | Discharge Instructions ---
Discharge Instructions Date of Service Aug 07, 2017. Admission Reason for Admission: Hyponatremia, Unresponsiveness Discharge Discharge Diagnosis / Problem: Hyponatremia, UTI Discharge Goals Goal(s): Decrease discomfort, Improve function, Increase independence Activity Recommendations Activity Level: Assistance Required Therapies: Physical Therapy, Occupational Therapy, Speech Therapy . Additional Information Patient informed of condition: Yes Advance Directives: Yes DNR: Yes Level of Care: Acute Rehab Communicable Disease: No Prognosis: Improving Banuelos Catheter: Yes Instructions / Follow-Up Instructions / Follow-Up Dr. Rogers in 1 week Current Hospital Diet Patient's current hospital diet: Regular Diet Discharge Diet Recommended Diet: Regular Diet Diet Texture: Mechanical Soft (ground) (slippery with thin liquids) Pending Studies Studies pending at discharge: no Physician Orders On Transfer Additional Orders: PRP on 08/08/17 Medical Emergencies . Who to Call and When: Medical Emergencies: If at any time you feel your situation is an emergency, please call 911 immediately. . Non-Emergent Contact Non-Emergency issues call your: Primary Care Provider . . "Provider Documentation" section prepared by Fide Medina. . Core Measure Problem Core Measures: None
--- NOTE | 2017-08-07 16:18 | Discharge Summary ---
Discharge Summary Date of Service Aug 07, 2017. Discharge Summary Admission Date: Jul 31, 2017 at 06:39 Discharge Date: Aug 07, 2017 Discharge Disposition: Rehab Principal Diagnosis: HypoNa, UTI Problems/Secondary Diagnoses: Fall Unresponsive episode HTN Anxiety Cognitive impairment/dementia Hx of colon ca Immunizations: Have You Had Influenza Vaccine: No Influenza Vaccine Date: Mar 04, 2011 History of Tetanus Vaccine?: UNK History of Pneumococcal: Yes Pneumococcal Date: Jul 29, 2011 History of Hepatitis B Vaccine: No Medication Reconciliation New Medications: Cephalexin Monohydrate (Cephalexin) 500 Mg Cap 500 MG PO BID for 7 Days, #14 CAP Docusate Sodium (Docusate Sodium) 100 Mg Cap 100 MG PO BID for 30 Days, CAP Continued Medications: Acetaminophen (Tylenol) 500 Mg Tab 500 MG PO HS, TAB Acetaminophen (Tylenol) 325 Mg Tab 650 MG PO Q6H PRN for Pain, TAB Alprazolam (Alprazolam) 0.25 Mg Tab 0.25 MG PO DIRECTED TAKE 1 TAB TWICE DAILY. TAKE AND ADDITIONAL TAB NEEDED FOR ANXIETY Lisinopril (Zestril) 10 Mg Tab 2.5 MG PO DAILY, TAB Melatonin (Kp Melatonin) 3 Mg Tab 3 MG PO HS, TAB Mirtazapine (Mirtazapine) 15 Mg Tab 15 MG PO HS Multiple Vitamin (Multivitamin) 1 Tab Tab 1 TAB PO DAILY, TAB Sennosides-Docusate Sodium (Senna S) 1 Tab Tab 1 TAB PO DAILY Venlafaxine Hcl (Venlafaxine Extended Rel) 75 Mg Cap 75 MG PO DAILY, CAP Discharge Exam Pt still feels a bit "dopey". No xanax last night, but was given ativan. Eating well. Pt denies fever, SOB, chest pain, abd pain, n/v/c/d, LE pain or swelling. Physical Exam: General Appearance: no apparent distress, + thin Eyes: normal inspection, sclerae normal Respiratory/Chest: normal breath sounds, no respiratory distress Cardiovascular: regular rate, rhythm, no edema Abdomen / GI: non tender, soft Extremities: no calf tenderness, no pedal edema Neurologic/Psychiatric: alert, oriented x 3 Skin: normal color, warm/dry Hospital Course 86 y/o F Hx HTN, anxiety disorder. Pt was found hanging out of her bed with her face on the ground, covered in black-colored vomit by her . She was additionally incontinent of stool and urine. She was moving all extremities but unresponsive when EMS arrived at her home. She had apparently been to the ER 5 days earlier c/o constipation and was DCd with instructions to take Miralax. Initial labs are notable for a sodium of 117. Her Sodium 5 days prior was 133. She could respond to any questioning at that time. Her was present on admission to provide the preceding information. Metabolic Encephalopathy: likely related to hyponatremia with possible involvement from UTI Patient may have had a hyponatremic related seizure at home, however there was no witness to suggest this and no issues during hospitalization Patient is close to baseline per Sodium improved to 134, but was at 131 today. Repeat tomorrow. May need t/c 500mg salt tab daily to monitor if Na is lower tomorrow. Has also been tolerating diet. Ws on NG tube feeding until 2 days [employer], may need t/c this at a later date if PO intake becomes an issue again. Flu swab neg Black-colored emesis - Hemoglobin had been gradually declining but it is likely related to her hydration status. Now up to 13.1 on 08/07 There was no significant drop HTN - Stable on lisinopril . UTI - On ceftriaxone initially but was switched to cephalexin on 08/03 and will complete 14 total days of abx as outpt Cx noted for R to cipro, levaquin, and gentamicin Blood cx neg Insomina and anxiety pt has been feeling "dopey" since receiving xanax BID scheduled. This is a PRN medication was not in today due to feeling a bit ill himself. Case management spoke with daughter and they are in agreement with [facility] as it is "in our back yard". Pt had a PICC in place. This was d/c'd prior to discharge today. Total Time Spent: Greater than 30 minutes This includes examination of the patient, discharge planning, medication reconciliation, and communication with other providers. Discharge Instructions Please refer to the electronic Patient Visit Report (Discharge Instructions) for additional information. Follow-Up Dr. Rogers in 1 week Additional Copies To Angelito Rogers M.D.
[2017-08-07] MEDS: ENOXAPARIN 30 MG/0.3 ML SYR SQ SCH (16:50)
--- NOTE | 2017-08-09 13:03 | EDITING REQUIRED CODING QUERY ---
BMI To promote full compliance with coding requirements relating to patient care, physician participation is requested in all cases of activities aide uncertainty. Please assist us with the question(s) below: Please place an X within the parenthesis (x). If other, please document: BMI 19.0 was documented in this record for this patient. If the BMI is significant, please check the box that provides a more specific associated diagnosis: ( ) Overweight/Obese ( ) Obesity ( ) Morbid obesity ( ) Obesity Hypoventilation Syndrome (OHS) ( ) Heathy weight, not significant ( X ) Underweight/Thin ( ) Other, please specify Thank you Evelyn Guillen
== END 2017-08-07 18:39 | DRG 640 ==
LOC: EDBD 05:18 → C.EDB 05:22 → C.MSICU 06:39 → ENRESERV 06:57 → CANRESERV 08-02 09:04 → ENRESERV 08-02 09:04 → C.4E 08-02 09:40
PROVIDERS: ADMIT Internal Medicine; ATTEND Family Medicine
PROC: 02HV33Z Insertion of Infusion Device into Superior Vena Cava, Percutaneous Approach (ICD-10-PCS; principal; 2017-07-31)
DX: E87.1 Hypo-osmolality and hyponatremia (principal); G93.41 Metabolic encephalopathy; N39.0 Urinary tract infection, site not specified; Z68.1 Body mass index [BMI] 19.9 or less, adult; I10 Essential (primary) hypertension; M19.90 Unspecified osteoarthritis, unspecified site; G47.00 Insomnia, unspecified; G31.84 Mild cognitive impairment of uncertain or unknown etiology; F41.1 Generalized anxiety disorder; E78.5 Hyperlipidemia, unspecified; I35.8 Other nonrheumatic aortic valve disorders; R63.6 Underweight; R11.10 Vomiting, unspecified; Z96.649 Presence of unspecified artificial hip joint; Z85.038 Personal history of other malignant neoplasm of large intestine; Z90.49 Acquired absence of other specified parts of digestive tract; Z80.9 Family history of malignant neoplasm, unspecified; Z88.2 Allergy status to sulfonamides; Z88.6 Allergy status to analgesic agent

== ENCOUNTER → 2017-08-28 | Outpatient (CLI) | payer OTHER, MEDICARE ==
[~2017-08-28] MED LIST changes: -CHOL2000 PO; +CLC100 PO; -ESCI10TA17 PO; -FERR325T18 PO; +KFL500 PO; -MGCL40 PO; -QUET1TAB30 PO
[2017-08-28 16:39] LABS: BLOOD UREA NITROGEN 13 mg/dl (7-18); CALCIUM 9.1 mg/dl (8.5-10.1); CARBON DIOXIDE 27 mmol/L (21-32); CREATININE 0.58 mg/dl (0.60-1.20); GLUCOSE 101 mg/dl (70-99); SODIUM 131 mmol/L (136-145)
== END | disposition home or self-care (01) ==
LOC: C.LABBFT 15:11
PROVIDERS: ATTEND Internal Medicine
DX: E87.1 Hypo-osmolality and hyponatremia (principal)

== ENCOUNTER → 2017-09-06 | Outpatient (CLI) | payer OTHER, MEDICARE ==
--- NOTE | 2017-09-06 13:01 | DIAGNOSTIC IMAGING REPORT ---
THYROID ULTRASOUND CLINICAL HISTORY: Thyroid nodule. COMPARISON STUDY: Cervical spine CT July 31, 2017. TECHNIQUE: Sonography of the thyroid gland was performed. FINDINGS: The right thyroid lobe measures 5 x 1 x 1.4 cm and the left thyroid lobe measures 4.2 x 1.6 x 1.6 cm. Multiple subcentimeter right lobe thyroid nodules are noted, the majority of which likely reflect colloid cysts. No suspicious nodules are noted within the right thyroid lobe. There is an isoechoic nodule that measures 1.7 x 0.9 x 1.3 cm within the lower pole of the left thyroid lobe which corresponds to a nodule shown on CT of the cervical spine from July 31, 2017. This nodule has echogenic foci which could reflect colloid or microcalcifications. IMPRESSION: Multiple thyroid nodules, the largest of which is a 1.7 cm left lower pole thyroid nodule which contains echogenic foci which may reflect colloid or microcalcifications. Ultrasound-guided fine needle aspiration of this nodule could be considered based on size criteria. Alternatively, a one year follow-up ultrasound could be obtained. Electronically signed by: Tomas Bond M.D. 09/06/2017 12:59 PM Dictated Date/Time: 09/06/2017 12:51 PM
== END | disposition home or self-care (01) ==
LOC: C.ULTR 12:09
PROVIDERS: ATTEND Internal Medicine
DX: E04.1 Nontoxic single thyroid nodule (principal)

== ENCOUNTER → 2017-09-11 | Outpatient (CLI) | payer OTHER, MEDICARE ==
[2017-09-11 17:08] LABS: BLOOD UREA NITROGEN 12 mg/dl (7-18); CALCIUM 9.3 mg/dl (8.5-10.1); CARBON DIOXIDE 28 mmol/L (21-32); CREATININE 0.56 mg/dl (0.60-1.20); GLUCOSE 113 mg/dl (70-99); POTASSIUM 4.3 mmol/L (3.5-5.1); SODIUM 131 mmol/L (136-145)
== END | disposition home or self-care (01) ==
LOC: C.LABBFT 15:45
PROVIDERS: ATTEND Physician Assistant Medical
DX: E87.1 Hypo-osmolality and hyponatremia (principal)

== ENCOUNTER → 2017-12-25 | Outpatient (CLI) | payer OTHER, MEDICARE ==
[~2017-12-25] MED LIST changes: -ACET-1311 PO; +ACET-1693 PO; +ALPR0.254 PO; +ASCO250T4 PO; +ASPI-461 PO; -CLC100 PO; +CPR500 PO; +FERR1TAB62 PO; -KFL500 PO; -LISI-461 PO; +MOML PO; +MRLP17X PO; +MTR500 PO; +PRNJ PO; +SODIENE PR; +TRAM-10 PO; +ULT50X PO; -VENL75CA73 PO; +VLTG EXT; -XNX25 PO; +[UNRECOGNIZED DRUG - MIXTURE] PO; +[UNRECOGNIZED DRUG - OTHER] PO
--- NOTE | 2018-01-04 08:27 | CODING QUERY NO DIAGNOSIS ---
Valid Physician Order Needed A valid physician order must be submitted in order to properly bill for the service(s) provided, including date of service(s), valid diagnosis, and physician signature. If these tests are done on a recurring basis the original physician order must be submitted in order to code and bill for the service(s) provided. Please fax us the original, signed physician order so that we may expedite billing to [phone] DOS 12/25/17 * UA CLEAN CATCH * URINE CULTURE CLEAN CATCH Thank you [facility] Information Management
== END ==
LOC: C.LABSPEC 17:28 → EDSTATUS 01-02 15:36
PROVIDERS: ATTEND Physician Assistant Medical
DX: R41.82 Altered mental status, unspecified (principal)

== ENCOUNTER → 2017-12-26 | Outpatient (CLI) | payer OTHER ==
[~2017-12-26] MED LIST changes: -ASPI-461 PO
[2017-12-26 08:44] LABS: BASO % 0.6 %; BASO ABS # 0.02 K/uL (0-0.2); EOS % 1.9 %; EOS ABS # 0.06 K/uL (0-0.5); HEMATOCRIT 38.5 % (37-47); HEMOGLOBIN 12.4 g/dL (12.0-16.0); LYMPH % 34.3 %; LYMPH ABS # 1.09 K/uL (1.2-3.4); MEAN CELL VOLUME 92.3 fL (80-100); MEAN CORPUSCULAR HEMOGLOBIN 29.7 pg (25-34); MEAN CORPUSCULAR HGB CONC 32.2 g/dl (32-36); MEAN PLATELET VOLUME 8.8 fL (7.4-10.4); MONO % 11.9 %; MONO ABS # 0.38 K/uL (0.11-0.59); NEUT % 51.3 %; NEUT ABS # 1.63 K/uL (1.4-6.5); PLATELET COUNT 277 K/uL (130-400); RED CELL DISTRIBUTION WIDTH CV 14.8 % (11.5-14.5); RED CELL DISTRIBUTION WIDTH SD 50.4 fL (36.4-46.3); WHITE BLOOD COUNT 3.18 K/uL (4.8-10.8)
[2017-12-26 08:57] LABS: ALBUMIN 2.5 gm/dl (3.4-5.0); ALKALINE PHOSPHATASE 53 U/L (45-117); ALT/SGPT 12 U/L (12-78); AST/SGOT 15 U/L (15-37); BLOOD UREA NITROGEN 14 mg/dl (7-18); CALCIUM 8.4 mg/dl (8.5-10.1); CARBON DIOXIDE 28 mmol/L (21-32); CREATININE 0.34 mg/dl (0.60-1.20); GLUCOSE 88 mg/dl (70-99); POTASSIUM 3.6 mmol/L (3.5-5.1); SODIUM 137 mmol/L (136-145); TOTAL PROTEIN 5.6 gm/dl (6.4-8.2)
== END ==
LOC: C.LABCC 08:15
PROVIDERS: ATTEND Internal Medicine
DX: D64.9 Anemia, unspecified (principal); I10 Essential (primary) hypertension

== ENCOUNTER → 2017-12-29 | Outpatient (CLI) | payer OTHER ==
[~2017-12-29] MED LIST changes: +ASPI-461 PO
== END ==
LOC: C.LABCC 10:42
PROVIDERS: ATTEND Internal Medicine
DX: R10.32 Left lower quadrant pain (principal)